=== PATIENT | male | born 1935 | race Caucasian/White ===

== ENCOUNTER 2017-05-01 09:19 | Inpatient (IN) | payer OTHER ==
[2017-05-01] MEDS ORDERED: SODIUM CHLORIDE 1,000 ML IV STA ×3 (09:24→13:53)
[2017-05-01] MEDS ORDERED: PIPERACILLIN/TAZOB 4.5 GM/100 ML PRE-DOCKED IVPB ONE (09:27)
[2017-05-01] MEDS ORDERED: LEVOFLOXACIN 750 MG IVPB 150 ML IVPB ONE ×2 (09:27→09:56)
[2017-05-01] MEDS ORDERED: ACETAMINOPHEN 1000 MG/100 ML VIAL (NON FORMULARY) IVPB ONE (09:54)
--- NOTE | 2017-05-01 09:55 | PDOC ---
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 Resident had temperature 102.1 degrees yesterday on April 30, labs were performed chest x-ray performed. Chest x- ray demonstrated right-sided infiltrate and effusion. BUNs 103 Cr 1.7. Vancomycin and Zosyn were given as well as 500 mL for low blood pressure of 74/ 44 (by EMS) and the patient was sent to the ED here. Pt is a DNR. - Physicial Exam PE: 05/01/17 09:48 GENERAL: Nonverbal, ill-appearing, dry mucous membranes. HEAD: No signs of trauma EYES: PERRLA, EOMI, sclera anicteric, conjunctiva clear ENT: Auricles normal inspection, hearing grossly normal, nares patent, oropharynx clear without exudates. Trach without discharge or erythema. NECK: Normal ROM, supple, no lymphadenopathy, JVD, or masses LUNGS: Rales and diminished R base. HEART: Regular rate and rhythm, normal S1 and S2, no murmurs, rubs or gallops ABDOMEN: Soft, nontender, normoactive bowel sounds. No guarding, no rebound. No masses. PEG in place c/d/i with no drainage or erythema. EXTREMITIES: Normal range of motion, no edema. No clubbing or cyanosis. No cords, erythema, or tenderness NEUROLOGICAL: Cranial nerves II through XII grossly intact. Normal speech, normal gait SKIN: Warm, Dry, normal turgor, no rashes or lesions noted. - Critical Care Time Total Critical Care Time: 45 Critical Care Statement: The care of this patient involved high complexity decision making to prevent further life threatening deterioration of the patient 's condition and/or to evaluate & treat vital organ system(s) failure or risk of failure. - Medical Decision Making 05/01/17 09:49 81 year old male c/ HCAP PNA. Hypotensive and febrile. Concerning for septic shock. Aggressive IVF and antibiotics. I agree with resident workup and plan. Pt is DNR. Will admit patient with low threshold admit to ICU. 05/01/17 12:57 CBC, BMP 05/01/17 09:40 05/01/17 09:40 CMP Sodium 146 mmol/L (136-145) H 05/01/17 09:40 Potassium 4.6 mmol/L (3.5-5.1) D 05/01/17 09:40 Chloride 109 mmol/L (98-107) H 05/01/17 09:40 Carbon Dioxide 28 mmol/L (21-32) 05/01/17 09:40 Anion Gap 9 (8-16) 05/01/17 09:40 BUN 124 mg/dL (7-18) H* D 05/01/17 09:40 Creatinine 2.3 mg/dL (0.7-1.3) H D 05/01/17 09:40 Creat Clearance w eGFR 27.57 (>60) 05/01/17 09:40 Random Glucose 172 mg/dL (74-106) H 05/01/17 09:40 Lactic Acid 1.1 mmol/L (0.4-2.0) 05/01/17 09:40 Calcium 8.0 mg/dL (8.5-10.1) L 05/01/17 09:40 Total Bilirubin 0.3 mg/dL (0.2-1.0) D 05/01/17 09:40 AST 11 U/L (15-37) L D 05/01/17 09:40 ALT 16 U/L (12-78) D 05/01/17 09:40 Alkaline Phosphatase 55 U/L (45-117) D 05/01/17 09:40 Creatine Kinase 29 IU/L (39-308) L 05/01/17 09:40 Troponin I 0.03 ng/ml (0.00-0.05) 05/01/17 09:40 Total Protein 6.3 g/dl (6.4-8.2) L 05/01/17 09:40 Albumin 2.1 g/dl (3.4-5.0) L D 05/01/17 09:40 Labs notable. Acute renal failure with very elevated BUN Pt given 3L of IVF but remains hypotensive to 70s/30s. Dr. Dodd had contacted the patient's son Oswald, who requests central line placement. With the patient's son consent (HCP), an initial attempt was placed in left femoral vein but unable to guide the wire into left femoral vein. After initial attempt, decision was made to go to right femoral vein. Under sterile field and ultrasound guidance, a triple lumen catheter was placed in the right femoral vein on first attempt Levophed was ordered. Chest xray demonstrates R sided PNA. Pt's and son informed of grave condition. Will admit to ICU. Heart Score/ECG Review #1 ECG reviewed & interpreted by me at: 10:00 05/01/17 10:11 NSR 88 incomplete RBBB, TWI III, QTC 462 msec. no std/sunny
[2017-05-01] MEDS ORDERED: PIPERACILLIN/TAZOB 4.5 GM 100 ML IVPB ONE (09:56)
[2017-05-01] MEDS ORDERED: VANCOMYCIN 1 GRAM (PRE-DOCKED) 250 ML IVPB ONE (09:56)
[2017-05-01] MEDS ORDERED: VANCOMYCIN 1,000 MG in DEXTROSE 5%-WATER - 250 ML IVPB SCH (10:00)
[2017-05-01 10:01] LABS: VENOUS BLOOD GAS HCO3 27.5 meq/L (19-25)
[2017-05-01 10:02] LABS: VENOUS PH 7.29 (7.32-7.42)
[2017-05-01] MEDS ORDERED: ALBUTEROL SO4 2.5/IPRATROPIUM 0.5 INH SOL 3 ML VIAL.NEB. NEB ONE ×2 (10:05→10:19)
[2017-05-01] MEDS ORDERED: ACETAMINOPHEN INJECTION 100 ML IVPB ONE (10:05)
[2017-05-01] MEDS ORDERED: methylPREDNISolone NA SUCC 125 MG/2 ML VIAL ONE (10:06)
[2017-05-01 10:07] LABS: BASOPHIL 0.2 % (0-2.0); MCH 30.6 pg (25.7-33.7); MCHC 32.7 g/dl (32.0-35.9); MEAN CELL VOLUME 93.6 fl (80-96); MEAN PLT VOLUME 8.6 fl (7.5-11.1); NEUTROPHILS 80.6 % (42.8-82.8); PLATELET COUNT 134 K/MM3 (134-434); RDW 14.1 % (11.9-15.9); WHITE BLOOD COUNT 10.9 K/mm3 (4.0-10.0)
--- NOTE | 2017-05-01 10:13 | PDOC ---
History of Present Illness - General Stated Complaint: Blood Pressure Problem Time Seen by Provider: 05/01/17 09:23 History Source: Retirement Records Exam Limitations: Clinical Condition - History of Present Illness Initial Comments: 05/01/17 09:55 Patient is a 81M with history of COPD, chronic resp failure s/p trach, g-tube, T2DM and afib here today with sepsis from a fdc. Per records, he spiked a fever to 102. Chest x-ray showed a right sided infiltrate and pleural effusion. Labs showed a BUN of 106 and a Cr of 1.7. Was given 1 dose of vanc at 05/01/17 at 9p. Was given zosyn this morning at 6am. No tylenol was given today. Patient is non-communicative. Past History - Past Medical History Allergies/Adverse Reactions: Allergies Allergy/AdvReac Type Severity Reaction Status Date / Time No Known Allergies Allergy Verified 05/01/17 10:25 Home Medications: Ambulatory Orders 4.5G/100mL Piperac'n/Tazo./D5W [Zosyn 4.5 Gm Pre-Mix Bag] 4.5 gm IV DAILY Acetaminophen W/ Codeine #3 [Tylenol # 3 -] 1 tab GT Q6H PRN 05/01/17 Acetaminophen W/ Codeine #3 [Tylenol # 3 -] 1 tab PO Q4H 05/01/17 Albuterol 0.083% Nebulizer Isis [Ventolin 0.083% Nebulizer Soln -] 1 neb NEB Q6H PRN 05/01/17 Amino Acids/Protein Hydrolys [Pro-Stat Awc Liquid] 30 ml GT DAILY 05/01/17 Carvedilol [Coreg] 6.25 mg GT BID 05/01/17 Diltiazem [Cardizem -] 30 mg GT Q8H 05/01/17 Ferrous Sulfate 7.5 ml GT DAILY 05/01/17 Furosemide 20 mg GT DAILY 05/01/17 Hypromellose 0.5% Opth Soln [Artificial Tears] 1 drop OU TID 05/01/17 Ipratropium 0.02% Nebulizer [Atrovent 0.02% Nebulizer -] 1 amp NEB Q6H PRN 05/01 Lactobacillus Acidophilus [Bacid -] 1 each GT Q12H 05/01/17 Lactulose 10 gm GT HS 05/01/17 Lisinopril [Zestril] 2.5 mg GT DAILY 05/01/17 Potassium Chloride 10 meq GT DAILY 05/01/17 Ranitidine [Zantac -] 150 mg GT DAILY 05/01/17 Sennosides [Senna] 2 tab GT HS 05/01/17 Sertraline HCl [Zoloft -] 50 mg GT DAILY 05/01/17 Ursodiol 250 mg GT Q8H 05/01/17 Anemia: Yes Asthma: No Cancer: No Cardiac Disorders: Yes (atrial fibrillation) CVA: Yes COPD: No (respiratory distress, on vent dependent.) CHF: No Dementia: No Diabetes: Yes GI Disorders: Yes Disorders: No HTN: Yes Hypercholesterolemia: No Liver Disease: Yes Seizures: No Thyroid Disease: No - Surgical History Abdominal Surgery: No Appendectomy: Yes (1963) Cardiac Surgery: No Cholecystectomy: No GI Surgery: Yes (PEG tube) Lung Surgery: No Neurologic Surgery: No Orthopedic Surgery: No - Immunization History Immunization Up to Date: Yes - Psycho/Social/Smoking Cessation Hx Anxiety: No Suicidal Ideation: No Smoking Status: No Smoking History: Unknown if ever smoked Have you smoked in the past 12 months: No Number of Cigarettes Smoked Daily: 0 Hx Alcohol Use: No Drug/Substance Use Hx: No Substance Use Type: None Hx Substance Use Treatment: No Review of Systems - Review of Systems Able to Perform ROS?: No *Physical Exam - Physical Exam Comments: 05/01/17 10:13 GENERAL: Awake, non-communicative, ventilated HEAD: No signs of trauma, normocephalic, atraumatic EYES: PERRLA, EOMI, sclera anicteric, conjunctiva clear ENT: Auricles normal inspection, hearing grossly normal, nares patent, oropharynx clear without exudates. Dry mucosa LUNGS: On ventilator, decreased breath sounds on right side HEART: Regular rate and rhythm, normal S1 and S2, no murmurs, rubs or gallops ABDOMEN: Soft, normoactive bowel sounds. No guarding, no rebound. No masses EXTREMITIES: Normal inspection, Normal range of motion, no edema. Bilateral lower extremity cyanosis SKIN: Warm, Dry, no rashes or lesions noted. Repeat PE for Septic Shock - Vital Signs Vital Signs: Vital Signs Temperature 99.5 F 05/01/17 13:38 Pulse Rate 72 05/01/17 13:49 Respiratory Rate 18 05/01/17 13:49 Blood Pressure 93/51 05/01/17 13:49 O2 Sat by Pulse Oximetry (%) 98 05/01/17 13:49 I have reviewed the most recent vital signs: Yes - PE CV for Spetic Shock: Regular Rhythm, Regular Rate, S1, S2 Lungs: Other (Decreased breath sounds on right side) Vascular: Left Radial: 2+, Right Radial: 2+, Left Doralis Pedis: 1+, Right Dorsalis Pedis: 1+ Capillary Refill: <3 seconds Skin exam: Cyanotic - Impression Impression: Vasopressors not indicated, pt still hypovolemic (Cyanotic lower exremities) ED Treatment Course - LABORATORY CBC & Chemistry Diagram: 05/01/17 09:40 05/01/17 09:40 - RADIOLOGY Radiology Studies Ordered: Category Date Time Status CHEST X-RAY PORTABLE* [RAD] Stat Radiology 05/01/17 09:24 Ordered Medical Decision Making - Medical Decision Making 05/01/17 10:16 81M ventilated patient with history of COPD, DM, and g-tube here today from a fdc with sepsis. Source is suspected to be pneumonia. Will do full septic workup. Will treat with vanc and levofloxacin, last zosyn dose given this morning. Will give 1L fluids. Patient is DNR. EKG shows normal sinus rhythm, normal rate, incomplete RBBB (QRS 116), no st elevations 05/01/17 12:56 Patient has been persistently hypotensive after fluid challenge. R femoral line placed. Will start levophed drip. Laboratory Tests 05/01/17 05/01/17 05/01/17 09:40 09:40 09:40 WBC 10.9 H Hgb 7.9 L D Hct 24.1 L D Plt Count 134 D INR 1.36 H PTT (Actin FS) 36.2 H VBG pH POC VBG pCO2 POC VBG pO2 Mixed VBG HCO3 BUN 124 H* D Creatinine 2.3 H D 05/01/17 09:57 WBC Hgb Hct Plt Count INR PTT (Actin FS) VBG pH 7.29 L POC VBG pCO2 58.7 H POC VBG pO2 48.3 H Mixed VBG HCO3 27.5 H BUN Creatinine CBC shows white count. Coags show elevated PTT and INR. Kidney function is poor with BUN 124 and Cr 2.3. Will admit to ICU. 05/01/17 13:14 ICU accepted admission by Dr Reyes 05/01/17 18:03 Admitted to medicine under Dr Ying *DC/Admit/Observation/Transfer Diagnosis at time of Disposition: Sepsis - Discharge Dispostion Condition at time of disposition: Critical Admit: Yes
[2017-05-01] MEDS ORDERED: methylPREDNISolone NA SUCC 125 MG/2 ML VIAL IVPB ONE (10:19)
[2017-05-01 10:20] LABS: INR 1.36 (0.82-1.09); PROTHROMBIN TIME (PATIENT) 15.1 SEC (9.98-11.88)
[2017-05-01 10:23] LABS: ACTIVATED PTT 36.2 SECONDS (26.9-34.4)
[2017-05-01 10:29] VITALS: BMI 27.9
[2017-05-01 10:37] LABS: ALBUMIN 2.1 g/dl (3.4-5.0); ANION GAP 9 (8-16); BILIRUBIN,TOTAL 0.3 mg/dL (0.2-1.0); CO2 28 mmol/L (21-32); CREATININE 2.3 mg/dL (0.7-1.3); GLUCOSE,RANDOM 172 mg/dL (74-106); SGOT/AST 11 U/L (15-37); SGPT/ALT 16 U/L (12-78); TOT PROT 6.3 g/dl (6.4-8.2)
[2017-05-01 10:40] LABS: ALK PHOS 55 U/L (45-117); CPK 29 IU/L (39-308); TROPONIN I 0.03 ng/ml (0.00-0.05)
--- NOTE | 2017-05-01 11:15 | EKG ---
Test Reason : Blood Pressure : / mmHG Vent. Rate : 088 BPM Atrial Rate : 088 BPM P-R Int : 150 ms QRS Dur : 116 ms QT Int : 382 ms P-R-T Axes : 013 -25 012 degrees QTc Int : 462 ms NORMAL SINUS RHYTHM COMPLETE RBBB AND LEFT ANTERIOR HEMIBLOCK BORDERLINE ECG WHEN COMPARED WITH ECG OF 14-NOV-2014 09:53, NO MAJOR CHANGE SEEN. CLINICAL CORRELATION IS RECOMMENDED Confirmed by NOELLE VALLEJO MD ([id number]) on 05/01/2017 11:15:26 AM Referred By: Confirmed By:NOELLE VALLEJO MD
[2017-05-01] MEDS ORDERED: NOREPINEPHRINE BITARTRATE 4 MG/4 ML ML IV ONE ×2 (12:42→13:28)
[2017-05-01] MEDS: NOREPINEPHRINE BITARTRATE 4,000 MCG in DEXTROSE 5%-WATER - 496 ML IV SCH (13:37)
[2017-05-01] MEDS ORDERED: INSULIN SLIDING SCALE (NOVOLOG) 1 VIAL SQ SCH (13:45)
--- NOTE | 2017-05-01 14:12 | HP ---
CHIEF COMPLAINT: Fever PCP: Dr. Carmona HISTORY OF PRESENT ILLNESS: The patient is a 81 yo m w/ PMH afib, htn, COPD, DM who presents from retirement c/o fever to 102. He received 1 dose of vancomycin yesterday evening and 1 dose of zonsyn this morning. Per retirement records he is nonverbal at baseline. He has had multiple previous admissions in the past for pneumonia, Respiratory failure and sepsis. Patient's pressure low despite 1.5L in ED ER course was notable for: (1) CXR showing right sided infiltrate and pleural effusions (2) vanc, zosyn, levaquin at [facility] (3) s/p femoral central line insertion; now on levophed Recent Travel: none PAST MEDICAL HISTORY: -see above PAST SURGICAL HISTORY: appendectomy Social History: unable to obtain secondary to patient's clinical status Family History: unable to obtain Allergies No Known Allergies Allergy (Verified 05/01/17 10:25) HOME MEDICATIONS: Home Medications Medication Instructions Recorded 4.5G/100mL Piperac'n/Tazo./D5W 4.5 gm IV DAILY 05/01/17 [Zosyn 4.5 Gm Pre-Mix Bag] Acetaminophen W/ Codeine #3 1 tab PO Q4H 05/01/17 [Tylenol # 3 -] Albuterol Sulfate [Ventolin -] 2 mg PO TID 05/01/17 Amino Acids/Protein Hydrolys 887 ml PO DAILY 05/01/17 [Pro-Stat Awc Liquid] Carvedilol [Coreg] 6.25 mg PO BID 05/01/17 Diltiazem [Cardizem -] 30 mg PO TID 05/01/17 Ferrous Sulfate 220 mg PO DAILY 05/01/17 Furosemide 20 mg PO DAILY 05/01/17 Hypromellose 0.5% Opth Soln 1 drop DAILY 05/01/17 [Artificial Tears] Ipratropium Tamms 0.2 mg IH ASDIR 05/01/17 Lactobacillus Acidophilus [Bacid -] 1 each PO DAILY 05/01/17 Lactulose 10 gm PO HS 05/01/17 Lisinopril [Zestril] 2.5 mg PO DAILY 05/01/17 Potassium Chloride 10 meq PO DAILY 05/01/17 Ranitidine [Zantac -] 150 mg PO DAILY 05/01/17 Sennosides [Senna] 8.6 mg PO HS 05/01/17 Sertraline HCl [Zoloft -] 50 mg PO DAILY 05/01/17 Ursodiol 250 mg PO DAILY 05/01/17 Vancomycin [Vancocin] 1,250 mg IV DAILY 05/01/17 REVIEW OF SYSTEMS unable to obtain secondary to patient's clinical status PHYSICAL EXAMINATION Vital Signs - 24 hr 05/01/17 05/01/17 13:38 13:49 Temperature 99.5 F Pulse Rate [ 72 Left] Respiratory 18 Rate Blood Pressure 93/51 [Arm] O2 Sat by Pulse 98 Oximetry (%) Vent settings: 50%FIO2, Rate 16, PEEP 5, TV 500 GENERAL: Patient trached and ventilator dependant. In mild respiratory distress. Able to open eyes and follow simple commands. HEAD: Normal with no signs of trauma. EYES: difficult to assess secondary to clinical status NECK: Normal range of motion, no JVD. LUNGS: Breath sounds equal, Ronchi heard in all lung rachel. No accessory muscle use. HEART: Regular rate and rhythm, normal S1 and S2 without murmur, rub or gallop. ABDOMEN: Soft, not distended, normoactive bowel sounds, no guarding, no rebound. Patient grimaces in response to abdominal palpation MUSCULOSKELETAL: unable to perform due to patient's clinical status UPPER EXTREMITIES: 2+ pulses, warm, well-perfused. No cyanosis. No clubbing. No peripheral edema. LOWER EXTREMITIES: 2+ pulses, warm, well-perfused. No peripheral edema. Patient grimaces on palpation of any area of either leg NEUROLOGICAL: unable to perform due to clinical status SKIN: Warm, dry, decreased skin turgor, chronic changes noted over both lower extremities with flaking of the feet, no open wounds. normal capillary refill. ASSESSMENT/PLAN: 81 yo m w/PMH COPD, DM, Afib presents with retirement due to fever. #Septic shock 2/2 VAP vs other source -Admit to ICU -IVF -patient received a dose of vancomycin, zosyn and levaquin at retirement -CXR shows RUL infiltrate and left sided pleural effusions -ID Consult: Dr. Martinez -Levophed for pressure support -Bcx, ucx, sputum cx sent -KUB shows fecal impaction #CKD -BUN 124, Cr. 2.3 -IVF -repeat Cr. in AM, monitor #Diabetes mellitus -BGMs Q4 -ISS Q4 #s/p PEG tube -Hold feeds -no overt signs of infection #normocytic anemia likely 2/2 CKD -repeat cbc Q8h -transfuse as per protocol #FEN -NS @ 125 -monitor lytes -NPO #Prophylaxsis -SCDs -no indication for GI prophylaxsis #dispo -admit to ICU Problem List - Problem (1) Anemia Code(s): D64.9 - ANEMIA, UNSPECIFIED (2) Acute kidney failure Code(s): N17.9 - ACUTE KIDNEY FAILURE, UNSPECIFIED (3) Diabetes mellitus Code(s): E11.9 - TYPE 2 DIABETES MELLITUS WITHOUT COMPLICATIONS (4) Pneumonia Code(s): J18.9 - PNEUMONIA, UNSPECIFIED ORGANISM (5) Shock Code(s): R57.9 - SHOCK, UNSPECIFIED Visit type - Emergency Visit Emergency Visit: Yes ED Registration Date: 05/01/17 Care time: The patient presented to the Emergency Department on the above date and was hospitalized for further evaluation of their emergent condition. - New Patient This patient is new to me today: Yes Date on this admission: 05/01/17 - Critical Care Critical Care patient: Yes Total Critical Care Time (in minutes): 60 Critical Care Statement: The care of this patient involved high complexity decision making to prevent further life threatening deterioration of the patient 's condition and/or to evaluate & treat vital organ system(s) failure or risk of failure.
--- NOTE | 2017-05-01 14:15 | HP ---
Admitting History and Physical - Primary Care Physician PCP: Jaylin Carmona - Admission Chief Complaint: Fever History of Present Illness: Briefly, 81 yo M h/o HTN, DM, HLD, PAF, CVA, DVT s/p IVC filter 2014, AMIE, PNA, morbid obesity, chronic resp failure s/p trach and ventilator dependent, non- verbal at baseline [facility] for [facility] of 102F. [facility] at prison, patient received vanco, zosyn, levaquin and 500ml bolus of NS. Sepsis workup was done in ED. However, blood pressure remains low in the ED despite 1.5L NS given. As a result, central line was inserted via femoral and levophed was started. 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 No: Aneurysm Pulmonary: Yes: COPD, O2 Dependent, Pneumonia, Previously Intubated, Other ( Obesity hypoventrilation, chronic respiratory failure). No: Pulmonary Embolus, Pulmonary Fibrosis Hepatobiliary: Yes: Cholecystitis Renal/: Yes: Renal Failure Musculoskeletal: Yes: Osteoarthritis, Other (Gout for long time on allopurinol) Rheumatology: Yes: Gout, Lupus, Rheumatoid Arthritis ENT: Yes: Sinusitis. No: Other Endocrine: Yes: Diabetes Mellitus - Past Surgical History Past Surgical History: Yes: Appendectomy - Smoking History Smoking history: Unknown if ever smoked Have you smoked in the past 12 months: No Aproximately how many cigarettes per day: 0 - Alcohol/Substance Use Hx Alcohol Use: No History of Substance Use: reports: None - Social History ADL: Support Services History of Recent Travel: No Home Medications - Allergies Allergies/Adverse Reactions: Allergies Allergy/AdvReac Type Severity Reaction Status Date / Time No Known Allergies Allergy Verified 05/01/17 10:25 - Home Medications Home Medications: Ambulatory Orders 4.5G/100mL Piperac'n/Tazo./D5W [Zosyn 4.5 Gm Pre-Mix Bag] 4.5 gm IV DAILY Acetaminophen W/ Codeine #3 [Tylenol # 3 -] 1 tab GT Q6H PRN 05/01/17 Acetaminophen W/ Codeine #3 [Tylenol # 3 -] 1 tab PO Q4H 05/01/17 Albuterol 0.083% Nebulizer Isis [Ventolin 0.083% Nebulizer Soln -] 1 neb NEB Q6H PRN 05/01/17 Amino Acids/Protein Hydrolys [Pro-Stat Awc Liquid] 30 ml GT DAILY 05/01/17 Carvedilol [Coreg] 6.25 mg GT BID 05/01/17 Diltiazem [Cardizem -] 30 mg GT Q8H 05/01/17 Ferrous Sulfate 7.5 ml GT DAILY 05/01/17 Furosemide 20 mg GT DAILY 05/01/17 Hypromellose 0.5% Opth Soln [Artificial Tears] 1 drop OU TID 05/01/17 Ipratropium 0.02% Nebulizer [Atrovent 0.02% Nebulizer -] 1 amp NEB Q6H PRN 05/01 Lactobacillus Acidophilus [Bacid -] 1 each GT Q12H 05/01/17 Lactulose 10 gm GT HS 05/01/17 Lisinopril [Zestril] 2.5 mg GT DAILY 05/01/17 Potassium Chloride 10 meq GT DAILY 05/01/17 Ranitidine [Zantac -] 150 mg GT DAILY 05/01/17 Sennosides [Senna] 2 tab GT HS 05/01/17 Sertraline HCl [Zoloft -] 50 mg GT DAILY 05/01/17 Ursodiol 250 mg GT Q8H 05/01/17 Review of Systems Unable to obtain ROS, reason: non-verbal at baseline Physical Examination Vital Signs: Vital Signs Temperature 99.5 F 05/01/17 13:38 Pulse Rate 72 05/01/17 13:49 Respiratory Rate 18 05/01/17 13:49 Blood Pressure 93/51 05/01/17 13:49 O2 Sat by Pulse Oximetry (%) 98 05/01/17 13:49 Constitutional: Yes: Diaphoresis, Mild Distress, Obese, Other (Non-verbal, arousable, respond to painful stimuli, follow basic commands, trached and vented ) Eyes: Yes: Other (refuses to open eyes) HENT: Yes: Thrush Cardiovascular: Yes: Bradycardia, S1, S2. No: Murmur Respiratory: Yes: Mechanically Ventilated, Rales Gastrointestinal: Yes: Abdomen, Obese, Hypoactive Bowel Sounds, Tenderness ( diffusely) Renal/: Yes: Other ([place]as catheter with leg bag with bloody dicharger) Extremities: Yes: Deformity, Other (warm) Edema: No Peripheral Pulses WNL: Yes Integumentary: Yes: Venous Stasis Changes (b/l LE) Imaging - Results Chest X-ray: Report Reviewed, Image Reviewed EKG: Report Reviewed, Image Reviewed Assessment/Plan 81 yo M h/o HTN, DM, HLD, PAF, CVA, DVT s/p IVC filter 2013, AMIE, PNA, morbid obesity, chronic resp failure s/p trach and ventilator dependent, non-verbal at baseline admitted to MICU for septic shock. ID: Septic shock - Likely 2/2 ventilator associated pneumonia - Cont. fluid resuscitation - f/u all cultures - Received vanco, zosyn and levaquin in ED * ID consult - Cont. pressor to maintain MAP > 65 * consider hydrocortisone if unresponsive to fluid resuscitation Renal: Elevated BUN in the setting of CKD - Likely 2/2 hypovolemia - Cr at baseline - Cont. hydration and monitor Pulmonary: Chronic respiratory failure; COPD - Trached on mechanical ventilation - Cont. ventolin and atrovent - Maintain O2 sat > 92% GI: s/p G-tube; diffuse abd pain - No sign of infection - KUB shows impaction * fecal disimpaction or enema - Hold off feeding Hemonc: Normocytic anemia - 2/2 Chronic kidney disease - At baseline Cardio: HTN and Paroxysmal AFib - Rate and rhythm controlled - Hypotensive * Hold lasix, lisinopril and cardizem Endo: DM - ISSS - BGM Q4H Psych: Depression - Cont Zoloft F/E/N: - IV bolus + standing IVF 125cc/hr - Mild hypernatremia, cont. to monitor - Hold tube feed, was on Jevity 1.2 PPx - DVT: SCDs - GI: on famotidine Dispo - DNR - Cont. MICU monitoring Kadeem Jose PGY2 Pager: [phone] Visit type - Emergency Visit Emergency Visit: Yes ED Registration Date: 05/01/17 Care time: The patient presented to the Emergency Department on the above date and was hospitalized for further evaluation of their emergent condition. - New Patient This patient is new to me today: Yes Date on this admission: 05/01/17 - Critical Care Critical Care patient: Yes Total Critical Care Time (in minutes): 35 Critical Care Statement: The care of this patient involved high complexity decision making to prevent further life threatening deterioration of the patient 's condition and/or to evaluate & treat vital organ system(s) failure or risk of failure.
--- NOTE | 2017-05-01 14:34 | PN ---
Teaching Attending Note Name of Resident: Faizan Landeros ATTENDING PHYSICIAN STATEMENT I saw and evaluated the patient. I reviewed the resident's note and discussed the case with the resident. I agree with the resident's findings and plan as documented. SUBJECTIVE: This is a 81 year old man with a history of COPD, obesity hypoventilation syndrome, AMIE, ventilator-dependent chronic hypoxic respiratory failure, tracheostomy, PEG, type 2 DM, HTN, hyperlipidemia, PAF, DVT, IVC filter , CVA who was sent to the ER from [facility]. Yesterday, he had temp 102.1. Chest x-ray showed a right infiltrate and effusion. EMS found him to be hypotensive (BP 74/44) and he was given IVF. The patient is non- communicative. OBJECTIVE: Vital Signs Period Temp Pulse Resp BP Sys/Mayorga Pulse Ox Last 24 Hr 99.5 F-100.9 F 72-95 16-27 60-93/38-55 98-100 GENERAL: On vent via trach. Appears comfortable. HEART: S1S2, RRR LUNGS: Rhonchi at right base ABDOMEN: Soft, non-distended, normal BS, PEG site clean EXTREMITIES: Trace edema ASSESSMENT AND PLAN: This is a 81 year old man with a history of COPD, obesity hypoventilation syndrome, AMIE, ventilator-dependent chronic hypoxic respiratory failure, tracheostomy, PEG, type 2 DM, HTN, hyperlipidemia, PAF, DVT, IVC filter, CVA who came to the ER from [facility] for fever, abnormal CXR and hypotension. 1. Severe sepsis secondary to ventilator-associated pneumonia - Zosyn, Levaquin, Vancomycin given in ER - ID consult - IV fluid - Levophed started in ER 2. Acute kidney injury secondary to hypotension, sepsis - IV fluid - Hold Lisinopril, Lasix - Monitor BUN, creatinine 3. Stage 3 CKD - Last available creatinine is 1.6 from 10/2014 4. Hypernatremia secondary to hypovolemia - IV fluid - Hold Lasix - Monitor electrolytes 5. Anemia - Likely secondary to chronic illness - R/O upper GI bleed with high BUN - Monitor hemoglobin - Stool occult blood 6. Chronic hypoxic respiratory failure - Maintain vent support 7. COPD 8. Obstructive sleep apnea 9. Obesity hypoventilation syndrome 10. Hypertension - Hold Lisinopril, Cardizem, Coreg, Lasix secondary to hypotension 11. Type 2 diabetes mellitus - Fingersticks with Novolog sliding scale 12. Paroxysmal atrial fibrillation - Currently in sinus rhythm 13. DVT prophylaxis - SCDs - No anticoagulation secondary to possible bleeding 14. Stress ulcer prophylaxis - Continue Zantac
--- NOTE | 2017-05-01 15:39 | PN ---
Progress Note (short form) - Note Progress Note: ID consult dictated imp/reccd 81 year old man with respiratory failure s/p trach 2013, admitted [place] with fever 102 at [place] 04/30 he had a cxray done showing right sided infiltrate with effusion and he was started on vancomycin and zosyn today he was sent to the ED- hypotension/SUE noted he received fluids with continued low BP and was started on Levophed cxray with RUL infiltrate and possible right effusion now more awake, grimacing sepsis pneumonia ([place])- last at [facility] in 2014! SUE- ?urinary retention- bloody urine in [place] catheter received vancomycin and levaquin in ED anemia chronic respiratory failure suggest blood cultures sputum cultures ua and urine culture bladder scan/renal sonogram urinary antigens for pneumonia check vancomycin level in am continue zosyn add zithromax- can start in am, he got levaquin today adjust antibiotic doses for SUE over 40 minutes spent in the care of this critically ill ICU patient Problem List - Problems (1) Sepsis - Septicemia Code(s): A41.9 - SEPSIS, UNSPECIFIED ORGANISM (2) Pneumonia Code(s): J18.9 - PNEUMONIA, UNSPECIFIED ORGANISM (3) Acute kidney failure Code(s): N17.9 - ACUTE KIDNEY FAILURE, UNSPECIFIED (4) Anemia Code(s): D64.9 - ANEMIA, UNSPECIFIED (5) Chronic respiratory failure Code(s): J96.10 - CHRONIC RESPIRATORY FAILURE, UNSP W HYPOXIA OR HYPERCAPNIA
--- NOTE | 2017-05-01 16:33 | CONS ---
INFECTIOUS DISEASE CONSULTATION DATE OF CONSULTATION: 05/01/2017 REQUESTING PHYSICIAN: The hospitalist service. HISTORY OF PRESENT ILLNESS: This is a 81-year-old man. He resides at the [facility]. He has a history of chronic respiratory failure. He had tracheostomy in 2013. History of prior pneumonia. Last hospitalized at [facility] in 2014, who yesterday developed fever at the [facility] to 102. He had cultures and labs drawn there, as well as a chest x-ray that showed a right-sided infiltrate with effusion. He was started on vancomycin and Zosyn at the [facility]. Labs today were notable at the [facility] for worsening renal function, and he was sent to the emergency room where he was noted to be hypotensive. He received fluid boluses with continued low blood pressure, and he was started on Levophed and transferred to the ICU. He was apparently unresponsive in the ER and is currently waking up. He is grimacing when moved, and he is starting to respond. PAST MEDICAL HISTORY: Notable for a history of prior pneumonia as he has a history of cellulitis, morbid obesity. He has had a CVA in the past, DVT, acute cholecystitis managed by a cholecystostomy tube, history of atrial fibrillation, anemia, and gout. He has a history of appendectomy, tracheostomy in 2013, and he has a PEG tube. He has an IVC filter in place as well. FAMILY HISTORY: Not available. SOCIAL HISTORY: It is unknown if he ever smoked. ALLERGIES: He has no known drug allergies. CURRENT MEDICATIONS: At the [facility] include the vancomycin and Zosyn that were started yesterday, as well as Tylenol with codeine, albuterol nebulizer solution, Pro-Stat, Coreg, Cardizem, ferrous sulfate, furosemide, Atrovent nebulizer, Bacid, lactulose, lisinopril, potassium, Zantac, senna, Zoloft, and Ursodiol. REVIEW OF SYSTEMS: Per the records are notable for the fact that he had fever and was transferred for the fever. PHYSICAL EXAMINATION: Vital Signs: He had temperature of 100.9 in the emergency room. Current temperature 99.5. His blood pressure was as low as 60/38, currently 93/51, with a pulse of 72. He is ventilated via his tracheostomy on a FiO2 of 50%. He is saturating 98%. HEENT: He is normocephalic. The eyes are anicteric. His mouth: He does not want to open his mouth. He appears to have dry oral mucosa. Neck: He has his tracheostomy in place. Lungs: Bilateral crackles, right greater than left. Heart: Regular rate and rhythm. Abdomen: Soft. G-tube site is clean. He has suprapubic fullness and discomfort on exam. He has a [place] catheter with some blood-tinged urine. Extremities: Without edema. He has bilateral foot drop. He currently has a right femoral central line in place. Sacrum: He has no sacral skin breakdown. LABORATORY DATA: Labs are notable for a white count of 10.9, hemoglobin 7.9, platelets are 134. BUN is 124 and creatinine 2.3, with normal LFTs. CK is 29, and albumin is 2.1. Chest x-ray reveals a right upper lobe infiltrate with elevated right hemidiaphragm and questionable right pleural effusion. In summary, this is a 81-year-old man with sepsis secondary most likely to pneumonia, acute kidney injury, possible urinary retention, anemia, and chronic respiratory failure. I would suggest we obtain cultures, blood, sputum, and urine, as well as a UA. Would obtain a bladder scan as I suspect he may be retaining given his suprapubic discomfort. Urinary antigens for pneumoniae. Would check a vancomycin level in the morning as he received vancomycin in the emergency room. Would continue Zosyn, adjust it for his renal insufficiency. Would add Zithromax, would start in the morning as he had Levaquin today in the emergency room. Would adjust all his antibiotic doses for acute kidney injury. Over 40 minutes was spent in the care of this critically ill, ICU patient. ANYA MELENDREZ M.D. [id number]
[2017-05-01] MEDS: PIPERACILLIN/TAZOB 3.375 GM/50 ML PRE-DOCKED IVPB SCH (16:37)
[2017-05-01] MEDS: SODIUM CHLORIDE 1,000 ML IV SCH (16:38)
[2017-05-01] MEDS ORDERED: HEMOQUE TEST 1 EACH EACH ONE (16:55)
[2017-05-01] MEDS: INSULIN SLIDING SCALE (NOVOLOG) 1 VIAL SQ SCH ×3 (17:03→23:06)
[2017-05-01 17:07] LABS: URINE APPEARANCE CLOUDY; URINE BILIRUBIN NEGATIVE (NEGATIVE); URINE BLOOD 2+ (NEGATIVE); URINE COLOR RED; URINE GLUCOSE (UA) NEGATIVE (NEGATIVE); URINE KETONE NEGATIVE (NEGATIVE); URINE NITRITE NEGATIVE (NEGATIVE); URINE UROBILINOGEN NEGATIVE mg/dL (0.2-1.0)
[2017-05-01 17:14] LABS: URINE PROTEIN 2+ (NEGATIVE)
[2017-05-01 17:43] LABS: URINE RBC 5578 /hpf (0-3); URINE WBC 21 /hpf (3-5)
[2017-05-01] MEDS ORDERED: INSULIN (NOVOLOG) ASPART 100 UNITS/ML 10ML VIAL ONE (19:21)
[2017-05-01 21:06] LABS: MCH 31.4 pg (25.7-33.7); MCHC 33.6 g/dl (32.0-35.9); MEAN CELL VOLUME 93.4 fl (80-96); MEAN PLT VOLUME 8.9 fl (7.5-11.1); PLATELET COUNT 129 K/MM3 (134-434); RDW 14.3 % (11.9-15.9); WHITE BLOOD COUNT 7.7 K/mm3 (4.0-10.0)
[2017-05-01] MEDS: MUPIROCIN 2% TOPICAL OINTMENT FOR DECOLONIZATION NS SCH (21:48)
[2017-05-01] MEDS: CHLORHEXIDINE GLUCONATE 4% CLEANSER FOR DECOLONIZATION TP SCH (21:48)
[2017-05-01] MEDS ORDERED: ALBUTEROL SO4 0.083% IH SOL 2.5 MG/3 ML VIAL.NEB. NEB PRN (22:30)
[2017-05-01] MEDS ORDERED: PATIENT'S OWN MEDICATION (NON-FORMULARY) (Ursodiol [Ursodiol] 250 MG) GT SCH (22:30)
[2017-05-01] MEDS ORDERED: IPRATROPIUM BR 0.02% 0.5 MG/2.5 ML VIAL.NEB. NEB PRN (22:30)
[2017-05-01] MEDS: LACTOBACILLUS ACIDOPHILUS 1 EACH TAB (FP) GT SCH (23:06)
[2017-05-02] MEDS ORDERED: PT OWN MED DRAWER 7, Y5N ONE ×2 (00:08→10:37)
[2017-05-02 01:23] LABS: MCHC 33.3 g/dl (32.0-35.9); MEAN CELL VOLUME 92.9 fl (80-96); PLATELET COUNT 125 K/MM3 (134-434); RDW 14.5 % (11.9-15.9); WHITE BLOOD COUNT 6.1 K/mm3 (4.0-10.0)
[2017-05-02] MEDS: PIPERACILLIN/TAZOB 3.375 GM/50 ML PRE-DOCKED IVPB SCH ×3 (01:37→18:21)
[2017-05-02] MEDS: SODIUM CHLORIDE 1,000 ML IV SCH ×3 (01:38→15:10)
[2017-05-02] MEDS: INSULIN SLIDING SCALE (NOVOLOG) 1 VIAL SQ SCH ×4 (03:02→18:32)
[2017-05-02] MEDS: ARTIFICIAL TEARS (POLYVINYL ALCOHOL 1.4%) OPTH DROPS OU SCH ×3 (05:50→22:03)
[2017-05-02 06:10] LABS: MCH 30.7 pg (25.7-33.7); MCHC 33.1 g/dl (32.0-35.9); MEAN CELL VOLUME 92.9 fl (80-96); NEUTROPHILS 86.2 % (42.8-82.8); PLATELET COUNT 137 K/MM3 (134-434); RDW 14.6 % (11.9-15.9)
[2017-05-02 06:25] LABS: INR 1.51 (0.82-1.09); PROTHROMBIN TIME (PATIENT) 16.7 SEC (9.98-11.88)
[2017-05-02 06:41] LABS: ALBUMIN 1.9 g/dl (3.4-5.0); ANION GAP 12 (8-16); CO2 22 mmol/L (21-32); GLUCOSE,RANDOM 156 mg/dL (74-106); MAGNESIUM 2.6 mg/dL (1.8-2.4); SGOT/AST 12 U/L (15-37)
[2017-05-02 06:43] LABS: ALK PHOS 44 U/L (45-117); BILIRUBIN,TOTAL 0.3 mg/dL (0.2-1.0); CREATININE 1.4 mg/dL (0.7-1.3); PHOSPHOROUS 3.5 mg/dL (2.5-4.9); SGPT/ALT 14 U/L (12-78); TOT PROT 5.5 g/dl (6.4-8.2)
--- NOTE | 2017-05-02 08:59 | PN ---
Physical Exam: SUBJECTIVE: Patient seen and examined by me this AM - Denies fever, SOB, cough, N/V, abdominal pain, lightheadness, dysuria, diarrhea, rashes. Complaining of unspecified pain in legs. - BPs improved overnight. Off pressors. - Voiding via [place] cath - WBC normalized. Afebrile, no tachypnea OBJECTIVE: Vital Signs Intake & Output 04/29/17 04/30/17 05/01/17 05/02/17 23:59 23:59 23:59 23:59 Intake Total 618.5 1872.5 Output Total 120 600 Balance 498.5 1272.5 Weight 81.3 kg 78.9 kg Period Temp Pulse Resp BP Sys/Mayorga Pulse Ox Last 24 Hr 97.9 F-99.5 F 72-88 14-21 89-119/51-76 98-100 GENERAL: The patient is awake, alert in no acute distress, laying in bed, vented w/ t-piece HEAD: Normal with no signs of trauma. EYES: PERRL, sclera anicteric, conjunctiva clear. No ptosis. ENT: Ears normal, nares patent, oropharynx clear without exudates, moist mucous membranes. NECK: Trachea midline, trach piece in place LUNGS: Mechanical breath sounds, diffuse rhonchi R>L. No wheezes, no crackles HEART: Regular rate and rhythm, S1, S2 without murmur, rub or gallop. ABDOMEN: Soft, slightly distended, hypoactive bowel sounds, mild pain on palpation in all four quandrant, mostly in LLQ, no guarding, no rebound, no hepatosplenomegaly, no masses. EXTREMITIES: 2+ pulses, warm, well-perfused, BL stasis dermatitis on anterior shins and feet. No edema NEUROLOGICAL: Cranial nerves II through XII grossly intact. Pt can follow simple commands. Difficult to assess MS as likely basline mild dementia and cannot vocalize w/ trach piece. BL sustained plantarflexion of feet/foot drop. 4 /5 strength in LEs. Contracted R hand, but preserved abstract maker strength bilaterally. 5/5 strength in UEs grossly. Laboratory Results - last 24 hr CBCD WBC 6.0 K/mm3 (4.0-10.0) 05/02/17 05:30 RBC 2.31 M/mm3 (4.00-5.60) L 05/02/17 05:30 Hgb 7.1 GM/dL (11.7-16.9) L 05/02/17 05:30 Hct 21.4 % (35.4-49) L 05/02/17 05:30 MCV 92.9 fl (80-96) 05/02/17 05:30 MCHC 33.1 g/dl (32.0-35.9) 05/02/17 05:30 RDW 14.6 % (11.9-15.9) 05/02/17 05:30 Plt Count 137 K/MM3 (134-434) 05/02/17 05:30 MPV 9.0 fl (7.5-11.1) D 05/02/17 05:30 CMP Sodium 152 mmol/L (136-145) H 05/02/17 05:30 Potassium 4.4 mmol/L (3.5-5.1) 05/02/17 05:30 Chloride 118 mmol/L (98-107) H 05/02/17 05:30 Carbon Dioxide 22 mmol/L (21-32) D 05/02/17 05:30 Anion Gap 12 (8-16) 05/02/17 05:30 BUN 88 mg/dL (7-18) H D 05/02/17 05:30 Creatinine 1.4 mg/dL (0.7-1.3) H D 05/02/17 05:30 Creat Clearance w eGFR 48.89 (>60) 05/02/17 05:30 Calcium 8.0 mg/dL (8.5-10.1) L 05/02/17 05:30 Total Bilirubin 0.3 mg/dL (0.2-1.0) 05/02/17 05:30 AST 12 U/L (15-37) L 05/02/17 05:30 ALT 14 U/L (12-78) 05/02/17 05:30 Alkaline Phosphatase 44 U/L (45-117) L 05/02/17 05:30 Total Protein 5.5 g/dl (6.4-8.2) L 05/02/17 05:30 Albumin 1.9 g/dl (3.4-5.0) L 05/02/17 05:30 05/01/17 05/01/17 05/01/17 09:40 09:40 09:40 WBC 10.9 H RBC 2.58 L Hgb 7.9 L D Hct 24.1 L D MCV 93.6 MCHC 32.7 RDW 14.1 Plt Count 134 D Neutrophils % 80.6 Lymphocytes % 12.6 Monocytes % 6.6 Eosinophils % 0.0 D Basophils % 0.2 INR 1.36 H Sodium 146 H Potassium 4.6 D Chloride 109 H Carbon Dioxide 28 Anion Gap 9 BUN 124 H* D Creatinine 2.3 H D Blood Type Antibody Screen 05/01/17 05/01/17 05/02/17 09:40 20:20 00:15 WBC 7.7 6.1 RBC 2.28 L 2.25 L Hgb 7.2 L 7.0 L Hct 21.3 L 20.9 L MCV 93.4 92.9 MCHC 33.6 33.3 RDW 14.3 14.5 Plt Count 129 L 125 L Neutrophils % Lymphocytes % Monocytes % Eosinophils % Basophils % INR Sodium Potassium Chloride Carbon Dioxide Anion Gap BUN Creatinine Blood Type A POSITIVE Antibody Screen Negative 05/02/17 05/02/17 05/02/17 05:30 05:30 05:30 WBC 6.0 RBC 2.31 L Hgb 7.1 L Hct 21.4 L MCV 92.9 MCHC 33.1 RDW 14.6 Plt Count 137 Neutrophils % 86.2 H Lymphocytes % 10.6 Monocytes % 3.2 L Eosinophils % 0.0 Basophils % 0.0 INR 1.51 H Sodium 152 H Potassium 4.4 Chloride 118 H Carbon Dioxide 22 D Anion Gap 12 BUN 88 H D Creatinine 1.4 H D Blood Type Antibody Screen 05/01/17 05/01/17 05/01/17 14:22 16:59 19:00 WBC RBC Hgb Hct MCV MCH MCHC RDW Plt Count MPV Neutrophils % Lymphocytes % Monocytes % Eosinophils % Basophils % INR Sodium Potassium Chloride Carbon Dioxide Anion Gap BUN Creatinine Creat Clearance w eGFR POC Glucometer 201.40614 261.50855 Random Glucose Lactic Acid 1.7 Calcium Phosphorus Magnesium Total Bilirubin AST ALT Alkaline Phosphatase Total Protein Albumin Urine Creatinine Random Vancomycin 05/01/17 05/01/17 05/01/17 19:17 20:08 20:20 WBC 7.7 RBC 2.28 L Hgb 7.2 L Hct 21.3 L MCV 93.4 MCH 31.4 MCHC 33.6 RDW 14.3 Plt Count 129 L MPV 8.9 Neutrophils % Lymphocytes % Monocytes % Eosinophils % Basophils % INR Sodium Potassium Chloride Carbon Dioxide Anion Gap BUN Creatinine Creat Clearance w eGFR POC Glucometer [phone] Random Glucose Lactic Acid Calcium Phosphorus Magnesium Total Bilirubin AST ALT Alkaline Phosphatase Total Protein Albumin Urine Creatinine 31.6 Random Vancomycin 05/02/17 05/02/17 05/02/17 00:15 02:58 05:30 WBC 6.1 RBC 2.25 L Hgb 7.0 L Hct 20.9 L MCV 92.9 MCH 31.0 MCHC 33.3 RDW 14.5 Plt Count 125 L MPV 8.0 D Neutrophils % Lymphocytes % Monocytes % Eosinophils % Basophils % INR Sodium Potassium Chloride Carbon Dioxide Anion Gap BUN Creatinine Creat Clearance w eGFR POC Glucometer [phone] Random Glucose Lactic Acid Calcium Phosphorus Magnesium Total Bilirubin AST ALT Alkaline Phosphatase Total Protein Albumin Urine Creatinine Random Vancomycin 5.476 05/02/17 05/02/17 05/02/17 05:30 05:30 05:30 WBC 6.0 RBC 2.31 L Hgb 7.1 L Hct 21.4 L MCV 92.9 MCH 30.7 MCHC 33.1 RDW 14.6 Plt Count 137 MPV 9.0 D Neutrophils % 86.2 H Lymphocytes % 10.6 Monocytes % 3.2 L Eosinophils % 0.0 Basophils % 0.0 INR 1.51 H Sodium 152 H Potassium 4.4 Chloride 118 H Carbon Dioxide 22 D Anion Gap 12 BUN 88 H D Creatinine 1.4 H D Creat Clearance w eGFR 48.89 POC Glucometer Random Glucose 156 H Lactic Acid Calcium 8.0 L Phosphorus 3.5 Magnesium 2.6 H D Total Bilirubin 0.3 AST 12 L ALT 14 Alkaline Phosphatase 44 L Total Protein 5.5 L Albumin 1.9 L Urine Creatinine Random Vancomycin Active Medications Generic Name Dose Route Start Last Admin Trade Name Freq PRN Reason Stop Dose Admin Albuterol Sulfate 1 amp 05/01/17 22:30 Ventolin 0.083% Nebulizer Soln - NEB Q6H PRN SHORT OF BREATH/WHEEZING Amino Acids 30 ml 05/02/17 10:00 Prosource No Carb Liquid Pkt GT DAILY [facility] Artificial Tears 1 drop 05/02/17 06:00 05/02/17 05:50 Artificial Tears OU 1 drop TID [facility] Administration Chlorhexidine Gluconate 1 applic 05/01/17 22:00 05/01/17 21:48 Hibiclens For Decolonization - TP 1 applic HS [facility] Administration Ferrous Sulfate 450 mg 05/02/17 10:00 Feosol GT DAILY [facility] Norepinephrine Bitartrate 4, 500 mls @ 37.5 mls/hr 05/01/17 13:00 05/02/17 06: 00 000 mcg/ Dextrose IV 0 mcg/min TITR [facility] Titration Protocol 5 MCG/MIN Sodium Chloride 1,000 mls @ 125 mls/hr 05/01/17 14:00 05/02/17 01:38 Normal Saline - IV 125 mls/hr ASDIR [facility] Administration Azithromycin 500 mg/ Dextrose 250 mls @ 250 mls/hr 05/02/17 10:00 IVPB DAILY [facility] Insulin Aspart 1 vial 05/01/17 14:50 05/02/17 06:21 Novolog Vial Sliding Scale - SQ 2 unit Q4H [facility] Administration Protocol Ipratropium [place] 1 amp 05/01/17 22:30 Atrovent 0.02% Nebulizer - NEB Q6H PRN SHORT OF BREATH/WHEEZING Lactobacillus Acidophilus 1 tab 05/01/17 22:45 05/01/17 23:06 Bacid - GT 1 tab BID [facility] Administration Lactulose 10 gm 05/02/17 22:00 Cephulac (Oral Use) GT HS [facility] Mupirocin 1 applic 05/01/17 22:00 05/01/17 21:48 Bactroban Ointment (For Decolonization) - NS 05/06/17 21:59 1 applic BID [facility] Administration Non-Formulary Medication 250 mg 05/01/17 22:30 Ursodiol [Ursodiol] GT Q8H [facility] Piperacillin Sod/Tazobactam Sod 3.375 gm 05/01/17 16:30 05/02/17 01:37 Zosyn 3.375gm Ivpb (Pre-Docked) IVPB 3.375 gm Q8H-IV [facility] Administration Protocol Potassium Chloride 10 meq 05/02/17 10:00 Potassium Chloride Oral Liquid GT DAILY [facility] Ranitidine HCl 150 mg 05/02/17 10:00 Zantac Oral Solution - PO DAILY [facility] Senna 2 tab 05/02/17 22:00 Senna - PO HS [facility] Sertraline HCl 50 mg 05/02/17 10:00 Zoloft - GT DAILY [facility] 05/01/17 05/01/17 05/01/17 09:40 09:40 09:40 WBC 10.9 H RBC 2.58 L Hgb 7.9 L D Hct 24.1 L D MCV 93.6 MCHC 32.7 RDW 14.1 Plt Count 134 D Neutrophils % 80.6 Lymphocytes % 12.6 Monocytes % 6.6 Eosinophils % 0.0 D Basophils % 0.2 INR 1.36 H Sodium 146 H Potassium 4.6 D Chloride 109 H Carbon Dioxide 28 Anion Gap 9 BUN 124 H* D Creatinine 2.3 H D Blood Type Antibody Screen 05/01/17 05/01/17 05/02/17 09:40 20:20 00:15 WBC 7.7 6.1 RBC 2.28 L 2.25 L Hgb 7.2 L 7.0 L Hct 21.3 L 20.9 L MCV 93.4 92.9 MCHC 33.6 33.3 RDW 14.3 14.5 Plt Count 129 L 125 L Neutrophils % Lymphocytes % Monocytes % Eosinophils % Basophils % INR Sodium Potassium Chloride Carbon Dioxide Anion Gap BUN Creatinine Blood Type A POSITIVE Antibody Screen Negative 05/02/17 05/02/17 05/02/17 05:30 05:30 05:30 WBC 6.0 RBC 2.31 L Hgb 7.1 L Hct 21.4 L MCV 92.9 MCHC 33.1 RDW 14.6 Plt Count 137 Neutrophils % 86.2 H Lymphocytes % 10.6 Monocytes % 3.2 L Eosinophils % 0.0 Basophils % 0.0 INR 1.51 H Sodium 152 H Potassium 4.4 Chloride 118 H Carbon Dioxide 22 D Anion Gap 12 BUN 88 H D Creatinine 1.4 H D Blood Type Antibody Screen Micro 05/01/17 10:30 Urine Culture - Pending Urine - Urine - Catheterized 05/01/17 09:40 Blood Culture - Pending Blood - Peripheral Venous 05/01/17 10:30 Blood Culture - Pending Blood - Peripheral Venous 05/01/17 20:08 Gram Stain - Pending Sputum - Endotrachea Suction/Ventilator Sputum Culture - Pending 05/01/17 10:30 Legionella Antigen - Pending Urine - Urine Clean Catch Streptococcus pneumoniae Antigen (M - Pending Imaging: CXR (05/02) - Cardiomegaly. T-Tube in place. RUL consolidation. Increased blunting of L costophrenic angle. ASSESSMENT/PLAN: 81 yo m w/ pmh of COPD, HTN, parox. Afib, CVA, AMIE, multiple prior PNAs, chronic hypoxic respiratory failure requiring T-piece who presented from [place] w/ fever of 102, found to be hypotensive in ED w/ imaging suggestive of RUL infiltrate, admitted for suspected sepsis syndrome secondary to HCAP vs. VAP. Pt fluid-responsive w/ improved BP, now off pressors, doing much better per nursing/prior notes. Labs notable for elevated BUN/Cr (88/1.4), Na 152, Hgb 7.1. Currently afebrile, w/ MAPs in low 70s, no WBC elevation. Will continue abx for suspected HCAP vs. VAP per ID, with IVFs for SUE. Monitor H/H for possible occult bleed. ID and Renal following. #Neuro -Monitor MS #Cardiac - Monitor BP off pressors. IV Bolus/restart pressors if MAP <65 #Pulm -Continue on vent. Titrate to >90% O2 sat. - Duonebs QIDR - Albuterol PRN #ID - f/u all cultures - Day 1 Vanc/zosyn/azithro - ID recs appreciated #Renal - Trend Na. Consider IVF w/ /2 NS - Strict I&Os - daily BMPs - D/c'ed MgSO4 given hyperMg #Heme - Hold AC given anemia/possible occult bleed - Trend H/H. Transfuse at <7 - Monitor thrombocytopenia #Endo - ACHS - ISS - BGMs q6h #GI - Stool guiac - Dc'ed ursodiol - Senna, Colace for constipation. Consider fecal disimpaction - Lactulose #FEN -Fluids: IVF w/ NS 125cc/hr -Electrolytes: Daily BMPs, Trend BUN/Cr -Nutrition: enteral feeds - Jevity 1500cal, flush 25cc/hr #PPX -SubQ Heparin for DVT ppx -PPI for GI ppx #Dispo - Dispo to ICU for further monitoring/management Timothy Velazquez, PGY1 Plan discussed with attending, Visit type - Emergency Visit Emergency Visit: No - New Patient This patient is new to me today: Yes Date on this admission: 05/02/17 - Critical Care Critical Care patient: Yes Total Critical Care Time (in minutes): 35 Critical Care Statement: The care of this patient involved high complexity decision making to prevent further life threatening deterioration of the patient 's condition and/or to evaluate & treat vital organ system(s) failure or risk of failure.
--- NOTE | 2017-05-02 08:59 | PN ---
Progress Note (short form) - Note Progress Note: awake and alert off pressors denies pain looks comfortable Vital Signs Period Temp Pulse Resp BP Sys/Mayorga Pulse Ox Last 24 Hr 97.9 F-100.9 F 72-95 14-27 60-119/38-76 93-100 cor-rrr lungs decreased bs at right base abd soft,n+gt ext bilateral foot drop CBC, BMP 05/02/17 05:30 05/02/17 05:30 cultures pending Laboratory Tests 05/02/17 05:30 Random Vancomycin 5.476 Active Medications Albuterol Sulfate (Ventolin 0.083% Nebulizer Soln -) 1 amp NEB Q6H PRN PRN Reason: SHORT OF BREATH/WHEEZING Amino Acids (Prosource No Carb Liquid Pkt) 30 ml GT DAILY [facility] Artificial Tears (Artificial Tears) 1 drop OU TID [facility] Last Admin: 05/02/17 05:50 Dose: 1 drop Chlorhexidine Gluconate (Hibiclens For Decolonization -) 1 applic TP HS [facility] Last Admin: 05/01/17 21:48 Dose: 1 applic Ferrous Sulfate (Feosol) 450 mg GT DAILY [facility] Norepinephrine Bitartrate 4, (000 mcg/ Dextrose) 500 mls @ 37.5 mls/hr IV TITR [facility]; 5 MCG/MIN PRN Reason: Protocol Last Titration: 05/02/17 06:00 Dose: 0 mcg/min Sodium Chloride (Normal Saline -) 1,000 mls @ 125 mls/hr IV ASDIR [facility] Last Admin: 05/02/17 01:38 Dose: 125 mls/hr Azithromycin 500 mg/ Dextrose 250 mls @ 250 mls/hr IVPB DAILY [facility] Insulin Aspart (Novolog Vial Sliding Scale -) 1 vial SQ Q4H [facility] PRN Reason: Protocol Last Admin: 05/02/17 06:21 Dose: 2 unit Ipratropium [place] (Atrovent 0.02% Nebulizer -) 1 amp NEB Q6H PRN PRN Reason: SHORT OF BREATH/WHEEZING Lactobacillus Acidophilus (Bacid -) 1 tab GT BID [facility] Last Admin: 05/01/17 23:06 Dose: 1 tab Lactulose (Cephulac (Oral Use)) 10 gm GT HS [facility] Mupirocin (Bactroban Ointment (For Decolonization) -) 1 applic NS BID [facility] Stop: 05/06/17 21:59 Last Admin: 05/01/17 21:48 Dose: 1 applic Non-Formulary Medication (Ursodiol [Ursodiol]) 250 mg GT Q8H [facility] Piperacillin Sod/Tazobactam Sod (Zosyn 3.375gm Ivpb (Pre-Docked)) 3.375 gm IVPB Q8H-IV [facility] PRN Reason: Protocol Last Admin: 05/02/17 01:37 Dose: 3.375 gm Potassium Chloride (Potassium Chloride Oral Liquid) 10 meq GT DAILY [facility] Ranitidine HCl (Zantac Oral Solution -) 150 mg PO DAILY [facility] Senna (Senna -) 2 tab PO HS [facility] Sertraline HCl (Zoloft -) 50 mg GT DAILY [facility] imp/reccd sepsis-improved, off pressors pneumonia ([place])- last at [facility] in 2015!- RUL SUE- improved with hydration chronic respiratory failure anemia- receiving transfusion f/u cultures continue vanco/zosyn/zithromax adjust antibiotics based on cultures (pending) Problem List - Problems (1) Sepsis - Septicemia Code(s): A41.9 - SEPSIS, UNSPECIFIED ORGANISM (2) Pneumonia Code(s): J18.9 - PNEUMONIA, UNSPECIFIED ORGANISM (3) Acute kidney failure Code(s): N17.9 - ACUTE KIDNEY FAILURE, UNSPECIFIED (4) Anemia Code(s): D64.9 - ANEMIA, UNSPECIFIED (5) Chronic respiratory failure Code(s): J96.10 - CHRONIC RESPIRATORY FAILURE, UNSP W HYPOXIA OR HYPERCAPNIA
--- NOTE | 2017-05-02 09:06 | PN ---
Physical Exam: SUBJECTIVE: Patient seen and examined at bedside. He is much more awake and alert today, though still nonverbal. Able to communicate by mouthing words and gesturing. He states he feels better, but still has some abdominal pain. No shortness of breath, no chest pain, no pain in the legs. OBJECTIVE: Vital Signs Period Temp Pulse Resp BP Sys/Mayorga Pulse Ox Last 24 Hr 97.9 F-99.5 F 72-88 14-21 89-119/51-76 98-100 GENERAL: The patient is awake, alert, and fully oriented, in no acute distress. HEAD: Normal with no signs of trauma. EYES: extraocular movements intact, sclera anicteric, conjunctiva clear. No ptosis. NECK: Trachea midline, full range of motion, supple. LUNGS: Breath sounds equal, clear to auscultation bilaterally, no wheezes, no crackles, no accessory muscle use. HEART: Regular rate and rhythm, S1, S2 without murmur, rub or gallop. ABDOMEN: Soft, nondistended, normoactive bowel sounds. Tender to palpation in all quadrants; worse in the upper quadrants. no guarding, no rebound. EXTREMITIES: 2+ pulses, warm, well-perfused, no edema. plantar flexed feet bilaterally. no pain in lower extremities. NEUROLOGICAL: Cranial nerves II through X grossly intact. Normal speech, gait not observed. SKIN: Warm, dry, normal turgor, chronic changes noted over both feet. Laboratory Results - last 24 hr 05/01/17 05/01/17 05/01/17 14:22 16:59 19:00 WBC RBC Hgb Hct MCV MCH MCHC RDW Plt Count MPV Neutrophils % Lymphocytes % Monocytes % Eosinophils % Basophils % INR Sodium Potassium Chloride Carbon Dioxide Anion Gap BUN Creatinine Creat Clearance w eGFR POC Glucometer [phone] Random Glucose Lactic Acid 1.7 Calcium Phosphorus Magnesium Total Bilirubin AST ALT Alkaline Phosphatase Total Protein Albumin Urine Creatinine Random Vancomycin 05/01/17 05/01/17 05/01/17 19:17 20:08 20:20 WBC 7.7 RBC 2.28 L Hgb 7.2 L Hct 21.3 L MCV 93.4 MCH 31.4 MCHC 33.6 RDW 14.3 Plt Count 129 L MPV 8.9 Neutrophils % Lymphocytes % Monocytes % Eosinophils % Basophils % INR Sodium Potassium Chloride Carbon Dioxide Anion Gap BUN Creatinine Creat Clearance w eGFR POC Glucometer [phone] Random Glucose Lactic Acid Calcium Phosphorus Magnesium Total Bilirubin AST ALT Alkaline Phosphatase Total Protein Albumin Urine Creatinine 31.6 Random Vancomycin 05/02/17 05/02/17 05/02/17 00:15 02:58 05:30 WBC 6.1 RBC 2.25 L Hgb 7.0 L Hct 20.9 L MCV 92.9 MCH 31.0 MCHC 33.3 RDW 14.5 Plt Count 125 L MPV 8.0 D Neutrophils % Lymphocytes % Monocytes % Eosinophils % Basophils % INR Sodium Potassium Chloride Carbon Dioxide Anion Gap BUN Creatinine Creat Clearance w eGFR POC Glucometer [phone] Random Glucose Lactic Acid Calcium Phosphorus Magnesium Total Bilirubin AST ALT Alkaline Phosphatase Total Protein Albumin Urine Creatinine Random Vancomycin 5.476 05/02/17 05/02/17 05/02/17 05:30 05:30 05:30 WBC 6.0 RBC 2.31 L Hgb 7.1 L Hct 21.4 L MCV 92.9 MCH 30.7 MCHC 33.1 RDW 14.6 Plt Count 137 MPV 9.0 D Neutrophils % 86.2 H Lymphocytes % 10.6 Monocytes % 3.2 L Eosinophils % 0.0 Basophils % 0.0 INR 1.51 H Sodium 152 H Potassium 4.4 Chloride 118 H Carbon Dioxide 22 D Anion Gap 12 BUN 88 H D Creatinine 1.4 H D Creat Clearance w eGFR 48.89 POC Glucometer Random Glucose 156 H Lactic Acid Calcium 8.0 L Phosphorus 3.5 Magnesium 2.6 H D Total Bilirubin 0.3 AST 12 L ALT 14 Alkaline Phosphatase 44 L Total Protein 5.5 L Albumin 1.9 L Urine Creatinine Random Vancomycin Active Medications Generic Name Dose Route Start Last Admin Trade Name Freq PRN Reason Stop Dose Admin Albuterol Sulfate 1 amp 05/01/17 22:30 Ventolin 0.083% Nebulizer Soln - NEB Q6H PRN SHORT OF BREATH/WHEEZING Amino Acids 30 ml 05/02/17 10:00 Prosource No Carb Liquid Pkt GT DAILY [facility] Artificial Tears 1 drop 05/02/17 06:00 05/02/17 05:50 Artificial Tears OU 1 drop TID [facility] Administration Chlorhexidine Gluconate 1 applic 05/01/17 22:00 05/01/17 21:48 Hibiclens For Decolonization - TP 1 applic HS [facility] Administration Ferrous Sulfate 450 mg 05/02/17 10:00 Feosol GT DAILY [facility] Norepinephrine Bitartrate 4, 500 mls @ 37.5 mls/hr 05/01/17 13:00 05/02/17 06: 00 000 mcg/ Dextrose IV 0 mcg/min TITR [facility] Titration Protocol 5 MCG/MIN Sodium Chloride 1,000 mls @ 125 mls/hr 05/01/17 14:00 05/02/17 01:38 Normal Saline - IV 125 mls/hr ASDIR [facility] Administration Azithromycin 500 mg/ Dextrose 250 mls @ 250 mls/hr 05/02/17 10:00 IVPB DAILY [facility] Vancomycin HCl 1,000 mg/ 250 mls @ 166.667 mls/hr 05/02/17 09:15 Dextrose IVPB 05/02/17 10:44 ONCE ONE Protocol Insulin Aspart 1 vial 05/01/17 14:50 05/02/17 06:21 Novolog Vial Sliding Scale - SQ 2 unit Q4H [facility] Administration Protocol Ipratropium [place] 1 amp 05/01/17 22:30 Atrovent 0.02% Nebulizer - NEB Q6H PRN SHORT OF BREATH/WHEEZING Lactobacillus Acidophilus 1 tab 05/01/17 22:45 05/01/17 23:06 Bacid - GT 1 tab BID [facility] Administration Lactulose 10 gm 05/02/17 22:00 Cephulac (Oral Use) GT HS [facility] Mupirocin 1 applic 05/01/17 22:00 05/01/17 21:48 Bactroban Ointment (For Decolonization) - NS 05/06/17 21:59 1 applic BID [facility] Administration Non-Formulary Medication 250 mg 05/01/17 22:30 Ursodiol [Ursodiol] GT Q8H [facility] Piperacillin Sod/Tazobactam Sod 3.375 gm 05/01/17 16:30 05/02/17 01:37 Zosyn 3.375gm Ivpb (Pre-Docked) IVPB 3.375 gm Q8H-IV [facility] Administration Protocol Potassium Chloride 10 meq 05/02/17 10:00 Potassium Chloride Oral Liquid GT DAILY [facility] Ranitidine HCl 150 mg 05/02/17 10:00 Zantac Oral Solution - PO DAILY [facility] Senna 2 tab 05/02/17 22:00 Senna - PO HS [facility] Sertraline HCl 50 mg 05/02/17 10:00 Zoloft - GT DAILY [facility] ASSESSMENT/PLAN: 81 yo m w/ PMH COPD, HTN, DM, HLD, Paroxysmal A-fib, CVA, 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 #Septic shock 2/2 VAP vs other source -s/p dose of vancomycin, zosyn and levaquin -CXR today shows worsening infiltrate -ID Consult: Dr. Martinez -off pressors today -Bcx not growth to date -ucx pending -urine antigens negative -sputum cx shows many gram positive bacilli -management as per ICU team #normocytic anemia likely 2/2 CKD -Hb dropped overnight; low of 7.0. s/p 1u PRBC -rpt Hb 7.4 -transfuse as per protocol #CKD -BUN 124, Cr. 2.3 on admission -improved today; BUN 88 and Cr. 1.4 -c/w IVF -monitor #Diabetes mellitus -BGMs Q4 -ISS Q4 -required 18u since yesterday #s/p PEG tube -Hold feeds -no overt signs of infection #FEN -NS @ 125 -repleted mag -NPO #Prophylaxsis -SCDs -no indication for GI prophylaxsis #dispo -monitor in ICU Problem List - Problems (1) Anemia Code(s): D64.9 - ANEMIA, UNSPECIFIED (2) Acute kidney failure Code(s): N17.9 - ACUTE KIDNEY FAILURE, UNSPECIFIED (3) Diabetes mellitus Code(s): E11.9 - TYPE 2 DIABETES MELLITUS WITHOUT COMPLICATIONS (4) Pneumonia Code(s): J18.9 - PNEUMONIA, UNSPECIFIED ORGANISM (5) Shock Code(s): R57.9 - SHOCK, UNSPECIFIED Visit type - Emergency Visit Emergency Visit: Yes ED Registration Date: 05/01/17 Care time: The patient presented to the Emergency Department on the above date and was hospitalized for further evaluation of their emergent condition. - New Patient This patient is new to me today: No - Critical Care Critical Care patient: Yes Total Critical Care Time (in minutes): 35 Critical Care Statement: The care of this patient involved high complexity decision making to prevent further life threatening deterioration of the patient 's condition and/or to evaluate & treat vital organ system(s) failure or risk of failure.
[2017-05-02] MEDS ORDERED: VANCOMYCIN 1,000 MG in DEXTROSE 5%-WATER - 250 ML IVPB ONE (09:15)
[2017-05-02] MEDS ORDERED: MAGNESIUM SULF 50% (8.12 MEQ/2 ML-1 GM VIAL) IVPB ONE ×2 (09:56)
[2017-05-02] MEDS ORDERED: RANITIDINE HCL 150 MG/10 ML UNIT-DOSE PO SCH (10:00)
[2017-05-02] MEDS: POTASSIUM CHLORIDE ORAL LIQUID 20 MEQ/15 ML GT SCH (10:14)
[2017-05-02] MEDS: FERROUS SO4 300 MG/5 ML ORAL SOLN UNIT DOSE CUPS GT SCH (10:14)
[2017-05-02] MEDS: LACTOBACILLUS ACIDOPHILUS 1 EACH TAB (FP) GT SCH ×2 (10:14→22:02)
[2017-05-02] MEDS: MUPIROCIN 2% TOPICAL OINTMENT FOR DECOLONIZATION NS SCH ×2 (10:15→22:03)
[2017-05-02] MEDS: AMINO ACIDS/PROTEIN HYDROLYS 30 ML LIQUID.PKT GT SCH (10:15)
[2017-05-02] MEDS: SERTRALINE HCL 50 MG TABLET (FP) GT SCH (10:15)
[2017-05-02] MEDS: AZITHROMYCIN IVPB 500 MG in DEXTROSE 5%-WATER - 250 ML IVPB SCH (10:57)
--- NOTE | 2017-05-02 11:25 | CONSULT ---
Consult Consult Specialty:: Nephrology Reason for Consultation:: SUE - History of Present Illness Chief Complaint: sent in for fever History of Present Illness: Pt is a 81 year old male with pmhx of CKD, COPD, chronic respiratory failure, PEG tube, HTN, a-fib, and obesity [place] He is vent dependent and has a trache. I was called to evaluate him as he was found to be in acute renal failure. He is more awake and alert than he was yesterday( based on review of yesterday's notes). He is admitted to the ICU for hypotension and sepsis. 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 Cardio/Vascular: Yes: AFIB, HTN Pulmonary: Yes: COPD, O2 Dependent, Pneumonia, Previously Intubated, Other ( Obesity hypoventrilation, chronic respiratory failure) Hepatobiliary: Yes: Cholecystitis Renal/: Yes: Renal Failure Musculoskeletal: Yes: Osteoarthritis, Other (Gout for long time on allopurinol) Rheumatology: Yes: Gout, Lupus, Rheumatoid Arthritis ENT: Yes: Sinusitis Endocrine: Yes: Diabetes Mellitus - Past Surgical History Past Surgical History: Yes: Appendectomy - Alcohol/Substance Use Hx Alcohol Use: No History of Substance Use: reports: None - Smoking History Smoking history: Unknown if ever smoked Have you smoked in the past 12 months: No Aproximately how many cigarettes per day: 0 - Social History Usual Living Arrangement: Halfway ADL: Support Services History of Recent Travel: No Home Medications - Allergies Allergies/Adverse Reactions: Allergies Allergy/AdvReac Type Severity Reaction Status Date / Time No Known Allergies Allergy Verified 05/01/17 10:25 - Home Medications Home Medications: Ambulatory Orders 4.5G/100mL Piperac'n/Tazo./D5W [Zosyn 4.5 Gm Pre-Mix Bag] 4.5 gm IV DAILY Acetaminophen W/ Codeine #3 [Tylenol # 3 -] 1 tab GT Q6H PRN 05/01/17 Acetaminophen W/ Codeine #3 [Tylenol # 3 -] 1 tab PO Q4H 05/01/17 Albuterol 0.083% Nebulizer Isis [Ventolin 0.083% Nebulizer Soln -] 1 neb NEB Q6H PRN 05/01/17 Amino Acids/Protein Hydrolys [Pro-Stat Awc Liquid] 30 ml GT DAILY 05/01/17 Carvedilol [Coreg] 6.25 mg GT BID 05/01/17 Diltiazem [Cardizem -] 30 mg GT Q8H 05/01/17 Ferrous Sulfate 7.5 ml GT DAILY 05/01/17 Furosemide 20 mg GT DAILY 05/01/17 Hypromellose 0.5% Opth Soln [Artificial Tears] 1 drop OU TID 05/01/17 Ipratropium 0.02% Nebulizer [Atrovent 0.02% Nebulizer -] 1 amp NEB Q6H PRN 05/01 Lactobacillus Acidophilus [Bacid -] 1 each GT Q12H 05/01/17 Lactulose 10 gm GT HS 05/01/17 Lisinopril [Zestril] 2.5 mg GT DAILY 05/01/17 Potassium Chloride 10 meq GT DAILY 05/01/17 Ranitidine [Zantac -] 150 mg GT DAILY 05/01/17 Sennosides [Senna] 2 tab GT HS 05/01/17 Sertraline HCl [Zoloft -] 50 mg GT DAILY 05/01/17 Ursodiol 250 mg GT Q8H 05/01/17 Family Disease History - Family Disease History Family History: Unable to Obtain Review of Systems Unable to obtain ROS, reason: pt has trache - Review of Systems Respiratory: reports: Other (trache) Gastrointestinal: reports: Other (peg) Musculoskeletal: reports: Muscle Weakness Physical Exam Vital Signs: Vital Signs Temperature 98.1 F 05/02/17 10:00 Pulse Rate 72 05/02/17 10:14 Respiratory Rate 18 05/02/17 10:13 Blood Pressure 99/63 05/02/17 10:00 O2 Sat by Pulse Oximetry (%) 100 05/02/17 10:14 Constitutional: Yes: Calm Eyes: Yes: Conjunctiva Clear HENT: Yes: Other (trache) Cardiovascular: Yes: S1, S2 Respiratory: Yes: Mechanically Ventilated Gastrointestinal: Yes: Soft, Other (peg) Renal/: Yes: Other ([place] cath) Musculoskeletal: Yes: Muscle Weakness Edema: No Neurological: Yes: Other (awake) Labs: CBC, BMP 05/02/17 05:30 05/02/17 05:30 Laboratory Tests 05/01/17 05/01/17 05/02/17 09:40 10:30 00:15 Hgb 7.0 L Sodium 146 H Potassium Chloride Carbon Dioxide Anion Gap BUN 124 H* D Creatinine 2.3 H D Urine Protein 2+ H Urine Blood 2+ H 05/02/17 05/02/17 05/02/17 05:30 05:30 13:50 Hgb 7.1 L 7.4 L Sodium 152 H Potassium 4.4 Chloride 118 H Carbon Dioxide 22 D Anion Gap 12 BUN 88 H D Creatinine 1.4 H D Urine Protein Urine Blood Imaging - Results Chest X-ray: Report Reviewed Ultrasound: Report Reviewed Problem List - Problems (1) Anemia Code(s): D64.9 - ANEMIA, UNSPECIFIED (2) Atrial fibrillation Code(s): I48.91 - UNSPECIFIED ATRIAL FIBRILLATION (3) Chronic kidney disease (CKD) Code(s): N18.9 - CHRONIC KIDNEY DISEASE, UNSPECIFIED (4) Chronic respiratory failure Code(s): J96.10 - CHRONIC RESPIRATORY FAILURE, UNSP W HYPOXIA OR HYPERCAPNIA Assessment/Plan Current Medications Generic Name Dose Route Start Last Admin Trade Name Freq PRN Reason Stop Dose Admin Albuterol Sulfate 1 amp 05/01/17 22:30 Ventolin 0.083% Nebulizer Soln - NEB Q6H PRN SHORT OF BREATH/WHEEZING Albuterol/Ipratropium 1 amp 05/02/17 18:00 Duoneb - NEB QIDR [facility] Amino Acids 30 ml 05/02/17 10:00 05/02/17 10:15 Prosource No Carb Liquid Pkt GT 30 ml DAILY [facility] Administration Artificial Tears 1 drop 05/02/17 06:00 05/02/17 13:46 Artificial Tears OU 1 drop TID [facility] Administration Chlorhexidine Gluconate 1 applic 05/01/17 22:00 05/01/17 21:48 Hibiclens For Decolonization - TP 1 applic HS [facility] Administration Ferrous Sulfate 450 mg 05/02/17 10:00 05/02/17 10:14 Feosol GT 450 mg DAILY [facility] Administration Sodium Chloride 1,000 mls @ 125 mls/hr 05/01/17 14:00 05/02/17 15:10 Normal Saline - IV 125 mls/hr ASDIR [facility] Administration Azithromycin 500 mg/ Dextrose 250 mls @ 250 mls/hr 05/02/17 10:00 05/02/17 10: 57 IVPB 250 mls/hr DAILY [facility] Administration Pantoprazole Sodium 100 mls @ 200 mls/hr 05/03/17 10:00 Protonix 40mg Ivpb (Pre-Docked) IVPB DAILY [facility] Insulin Aspart 1 vial 05/02/17 18:00 Novolog Vial Sliding Scale - SQ Q6H [facility] Protocol Lactobacillus Acidophilus 1 tab 05/01/17 22:45 05/02/17 10:14 Bacid - GT 1 tab BID [facility] Administration Lactulose 10 gm 05/02/17 22:00 Cephulac (Oral Use) GT HS [facility] Mupirocin 1 applic 05/01/17 22:00 05/02/17 10:15 Bactroban Ointment (For Decolonization) - NS 05/06/17 21:59 1 applic BID [facility] Administration Piperacillin Sod/Tazobactam Sod 3.375 gm 05/01/17 16:30 05/02/17 10:13 Zosyn 3.375gm Ivpb (Pre-Docked) IVPB 3.375 gm Q8H-IV [facility] Administration Protocol Potassium Chloride 10 meq 05/02/17 10:00 05/02/17 10:14 Potassium Chloride Oral Liquid GT 10 meq DAILY [facility] Administration Senna 2 tab 05/02/17 22:00 Senna - PO HS [facility] Sertraline HCl 50 mg 05/02/17 10:00 05/02/17 10:15 Zoloft - GT 50 mg DAILY [facility] Administration Impression 1. CKD with acute component 2. resp failure chronic 3. hypotension 4. dvt s/p ivc filter 5. hyponatremia 6. DM 7. A.fib/flutter 8. renal cyst 9. SUE 10. sepsis 11. PNA Plan - consider changing NS to 1/2 ns - repeat labs in am - renal function is improving - SUE likely from sepsis and pre-renal disease - cont abx - vent support - avoid nephrotoxins
--- NOTE | 2017-05-02 12:39 | PN ---
Teaching Attending Note Name of Resident: Timothy Velazquez ATTENDING PHYSICIAN STATEMENT I saw and evaluated the patient. I reviewed the resident's note and discussed the case with the resident. I agree with the resident's findings and plan as documented. SUBJECTIVE: Pt seen and examined in the ICU. Pressors off this AM. No further fevers. Vented on volume assist control with 50% FiO2. OBJECTIVE: Last Vital Signs Temp Pulse Resp BP Pulse Ox 98.1 F 78 31 H 92/61 100 05/02/17 10:00 05/02/17 12:00 05/02/17 12:14 05/02/17 12:00 05/02/17 10:14 Intake & Output 04/29/17 04/30/17 05/01/17 05/02/17 23:59 23:59 23:59 23:59 Intake Total 618.5 1872.5 Output Total 120 600 Balance 498.5 1272.5 Weight 179 lb 3.773 oz 173 lb 15.115 oz Gen: vented, awake Heart: RRR Lung: scattered rhonchi Abd: soft, nontender Ext: no edema CBC, BMP 05/02/17 05:30 05/02/17 05:30 Active Medications Albuterol Sulfate (Ventolin 0.083% Nebulizer Soln -) 1 amp NEB Q6H PRN PRN Reason: SHORT OF BREATH/WHEEZING Amino Acids (Prosource No Carb Liquid Pkt) 30 ml GT DAILY [facility] Last Admin: 05/02/17 10:15 Dose: 30 ml Artificial Tears (Artificial Tears) 1 drop OU TID [facility] Last Admin: 05/02/17 05:50 Dose: 1 drop Chlorhexidine Gluconate (Hibiclens For Decolonization -) 1 applic TP HS [facility] Last Admin: 05/01/17 21:48 Dose: 1 applic Ferrous Sulfate (Feosol) 450 mg GT DAILY [facility] Last Admin: 05/02/17 10:14 Dose: 450 mg Norepinephrine Bitartrate 4, (000 mcg/ Dextrose) 500 mls @ 37.5 mls/hr IV TITR [facility]TIS; 5 MCG/MIN PRN Reason: Protocol Last Titration: 05/02/17 06:00 Dose: 0 mcg/min Sodium Chloride (Normal Saline -) 1,000 mls @ 125 mls/hr IV ASDIR [facility] Last Admin: 05/02/17 01:38 Dose: 125 mls/hr Azithromycin 500 mg/ Dextrose 250 mls @ 250 mls/hr IVPB DAILY [facility] Last Admin: 05/02/17 10:57 Dose: 250 mls/hr Insulin Aspart (Novolog Vial Sliding Scale -) 1 vial SQ Q4H [facility] PRN Reason: Protocol Last Admin: 05/02/17 11:52 Dose: 2 unit Ipratropium [place] (Atrovent 0.02% Nebulizer -) 1 amp NEB Q6H PRN PRN Reason: SHORT OF BREATH/WHEEZING Lactobacillus Acidophilus (Bacid -) 1 tab GT BID [facility] Last Admin: 05/02/17 10:14 Dose: 1 tab Lactulose (Cephulac (Oral Use)) 10 gm GT HS [facility] Mupirocin (Bactroban Ointment (For Decolonization) -) 1 applic NS BID [facility] Stop: 05/06/17 21:59 Last Admin: 05/02/17 10:15 Dose: 1 applic Non-Formulary Medication (Ursodiol [Ursodiol]) 250 mg GT Q8H [facility] Piperacillin Sod/Tazobactam Sod (Zosyn 3.375gm Ivpb (Pre-Docked)) 3.375 gm IVPB Q8H-IV [facility] PRN Reason: Protocol Last Admin: 05/02/17 10:13 Dose: 3.375 gm Potassium Chloride (Potassium Chloride Oral Liquid) 10 meq GT DAILY [facility] Last Admin: 05/02/17 10:14 Dose: 10 meq Ranitidine HCl (Zantac Oral Solution -) 150 mg PO DAILY [facility] Last Admin: 05/02/17 10:14 Dose: 150 mg Senna (Senna -) 2 tab PO HS [facility] Sertraline HCl (Zoloft -) 50 mg GT DAILY [facility] Last Admin: 05/02/17 10:15 Dose: 50 mg ASSESSMENT AND PLAN: Pneumonia Septic Shock Chronic Vent Dependent Respiratory Failure Acute Kidney Injury COPD AMIE/OHS Paroxysmal Atrial Fibrillation h/o CVA Anemia r/o GI bleed Hypernatremia HTN DM - continue antibiotics - f/u cultures - IVF - monitor urine output, creatinine - monitoring off pressors, maintain MAP >65 - inhaled bronchodilators standing and PRN - taper Fio2 to keep SpO2 >90% - stool guaiac - monitor H/H - protonix - free water - enteral feeds - DVT/GI prophylaxis - continue ICU monitoring critical care time spent in reviewing chart, evaluating patient and formulating plan 35 min
[2017-05-02] MEDS ORDERED: SODIUM CHLORIDE 500 ML IV STA (13:29)
[2017-05-02] MEDS: NOREPINEPHRINE BITARTRATE 4,000 MCG in DEXTROSE 5%-WATER - 496 ML IV SCH (13:46)
[2017-05-02 15:24] LABS: MCH 30.6 pg (25.7-33.7); MCHC 33.8 g/dl (32.0-35.9); MEAN CELL VOLUME 90.7 fl (80-96); MEAN PLT VOLUME 8.8 fl (7.5-11.1); PLATELET COUNT 139 K/MM3 (134-434); RDW 16.5 % (11.9-15.9)
--- NOTE | 2017-05-02 17:00 | PN ---
Teaching Attending Note Name of Resident: Faizan Landeros ATTENDING PHYSICIAN STATEMENT I saw and evaluated the patient. I reviewed the resident's note and discussed the case with the resident. I agree with the resident's findings and plan as documented. SUBJECTIVE: Patient awake. OBJECTIVE: Vital Signs Period Temp Pulse Resp BP Sys/Mayorga Pulse Ox Last 24 Hr 97.6 F-98.5 F 68-88 11-31 83-119/56-75 100-100 HEART: S1S2, RRR LUNGS: Bilateral rhonchi ABDOMEN: Soft, non-distended, non-tender, normal BS EXTREMITIES: No edema Current Medications Generic Name Dose Route Start Last Admin Trade Name Freq PRN Reason Stop Dose Admin Albuterol Sulfate 1 amp 05/01/17 22:30 Ventolin 0.083% Nebulizer Soln - NEB Q6H PRN SHORT OF BREATH/WHEEZING Albuterol/Ipratropium 1 amp 05/02/17 18:00 Duoneb - NEB QIDR [facility] Amino Acids 30 ml 05/02/17 10:00 05/02/17 10:15 Prosource No Carb Liquid Pkt GT 30 ml DAILY [facility] Administration Artificial Tears 1 drop 05/02/17 06:00 05/02/17 13:46 Artificial Tears OU 1 drop TID [facility] Administration Chlorhexidine Gluconate 1 applic 05/01/17 22:00 05/01/17 21:48 Hibiclens For Decolonization - TP 1 applic HS [facility] Administration Ferrous Sulfate 450 mg 05/02/17 10:00 05/02/17 10:14 Feosol GT 450 mg DAILY [facility] Administration Sodium Chloride 1,000 mls @ 125 mls/hr 05/01/17 14:00 05/02/17 15:10 Normal Saline - IV 125 mls/hr ASDIR [facility] Administration Azithromycin 500 mg/ Dextrose 250 mls @ 250 mls/hr 05/02/17 10:00 05/02/17 10: 57 IVPB 250 mls/hr DAILY [facility] Administration Pantoprazole Sodium 100 mls @ 200 mls/hr 05/03/17 10:00 Protonix 40mg Ivpb (Pre-Docked) IVPB DAILY [facility] Insulin Aspart 1 vial 05/02/17 18:00 Novolog Vial Sliding Scale - SQ Q6H [facility] Protocol Lactobacillus Acidophilus 1 tab 05/01/17 22:45 05/02/17 10:14 Bacid - GT 1 tab BID [facility] Administration Lactulose 10 gm 05/02/17 22:00 Cephulac (Oral Use) GT HS [facility] Mupirocin 1 applic 05/01/17 22:00 05/02/17 10:15 Bactroban Ointment (For Decolonization) - NS 05/06/17 21:59 1 applic BID [facility] Administration Piperacillin Sod/Tazobactam Sod 3.375 gm 05/01/17 16:30 05/02/17 10:13 Zosyn 3.375gm Ivpb (Pre-Docked) IVPB 3.375 gm Q8H-IV [facility] Administration Protocol Potassium Chloride 10 meq 05/02/17 10:00 05/02/17 10:14 Potassium Chloride Oral Liquid GT 10 meq DAILY [facility] Administration Senna 2 tab 05/02/17 22:00 Senna - PO HS [facility] Sertraline HCl 50 mg 05/02/17 10:00 05/02/17 10:15 Zoloft - GT 50 mg DAILY [facility] Administration ASSESSMENT AND PLAN: This is a 81 year old man with a history of COPD, obesity hypoventilation syndrome, AMIE, ventilator-dependent chronic hypoxic respiratory failure, tracheostomy, PEG, type 2 DM, HTN, hyperlipidemia, PAF, DVT, IVC filter, CVA who came to the ER from [facility] for fever, abnormal CXR and hypotension. 1. Severe sepsis secondary to ventilator-associated pneumonia - On Zosyn, Zithromax - ID consult appreciated - Continue IV fluid - Levophed discontinued 2. Acute kidney injury secondary to hypotension, sepsis - Improving - Continue IV fluid - Continue to hold Lisinopril, Lasix 3. Stage 3 CKD - Last available creatinine is 1.6 from 10/2014 4. Hypernatremia secondary to hypovolemia - Sodium increasing - Change IV fluid to 1/2 NS - Continue to hold Lasix 5. Anemia - Likely secondary to chronic illness - Doubt upper GI bleed - Hemoglobin decreased but stable - Stool occult blood pending 6. Chronic hypoxic respiratory failure - Maintain vent support 7. COPD 8. Obstructive sleep apnea 9. Obesity hypoventilation syndrome 10. Hypertension - Lisinopril, Cardizem, Coreg, Lasix held secondary to hypotension 11. Type 2 diabetes mellitus - Continue Novolog sliding scale 12. Paroxysmal atrial fibrillation - Remains in sinus rhythm 13. DVT prophylaxis - SCDs - No anticoagulation secondary to possible bleeding 14. Stress ulcer prophylaxis - Continue Protonix
[2017-05-02] MEDS: ALBUTEROL SO4 2.5/IPRATROPIUM 0.5 INH SOL 3 ML VIAL.NEB. NEB SCH (19:56)
[2017-05-02] MEDS ORDERED: LACTULOSE 20 GM/30 ML UDC (FOR ORAL USE ONLY) GT SCH (22:00)
[2017-05-02] MEDS ORDERED: SENNOSIDES 8.6MG TABLET (FP) PO SCH (22:00)
[2017-05-02] MEDS: CHLORHEXIDINE GLUCONATE 4% CLEANSER FOR DECOLONIZATION TP SCH (22:04)
[2017-05-03] MEDS: ALBUTEROL SO4 2.5/IPRATROPIUM 0.5 INH SOL 3 ML VIAL.NEB. NEB SCH ×5 (00:05→23:18)
[2017-05-03] MEDS: PIPERACILLIN/TAZOB 3.375 GM/50 ML PRE-DOCKED IVPB SCH ×2 (02:31→09:03)
[2017-05-03] MEDS: INSULIN SLIDING SCALE (NOVOLOG) 1 VIAL SQ SCH ×4 (02:31→22:54)
[2017-05-03 06:11] LABS: MCH 30.2 pg (25.7-33.7); MCHC 33.2 g/dl (32.0-35.9); MEAN PLT VOLUME 8.5 fl (7.5-11.1); PLATELET COUNT 163 K/MM3 (134-434); RDW 16.7 % (11.9-15.9)
[2017-05-03] MEDS: ARTIFICIAL TEARS (POLYVINYL ALCOHOL 1.4%) OPTH DROPS OU SCH ×3 (06:19→22:48)
[2017-05-03 06:36] LABS: ALBUMIN 1.9 g/dl (3.4-5.0); ALK PHOS 43 U/L (45-117); ANION GAP 6 (8-16); BILIRUBIN,TOTAL 0.3 mg/dL (0.2-1.0); CO2 24 mmol/L (21-32); CREATININE 1.1 mg/dL (0.7-1.3); GLUCOSE,RANDOM 104 mg/dL (74-106); MAGNESIUM 2.4 mg/dL (1.8-2.4); PHOSPHOROUS 2.7 mg/dL (2.5-4.9); SGOT/AST 15 U/L (15-37); SGPT/ALT 16 U/L (12-78); TOT PROT 5.6 g/dl (6.4-8.2)
--- NOTE | 2017-05-03 07:28 | PN ---
Progress Note, Physician Chief Complaint: ID Vancomycin Azithromycin and Zosyn Afebrile Stable vent dependent - Current Medication List Current Medications: Active Medications Albuterol Sulfate (Ventolin 0.083% Nebulizer Soln -) 1 amp NEB Q6H PRN PRN Reason: SHORT OF BREATH/WHEEZING Albuterol/Ipratropium (Duoneb -) 1 amp NEB QIDR [facility] Last Admin: 05/03/17 06:21 Dose: 1 amp Amino Acids (Prosource No Carb Liquid Pkt) 30 ml GT DAILY [facility] Last Admin: 05/02/17 10:15 Dose: 30 ml Artificial Tears (Artificial Tears) 1 drop OU TID [facility] Last Admin: 05/03/17 06:19 Dose: Not Given Chlorhexidine Gluconate (Hibiclens For Decolonization -) 1 applic TP HS [facility] Last Admin: 05/02/17 22:04 Dose: 1 applic Ferrous Sulfate (Feosol) 450 mg GT DAILY [facility] Last Admin: 05/02/17 10:14 Dose: 450 mg Sodium Chloride (Normal Saline -) 1,000 mls @ 125 mls/hr IV ASDIR [facility] Last Admin: 05/02/17 15:10 Dose: 125 mls/hr Azithromycin 500 mg/ Dextrose 250 mls @ 250 mls/hr IVPB DAILY [facility] Last Admin: 05/02/17 10:57 Dose: 250 mls/hr Pantoprazole Sodium (Protonix 40mg Ivpb (Pre-Docked)) 100 mls @ 200 mls/hr IVPB DAILY [facility] Insulin Aspart (Novolog Vial Sliding Scale -) 1 vial SQ Q6H [facility] PRN Reason: Protocol Last Admin: 05/03/17 06:19 Dose: Not Given Lactobacillus Acidophilus (Bacid -) 1 tab GT BID [facility] Last Admin: 05/02/17 22:02 Dose: 1 tab Lactulose (Cephulac (Oral Use)) 10 gm GT HS [facility] Last Admin: 05/02/17 22:02 Dose: 10 gm Mupirocin (Bactroban Ointment (For Decolonization) -) 1 applic NS BID [facility] Stop: 05/06/17 21:59 Last Admin: 05/02/17 22:03 Dose: 1 applic Piperacillin Sod/Tazobactam Sod (Zosyn 3.375gm Ivpb (Pre-Docked)) 3.375 gm IVPB Q8H-IV [facility] PRN Reason: Protocol Last Admin: 05/03/17 02:31 Dose: 3.375 gm Potassium Chloride (Potassium Chloride Oral Liquid) 10 meq GT DAILY [facility] Last Admin: 05/02/17 10:14 Dose: 10 meq Senna (Senna -) 2 tab PO HS [facility] Last Admin: 05/02/17 22:02 Dose: 2 tab Sertraline HCl (Zoloft -) 50 mg GT DAILY [facility] Last Admin: 05/02/17 10:15 Dose: 50 mg - Objective Vital Signs: Vital Signs Temperature 98.6 F 05/03/17 02:00 Pulse Rate 61 05/03/17 05:00 Respiratory Rate 21 05/03/17 07:16 Blood Pressure 93/62 05/03/17 05:00 O2 Sat by Pulse Oximetry (%) 100 05/02/17 12:00 Constitutional: Yes: No Distress HENT: Yes: Other (Trach) Cardiovascular: Yes: Regular Rate and Rhythm, S1, S2 Respiratory: Yes: WNL, Regular, CTA Bilaterally, Rhonchi Gastrointestinal: Yes: WNL, Normal Bowel Sounds, Soft. No: Tenderness Edema: No Labs: CBC, BMP 05/03/17 05:20 05/03/17 05:20 INR, PTT INR 1.51 (0.82-1.09) H 05/02/17 05:30 Assessment/Plan Microbiology 05/01/17 20:08 Sputum - Endotrachea Suction/Ventilator Gram Stain - Final 05/01/17 10:30 Urine - Urine Clean Catch Legionella Antigen - Final 05/01/17 10:30 Urine - Urine Clean Catch Streptococcus pneumoniae Antigen ( M - Final 05/01/17 10:30 Blood - Peripheral Venous Blood Culture - Preliminary NO GROWTH OBTAINED AFTER 24 HOURS, INCUBATION TO CONTINUE FOR 4 DAYS. 05/01/17 09:40 Blood - Peripheral Venous Blood Culture - Preliminary NO GROWTH OBTAINED AFTER 24 HOURS, INCUBATION TO CONTINUE FOR 4 DAYS. Laboratory Tests 05/02/17 05/02/17 05/03/17 05:30 05:30 05:20 WBC 7.0 Hgb 8.0 L Hct 24.1 L Plt Count 163 INR 1.51 H BUN Creatinine Random Vancomycin 5.476 05/03/17 05:20 WBC Hgb Hct Plt Count INR BUN 66 H D Creatinine 1.1 D Random Vancomycin Assessment Chronic ventilatory failure HAP Anemia SUE Atrial fibrillation DM Plan Continue current antibiotics pending c/s Kristian PERDOMO
--- NOTE | 2017-05-03 07:45 | PN ---
Physical Exam: SUBJECTIVE: Patient seen and examined by me this AM - No major overnight events. Wants juice PO. Will require S+S eval given aspiration risk. - Hypotensive to 80s systolic overnight. MAPs consistently >65. Off all pressor support - Continue abx until cultures result per ID recs. Currently afebrile, no WBC elevation PM: - No PO feeds until MBS per S+S. Eval for passy-maxine valve. - Sputum culture + for polymicrobial GN organisms. All other cultures neg. - Plan to switch to 1/2 NS fo hyperNa per renal. - Transfer to 5th floor med-surg OBJECTIVE: Vital Signs Intake & Output 04/30/17 05/01/17 05/02/17 05/03/17 23:59 23:59 23:59 23:59 Intake Total 618.5 4762.5 540 Output Total 120 2250 500 Balance 498.5 2512.5 40 Weight 81.3 kg 78.9 kg 81.3 kg Period Temp Pulse Resp BP Sys/Mayorga Pulse Ox Last 24 Hr 97.6 F-98.6 F 61-93 11-31 80-120/49-73 100-100 GENERAL: The patient is awake, alert in no acute distress, laying in bed, vented w/ t-piece HEAD: Normal with no signs of trauma. EYES: PERRL, sclera anicteric, conjunctiva clear. No ptosis. ENT: Ears normal, nares patent, oropharynx clear without exudates, moist mucous membranes. NECK: Trachea midline, trach piece in place LUNGS: Mechanical breath sounds, diffuse rhonchi R>L. No wheezes, no crackles HEART: Regular rate and rhythm, S1, S2 without murmur, rub or gallop. ABDOMEN: Soft, slightly distended, hypoactive bowel sounds, nontender, no guarding, no rebound, no hepatosplenomegaly, no masses. EXTREMITIES: 2+ pulses, warm, well-perfused, BL stasis dermatitis on anterior shins and feet. No edema NEUROLOGICAL: Cranial nerves II through XII grossly intact. Pt can follow simple /complex commands, mouth responses. BL sustained plantarflexion of feet/foot drop. 4/5 strength in LEs. Contracted R hand, but preserved blood bank custodian strength bilaterally. 5/5 strength in UEs grossly. Laboratory Results - last 24 hr CBC, BMP 05/03/17 05:20 05/03/17 05:20 CBCD WBC 7.0 K/mm3 (4.0-10.0) 05/03/17 05:20 RBC 2.65 M/mm3 (4.00-5.60) L 05/03/17 05:20 Hgb 8.0 GM/dL (11.7-16.9) L 05/03/17 05:20 Hct 24.1 % (35.4-49) L 05/03/17 05:20 MCV 91.0 fl (80-96) 05/03/17 05:20 MCHC 33.2 g/dl (32.0-35.9) 05/03/17 05:20 RDW 16.7 % (11.9-15.9) H 05/03/17 05:20 Plt Count 163 K/MM3 (134-434) 05/03/17 05:20 MPV 8.5 fl (7.5-11.1) 05/03/17 05:20 CMP Sodium 152 mmol/L (136-145) H 05/03/17 05:20 Potassium 4.2 mmol/L (3.5-5.1) 05/03/17 05:20 Chloride 122 mmol/L (98-107) H 05/03/17 05:20 Carbon Dioxide 24 mmol/L (21-32) 05/03/17 05:20 Anion Gap 6 (8-16) L 05/03/17 05:20 BUN 66 mg/dL (7-18) H D 05/03/17 05:20 Creatinine 1.1 mg/dL (0.7-1.3) D 05/03/17 05:20 Creat Clearance w eGFR > 60 (>60) 05/03/17 05:20 Calcium 8.0 mg/dL (8.5-10.1) L 05/03/17 05:20 Total Bilirubin 0.3 mg/dL (0.2-1.0) 05/03/17 05:20 AST 15 U/L (15-37) D 05/03/17 05:20 ALT 16 U/L (12-78) 05/03/17 05:20 Alkaline Phosphatase 43 U/L (45-117) L 05/03/17 05:20 Total Protein 5.6 g/dl (6.4-8.2) L 05/03/17 05:20 Albumin 1.9 g/dl (3.4-5.0) L 05/03/17 05:20 05/01/17 05/02/17 05/02/17 22:45 05:44 11:40 WBC RBC Hgb Hct MCV MCH MCHC RDW Plt Count MPV Sodium Potassium Chloride Carbon Dioxide Anion Gap BUN Creatinine Creat Clearance w eGFR POC Glucometer 165.12762 196.21301 [phone] Random Glucose Calcium Phosphorus Magnesium Total Bilirubin AST ALT Alkaline Phosphatase Total Protein Albumin 05/02/17 05/02/17 05/03/17 13:50 18:26 02:24 WBC 6.0 RBC 2.40 L Hgb 7.4 L Hct 21.8 L MCV 90.7 MCH 30.6 MCHC 33.8 RDW 16.5 H D Plt Count 139 MPV 8.8 Sodium Potassium Chloride Carbon Dioxide Anion Gap BUN Creatinine Creat Clearance w eGFR POC Glucometer 134.66121 169.73054 Random Glucose Calcium Phosphorus Magnesium Total Bilirubin AST ALT Alkaline Phosphatase Total Protein Albumin 05/03/17 05/03/17 05/03/17 05:20 05:20 05:35 WBC 7.0 RBC 2.65 L Hgb 8.0 L Hct 24.1 L MCV 91.0 MCH 30.2 MCHC 33.2 RDW 16.7 H Plt Count 163 MPV 8.5 Sodium 152 H Potassium 4.2 Chloride 122 H Carbon Dioxide 24 Anion Gap 6 L BUN 66 H D Creatinine 1.1 D Creat Clearance w eGFR > 60 POC Glucometer 125.66500 Random Glucose 104 D Calcium 8.0 L Phosphorus 2.7 D Magnesium 2.4 Total Bilirubin 0.3 AST 15 D ALT 16 Alkaline Phosphatase 43 L Total Protein 5.6 L Albumin 1.9 L Active Medications Generic Name Dose Route Start Last Admin Trade Name Freq PRN Reason Stop Dose Admin Albuterol Sulfate 1 amp 05/01/17 22:30 Ventolin 0.083% Nebulizer Soln - NEB Q6H PRN SHORT OF BREATH/WHEEZING Albuterol/Ipratropium 1 amp 05/02/17 18:00 05/03/17 06:21 Duoneb - NEB 1 amp QIDR [facility] Administration Amino Acids 30 ml 05/02/17 10:00 05/02/17 10:15 Prosource No Carb Liquid Pkt GT 30 ml DAILY [facility] Administration Artificial Tears 1 drop 05/02/17 06:00 05/03/17 06:19 Artificial Tears OU Not Given TID [facility] Chlorhexidine Gluconate 1 applic 05/01/17 22:00 05/02/17 22:04 Hibiclens For Decolonization - TP 1 applic HS [facility] Administration Ferrous Sulfate 450 mg 05/02/17 10:00 05/02/17 10:14 Feosol GT 450 mg DAILY [facility] Administration Sodium Chloride 1,000 mls @ 125 mls/hr 05/01/17 14:00 05/02/17 15:10 Normal Saline - IV 125 mls/hr ASDIR [facility] Administration Azithromycin 500 mg/ Dextrose 250 mls @ 250 mls/hr 05/02/17 10:00 05/02/17 10: 57 IVPB 250 mls/hr DAILY [facility] Administration Pantoprazole Sodium 100 mls @ 200 mls/hr 05/03/17 10:00 Protonix 40mg Ivpb (Pre-Docked) IVPB DAILY [facility] Insulin Aspart 1 vial 05/02/17 18:00 05/03/17 06:19 Novolog Vial Sliding Scale - SQ Not Given Q6H [facility] Protocol Lactobacillus Acidophilus 1 tab 05/01/17 22:45 05/02/17 22:02 Bacid - GT 1 tab BID [facility] Administration Lactulose 10 gm 05/02/17 22:00 05/02/17 22:02 Cephulac (Oral Use) GT 10 gm HS [facility] Administration Mupirocin 1 applic 05/01/17 22:00 05/02/17 22:03 Bactroban Ointment (For Decolonization) - NS 05/06/17 21:59 1 applic BID [facility] Administration Piperacillin Sod/Tazobactam Sod 3.375 gm 05/01/17 16:30 05/03/17 02:31 Zosyn 3.375gm Ivpb (Pre-Docked) IVPB 3.375 gm Q8H-IV [facility] Administration Protocol Potassium Chloride 10 meq 05/02/17 10:00 05/02/17 10:14 Potassium Chloride Oral Liquid GT 10 meq DAILY [facility] Administration Senna 2 tab 05/02/17 22:00 05/02/17 22:02 Senna - PO 2 tab HS [facility] Administration Sertraline HCl 50 mg 05/02/17 10:00 05/02/17 10:15 Zoloft - GT 50 mg DAILY [facility] Administration 05/01/17 05/02/17 05/03/17 09:40 13:50 05:20 WBC 6.0 7.0 RBC 2.40 L 2.65 L Hgb 7.4 L 8.0 L Hct 21.8 L 24.1 L MCV 90.7 91.0 MCHC 33.8 33.2 RDW 16.5 H D 16.7 H Plt Count 139 163 Sodium Potassium Chloride Carbon Dioxide Anion Gap BUN Creatinine Blood Type A POSITIVE Antibody Screen Negative 05/03/17 05:20 WBC RBC Hgb Hct MCV MCHC RDW Plt Count Sodium 152 H Potassium 4.2 Chloride 122 H Carbon Dioxide 24 Anion Gap 6 L BUN 66 H D Creatinine 1.1 D Blood Type Antibody Screen 05/01/17 20:08 Gram Stain - Final Sputum - Endotrachea Suction/Ventilator Sputum Culture - Pending 05/01/17 10:30 Blood Culture - Preliminary Blood - Peripheral Venous NO GROWTH OBTAINED AFTER 24 HOURS, INCUBATION TO CONTINUE FOR 4 DAYS. 05/01/17 09:40 Blood Culture - Preliminary Blood - Peripheral Venous NO GROWTH OBTAINED AFTER 24 HOURS, INCUBATION TO CONTINUE FOR 4 DAYS. 05/01/17 10:30 Legionella Antigen - Final Urine - Urine Clean Catch Streptococcus pneumoniae Antigen (M - Final 05/01/17 10:30 Urine Culture - Pending Urine - Urine - Catheterized Imaging: CXR (05/02) - Cardiomegaly. T-Tube in place. RUL consolidation. Increased blunting of L costophrenic angle. Renal U/S (05/02) - Normal renal parenchyma. No evidence of hydronephrosis. ASSESSMENT/PLAN: 81 yo m w/ pmh of COPD, HTN, parox. Afib, CVA, AMIE, multiple prior PNAs, chronic hypoxic respiratory failure requiring Trach collar who [place] from [place] w/ fever of 102, found to be hypotensive in ED w/ imaging suggestive of RUL infiltrate, admitted for suspected sepsis syndrome secondary to HCAP vs. VAP. Pt with stable MAPs (mild hypotension overnight), off pressors, doing better clinically w/ improving MS and no WBC elevation or fever. BUN/Cr downtrending ( 66/1.1) with stable Hgb (8.0), but with continued hyperNa of 152. Will continue abx for suspected HCAP vs. VAP per ID and start 1/2 NS for hyperNa per renal team. ID and Renal following. Transfer to med-surg for further management given clinical improvement. #Neuro -Monitor MS #Cardiac - Monitor BP off pressors. IV Bolus/restart pressors if MAP <65 #Pulm -Continue on vent. Titrate to >90% O2 sat. Mode changed from AC to CPAP (07/24) - Duonebs QIDR - Albuterol PRN - S+S consulted for PMV - SBTs as tolerated #ID - Sputum culture + for multiiple GN organisms. - Day 2 abx. D/c vanc, continue zosyn/zithromax - ID recs appreciated #Renal - Trend Na. Started on 1/2 NS at 75cc/hr. - Strict I&Os - daily BMPs. Trend BUN/Cr #Heme - F/u stool guiac. Restart home AC if guiac negative - Trend H/H. Transfuse at <7 - Trend thrombocytopenia - Pull femoral line (day 6) #Endo - ACHS - ISS - BGMs q6h #GI - f/u Stool guiac - MBS w/ S+S for tomorrow - Dc'ed ursodiol - Senna, Colace for constipation. One BM overnight per patient. Consider fecal disimpaction if continue diarrhea. - PO Lactulose #FEN -Fluids: IVF w/ 1/2 NS 75cc/hr -Electrolytes: Daily BMPs, Trend BUN/Cr -Nutrition: enteral feeds - Jevity 1500cal, flush 25cc/hr. NPO until MBS #PPX -SCDs for DVT ppx -PPI for GI ppx #Dispo - Dispo to med-surg for further management given clinical improvement. Timothy Velazquez, PGY1 Plan discussed with attending, Dr. Reyes Visit type - Emergency Visit Emergency Visit: No - New Patient This patient is new to me today: No - Critical Care Critical Care patient: Yes Total Critical Care Time (in minutes): 35 Critical Care Statement: The care of this patient involved high complexity decision making to prevent further life threatening deterioration of the patient 's condition and/or to evaluate & treat vital organ system(s) failure or risk of failure.
--- NOTE | 2017-05-03 08:16 | PN ---
Physical Exam: SUBJECTIVE: Patient seen and examined OBJECTIVE: Vital Signs Period Temp Pulse Resp BP Sys/Mayorga Pulse Ox Last 24 Hr 97.6 F-98.6 F 61-93 11-31 80-120/49-74 100-100 GENERAL: The patient is awake, alert, and fully oriented, in no acute distress. HEAD: Normal with no signs of trauma. EYES: PERRL, extraocular movements intact, sclera anicteric, conjunctiva clear. No ptosis. ENT: Ears normal, nares patent, oropharynx clear without exudates, moist mucous membranes. NECK: Trachea midline, full range of motion, supple. LUNGS: Breath sounds equal, clear to auscultation bilaterally, no wheezes, no crackles, no accessory muscle use. HEART: Regular rate and rhythm, S1, S2 without murmur, rub or gallop. ABDOMEN: Soft, nontender, nondistended, normoactive bowel sounds, no guarding, no rebound, no hepatosplenomegaly, no masses. EXTREMITIES: 2+ pulses, warm, well-perfused, no edema. NEUROLOGICAL: Cranial nerves II through XII grossly intact. Normal speech, gait not observed. PSYCH: Normal mood, normal affect. SKIN: Warm, dry, normal turgor, no rashes or lesions noted Laboratory Results - last 24 hr 05/01/17 05/02/17 05/02/17 22:45 05:44 11:40 WBC RBC Hgb Hct MCV MCH MCHC RDW Plt Count MPV Sodium Potassium Chloride Carbon Dioxide Anion Gap BUN Creatinine Creat Clearance w eGFR POC Glucometer 165.55367 196.72799 190.21067 Random Glucose Calcium Phosphorus Magnesium Total Bilirubin AST ALT Alkaline Phosphatase Total Protein Albumin 05/02/17 05/02/17 05/03/17 13:50 18:26 02:24 WBC 6.0 RBC 2.40 L Hgb 7.4 L Hct 21.8 L MCV 90.7 MCH 30.6 MCHC 33.8 RDW 16.5 H D Plt Count 139 MPV 8.8 Sodium Potassium Chloride Carbon Dioxide Anion Gap BUN Creatinine Creat Clearance w eGFR POC Glucometer 134.91860 169.33034 Random Glucose Calcium Phosphorus Magnesium Total Bilirubin AST ALT Alkaline Phosphatase Total Protein Albumin 05/03/17 05/03/17 05/03/17 05:20 05:20 05:35 WBC 7.0 RBC 2.65 L Hgb 8.0 L Hct 24.1 L MCV 91.0 MCH 30.2 MCHC 33.2 RDW 16.7 H Plt Count 163 MPV 8.5 Sodium 152 H Potassium 4.2 Chloride 122 H Carbon Dioxide 24 Anion Gap 6 L BUN 66 H D Creatinine 1.1 D Creat Clearance w eGFR > 60 POC Glucometer 125.04332 Random Glucose 104 D Calcium 8.0 L Phosphorus 2.7 D Magnesium 2.4 Total Bilirubin 0.3 AST 15 D ALT 16 Alkaline Phosphatase 43 L Total Protein 5.6 L Albumin 1.9 L Active Medications Generic Name Dose Route Start Last Admin Trade Name Freq PRN Reason Stop Dose Admin Albuterol Sulfate 1 amp 05/01/17 22:30 Ventolin 0.083% Nebulizer Soln - NEB Q6H PRN SHORT OF BREATH/WHEEZING Albuterol/Ipratropium 1 amp 05/02/17 18:00 05/03/17 06:21 Duoneb - NEB 1 amp QIDR [facility] Administration Amino Acids 30 ml 05/02/17 10:00 05/02/17 10:15 Prosource No Carb Liquid Pkt GT 30 ml DAILY [facility] Administration Artificial Tears 1 drop 05/02/17 06:00 05/03/17 06:19 Artificial Tears OU Not Given TID [facility] Chlorhexidine Gluconate 1 applic 05/01/17 22:00 05/02/17 22:04 Hibiclens For Decolonization - TP 1 applic HS [facility] Administration Ferrous Sulfate 450 mg 05/02/17 10:00 05/02/17 10:14 Feosol GT 450 mg DAILY [facility] Administration Sodium Chloride 1,000 mls @ 125 mls/hr 05/01/17 14:00 05/02/17 15:10 Normal Saline - IV 125 mls/hr ASDIR [facility] Administration Azithromycin 500 mg/ Dextrose 250 mls @ 250 mls/hr 05/02/17 10:00 05/02/17 10: 57 IVPB 250 mls/hr DAILY [facility] Administration Pantoprazole Sodium 100 mls @ 200 mls/hr 05/03/17 10:00 Protonix 40mg Ivpb (Pre-Docked) IVPB DAILY [facility] Insulin Aspart 1 vial 05/02/17 18:00 05/03/17 06:19 Novolog Vial Sliding Scale - SQ Not Given Q6H [facility] Protocol Lactobacillus Acidophilus 1 tab 05/01/17 22:45 05/02/17 22:02 Bacid - GT 1 tab BID [facility] Administration Lactulose 10 gm 05/02/17 22:00 05/02/17 22:02 Cephulac (Oral Use) GT 10 gm HS [facility] Administration Mupirocin 1 applic 05/01/17 22:00 05/02/17 22:03 Bactroban Ointment (For Decolonization) - NS 05/06/17 21:59 1 applic BID [facility] Administration Piperacillin Sod/Tazobactam Sod 3.375 gm 05/01/17 16:30 05/03/17 02:31 Zosyn 3.375gm Ivpb (Pre-Docked) IVPB 3.375 gm Q8H-IV [facility] Administration Protocol Potassium Chloride 10 meq 05/02/17 10:00 05/02/17 10:14 Potassium Chloride Oral Liquid GT 10 meq DAILY [facility] Administration Senna 2 tab 05/02/17 22:00 05/02/17 22:02 Senna - PO 2 tab HS [facility] Administration Sertraline HCl 50 mg 05/02/17 10:00 05/02/17 10:15 Zoloft - GT 50 mg DAILY [facility] Administration ASSESSMENT/PLAN: 81 yo m w/ PMH COPD, HTN, DM, HLD, Paroxysmal A-fib, CVA, 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 #Septic shock 2/2 VAP vs other source -s/p dose of vancomycin, zosyn and levaquin -Azithromycin 500mg daily -zosyn 3.375 daily -Bcx not growth to date -ucx pending -urine antigens negative -sputum cx shows many gram positive bacilli -management as per ICU team #CKD -BUN 124, Cr. 2.3 on admission -improved today; BUN 66 and Cr. 1.1 -renal u/s : no abnormalities; limited study -c/w IVF -monitor #normocytic anemia likely 2/2 CKD- resolved -s/p 1u PRBC -rpt Hb 8 -transfuse as per protocol #Diabetes mellitus -BGMs Q4 -ISS Q4 -required 18u since yesterday #s/p PEG tube -no overt signs of infection #FEN -1/2 NS @ 75 -monitor lytes -tube feeds #Prophylaxsis -SCDs -no indication for GI prophylaxsis #dispo -stable for transfer out of ICU Problem List - Problems (1) Anemia Code(s): D64.9 - ANEMIA, UNSPECIFIED (2) Acute kidney failure Code(s): N17.9 - ACUTE KIDNEY FAILURE, UNSPECIFIED (3) Diabetes mellitus Code(s): E11.9 - TYPE 2 DIABETES MELLITUS WITHOUT COMPLICATIONS (4) Pneumonia Code(s): J18.9 - PNEUMONIA, UNSPECIFIED ORGANISM (5) Shock Code(s): R57.9 - SHOCK, UNSPECIFIED Visit type - Emergency Visit Emergency Visit: Yes ED Registration Date: 05/01/17 Care time: The patient presented to the Emergency Department on the above date and was hospitalized for further evaluation of their emergent condition. - New Patient This patient is new to me today: No - Critical Care Critical Care patient: Yes Total Critical Care Time (in minutes): 35 Critical Care Statement: The care of this patient involved high complexity decision making to prevent further life threatening deterioration of the patient 's condition and/or to evaluate & treat vital organ system(s) failure or risk of failure.
[2017-05-03] MEDS: FERROUS SO4 300 MG/5 ML ORAL SOLN UNIT DOSE CUPS GT SCH (09:04)
[2017-05-03] MEDS: AMINO ACIDS/PROTEIN HYDROLYS 30 ML LIQUID.PKT GT SCH (09:04)
[2017-05-03] MEDS: MUPIROCIN 2% TOPICAL OINTMENT FOR DECOLONIZATION NS SCH (09:06)
[2017-05-03] MEDS: LACTOBACILLUS ACIDOPHILUS 1 EACH TAB (FP) GT SCH ×2 (09:06→22:48)
[2017-05-03] MEDS: POTASSIUM CHLORIDE ORAL LIQUID 20 MEQ/15 ML GT SCH (09:06)
[2017-05-03] MEDS: SERTRALINE HCL 50 MG TABLET (FP) GT SCH (09:07)
[2017-05-03] MEDS ORDERED: PT OWN MED DRAWER 7, Y5N ONE (09:47)
[2017-05-03] MEDS ORDERED: PANTOPRAZOLE SODIUM 100 ML IVPB SCH (10:00)
[2017-05-03] MEDS: AZITHROMYCIN IVPB 500 MG in DEXTROSE 5%-WATER - 250 ML IVPB SCH (10:13)
[2017-05-03] MEDS: SODIUM CHLORIDE 1,000 ML IV SCH (10:14)
[2017-05-03] MEDS ORDERED: SODIUM CHLORIDE 0.45% 1,000 ML IV SCH (11:45)
--- NOTE | 2017-05-03 11:51 | PN ---
Teaching Attending Note Name of Resident: Faizan Landeros ATTENDING PHYSICIAN STATEMENT I saw and evaluated the patient. I reviewed the resident's note and discussed the case with the resident. I agree with the resident's findings and plan as documented. SUBJECTIVE: Patient awake and alert. He appears comfortable. He denies pain, SOB. OBJECTIVE: Vital Signs Period Temp Pulse Resp BP Sys/Mayorga Pulse Ox Last 24 Hr 97.6 F-98.6 F 60-93 13-32 80-120/49-74 100-100 HEART: S1S2, RRR LUNGS: Scattered crackles ABDOMEN: Soft, non-tender, non-distended, normal BS EXTREMITIES: Trace edema Current Medications Generic Name Dose Route Start Last Admin Trade Name Freq PRN Reason Stop Dose Admin Albuterol Sulfate 1 amp 05/01/17 22:30 Ventolin 0.083% Nebulizer Soln - NEB Q6H PRN SHORT OF BREATH/WHEEZING Albuterol/Ipratropium 1 amp 05/02/17 18:00 05/03/17 11:29 Duoneb - NEB 1 amp QIDR [facility] Administration Amino Acids 30 ml 05/02/17 10:00 05/03/17 09:04 Prosource No Carb Liquid Pkt GT 30 ml DAILY [facility] Administration Artificial Tears 1 drop 05/02/17 06:00 05/03/17 06:19 Artificial Tears OU Not Given TID [facility] Chlorhexidine Gluconate 1 applic 05/01/17 22:00 05/02/17 22:04 Hibiclens For Decolonization - TP 1 applic HS [facility] Administration Ferrous Sulfate 450 mg 05/02/17 10:00 05/03/17 09:04 Feosol GT 450 mg DAILY [facility] Administration Sodium Chloride 1,000 mls @ 125 mls/hr 05/01/17 14:00 05/03/17 10:14 Normal Saline - IV 125 mls/hr ASDIR [facility] Administration Azithromycin 500 mg/ Dextrose 250 mls @ 250 mls/hr 05/02/17 10:00 05/03/17 10: 13 IVPB 250 mls/hr DAILY [facility] Administration Pantoprazole Sodium 100 mls @ 200 mls/hr 05/03/17 10:00 05/03/17 10:13 Protonix 40mg Ivpb (Pre-Docked) IVPB 200 mls/hr DAILY [facility] Administration Insulin Aspart 1 vial 05/02/17 18:00 05/03/17 06:19 Novolog Vial Sliding Scale - SQ Not Given Q6H [facility] Protocol Lactobacillus Acidophilus 1 tab 05/01/17 22:45 05/03/17 09:06 Bacid - GT 1 tab BID [facility] Administration Lactulose 10 gm 05/02/17 22:00 05/02/17 22:02 Cephulac (Oral Use) GT 10 gm HS [facility] Administration Mupirocin 1 applic 05/01/17 22:00 05/03/17 09:06 Bactroban Ointment (For Decolonization) - NS 05/06/17 21:59 1 applic BID [facility] Administration Piperacillin Sod/Tazobactam Sod 3.375 gm 05/01/17 16:30 05/03/17 09:03 Zosyn 3.375gm Ivpb (Pre-Docked) IVPB 3.375 gm Q8H-IV [facility] Administration Protocol Potassium Chloride 10 meq 05/02/17 10:00 05/03/17 09:06 Potassium Chloride Oral Liquid GT 10 meq DAILY [facility] Administration Senna 2 tab 05/02/17 22:00 05/02/17 22:02 Senna - PO 2 tab HS [facility] Administration Sertraline HCl 50 mg 05/02/17 10:00 05/03/17 09:07 Zoloft - GT 50 mg DAILY [facility] Administration ASSESSMENT AND PLAN: This is a 81 year old man with a history of COPD, obesity hypoventilation syndrome, AMIE, ventilator-dependent chronic hypoxic respiratory failure, tracheostomy, PEG, type 2 DM, HTN, hyperlipidemia, PAF, DVT, IVC filter, CVA who came to the ER from [facility] for fever, abnormal CXR and hypotension. 1. Severe sepsis secondary to ventilator-associated pneumonia - Afebrile - Hypotension improved - Continue IV fluid - Blood cultures negative after 48 hrs - Urine culture negative - Urine Legionella, Pneumococcus Ag negative - Sputum culture growing gram negative rods - Continue Zosyn, Zithromax 2. Acute kidney injury secondary to hypotension, sepsis - Improving - Continue IV fluid - Continue to hold Lisinopril, Lasix 3. Stage 3 CKD - Last available creatinine is 1.6 from 10/2014 4. Hypernatremia - Change IV fluid to 1/2 NS 5. Anemia - Likely secondary to chronic illness - Continue ferrous sulfate - Transfused 1 unit PRBCs - Stool occult blood ordered 6. Chronic hypoxic respiratory failure - Maintain vent support 7. COPD 8. Obstructive sleep apnea 9. Obesity hypoventilation syndrome 10. Hypertension - Lisinopril, Cardizem, Coreg, Lasix held secondary to hypotension 11. Type 2 diabetes mellitus - Continue Novolog sliding scale 12. Paroxysmal atrial fibrillation - Remains in sinus rhythm - Cardizem held secondary to hypotension 13. DVT prophylaxis - SCDs - Not on anticoagulation secondary to possible bleeding 14. Stress ulcer prophylaxis - Continue Protonix
--- NOTE | 2017-05-03 12:40 | PN ---
Teaching Attending Note Name of Resident: iTmothy Velazquez ATTENDING PHYSICIAN STATEMENT I saw and evaluated the patient. I reviewed the resident's note and discussed the case with the resident. I agree with the resident's findings and plan as documented. SUBJECTIVE: Pt seen and examined in the ICU. Remains off pressors. More awake, alert. Vented on volume assist control, placed on CPAP/PS 07/24. OBJECTIVE: Last Vital Signs Temp Pulse Resp BP Pulse Ox 98.6 F 62 19 91/63 100 05/03/17 12:00 05/03/17 12:00 05/03/17 12:00 05/03/17 12:00 05/03/17 12:30 Intake & Output 04/30/17 05/01/17 05/02/17 05/03/17 23:59 23:59 23:59 23:59 Intake Total 618.5 4762.5 35774 Output Total 120 2250 1050 Balance 498.5 2512.5 16329 Weight 179 lb 3.773 oz 173 lb 15.115 oz 179 lb 3.773 oz Gen: vented, awake Heart: RRR Lung: scattered rhonchi Abd: soft, nontender Ext: no edema CBC, BMP 05/03/17 05:20 05/03/17 05:20 Active Medications Albuterol Sulfate (Ventolin 0.083% Nebulizer Soln -) 1 amp NEB Q6H PRN PRN Reason: SHORT OF BREATH/WHEEZING Albuterol/Ipratropium (Duoneb -) 1 amp NEB QIDR [facility] Last Admin: 05/03/17 11:29 Dose: 1 amp Amino Acids (Prosource No Carb Liquid Pkt) 30 ml GT DAILY [facility] Last Admin: 05/03/17 09:04 Dose: 30 ml Artificial Tears (Artificial Tears) 1 drop OU TID [facility] Last Admin: 05/03/17 06:19 Dose: Not Given Chlorhexidine Gluconate (Hibiclens For Decolonization -) 1 applic TP HS [facility] Last Admin: 05/02/17 22:04 Dose: 1 applic Ferrous Sulfate (Feosol) 450 mg GT DAILY [facility] Last Admin: 05/03/17 09:04 Dose: 450 mg Azithromycin 500 mg/ Dextrose 250 mls @ 250 mls/hr IVPB DAILY [facility] Last Admin: 05/03/17 10:13 Dose: 250 mls/hr Pantoprazole Sodium (Protonix 40mg Ivpb (Pre-Docked)) 100 mls @ 200 mls/hr IVPB DAILY [facility] Last Admin: 05/03/17 10:13 Dose: 200 mls/hr Sodium Chloride (1/2 Normal Saline) 1,000 mls @ 125 mls/hr IV ASDIR [facility] Last Admin: 05/03/17 12:34 Dose: 125 mls/hr Insulin Aspart (Novolog Vial Sliding Scale -) 1 vial SQ Q6H [facility] PRN Reason: Protocol Last Admin: 05/03/17 12:35 Dose: 2 units Lactobacillus Acidophilus (Bacid -) 1 tab GT BID [facility] Last Admin: 05/03/17 09:06 Dose: 1 tab Lactulose (Cephulac (Oral Use)) 10 gm GT HS [facility] Last Admin: 05/02/17 22:02 Dose: 10 gm Mupirocin (Bactroban Ointment (For Decolonization) -) 1 applic NS BID [facility] Stop: 05/06/17 21:59 Last Admin: 05/03/17 09:06 Dose: 1 applic Piperacillin Sod/Tazobactam Sod (Zosyn 3.375gm Ivpb (Pre-Docked)) 3.375 gm IVPB Q8H-IV [facility] PRN Reason: Protocol Last Admin: 05/03/17 09:03 Dose: 3.375 gm Potassium Chloride (Potassium Chloride Oral Liquid) 10 meq GT DAILY [facility] Last Admin: 05/03/17 09:06 Dose: 10 meq Senna (Senna -) 2 tab PO HS [facility] Last Admin: 05/02/17 22:02 Dose: 2 tab Sertraline HCl (Zoloft -) 50 mg GT DAILY [facility] Last Admin: 05/03/17 09:07 Dose: 50 mg ASSESSMENT AND PLAN: Pneumonia Septic Shock Chronic Vent Dependent Respiratory Failure Acute Kidney Injury COPD AMIE/OHS Paroxysmal Atrial Fibrillation h/o CVA Anemia r/o GI bleed Hypernatremia HTN DM - continue antibiotics - f/u cultures - change IVF to 1/2NS - monitor urine output, creatinine - monitoring off pressors, maintain MAP >65 - d/c femoral line - inhaled bronchodilators standing and PRN - taper Fio2 to keep SpO2 >90% - spontaneous breathing trials as tolerated - monitor H/H - protonix - enteral feeds, PO as tolerated - DVT/GI prophylaxis - can monitor on vent floor critical care time spent in reviewing chart, evaluating patient and formulating plan 35 min
--- NOTE | 2017-05-03 13:00 | CONSULT ---
Admitting History and Physical - Primary Care Physician PCP: Rl Pulliam - Admission History of Present Illness: Chart reviewed. Per EMR: The patient is a 81 yo m w/ PMH afib, htn, COPD, DM who presents from retirement c/o fever to 102. Pneumonia Septic Shock Chronic Vent Dependent Respiratory Failure Acute Kidney Injury COPD AMIE/OHS Paroxysmal Atrial Fibrillation h/o CVA Anemia r/o GI bleed Hypernatremia HTN DM Ventilated by trach with 40% O2, SPO2-100% Known to me from 2014 - rec: [facility]ec[facility] pablo. PMV contraindicated at that time due to suspected obstruction (anatomy/trach size?) Not known if w/u done, or if he eventually used a PMV. At [facility], was on GT feedings and snacks of yogurt/applesauce TID. Wireless Sales Consultant order for PMV in transfer summary. Admitted with RLL infiltrate. Suggest d/c po order until mbs done pt placed on simv with ps for weaning this a.m,cammie well for 2 hrs,placed back on a/c c/o pt rr >than 45,r.n aware. Selected Entries 05/03/17 05/03/17 05/03/17 02:00 07:00 08:00 Temperature 98.6 F 98.2 F 98.1 F 05/03/17 05/03/17 05/03/17 10:00 12:00 13:13 Temperature 98.5 F 98.6 F 98.6 F 05/03/17 05/03/17 05/03/17 14:00 18:00 23:06 Temperature 98.1 F 98.6 F 99.0 F 05/04/17 05:57 Temperature 98.6 F Laboratory Tests 05/03/17 05/04/17 05:20 07:35 WBC 7.0 6.9 History Source: Medical Record Limitations to Obtaining History: No Limitations (on ventilator. 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: CVA, Other Cardiovascular: Yes: AFIB, HTN Pulmonary: Yes: COPD, O2 Dependent, Pneumonia, Previously Intubated, Other ( Obesity hypoventrilation, chronic respiratory failure) Hepatobiliary: Yes: Cholecystitis Renal/: Yes: Renal Failure Musculoskeletal: Yes: Osteoarthritis, Other (Gout for long time on allopurinol) Rheumatology: Yes: Gout, Lupus, Rheumatoid Arthritis ENT: Yes: Sinusitis Endocrine: Yes: Diabetes Mellitus - Past Surgical History Past Surgical History: Yes: Appendectomy - Advance Directives Advance Directives: Yes: DNR - Smoking History Smoking history: Unknown if ever smoked Have you smoked in the past 12 months: No Aproximately how many cigarettes per day: 0 - Alcohol/Substance Use Hx Alcohol Use: No History of Substance Use: reports: None - Social History ADL: Support Services History of Recent Travel: No History - Admission Reason For Visit: SEPSIS - Diagnostics X-ray: Report Reviewed - General Mental Status: Alert and Oriented (to hospital), Awake and Alert, Able to Follow Commands Attention: Intact Ability to Follow Directions: Fair Head/Neck Control: Fair - Hearing Hearing: Functional Speech Evaluation - Communication Primary Language: SERBIAN Oral Expression Ability: Yes: Non-Verbal (needs reminders to mouth words.), Non- Vocal (on ventilator) - Speech Production Apraxia: No - Speech Characteristics Articulation: Yes: Precise - Language/Auditory Comprehension Follows: Yes: 1 Stage Simple Commands Observation: Comprehends Conversational Speech: Yes - Swallow Evaluation/Bedside Assessment Current Nutritional Intake: NPO, G Tube Oral Secretions: Yes: WFL Tracheostomy Present: Yes Patient on Ventilator: Yes Dentition: Yes: Edentulous Facial Symmetry at Rest: Symmetrical Facial Symmetry on Retraction: Symmetrical Facial Movement: Controlled Pucker Lips: Normal Smile: Normal Lingual Movement: Symmetric (some coating still after mouth care. Pt is resistant to mouth care.) Lingual Speed of Movement: Normal Lingual Movement Strgth Against Opposition: Normal Lingual Movement Characteristics: Normal Laryngeal Movement: Able to Palpate A-P Transit: WFL Recommendations - Speech Evaluation, Impression/Plan Impression: Known to me from 2014, with functional swallow on mbs, PMV contraindicated at that time (possibly sec to large trach?). Has been at [facility]. GT and pureed snacks tid, no PMV use. Admitted with SOB/RLL infiltrate. - Disposition Discharge to: Jail Facility - Dysphagia Impressions/Plan Dysphagia Impressions: Ongoing Evaluation *Silent aspiration: cannot be R/O at bedside Recommendations: Modified Barium Swallow (Sunday, if stable and pulm status improves), Passy Margie Valve
[2017-05-03] MEDS ORDERED: ALBUTEROL SO4 0.083% IH SOL 2.5 MG/3 ML VIAL.NEB. NEB PRN (13:24)
--- NOTE | 2017-05-03 13:33 | PN ---
Progress Note, Physician History of Present Illness: Pt seen and examined at bedside. He is awake and alert. He remains in the ICU. - Current Medication List Current Medications: Active Medications Albuterol Sulfate (Ventolin 0.083% Nebulizer Soln -) 1 amp NEB Q6H PRN PRN Reason: SHORT OF BREATH/WHEEZING Albuterol/Ipratropium (Duoneb -) 1 amp NEB QIDR [facility] Amino Acids (Prosource No Carb Liquid Pkt) 30 ml GT DAILY [facility] Artificial Tears (Artificial Tears) 1 drop OU TID [facility] Chlorhexidine Gluconate (Hibiclens For Decolonization -) 1 applic TP HS [facility] Ferrous Sulfate (Feosol) 450 mg GT DAILY [facility] Sodium Chloride (1/2 Normal Saline) 1,000 mls @ 125 mls/hr IV ASDIR [facility] Last Admin: 05/03/17 12:34 Dose: 125 mls/hr Azithromycin 500 mg/ Dextrose 250 mls @ 250 mls/hr IVPB DAILY [facility] Pantoprazole Sodium (Protonix 40mg Ivpb (Pre-Docked)) 100 mls @ 200 mls/hr IVPB DAILY [facility] Insulin Aspart (Novolog Vial Sliding Scale -) 1 vial SQ Q6H [facility] PRN Reason: Protocol Lactobacillus Acidophilus (Bacid -) 1 tab GT BID [facility] Lactulose (Cephulac (Oral Use)) 10 gm GT HS [facility] Mupirocin (Bactroban Ointment (For Decolonization) -) 1 applic NS BID [facility] Stop: 05/06/17 21:59 Piperacillin Sod/Tazobactam Sod (Zosyn 3.375gm Ivpb (Pre-Docked)) 3.375 gm IVPB Q8H-IV [facility] PRN Reason: Protocol Potassium Chloride (Potassium Chloride Oral Liquid) 10 meq GT DAILY [facility] Senna (Senna -) 2 tab PO HS [facility] Sertraline HCl (Zoloft -) 50 mg GT DAILY [facility] - Objective Vital Signs: Vital Signs Temperature 98.6 F 05/03/17 12:00 Pulse Rate 62 05/03/17 12:00 Respiratory Rate 19 05/03/17 12:00 Blood Pressure 91/63 05/03/17 12:00 O2 Sat by Pulse Oximetry (%) 100 05/03/17 12:30 Constitutional: Yes: Calm Eyes: Yes: Conjunctiva Clear HENT: Yes: Other (trache) Cardiovascular: Yes: S1, S2 Respiratory: Yes: Mechanically Ventilated Gastrointestinal: Yes: Soft Genitourinary: Yes: Other ([place] cath) Musculoskeletal: Yes: Muscle Weakness Edema: Yes Edema: LLE: Trace, RLE: Trace Neurological: Yes: Oriented Psychiatric: Yes: Oriented Labs: CBC, BMP 05/03/17 05:20 05/03/17 05:20 INR, PTT INR 1.51 (0.82-1.09) H 05/02/17 05:30 Problem List - Problems (1) Anemia Code(s): D64.9 - ANEMIA, UNSPECIFIED (2) Atrial fibrillation Code(s): I48.91 - UNSPECIFIED ATRIAL FIBRILLATION (3) Chronic kidney disease (CKD) Code(s): N18.9 - CHRONIC KIDNEY DISEASE, UNSPECIFIED (4) Chronic respiratory failure Code(s): J96.10 - CHRONIC RESPIRATORY FAILURE, UNSP W HYPOXIA OR HYPERCAPNIA Assessment/Plan Current Medications Generic Name Dose Route Start Last Admin Trade Name Freq PRN Reason Stop Dose Admin Albuterol Sulfate 1 amp 05/03/17 13:24 Ventolin 0.083% Nebulizer Soln - NEB Q6H PRN SHORT OF BREATH/WHEEZING Albuterol/Ipratropium 1 amp 05/03/17 18:00 Duoneb - NEB QIDR [facility] Amino Acids 30 ml 05/04/17 10:00 Prosource No Carb Liquid Pkt GT DAILY [facility] Artificial Tears 1 drop 05/03/17 14:00 Artificial Tears OU TID [facility] Chlorhexidine Gluconate 1 applic 05/03/17 22:00 Hibiclens For Decolonization - TP HS [facility] Ferrous Sulfate 450 mg 05/04/17 10:00 Feosol GT DAILY [facility] Sodium Chloride 1,000 mls @ 125 mls/hr 05/03/17 11:45 05/03/17 12:34 1/2 Normal Saline IV 125 mls/hr ASDIR [facility] Administration Azithromycin 500 mg/ Dextrose 250 mls @ 250 mls/hr 05/04/17 10:00 IVPB DAILY [facility] Pantoprazole Sodium 100 mls @ 200 mls/hr 05/04/17 10:00 Protonix 40mg Ivpb (Pre-Docked) IVPB DAILY [facility] Insulin Aspart 1 vial 05/03/17 18:00 Novolog Vial Sliding Scale - SQ Q6H [facility] Protocol Lactobacillus Acidophilus 1 tab 05/03/17 22:00 Bacid - GT BID [facility] Lactulose 10 gm 05/03/17 22:00 Cephulac (Oral Use) GT HS [facility] Mupirocin 1 applic 05/03/17 22:00 Bactroban Ointment (For Decolonization) - NS 05/06/17 21:59 BID [facility] Piperacillin Sod/Tazobactam Sod 3.375 gm 05/03/17 18:00 Zosyn 3.375gm Ivpb (Pre-Docked) IVPB Q8H-IV [facility] Protocol Potassium Chloride 10 meq 05/04/17 10:00 Potassium Chloride Oral Liquid GT DAILY [facility] Senna 2 tab 05/03/17 22:00 Senna - PO HS [facility] Sertraline HCl 50 mg 05/04/17 10:00 Zoloft - GT DAILY [facility] Impression 1. CKD with acute component 2. resp failure chronic 3. hypotension 4. dvt s/p ivc filter 5. hyponatremia 6. DM 7. A.fib/flutter 8. renal cyst 9. SUE 10. sepsis 11. PNA Plan - fluids changed to 1/2ns today, will decrease rate - increase free water with feeds - repeat labs in am - renal function is improving - SUE likely from sepsis and pre-renal disease - cont abx - vent support - avoid nephrotoxins
[2017-05-03] MEDS ORDERED: PIPERACILLIN/TAZOBACTAM 3.375 GM VIAL IVPB ONE (17:42)
[2017-05-03] MEDS ORDERED: DEXTROSE 5%-WATER - 50 ML IVPB ONE (17:42)
[2017-05-03] MEDS: PIPERACILLIN/TAZOB 3.375 GM 3.375 GM in DEXTROSE 5%-WATER - 50 ML IVPB SCH (17:46)
[2017-05-03] MEDS ORDERED: PIPERACILLIN/TAZOB 3.375 GM 3.375 GM in DEXTROSE 5%-WATER - 50 ML IVPB SCH (18:00)
[2017-05-03] MEDS ORDERED: INSULIN SLIDING SCALE (NOVOLOG) 1 VIAL SQ SCH (18:00)
[2017-05-03] MEDS ORDERED: PIPERACILLIN/TAZOB 3.375 GM/50 ML PRE-DOCKED IVPB SCH (18:00)
[2017-05-03] MEDS ORDERED: MUPIROCIN 2% TOPICAL OINTMENT FOR DECOLONIZATION NS SCH (22:00)
[2017-05-03] MEDS ORDERED: CHLORHEXIDINE GLUCONATE 4% CLEANSER FOR DECOLONIZATION TP SCH (22:00)
[2017-05-03] MEDS: SENNOSIDES 8.6MG TABLET (FP) PO SCH (22:48)
[2017-05-03] MEDS: LACTULOSE 20 GM/30 ML UDC (FOR ORAL USE ONLY) GT SCH (22:48)
[2017-05-04] MEDS ORDERED: PIPERACILLIN/TAZOBACTAM 3.375 GM VIAL IVPB ONE ×3 (01:10→18:01)
[2017-05-04] MEDS ORDERED: DEXTROSE 5%-WATER - 50 ML IVPB ONE ×3 (01:10→18:02)
[2017-05-04] MEDS: PIPERACILLIN/TAZOB 3.375 GM 3.375 GM in DEXTROSE 5%-WATER - 50 ML IVPB SCH ×3 (02:57→18:03)
[2017-05-04] MEDS: SODIUM CHLORIDE 0.45% 1,000 ML IV SCH ×4 (03:05→23:26)
[2017-05-04] MEDS: ALBUTEROL SO4 2.5/IPRATROPIUM 0.5 INH SOL 3 ML VIAL.NEB. NEB SCH ×3 (06:23→17:10)
[2017-05-04] MEDS: ARTIFICIAL TEARS (POLYVINYL ALCOHOL 1.4%) OPTH DROPS OU SCH ×3 (06:36→23:27)
[2017-05-04] MEDS: INSULIN SLIDING SCALE (NOVOLOG) 1 VIAL SQ SCH ×4 (06:39→23:33)
[2017-05-04] MEDS ORDERED: INSULIN DETEMIR 100 UNITS/ML MDV SQ ONE (06:56)
[2017-05-04] MEDS ORDERED: PT OWN MED DRAWER 7, Y5N ONE ×2 (06:56→11:04)
[2017-05-04] MEDS ORDERED: INSULIN (NOVOLOG) ASPART 100 UNITS/ML 10ML VIAL ONE (06:56)
[2017-05-04 08:05] LABS: MCH 29.9 pg (25.7-33.7); MCHC 32.8 g/dl (32.0-35.9); MEAN CELL VOLUME 91.2 fl (80-96); MEAN PLT VOLUME 7.8 fl (7.5-11.1); PLATELET COUNT 157 K/MM3 (134-434); RDW 16.9 % (11.9-15.9); WHITE BLOOD COUNT 6.9 K/mm3 (4.0-10.0)
[2017-05-04] MEDS: AMINO ACIDS/PROTEIN HYDROLYS 30 ML LIQUID.PKT GT SCH ×2 (08:35→17:59)
[2017-05-04 08:40] LABS: ANION GAP 5 (8-16); CALCIUM 7.9 mg/dL (8.5-10.1); CO2 25 mmol/L (21-32); GLUCOSE,RANDOM 152 mg/dL (74-106); MAGNESIUM 2.2 mg/dL (1.8-2.4); PHOSPHOROUS 2.9 mg/dL (2.5-4.9); SGOT/AST 13 U/L (15-37); SGPT/ALT 16 U/L (12-78)
[2017-05-04 08:42] LABS: ALK PHOS 46 U/L (45-117); BILIRUBIN,TOTAL 0.3 mg/dL (0.2-1.0); TOT PROT 5.6 g/dl (6.4-8.2)
[2017-05-04] MEDS ORDERED: PANTOPRAZOLE SODIUM 40 MG in SODIUM CHLORIDE 100 ML IVPB SCH (10:00)
[2017-05-04] MEDS ORDERED: AMINO ACIDS/PROTEIN HYDROLYS 30 ML LIQUID.PKT GT SCH (10:00)
[2017-05-04] MEDS: POTASSIUM CHLORIDE ORAL LIQUID 20 MEQ/15 ML GT SCH (11:09)
[2017-05-04] MEDS: SERTRALINE HCL 50 MG TABLET (FP) GT SCH (11:10)
[2017-05-04] MEDS: LACTOBACILLUS ACIDOPHILUS 1 EACH TAB (FP) GT SCH ×2 (11:10→23:27)
[2017-05-04] MEDS: FERROUS SO4 300 MG/5 ML ORAL SOLN UNIT DOSE CUPS GT SCH (11:12)
--- NOTE | 2017-05-04 11:36 | CONSULT ---
Passy-Margie Valve Eval - Assessment Prior to PMV Placement Patient and/or family educated re PMV: Yes Mental Status: Awake, Alert, Attempting to Communicate O2 Sat by Pulse Oximetry (%): 97 Secretions: Moderate Amount Patient on Ventilator: Yes Patient on Trach Collar: Yes Suctioned: Yes Trach Type: Portex Trach Size: 8.0 Inner Cannula Removed: No Cuff Status: Inflated Passy-Margie Valve in Place - Speech Characteristics Able to Phonate with PMV in place: No Voice Loudness: Hypophonia Speech Pattern: Impaired Articulation: Precise - Assessment with PMV in Place Respiratory Rate: 40 (with peep off) O2 Sat by Pulse Oximetry (%): 97 Change in Mental Status with PMV in Place: No Able to Manage Secretions: No Pt's subjective response to PMV: Yes: Restlessness, Other (cough) Length of time with PMV in place: 1-2 min, 3 trials Additional comments: Cuff deflated with tidal volume dropping from 400 to zero, indicating good passage of air past deflated cuff. Copious clear secretions around trach and small amount suctioned through stoma/trach. Clear liquid retracted from airline transport pilot when deflated? reason unclear. Discussed with Pulmonary. Cuff seems to be working and maintaining air so far. Pt resistant to oral suctioning, unable to expectorate secretions, NO AUDIBLE COUGH. Vocal cord dysfunction suspected. o2 sat was stable at 97 when on vent with pmv. - Recommendations Recommendations: Other (PMV contraindicated. Cuff deflation contraindicated. Monitor patency of cuff.)
--- NOTE | 2017-05-04 12:26 | PN ---
Teaching Attending Note Name of Resident: Faizan Landeros ATTENDING PHYSICIAN STATEMENT I saw and evaluated the patient. I reviewed the resident's note and discussed the case with the resident. I agree with the resident's findings and plan as documented. SUBJECTIVE:resting comfortable. states hes thirsty. denies CP, SOB, fver, chills , cough OBJECTIVE: Last Vital Signs Temp Pulse Resp BP Pulse Ox 98.6 F 75 40 H 115/62 97 05/04/17 05:57 05/04/17 10:12 05/04/17 11:47 05/04/17 05:57 05/04/17 11:47 General NAD CV S1 S2 RRR Lungs poor inspiratory effort +trach ABdomen soft NT/ND +PEG ASSESSMENT AND PLAN: 81 yo M with PMH COPD, obesity hypoventilation syndrome, AMIE, ventilator- dependent chronic hypoxic respiratory failure s/p tracheostomy, s/p PEG, type 2 DM, HTN, hyperlipidemia, PAF, DVT s/p IVC filter, CVA who came to the ER from [facility] for fever, abnormal CXR and hypotension. 1. Severe sepsis secondary to ventilator-associated pneumonia- afebrile. hemodynamically stable. on azithromycin/Zosyn. concern for possible aspiration as infiltrate in RLL. on feeds at home (?recreational feeds). plan for MBS on Sunday. F/u SCx as pending organism. abx per ID. 2. Acute on CKD- secondary to hypotension, sepsis- resolved. cont to hold nephrotoxic medications. will re-start acei and lasix as needed. 3. Hypernatremia- improved. on S. cont to trend 4. Normocytic Anemia- Likely secondary to chronic illness. transfused 1 unit PRBC this admission. no signs of bleeding. FOBT ordered but never done. Hgb stable. monitor for now. 5. Chronic hypoxic respiratory failure- Fio2 decreased to 40%. cont full vent support 6. Hypertension-stable. re-start cardizem. slowly re-start medications as needed. Coreg, Lasix and lisinopril held secondary to hypotension 7. Type 2 diabetes mellitus- Continue Novolog sliding scale 8. Paroxysmal atrial fibrillation- Remains in sinus rhythm. re-start cardizem. monitor. not on anticoagulation. 9. DVT prophylaxis- SCDs- Not on anticoagulation secondary to possible bleeding 10. Stress ulcer prophylaxis- will switch to H2 ave, no need for IV at this time.
--- NOTE | 2017-05-04 14:03 | PN ---
Progress Note (short form) - Note Progress Note: awake and alert quite comfortable Vital Signs Period Temp Pulse Resp BP Sys/Mayorga Pulse Ox Last 24 Hr 98.1 F-99.0 F 65-82 16-40 101-132/51-69 97-100 cor-rrr llungs decreased bs at bases abd soft,nt ext no edema bilateral foot drop CBC, BMP 05/04/17 07:35 05/04/17 07:35 Microbiology 05/01/17 20:08 Sputum - Endotrachea Suction/Ventilator Gram Stain - Final 05/01/17 20:08 Sputum - Endotrachea Suction/Ventilator Sputum Culture - Final Providencia Stuartii Pseudo Fluorescens/[place] 05/01/17 10:30 Blood - Peripheral Venous Blood Culture - Preliminary NO GROWTH OBTAINED AFTER 72 HOURS, INCUBATION TO CONTINUE FOR 2 DAYS. 05/01/17 09:40 Blood - Peripheral Venous Blood Culture - Preliminary NO GROWTH OBTAINED AFTER 72 HOURS, INCUBATION TO CONTINUE FOR 2 DAYS. 05/01/17 10:30 Urine - Urine - Catheterized Urine Culture - Final NO GROWTH OBTAINED 05/01/17 10:30 Urine - Urine Clean Catch Legionella Antigen - Final 05/01/17 10:30 Urine - Urine Clean Catch Streptococcus pneumoniae Antigen ( M - Final imp/reccd sepsis-resolved pneumonia (NH)-rul- clinically much improved'suspect isolated from sputum are tracheal colonizers- sample with few PMNS- SUE- improved with hydration chronic respiratory failure anemia- receiving transfusion f/u cultures continue zosyn/zithromax day #3 f/u cxray for swallowing evaluation Problem List - Problems (1) Sepsis - Septicemia Code(s): A41.9 - SEPSIS, UNSPECIFIED ORGANISM (2) Pneumonia Code(s): J18.9 - PNEUMONIA, UNSPECIFIED ORGANISM (3) Acute kidney failure Code(s): N17.9 - ACUTE KIDNEY FAILURE, UNSPECIFIED (4) Anemia Code(s): D64.9 - ANEMIA, UNSPECIFIED (5) Chronic respiratory failure Code(s): J96.10 - CHRONIC RESPIRATORY FAILURE, UNSP W HYPOXIA OR HYPERCAPNIA
--- NOTE | 2017-05-04 14:04 | PN ---
Progress Note (short form) - Note Progress Note: PULMONARY SLEEPING ON VENT VSS/AFEBRILE TRACH ANICTERIC SCATTERED RHONCHI S1S2 RSR BS+ PEG NO EDEMA LABS/MEDS/NOTES/IMAGING/MICRO Pneumonia Septic Shock Chronic Vent Dependent Respiratory Failure Acute Kidney Injury COPD AMIE/OHS Paroxysmal Atrial Fibrillation h/o CVA Anemia r/o GI bleed Hypernatremia HTN DM - continue antibiotics - f/u cultures - monitor urine output, creatinine - monitoring off pressors, maintain MAP >65 - inhaled bronchodilators standing and PRN - taper Fio2 to keep SpO2 >90% - spontaneous breathing trials as tolerated - monitor H/H - protonix - enteral feeds, PO as tolerated - DVT/GI prophylaxis Elizabeth LAU MD
--- NOTE | 2017-05-04 14:34 | PN ---
Physical Exam: SUBJECTIVE: Patient seen and examined at bedside. Abdominal pain today is improved as per patient. no other new complaints, no events overnight, afebrile. OBJECTIVE: Vital Signs Period Temp Pulse Resp BP Sys/Mayorga Pulse Ox Last 24 Hr 98.4 F-99.0 F 72-82 15-40 101-117/51-69 97-100 GENERAL: The patient is awake, alert, in no acute distress. HEAD: Normal with no signs of trauma. EYES: extraocular movements intact, sclera anicteric, conjunctiva clear. No ptosis. NECK: Trachea midline, full range of motion, supple. LUNGS: Breath sounds equal, clear to auscultation bilaterally, no wheezes, no crackles, no accessory muscle use. HEART: Regular rate and rhythm, S1, S2 without murmur, rub or gallop. ABDOMEN: Soft, nontender, nondistended, normoactive bowel sounds, no guarding, no rebound. EXTREMITIES: 2+ pulses, warm, well-perfused, no edema. bilateral foot drop present on admission NEUROLOGICAL: Cranial nerves II through X grossly intact. Normal speech, gait not observed. PSYCH: Normal mood, normal affect. SKIN: Warm, dry, normal turgor. chronic skin changes noted on lower extremities b/l Laboratory Results - last 24 hr 05/03/17 05/03/17 05/04/17 17:45 22:51 06:38 WBC RBC Hgb Hct MCV MCH MCHC RDW Plt Count MPV Sodium Potassium Chloride Carbon Dioxide Anion Gap BUN Creatinine Creat Clearance w eGFR POC Glucometer 132 164 193 Random Glucose Calcium Phosphorus Magnesium Total Bilirubin AST ALT Alkaline Phosphatase Total Protein Albumin 05/04/17 05/04/17 05/04/17 07:35 07:35 12:27 WBC 6.9 RBC 2.83 L Hgb 8.5 L Hct 25.8 L MCV 91.2 MCH 29.9 MCHC 32.8 RDW 16.9 H Plt Count 157 MPV 7.8 Sodium 149 H Potassium 4.1 Chloride 119 H Carbon Dioxide 25 Anion Gap 5 L BUN 46 H D Creatinine 1.0 Creat Clearance w eGFR > 60 POC Glucometer 152 Random Glucose 152 H D Calcium 7.9 L Phosphorus 2.9 Magnesium 2.2 Total Bilirubin 0.3 AST 13 L ALT 16 Alkaline Phosphatase 46 Total Protein 5.6 L Albumin 2.0 L Active Medications Generic Name Dose Route Start Last Admin Trade Name Freq PRN Reason Stop Dose Admin Albuterol Sulfate 1 amp 05/03/17 13:24 Ventolin 0.083% Nebulizer Soln - NEB Q6H PRN SHORT OF BREATH/WHEEZING Albuterol/Ipratropium 1 amp 05/03/17 18:00 05/04/17 11:57 Duoneb - NEB 1 amp QIDR [facility] Administration Amino Acids 30 ml 05/04/17 08:00 05/04/17 08:35 Prosource No Carb Liquid Pkt GT 30 ml BID@0800,1730 [facility] Administration Artificial Tears 1 drop 05/03/17 14:00 05/04/17 06:36 Artificial Tears OU 1 drop TID [facility] Administration Diltiazem HCl 30 mg 05/04/17 14:00 Cardizem - PEG TID [facility] Ferrous Sulfate 450 mg 05/04/17 10:00 05/04/17 11:12 Feosol GT 450 mg DAILY [facility] Administration Azithromycin 500 mg/ Dextrose 250 mls @ 250 mls/hr 05/04/17 10:00 IVPB DAILY [facility] Sodium Chloride 1,000 mls @ 75 mls/hr 05/03/17 13:33 05/04/17 03:05 1/2 Normal Saline IV 75 mls/hr ASDIR [facility] Administration Piperacillin Sod/Tazobactam 50 mls @ 100 mls/hr 05/03/17 18:00 05/04/17 11:13 Sod 3.375 gm/ Dextrose IVPB 100 mls/hr Q8H-IV [facility] Administration Insulin Aspart 1 vial 05/03/17 22:00 05/04/17 12:50 Novolog Vial Sliding Scale - SQ 2 units ACHS [facility] Administration Protocol Lactobacillus Acidophilus 1 tab 05/03/17 22:00 05/04/17 11:10 Bacid - GT 1 tab BID [facility] Administration Lactulose 10 gm 05/03/17 22:00 05/03/17 22:48 Cephulac (Oral Use) GT 10 gm HS [facility] Administration Potassium Chloride 10 meq 05/04/17 10:00 05/04/17 11:09 Potassium Chloride Oral Liquid GT 10 meq DAILY [facility] Administration Ranitidine HCl 150 mg 05/04/17 12:30 Zantac Oral Solution - PEG DAILY [facility] Senna 2 tab 05/03/17 22:00 05/03/17 22:48 Senna - PO 2 tab HS [facility] Administration Sertraline HCl 50 mg 05/04/17 10:00 Zoloft - GT DAILY [facility] ASSESSMENT/PLAN: 81 yo m w/ PMH COPD, HTN, DM, HLD, Paroxysmal A-fib, CVA, 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 #Septic shock 2/2 VAP vs other source -s/p dose of vancomycin, zosyn and levaquin -Azithromycin 500mg daily (day 1) -zosyn 3.375 daily (day4) -Bcx, ucx, urine antigens negative -sputum cx growing several species -f/u ID reccs #CKD -BUN 124, Cr. 2.3 on admission -improved today; BUN 46 and Cr. 1 -renal u/s : no abnormalities; limited study -c/w IVF -monitor #hypernatremia -sodium trending down, 149 today -c/w 1/2 NS until sodium WNL #normocytic anemia likely 2/2 CKD- resolved -s/p 1u PRBC -Hb 8.5 -transfuse as per protocol #Diabetes mellitus -BGMs Q6 -ISS Q6 #s/p PEG tube -no overt signs of infection #FEN -1/2 NS @ 75 -monitor lytes -tube feeds #Prophylaxsis -hep SQ 5kU TID -no indication for GI prophylaxsis #dispo -admitted to med surg Problem List - Problems (1) Anemia Code(s): D64.9 - ANEMIA, UNSPECIFIED (2) Acute kidney failure Code(s): N17.9 - ACUTE KIDNEY FAILURE, UNSPECIFIED (3) Diabetes mellitus Code(s): E11.9 - TYPE 2 DIABETES MELLITUS WITHOUT COMPLICATIONS (4) Pneumonia Code(s): J18.9 - PNEUMONIA, UNSPECIFIED ORGANISM (5) Shock Code(s): R57.9 - SHOCK, UNSPECIFIED Visit type - Emergency Visit Emergency Visit: Yes ED Registration Date: 05/01/17 Care time: The patient presented to the Emergency Department on the above date and was hospitalized for further evaluation of their emergent condition. - New Patient This patient is new to me today: No - Critical Care Critical Care patient: No
--- NOTE | 2017-05-04 15:02 | PN ---
Progress Note, Physician History of Present Illness: Pt seen and examined at bedside. He is awake and appears comfortable. - Current Medication List Current Medications: Active Medications Albuterol Sulfate (Ventolin 0.083% Nebulizer Soln -) 1 amp NEB Q6H PRN PRN Reason: SHORT OF BREATH/WHEEZING Albuterol/Ipratropium (Duoneb -) 1 amp NEB QIDR [facility] Last Admin: 05/04/17 11:57 Dose: 1 amp Amino Acids (Prosource No Carb Liquid Pkt) 30 ml GT BID@0800,1730 [facility] Last Admin: 05/04/17 08:35 Dose: 30 ml Artificial Tears (Artificial Tears) 1 drop OU TID [facility] Last Admin: 05/04/17 06:36 Dose: 1 drop Diltiazem HCl (Cardizem -) 30 mg PEG TID [facility] Ferrous Sulfate (Feosol) 450 mg GT DAILY [facility] Last Admin: 05/04/17 11:12 Dose: 450 mg Heparin Sodium (Porcine) (Heparin -) 5,000 unit SQ TID [facility] Azithromycin 500 mg/ Dextrose 250 mls @ 250 mls/hr IVPB DAILY [facility] Sodium Chloride (1/2 Normal Saline) 1,000 mls @ 75 mls/hr IV ASDIR [facility] Last Admin: 05/04/17 03:05 Dose: 75 mls/hr Piperacillin Sod/Tazobactam (Sod 3.375 gm/ Dextrose) 50 mls @ 100 mls/hr IVPB Q8H-IV [facility] Last Admin: 05/04/17 11:13 Dose: 100 mls/hr Insulin Aspart (Novolog Vial Sliding Scale -) 1 vial SQ ACHS [facility] PRN Reason: Protocol Last Admin: 05/04/17 12:50 Dose: 2 units Lactobacillus Acidophilus (Bacid -) 1 tab GT BID [facility] Last Admin: 05/04/17 11:10 Dose: 1 tab Lactulose (Cephulac (Oral Use)) 10 gm GT HS [facility] Last Admin: 05/03/17 22:48 Dose: 10 gm Potassium Chloride (Potassium Chloride Oral Liquid) 10 meq GT DAILY [facility] Last Admin: 05/04/17 11:09 Dose: 10 meq Ranitidine HCl (Zantac Oral Solution -) 150 mg PEG DAILY [facility] Senna (Senna -) 2 tab PO HS [facility] Last Admin: 09/14/17 22:48 Dose: 2 tab Sertraline HCl (Zoloft -) 50 mg GT DAILY [facility] - Objective Vital Signs: Vital Signs Temperature 98.4 F 05/04/17 13:41 Pulse Rate 72 05/04/17 13:41 Respiratory Rate 15 05/04/17 13:56 Blood Pressure 117/69 05/04/17 13:41 O2 Sat by Pulse Oximetry (%) 97 05/04/17 11:47 Constitutional: Yes: Calm HENT: Yes: Other (trache) Cardiovascular: Yes: S1, S2 Respiratory: Yes: Mechanically Ventilated Gastrointestinal: Yes: Soft Genitourinary: Yes: Other ([place] cath) Musculoskeletal: Yes: Muscle Weakness Edema: No Neurological: Yes: Oriented Psychiatric: Yes: Oriented Labs: CBC, BMP 05/04/17 07:35 05/04/17 07:35 INR, PTT INR 1.51 (0.82-1.09) H 05/02/17 05:30 Problem List - Problems (1) Anemia Code(s): D64.9 - ANEMIA, UNSPECIFIED (2) Atrial fibrillation Code(s): I48.91 - UNSPECIFIED ATRIAL FIBRILLATION (3) Chronic kidney disease (CKD) Code(s): N18.9 - CHRONIC KIDNEY DISEASE, UNSPECIFIED (4) Chronic respiratory failure Code(s): J96.10 - CHRONIC RESPIRATORY FAILURE, UNSP W HYPOXIA OR HYPERCAPNIA Assessment/Plan Current Medications Generic Name Dose Route Start Last Admin Trade Name Freq PRN Reason Stop Dose Admin Albuterol Sulfate 1 amp 05/03/17 13:24 Ventolin 0.083% Nebulizer Soln - NEB Q6H PRN SHORT OF BREATH/WHEEZING Albuterol/Ipratropium 1 amp 05/03/17 18:00 05/04/17 11:57 Duoneb - NEB 1 amp QIDR [facility] Administration Amino Acids 30 ml 05/04/17 08:00 05/04/17 08:35 Prosource No Carb Liquid Pkt GT 30 ml BID@0800,1730 [facility] Administration Artificial Tears 1 drop 05/03/17 14:00 05/04/17 06:36 Artificial Tears OU 1 drop TID [facility] Administration Diltiazem HCl 30 mg 05/04/17 14:00 Cardizem - PEG TID [facility] Ferrous Sulfate 450 mg 05/04/17 10:00 05/04/17 11:12 Feosol GT 450 mg DAILY [facility] Administration Heparin Sodium (Porcine) 5,000 unit 05/04/17 22:00 Heparin - SQ TID [facility] Azithromycin 500 mg/ Dextrose 250 mls @ 250 mls/hr 05/04/17 10:00 IVPB DAILY [facility] Sodium Chloride 1,000 mls @ 75 mls/hr 05/03/17 13:33 05/04/17 03:05 1/2 Normal Saline IV 75 mls/hr ASDIR [facility] Administration Piperacillin Sod/Tazobactam 50 mls @ 100 mls/hr 05/03/17 18:00 05/04/17 11:13 Sod 3.375 gm/ Dextrose IVPB 100 mls/hr Q8H-IV [facility] Administration Insulin Aspart 1 vial 05/03/17 22:00 05/04/17 12:50 Novolog Vial Sliding Scale - SQ 2 units ACHS [facility] Administration Protocol Lactobacillus Acidophilus 1 tab 05/03/17 22:00 05/04/17 11:10 Bacid - GT 1 tab BID [facility] Administration Lactulose 10 gm 05/03/17 22:00 05/03/17 22:48 Cephulac (Oral Use) GT 10 gm HS [facility] Administration Potassium Chloride 10 meq 05/04/17 10:00 05/04/17 11:09 Potassium Chloride Oral Liquid GT 10 meq DAILY [facility] Administration Ranitidine HCl 150 mg 05/04/17 12:30 Zantac Oral Solution - PEG DAILY [facility] Senna 2 tab 05/03/17 22:00 05/03/17 22:48 Senna - PO 2 tab HS [facility] Administration Sertraline HCl 50 mg 05/04/17 10:00 Zoloft - GT DAILY [facility] Impression 1. CKD with acute component 2. resp failure chronic 3. hypotension 4. dvt s/p ivc filter 5. hyponatremia with now hypernatremia 6. DM 7. A.fib/flutter 8. renal cyst 9. SUE 10. sepsis 11. PNA Plan - decrease rate of 1/2 ns further and will likely stop tomorrow - increase free water with feeds - renal function stabilizing - sodium improving - SUE likely from sepsis and pre-renal disease - cont abx - vent support - avoid nephrotoxins
[2017-05-04] MEDS: RANITIDINE HCL 150 MG/10 ML UNIT-DOSE PEG SCH (15:10)
[2017-05-04] MEDS: dilTIAZem HCL 30 MG TABLET (FP) PEG SCH ×2 (15:10→23:27)
[2017-05-04] MEDS: AZITHROMYCIN IVPB 500 MG in DEXTROSE 5%-WATER - 250 ML IVPB SCH (15:15)
[2017-05-04 22:35] LABS: ANION GAP 7 (8-16); CALCIUM 7.8 mg/dL (8.5-10.1); CO2 23 mmol/L (21-32); CREATININE 0.9 mg/dL (0.7-1.3); GLUCOSE,RANDOM 132 mg/dL (74-106)
[2017-05-04] MEDS: HEPARIN NA (PORCINE) 5,000 UNITS/ML 1ML VIAL SQ SCH (23:27)
[2017-05-04] MEDS: SENNOSIDES 8.6MG TABLET (FP) PO SCH (23:27)
[2017-05-04] MEDS: LACTULOSE 20 GM/30 ML UDC (FOR ORAL USE ONLY) GT SCH (23:27)
[2017-05-05] MEDS ORDERED: PIPERACILLIN/TAZOBACTAM 3.375 GM VIAL IVPB ONE ×3 (01:48→14:53)
[2017-05-05] MEDS ORDERED: DEXTROSE 5%-WATER - 50 ML IVPB ONE ×3 (01:48→14:54)
[2017-05-05] MEDS: PIPERACILLIN/TAZOB 3.375 GM 3.375 GM in DEXTROSE 5%-WATER - 50 ML IVPB SCH ×3 (02:50→17:17)
[2017-05-05] MEDS: ALBUTEROL SO4 2.5/IPRATROPIUM 0.5 INH SOL 3 ML VIAL.NEB. NEB SCH ×4 (05:45→17:30)
[2017-05-05] MEDS: ARTIFICIAL TEARS (POLYVINYL ALCOHOL 1.4%) OPTH DROPS OU SCH ×3 (05:46→22:07)
[2017-05-05] MEDS: dilTIAZem HCL 30 MG TABLET (FP) PEG SCH ×3 (05:46→22:08)
[2017-05-05] MEDS: HEPARIN NA (PORCINE) 5,000 UNITS/ML 1ML VIAL SQ SCH ×3 (05:46→22:14)
[2017-05-05] MEDS: INSULIN SLIDING SCALE (NOVOLOG) 1 VIAL SQ SCH ×4 (06:10→22:14)
--- NOTE | 2017-05-05 08:03 | PN ---
Teaching Attending Note Name of Resident: Faizan Landeros ATTENDING PHYSICIAN STATEMENT I saw and evaluated the patient. I reviewed the resident's note and discussed the case with the resident. I agree with the resident's findings and plan as documented. SUBJECTIVE: He states that he is at baseline and wants to go home. OBJECTIVE: Last Vital Signs Temp Pulse Resp BP Pulse Ox 99.1 F 73 27 H 121/77 96 05/05/17 06:00 05/05/17 06:00 05/05/17 06:22 05/05/17 06:00 05/04/17 18:11 Looks improved per resident team Lungs with scattered rhonchi ASSESSMENT AND PLAN: The patient is a 81 year old male with a significant past medical history of COPD, obesity hypoventilation syndrome, AMIE, ventilator-dependent chronic hypoxic respiratory failure s/p tracheostomy, s/p PEG, type 2 DM, HTN, hyperlipidemia, PAF, DVT s/p IVC filter, CVA who is HD#5 secondary to VAP with sepsis. # Severe sepsis secondary to ventilator associated pneumonia Clinically improving, afebrile and hemodynamically stable Culture results noted Appreciate ID input Continue Azithromycin/Zosyn MBS on Sunday given aspiration possibility # Chronic hypoxic respiratory failure Appreciate pulmonary input Continue nebs Continue vent support See resident note for full details
[2017-05-05 08:41] LABS: MCH 30.1 pg (25.7-33.7); MCHC 32.9 g/dl (32.0-35.9); MEAN CELL VOLUME 91.5 fl (80-96); MEAN PLT VOLUME 7.9 fl (7.5-11.1); PLATELET COUNT 149 K/MM3 (134-434)
[2017-05-05 09:26] LABS: ANION GAP 6 (8-16); CALCIUM 7.7 mg/dL (8.5-10.1); CO2 24 mmol/L (21-32); CREATININE 0.9 mg/dL (0.7-1.3); GLUCOSE,RANDOM 168 mg/dL (74-106)
[2017-05-05] MEDS: AMINO ACIDS/PROTEIN HYDROLYS 30 ML LIQUID.PKT GT SCH ×2 (09:26→17:17)
--- NOTE | 2017-05-05 10:08 | PN ---
Physical Exam: SUBJECTIVE: Patient seen and examined. no new complaints. afebrile overnight. OBJECTIVE: Vital Signs Period Temp Pulse Resp BP Sys/Mayorga Pulse Ox Last 24 Hr 98.4 F-99.2 F 67-85 15-40 109-121/65-77 96-100 GENERAL: The patient is awake, alert, and fully oriented, in no acute distress. HEAD: Normal with no signs of trauma. EYES: extraocular movements intact, sclera anicteric, conjunctiva clear. No ptosis. NECK: Trachea midline, full range of motion, supple. LUNGS: Breath sounds equal, coarse, ronchorous breath sounds bilaterally, no wheezes, no crackles, no accessory muscle use. HEART: Regular rate and rhythm, S1, S2 without murmur, rub or gallop. ABDOMEN: Soft, nontender, nondistended, normoactive bowel sounds, no guarding, no rebound. EXTREMITIES: 2+ pulses, warm, well-perfused, no edema. NEUROLOGICAL: Cranial nerves II through X grossly intact. Normal speech, gait not observed. PSYCH: Normal mood, normal affect. SKIN: Warm, dry, normal turgor, no rashes or lesions noted Laboratory Results - last 24 hr 05/04/17 05/04/17 05/04/17 12:27 17:54 21:59 WBC RBC Hgb Hct MCV MCH MCHC RDW Plt Count MPV Sodium 146 H Potassium 4.3 Chloride 116 H Carbon Dioxide 23 Anion Gap 7 L BUN 40 H Creatinine 0.9 POC Glucometer 152 182 Random Glucose 132 H Calcium 7.8 L 05/04/17 05/05/17 05/05/17 23:31 05:49 08:00 WBC 6.0 RBC 2.66 L Hgb 8.0 L Hct 24.3 L MCV 91.5 MCH 30.1 MCHC 32.9 RDW 16.0 H Plt Count 149 MPV 7.9 Sodium Potassium Chloride Carbon Dioxide Anion Gap BUN Creatinine POC Glucometer 127 180 Random Glucose Calcium Active Medications Generic Name Dose Route Start Last Admin Trade Name Freq PRN Reason Stop Dose Admin Albuterol Sulfate 1 amp 05/03/17 13:24 Ventolin 0.083% Nebulizer Soln - NEB Q6H PRN SHORT OF BREATH/WHEEZING Albuterol/Ipratropium 1 amp 05/03/17 18:00 05/05/17 05:45 Duoneb - NEB 1 amp QIDR [facility] Administration Amino Acids 30 ml 05/04/17 08:00 05/04/17 17:59 Prosource No Carb Liquid Pkt GT 30 ml BID@0800,1730 [facility] Administration Artificial Tears 1 drop 05/03/17 14:00 05/05/17 05:46 Artificial Tears OU 1 drop TID [facility] Administration Diltiazem HCl 30 mg 05/04/17 14:00 05/05/17 05:46 Cardizem - PEG 30 mg TID [facility] Administration Ferrous Sulfate 450 mg 05/04/17 10:00 05/04/17 11:12 Feosol GT 450 mg DAILY [facility] Administration Heparin Sodium (Porcine) 5,000 unit 05/04/17 22:00 05/05/17 05:46 Heparin - SQ 5,000 unit TID [facility] Administration Azithromycin 500 mg/ Dextrose 250 mls @ 250 mls/hr 05/04/17 10:00 05/04/17 15: 15 IVPB 250 mls/hr DAILY [facility] Administration Piperacillin Sod/Tazobactam 50 mls @ 100 mls/hr 05/03/17 18:00 05/05/17 02:50 Sod 3.375 gm/ Dextrose IVPB 100 mls/hr Q8H-IV [facility] Administration Insulin Aspart 1 vial 05/03/17 22:00 05/05/17 06:10 Novolog Vial Sliding Scale - SQ 2 units ACHS [facility] Administration Protocol Lactobacillus Acidophilus 1 tab 05/03/17 22:00 05/04/17 23:27 Bacid - GT 1 tab BID [facility] Administration Lactulose 10 gm 05/03/17 22:00 05/04/17 23:27 Cephulac (Oral Use) GT 10 gm HS [facility] Administration Potassium Chloride 10 meq 05/04/17 10:00 05/04/17 11:09 Potassium Chloride Oral Liquid GT 10 meq DAILY [facility] Administration Ranitidine HCl 150 mg 05/04/17 12:30 05/04/17 15:10 Zantac Oral Solution - PEG 150 mg DAILY [facility] Administration Senna 2 tab 05/03/17 22:00 05/04/17 23:27 Senna - PO 2 tab HS [facility] Administration Sertraline HCl 50 mg 05/04/17 10:00 05/04/17 11:10 Zoloft - GT 50 mg DAILY [facility] Administration ASSESSMENT/PLAN: 81 yo m w/ PMH COPD, HTN, DM, HLD, Paroxysmal A-fib, CVA, 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 #Severe sepsis likely 2/2 VAP vs aspiration PNA -s/p dose of vancomycin, zosyn and levaquin -Azithromycin 500mg daily (day 2) -zosyn 3.375 daily (day5) -Bcx, ucx, urine antigens negative -sputum cx growing several species -f/u ID reccs -f/u CXR today -patient for modified barium swallow sunday #CKD -BUN 124, Cr. 2.3 on admission -improved today; BUN 36 and Cr .9 -renal u/s : no abnormalities; limited study -monitor #hypernatremia -sodium trending down, 143 today -d/c 1/2 NS #normocytic anemia likely 2/2 CKD- resolved -s/p 1u PRBC -Hb 8.0 today -will monitor -transfuse as per protocol #Diabetes mellitus -BGMs Q6 -ISS Q6 #s/p PEG tube -no overt signs of infection #FEN -no indication for fluids at this time -monitor lytes -tube feeds #Prophylaxsis -hep SQ 5kU TID -no indication for GI prophylaxsis #dispo -admitted to med surg Problem List - Problems (1) Anemia Code(s): D64.9 - ANEMIA, UNSPECIFIED (2) Acute kidney failure Code(s): N17.9 - ACUTE KIDNEY FAILURE, UNSPECIFIED (3) Diabetes mellitus Code(s): E11.9 - TYPE 2 DIABETES MELLITUS WITHOUT COMPLICATIONS (4) Pneumonia Code(s): J18.9 - PNEUMONIA, UNSPECIFIED ORGANISM (5) Shock Code(s): R57.9 - SHOCK, UNSPECIFIED Visit type - Emergency Visit Emergency Visit: Yes ED Registration Date: 05/01/17 Care time: The patient presented to the Emergency Department on the above date and was hospitalized for further evaluation of their emergent condition. - New Patient This patient is new to me today: No - Critical Care Critical Care patient: No
[2017-05-05] MEDS ORDERED: PT OWN MED DRAWER 7, Y5N ONE (11:04)
[2017-05-05] MEDS: AZITHROMYCIN IVPB 500 MG in DEXTROSE 5%-WATER - 250 ML IVPB SCH (11:10)
[2017-05-05] MEDS: POTASSIUM CHLORIDE ORAL LIQUID 20 MEQ/15 ML GT SCH (11:25)
[2017-05-05] MEDS: FERROUS SO4 300 MG/5 ML ORAL SOLN UNIT DOSE CUPS GT SCH (11:26)
[2017-05-05] MEDS: LACTOBACILLUS ACIDOPHILUS 1 EACH TAB (FP) GT SCH ×2 (11:26→22:07)
[2017-05-05] MEDS: SERTRALINE HCL 50 MG TABLET (FP) GT SCH (11:27)
[2017-05-05] MEDS: RANITIDINE HCL 150 MG/10 ML UNIT-DOSE PEG SCH (11:27)
--- NOTE | 2017-05-05 11:37 | PN ---
Progress Note (short form) - Note Progress Note: Awake and alert on AC mode of vent, 40% FiO2. No acute distress. No acute events overnight. OBJECTIVE: Intake & Output 05/02/17 05/03/17 05/04/17 05/05/17 23:59 23:59 23:59 23:59 Intake Total 4762.5 2890 2820 Output Total 2250 1769 227 9269 Balance 2512.5 1240 2020 -1100 Weight 173 lb 15.115 oz 179 lb 3.773 oz Last Vital Signs Temp Pulse Resp BP Pulse Ox 99.1 F 73 31 H 121/77 96 05/05/17 06:00 05/05/17 06:00 05/05/17 10:20 05/05/17 06:00 05/04/17 18:11 Active Medications Albuterol Sulfate (Ventolin 0.083% Nebulizer Soln -) 1 amp NEB Q6H PRN PRN Reason: SHORT OF BREATH/WHEEZING Albuterol/Ipratropium (Duoneb -) 1 amp NEB QIDR [facility] Last Admin: 05/05/17 05:45 Dose: 1 amp Amino Acids (Prosource No Carb Liquid Pkt) 30 ml GT BID@0800,1730 [facility] Last Admin: 05/05/17 09:26 Dose: 30 ml Artificial Tears (Artificial Tears) 1 drop OU TID [facility] Last Admin: 05/05/17 05:46 Dose: 1 drop Diltiazem HCl (Cardizem -) 30 mg PEG TID [facility] Last Admin: 05/05/17 05:46 Dose: 30 mg Ferrous Sulfate (Feosol) 450 mg GT DAILY [facility] Last Admin: 05/05/17 11:26 Dose: 450 mg Heparin Sodium (Porcine) (Heparin -) 5,000 unit SQ TID [facility] Last Admin: 05/05/17 05:46 Dose: 5,000 unit Azithromycin 500 mg/ Dextrose 250 mls @ 250 mls/hr IVPB DAILY [facility] Last Admin: 05/05/17 11:10 Dose: 250 mls/hr Piperacillin Sod/Tazobactam (Sod 3.375 gm/ Dextrose) 50 mls @ 100 mls/hr IVPB Q8H-IV [facility] Last Admin: 05/05/17 11:11 Dose: 100 mls/hr Insulin Aspart (Novolog Vial Sliding Scale -) 1 vial SQ ACHS [facility] PRN Reason: Protocol Last Admin: 05/05/17 06:10 Dose: 2 units Lactobacillus Acidophilus (Bacid -) 1 tab GT BID [facility] Last Admin: 05/05/17 11:26 Dose: 1 tab Lactulose (Cephulac (Oral Use)) 10 gm GT HS [facility] Last Admin: 05/04/17 23:27 Dose: 10 gm Potassium Chloride (Potassium Chloride Oral Liquid) 10 meq GT DAILY [facility] Last Admin: 05/05/17 11:25 Dose: 10 meq Ranitidine HCl (Zantac Oral Solution -) 150 mg PEG DAILY [facility] Last Admin: 05/05/17 11:27 Dose: 150 mg Senna (Senna -) 2 tab PO HS [facility] Last Admin: 05/04/17 23:27 Dose: 2 tab Sertraline HCl (Zoloft -) 50 mg GT DAILY [facility] Last Admin: 05/05/17 11:27 Dose: 50 mg Gen: vented, awake Heart: RRR Lung: scattered rhonchi Abd: soft, nontender Ext: no edema Laboratory Results - last 24 hr 05/01/17 05/04/17 05/04/17 09:40 12:27 17:54 WBC RBC Hgb Hct MCV MCH MCHC RDW Plt Count MPV Sodium Potassium Chloride Carbon Dioxide Anion Gap BUN Creatinine POC Glucometer 152 182 Random Glucose Calcium Blood Type A POSITIVE Antibody Screen Negative Crossmatch See Detail 05/04/17 05/04/17 05/05/17 21:59 23:31 05:49 WBC RBC Hgb Hct MCV MCH MCHC RDW Plt Count MPV Sodium 146 H Potassium 4.3 Chloride 116 H Carbon Dioxide 23 Anion Gap 7 L BUN 40 H Creatinine 0.9 POC Glucometer 127 180 Random Glucose 132 H Calcium 7.8 L Blood Type Antibody Screen Crossmatch 05/05/17 05/05/17 08:00 08:00 WBC 6.0 RBC 2.66 L Hgb 8.0 L Hct 24.3 L MCV 91.5 MCH 30.1 MCHC 32.9 RDW 16.0 H Plt Count 149 MPV 7.9 Sodium 143 Potassium 4.3 Chloride 113 H Carbon Dioxide 24 Anion Gap 6 L BUN 36 H Creatinine 0.9 POC Glucometer Random Glucose 168 H D Calcium 7.7 L Blood Type Antibody Screen Crossmatch ASSESSMENT AND PLAN: Pneumonia Septic Shock Chronic Vent Dependent Respiratory Failure Acute Kidney Injury COPD AMIE/OHS Paroxysmal Atrial Fibrillation h/o CVA Anemia r/o GI bleed Hypernatremia HTN DM - ABX - IVF - monitor urine output, creatinine - inhaled bronchodilators standing and PRN - taper Fio2 to keep SpO2 >90% - spontaneous breathing trials as tolerated - monitor H/H - protonix - enteral feeds, PO as tolerated - DVT/GI prophylaxis Dr Biggs
[2017-05-05] MEDS: LACTULOSE 20 GM/30 ML UDC (FOR ORAL USE ONLY) GT SCH (22:08)
[2017-05-05] MEDS: SENNOSIDES 8.6MG TABLET (FP) PO SCH (22:14)
--- NOTE | 2017-05-05 22:49 | PN ---
Progress Note (short form) - Note Progress Note: CKD with acute component resp failure chronic- trache and vent s/p hypotension s/p dvt s/p ivc filter s/p hyponatremia followed by hypernatremia DM A.fib/flutter renal cyst s/p SUE s/p sepsis s/p PNA Active Medications Albuterol Sulfate (Ventolin 0.083% Nebulizer Soln -) 1 amp NEB Q6H PRN PRN Reason: SHORT OF BREATH/WHEEZING Albuterol/Ipratropium (Duoneb -) 1 amp NEB QIDR [facility] Last Admin: 05/05/17 11:45 Dose: 1 amp Amino Acids (Prosource No Carb Liquid Pkt) 30 ml GT BID@0800,1730 [facility] Last Admin: 05/05/17 17:17 Dose: 30 ml Artificial Tears (Artificial Tears) 1 drop OU TID [facility] Last Admin: 05/05/17 22:07 Dose: 1 drop Diltiazem HCl (Cardizem -) 30 mg PEG TID [facility] Last Admin: 05/05/17 22:08 Dose: 30 mg Ferrous Sulfate (Feosol) 450 mg GT DAILY [facility] Last Admin: 05/05/17 11:26 Dose: 450 mg Heparin Sodium (Porcine) (Heparin -) 5,000 unit SQ TID [facility] Last Admin: 05/05/17 22:14 Dose: 5,000 unit Azithromycin 500 mg/ Dextrose 250 mls @ 250 mls/hr IVPB DAILY [facility] Last Admin: 05/05/17 11:10 Dose: 250 mls/hr Piperacillin Sod/Tazobactam (Sod 3.375 gm/ Dextrose) 50 mls @ 100 mls/hr IVPB Q8H-IV [facility] Last Admin: 05/05/17 17:17 Dose: 100 mls/hr Insulin Aspart (Novolog Vial Sliding Scale -) 1 vial SQ ACHS [facility] PRN Reason: Protocol Last Admin: 05/05/17 22:14 Dose: Not Given Lactobacillus Acidophilus (Bacid -) 1 tab GT BID [facility] Last Admin: 05/05/17 22:07 Dose: 1 tab Lactulose (Cephulac (Oral Use)) 10 gm GT HS [facility] Last Admin: 05/05/17 22:08 Dose: 10 gm Potassium Chloride (Potassium Chloride Oral Liquid) 10 meq GT DAILY [facility] Last Admin: 05/05/17 11:25 Dose: 10 meq Ranitidine HCl (Zantac Oral Solution -) 150 mg PEG DAILY [facility] Last Admin: 05/05/17 11:27 Dose: 150 mg Senna (Senna -) 2 tab PO HS [facility] Last Admin: 05/05/17 22:14 Dose: 2 tab Sertraline HCl (Zoloft -) 50 mg GT DAILY [facility] Last Admin: 05/05/17 11:27 Dose: 50 mg Last Vital Signs Temp Pulse Resp BP Pulse Ox 98.8 F 18 L 18 104/63 96 05/05/17 18:05 05/05/17 18:05 05/05/17 18:05 05/05/17 18:05 05/04/17 18:11 alert in nad no complaints purulent secretions at the trache Lungs rhonchi Heart RRR Abd soft no guarding Ext no edema CBC, BMP 05/05/17 08:00 05/05/17 08:00 s/p SUE- resolving s/p hypernatremia chronic resp failure/trache/vent Plan same rx
[2017-05-06] MEDS ORDERED: PIPERACILLIN/TAZOBACTAM 3.375 GM VIAL IVPB ONE ×3 (00:13→17:23)
[2017-05-06] MEDS ORDERED: DEXTROSE 5%-WATER - 50 ML IVPB ONE ×3 (00:13→17:23)
[2017-05-06] MEDS: PIPERACILLIN/TAZOB 3.375 GM 3.375 GM in DEXTROSE 5%-WATER - 50 ML IVPB SCH ×3 (03:08→17:27)
[2017-05-06] MEDS: ALBUTEROL SO4 2.5/IPRATROPIUM 0.5 INH SOL 3 ML VIAL.NEB. NEB SCH ×5 (06:00→23:10)
[2017-05-06] MEDS: dilTIAZem HCL 30 MG TABLET (FP) PEG SCH ×4 (06:44→23:40)
[2017-05-06] MEDS: HEPARIN NA (PORCINE) 5,000 UNITS/ML 1ML VIAL SQ SCH ×3 (06:44→23:31)
[2017-05-06] MEDS: ARTIFICIAL TEARS (POLYVINYL ALCOHOL 1.4%) OPTH DROPS OU SCH ×3 (06:44→23:32)
--- NOTE | 2017-05-06 07:16 | PN ---
Physical Exam: SUBJECTIVE: Patient seen and examined Nods yes when I ask him if he feels better OBJECTIVE: Vital Signs Period Temp Pulse Resp BP Sys/Mayorga Pulse Ox Last 24 Hr 98.4 F-99.1 F 18-74 18-31 98-114/59-63 He looks improved Gen: vented, awake Heart: RRR Lung: scattered rhonchi Abd: soft, nontender Ext: no edema Laboratory Results - last 24 hr 05/05/17 05/05/17 05/05/17 08:00 08:00 11:54 WBC 6.0 RBC 2.66 L Hgb 8.0 L Hct 24.3 L MCV 91.5 MCH 30.1 MCHC 32.9 RDW 16.0 H Plt Count 149 MPV 7.9 Sodium 143 Potassium 4.3 Chloride 113 H Carbon Dioxide 24 Anion Gap 6 L BUN 36 H Creatinine 0.9 POC Glucometer 191 Random Glucose 168 H D Calcium 7.7 L Stool Occult Blood 05/05/17 05/05/17 05/05/17 17:12 21:53 23:10 WBC RBC Hgb Hct MCV MCH MCHC RDW Plt Count MPV Sodium Potassium Chloride Carbon Dioxide Anion Gap BUN Creatinine POC Glucometer 136 144 Random Glucose Calcium Stool Occult Blood Negative 05/06/17 05:59 WBC RBC Hgb Hct MCV MCH MCHC RDW Plt Count MPV Sodium Potassium Chloride Carbon Dioxide Anion Gap BUN Creatinine POC Glucometer 156 Random Glucose Calcium Stool Occult Blood Active Medications Generic Name Dose Route Start Last Admin Trade Name Freq PRN Reason Stop Dose Admin Albuterol Sulfate 1 amp 05/03/17 13:24 Ventolin 0.083% Nebulizer Soln - NEB Q6H PRN SHORT OF BREATH/WHEEZING Albuterol/Ipratropium 1 amp 05/03/17 18:00 05/06/17 06:00 Duoneb - NEB 1 amp QIDR [facility] Administration Amino Acids 30 ml 05/04/17 08:00 05/05/17 17:17 Prosource No Carb Liquid Pkt GT 30 ml BID@0800,1730 [facility] Administration Artificial Tears 1 drop 05/03/17 14:00 05/06/17 06:44 Artificial Tears OU Not Given TID [facility] Diltiazem HCl 30 mg 05/04/17 14:00 05/06/17 06:44 Cardizem - PEG 30 mg TID [facility] Administration Ferrous Sulfate 450 mg 05/04/17 10:00 05/05/17 11:26 Feosol GT 450 mg DAILY [facility] Administration Heparin Sodium (Porcine) 5,000 unit 05/04/17 22:00 05/06/17 06:44 Heparin - SQ 5,000 unit TID [facility] Administration Azithromycin 500 mg/ Dextrose 250 mls @ 250 mls/hr 05/04/17 10:00 05/05/17 11: 10 IVPB 250 mls/hr DAILY [facility] Administration Piperacillin Sod/Tazobactam 50 mls @ 100 mls/hr 05/03/17 18:00 05/06/17 03:08 Sod 3.375 gm/ Dextrose IVPB 100 mls/hr Q8H-IV [facility] Administration Insulin Aspart 1 vial 05/03/17 22:00 05/05/17 22:14 Novolog Vial Sliding Scale - SQ Not Given ACHS [facility] Protocol Lactobacillus Acidophilus 1 tab 05/03/17 22:00 05/05/17 22:07 Bacid - GT 1 tab BID [facility] Administration Lactulose 10 gm 05/03/17 22:00 05/05/17 22:08 Cephulac (Oral Use) GT 10 gm HS [facility] Administration Potassium Chloride 10 meq 05/04/17 10:00 05/05/17 11:25 Potassium Chloride Oral Liquid GT 10 meq DAILY [facility] Administration Ranitidine HCl 150 mg 05/04/17 12:30 05/05/17 11:27 Zantac Oral Solution - PEG 150 mg DAILY [facility] Administration Senna 2 tab 05/03/17 22:00 05/05/17 22:14 Senna - PO 2 tab HS [facility] Administration Sertraline HCl 50 mg 05/04/17 10:00 05/05/17 11:27 Zoloft - GT 50 mg DAILY [facility] Administration ASSESSMENT/PLAN: The patient is a 81 year old male with a significant past medical history of COPD, obesity hypoventilation syndrome, AMIE, ventilator-dependent chronic hypoxic respiratory failure s/p tracheostomy, s/p PEG, type 2 DM, HTN, hyperlipidemia, PAF, DVT s/p IVC filter, CVA who is HD#6 secondary to VAP with sepsis. # Severe sepsis secondary to ventilator associated pneumonia Clinically improving, afebrile and hemodynamically stable Culture results noted Appreciate ID input Will continue Azithromycin/Zosyn MBS tomorrow given aspiration possibility # Chronic hypoxic respiratory failure Appreciate pulmonary input Continue nebs Continue vent support, weaning Fi02 as per pulmonary #Diabetes Continue Novolog sliding scale #Prophylaxis Ranitidine Hep SQ Visit type - Emergency Visit Emergency Visit: Yes ED Registration Date: 05/01/17 Care time: The patient presented to the Emergency Department on the above date and was hospitalized for further evaluation of their emergent condition. - New Patient This patient is new to me today: No - Critical Care Critical Care patient: No
[2017-05-06 07:39] LABS: MCH 30.4 pg (25.7-33.7); MCHC 33.5 g/dl (32.0-35.9); MEAN CELL VOLUME 90.7 fl (80-96); MEAN PLT VOLUME 7.8 fl (7.5-11.1); PLATELET COUNT 147 K/MM3 (134-434); RDW 15.5 % (11.9-15.9); WHITE BLOOD COUNT 6.1 K/mm3 (4.0-10.0)
[2017-05-06 08:29] LABS: ANION GAP 3 (8-16); CALCIUM 7.8 mg/dL (8.5-10.1); CO2 28 mmol/L (21-32); CREATININE 0.8 mg/dL (0.7-1.3); GLUCOSE,RANDOM 140 mg/dL (74-106)
[2017-05-06] MEDS: AMINO ACIDS/PROTEIN HYDROLYS 30 ML LIQUID.PKT GT SCH ×2 (09:40→17:27)
[2017-05-06] MEDS: SERTRALINE HCL 50 MG TABLET (FP) GT SCH (09:40)
[2017-05-06] MEDS: LACTOBACILLUS ACIDOPHILUS 1 EACH TAB (FP) GT SCH ×2 (09:40→23:31)
[2017-05-06] MEDS: FERROUS SO4 300 MG/5 ML ORAL SOLN UNIT DOSE CUPS GT SCH (09:40)
[2017-05-06] MEDS: RANITIDINE HCL 150 MG/10 ML UNIT-DOSE PEG SCH (09:42)
[2017-05-06] MEDS: POTASSIUM CHLORIDE ORAL LIQUID 20 MEQ/15 ML GT SCH (09:42)
[2017-05-06] MEDS: AZITHROMYCIN IVPB 500 MG in DEXTROSE 5%-WATER - 250 ML IVPB SCH (10:42)
--- NOTE | 2017-05-06 11:45 | PN ---
Progress Note (short form) - Note Progress Note: Awake and alert on AC mode of vent, 40% FiO2. No acute distress. No acute events overnight. CXR : some mild improvement is noted OBJECTIVE: Intake & Output 05/03/17 05/04/17 05/05/17 05/06/17 23:59 23:59 23:59 23:59 Intake Total 2890 2820 1350 Output Total 0705 636 0486 Balance 1240 2019 -2099 1350 Weight 179 lb 3.773 oz Last Vital Signs Temp Pulse Resp BP Pulse Ox 98.9 F 70 27 H 118/76 96 05/06/17 10:00 05/06/17 10:00 05/06/17 10:20 05/06/17 10:00 05/04/17 18:11 Active Medications Albuterol Sulfate (Ventolin 0.083% Nebulizer Soln -) 1 amp NEB Q6H PRN PRN Reason: SHORT OF BREATH/WHEEZING Albuterol/Ipratropium (Duoneb -) 1 amp NEB QIDR [facility] Last Admin: 05/06/17 06:00 Dose: 1 amp Amino Acids (Prosource No Carb Liquid Pkt) 30 ml GT BID@0800,1730 [facility] Last Admin: 05/06/17 09:40 Dose: 30 ml Artificial Tears (Artificial Tears) 1 drop OU TID [facility] Last Admin: 05/06/17 06:44 Dose: Not Given Diltiazem HCl (Cardizem -) 30 mg PEG TID [facility] Last Admin: 05/06/17 06:44 Dose: 30 mg Ferrous Sulfate (Feosol) 450 mg GT DAILY [facility] Last Admin: 05/06/17 09:40 Dose: 450 mg Heparin Sodium (Porcine) (Heparin -) 5,000 unit SQ TID [facility] Last Admin: 05/06/17 06:44 Dose: 5,000 unit Azithromycin 500 mg/ Dextrose 250 mls @ 250 mls/hr IVPB DAILY [facility] Last Admin: 05/06/17 10:42 Dose: 250 mls/hr Piperacillin Sod/Tazobactam (Sod 3.375 gm/ Dextrose) 50 mls @ 100 mls/hr IVPB Q8H-IV [facility] Last Admin: 05/06/17 09:43 Dose: 100 mls/hr Insulin Aspart (Novolog Vial Sliding Scale -) 1 vial SQ ACHS [facility] PRN Reason: Protocol Last Admin: 05/05/17 22:14 Dose: Not Given Lactobacillus Acidophilus (Bacid -) 1 tab GT BID [facility] Last Admin: 05/06/17 09:40 Dose: 1 tab Lactulose (Cephulac (Oral Use)) 10 gm GT HS [facility] Last Admin: 05/05/17 22:08 Dose: 10 gm Potassium Chloride (Potassium Chloride Oral Liquid) 10 meq GT DAILY [facility] Last Admin: 05/06/17 09:42 Dose: 10 meq Ranitidine HCl (Zantac Oral Solution -) 150 mg PEG DAILY [facility] Last Admin: 05/06/17 09:42 Dose: 150 mg Senna (Senna -) 2 tab PO HS [facility] Last Admin: 05/05/17 22:14 Dose: 2 tab Sertraline HCl (Zoloft -) 50 mg GT DAILY [facility] Last Admin: 05/06/17 09:40 Dose: 50 mg Gen: vented, awake Heart: RRR Lung: scattered rhonchi Abd: soft, nontender Ext: no edema Laboratory Results - last 24 hr 05/05/17 05/05/17 05/05/17 11:54 17:12 21:53 WBC RBC Hgb Hct MCV MCH MCHC RDW Plt Count MPV Sodium Potassium Chloride Carbon Dioxide Anion Gap BUN Creatinine POC Glucometer 191 136 144 Random Glucose Calcium Stool Occult Blood 05/05/17 05/06/17 05/06/17 23:10 05:59 06:00 WBC 6.1 RBC 2.44 L Hgb 7.4 L Hct 22.1 L MCV 90.7 MCH 30.4 MCHC 33.5 RDW 15.5 Plt Count 147 MPV 7.8 Sodium Potassium Chloride Carbon Dioxide Anion Gap BUN Creatinine POC Glucometer 156 Random Glucose Calcium Stool Occult Blood Negative 05/06/17 05/06/17 06:00 11:08 WBC RBC Hgb Hct MCV MCH MCHC RDW Plt Count MPV Sodium 142 Potassium 4.0 Chloride 111 H Carbon Dioxide 28 Anion Gap 3 L BUN 29 H Creatinine 0.8 POC Glucometer 191 Random Glucose 140 H Calcium 7.8 L Stool Occult Blood ASSESSMENT AND PLAN: Pneumonia Septic Shock Chronic Vent Dependent Respiratory Failure Acute Kidney Injury COPD AMIE/OHS Paroxysmal Atrial Fibrillation h/o CVA Anemia r/o GI bleed Hypernatremia HTN DM - ABX - inhaled bronchodilators standing and PRN - taper Fio2 to keep SpO2 >90% - spontaneous breathing trials as tolerated - monitor H/H - protonix - enteral feeds, PO as tolerated - DVT/GI prophylaxis Dr Biggs
[2017-05-06] MEDS: INSULIN SLIDING SCALE (NOVOLOG) 1 VIAL SQ SCH ×3 (12:11→23:36)
--- NOTE | 2017-05-06 17:11 | PN ---
Progress Note (short form) - Note Progress Note: CKD with acute component resp failure chronic- trache and vent s/p hypotension s/p dvt s/p ivc filter s/p hyponatremia followed by hypernatremia DM A.fib/flutter renal cyst s/p SUE s/p sepsis s/p PNA Active Medications Albuterol Sulfate (Ventolin 0.083% Nebulizer Soln -) 1 amp NEB Q6H PRN PRN Reason: SHORT OF BREATH/WHEEZING Albuterol/Ipratropium (Duoneb -) 1 amp NEB QIDR [facility] Last Admin: 05/06/17 11:50 Dose: 1 amp Amino Acids (Prosource No Carb Liquid Pkt) 30 ml GT BID@0800,1730 [facility] Last Admin: 05/06/17 09:40 Dose: 30 ml Artificial Tears (Artificial Tears) 1 drop OU TID [facility] Last Admin: 05/06/17 15:03 Dose: Not Given Diltiazem HCl (Cardizem -) 30 mg PEG TID [facility] Last Admin: 05/06/17 15:03 Dose: 30 mg Ferrous Sulfate (Feosol) 450 mg GT DAILY [facility] Last Admin: 05/06/17 09:40 Dose: 450 mg Heparin Sodium (Porcine) (Heparin -) 5,000 unit SQ TID [facility] Last Admin: 05/06/17 15:03 Dose: 5,000 unit Azithromycin 500 mg/ Dextrose 250 mls @ 250 mls/hr IVPB DAILY [facility] Last Admin: 05/06/17 10:42 Dose: 250 mls/hr Piperacillin Sod/Tazobactam (Sod 3.375 gm/ Dextrose) 50 mls @ 100 mls/hr IVPB Q8H-IV [facility] Last Admin: 05/06/17 09:43 Dose: 100 mls/hr Insulin Aspart (Novolog Vial Sliding Scale -) 1 vial SQ ACHS [facility] PRN Reason: Protocol Last Admin: 05/06/17 16:11 Dose: Not Given Lactobacillus Acidophilus (Bacid -) 1 tab GT BID [facility] Last Admin: 05/06/17 09:40 Dose: 1 tab Lactulose (Cephulac (Oral Use)) 10 gm GT HS [facility] Last Admin: 05/05/17 22:08 Dose: 10 gm Potassium Chloride (Potassium Chloride Oral Liquid) 10 meq GT DAILY [facility] Last Admin: 05/06/17 09:42 Dose: 10 meq Ranitidine HCl (Zantac Oral Solution -) 150 mg PEG DAILY [facility] Last Admin: 05/06/17 09:42 Dose: 150 mg Senna (Senna -) 2 tab PO HS [facility] Last Admin: 05/05/17 22:14 Dose: 2 tab Sertraline HCl (Zoloft -) 50 mg GT DAILY [facility] Last Admin: 05/06/17 09:40 Dose: 50 mg Last Vital Signs Temp Pulse Resp BP Pulse Ox 98.7 F 76 32 H 107/57 96 05/06/17 15:35 05/06/17 15:35 05/06/17 15:35 05/06/17 15:35 05/04/17 18:11 alert in nad no complaints purulent secretions at the trache Lungs rhonchi Heart RRR Abd soft no guarding Ext no edema CBC, BMP 05/06/17 06:00 05/06/17 06:00 s/p SUE- resolving s/p hypernatremia chronic resp failure/trache/vent anemia- worse today Plan consider prbc
[2017-05-06] MEDS: SENNOSIDES 8.6MG TABLET (FP) PO SCH (23:30)
[2017-05-06] MEDS: LACTULOSE 20 GM/30 ML UDC (FOR ORAL USE ONLY) GT SCH (23:31)
[2017-05-07] MEDS ORDERED: PIPERACILLIN/TAZOBACTAM 3.375 GM VIAL IVPB ONE ×3 (01:29→17:48)
[2017-05-07] MEDS ORDERED: DEXTROSE 5%-WATER - 50 ML IVPB ONE ×2 (01:29→10:10)
[2017-05-07] MEDS: PIPERACILLIN/TAZOB 3.375 GM 3.375 GM in DEXTROSE 5%-WATER - 50 ML IVPB SCH ×3 (02:10→17:51)
[2017-05-07] MEDS: ARTIFICIAL TEARS (POLYVINYL ALCOHOL 1.4%) OPTH DROPS OU SCH ×3 (06:12→22:43)
[2017-05-07] MEDS: dilTIAZem HCL 30 MG TABLET (FP) PEG SCH ×3 (06:13→21:39)
[2017-05-07] MEDS: INSULIN SLIDING SCALE (NOVOLOG) 1 VIAL SQ SCH ×5 (06:13→21:39)
[2017-05-07] MEDS: HEPARIN NA (PORCINE) 5,000 UNITS/ML 1ML VIAL SQ SCH ×3 (06:13→21:43)
[2017-05-07] MEDS: ALBUTEROL SO4 2.5/IPRATROPIUM 0.5 INH SOL 3 ML VIAL.NEB. NEB SCH ×3 (06:49→18:00)
[2017-05-07 07:05] LABS: MCH 30.5 pg (25.7-33.7); MCHC 33.5 g/dl (32.0-35.9); MEAN CELL VOLUME 91.1 fl (80-96); MEAN PLT VOLUME 8.1 fl (7.5-11.1); PLATELET COUNT 153 K/MM3 (134-434); RDW 15.9 % (11.9-15.9); WHITE BLOOD COUNT 6.9 K/mm3 (4.0-10.0)
[2017-05-07 07:38] LABS: ANION GAP 8 (8-16); CALCIUM 7.7 mg/dL (8.5-10.1); CO2 26 mmol/L (21-32); CREATININE 0.7 mg/dL (0.7-1.3); GLUCOSE,RANDOM 143 mg/dL (74-106); PHOSPHOROUS 2.9 mg/dL (2.5-4.9)
[2017-05-07] MEDS: AMINO ACIDS/PROTEIN HYDROLYS 30 ML LIQUID.PKT GT SCH ×2 (09:19→17:51)
[2017-05-07] MEDS ORDERED: PT OWN MED DRAWER 7, Y5N ONE ×4 (09:42→22:42)
--- NOTE | 2017-05-07 10:11 | PN ---
Physical Exam: SUBJECTIVE: Patient seen and examined. Patient continues to improve daily. Patient for modified barium swallow today. Patient complaining of leg pain today. OBJECTIVE: Vital Signs Period Temp Pulse Resp BP Sys/Mayorga Pulse Ox Last 24 Hr 97.6 F-98.7 F 74-78 18-32 98-122/54-72 GENERAL: The patient is awake, alert, and fully oriented, in no acute distress. HEAD: Normal with no signs of trauma. EYES: extraocular movements intact, sclera anicteric, conjunctiva clear. No ptosis. NECK: Trachea midline, full range of motion, supple. LUNGS: Breath sounds equal, clear to auscultation bilaterally, no wheezes, no crackles, no accessory muscle use. HEART: Regular rate and rhythm, S1, S2 without murmur, rub or gallop. ABDOMEN: Soft, nontender, nondistended, normoactive bowel sounds, no guarding, no rebound. EXTREMITIES: 2+ pulses, warm, well-perfused, edema in both feet. NEUROLOGICAL: Cranial nerves II through X grossly intact. Normal speech, gait not observed. PSYCH: Normal mood, normal affect. SKIN: Warm, dry, normal turgor, no rashes or lesions noted Laboratory Results - last 24 hr 05/06/17 05/06/17 05/06/17 11:08 15:59 23:35 WBC RBC Hgb Hct MCV MCH MCHC RDW Plt Count MPV Sodium Potassium Chloride Carbon Dioxide Anion Gap BUN Creatinine POC Glucometer 191 119 150 Random Glucose Calcium Phosphorus Magnesium 05/07/17 05/07/17 05/07/17 06:07 06:15 06:15 WBC 6.9 RBC 2.48 L Hgb 7.6 L Hct 22.6 L MCV 91.1 MCH 30.5 MCHC 33.5 RDW 15.9 Plt Count 153 MPV 8.1 Sodium 140 Potassium 4.4 Chloride 106 Carbon Dioxide 26 Anion Gap 8 BUN 28 H Creatinine 0.7 POC Glucometer 155 Random Glucose 143 H Calcium 7.7 L Phosphorus 2.9 Magnesium 2.0 Active Medications Generic Name Dose Route Start Last Admin Trade Name Freq PRN Reason Stop Dose Admin Albuterol Sulfate 1 amp 05/03/17 13:24 Ventolin 0.083% Nebulizer Soln - NEB Q6H PRN SHORT OF BREATH/WHEEZING Albuterol/Ipratropium 1 amp 05/03/17 18:00 05/07/17 06:49 Duoneb - NEB 1 amp QIDR [facility] Administration Amino Acids 30 ml 05/04/17 08:00 05/07/17 09:19 Prosource No Carb Liquid Pkt [facility] 30 ml BID@0800,1730 [facility] Administration Artificial Tears 1 drop 05/03/17 14:00 05/07/17 06:12 Artificial Tears OU 1 drop TID [facility] Administration Diltiazem HCl 30 mg 05/04/17 14:00 05/07/17 06:13 Cardizem - PEG 30 mg TID [facility] Administration Ferrous Sulfate 450 mg 05/04/17 10:00 05/06/17 09:40 Feosol GT 450 mg DAILY [facility] Administration Heparin Sodium (Porcine) 5,000 unit 05/04/17 22:00 05/07/17 06:13 Heparin - SQ 5,000 unit TID [facility] Administration Azithromycin 500 mg/ Dextrose 250 mls @ 250 mls/hr 05/04/17 10:00 05/06/17 10: 42 IVPB 250 mls/hr DAILY [facility] Administration Piperacillin Sod/Tazobactam 50 mls @ 100 mls/hr 05/03/17 18:00 05/07/17 02:10 Sod 3.375 gm/ Dextrose IVPB 100 mls/hr Q8H-IV [facility] Administration Insulin Aspart 1 vial 05/03/17 22:00 05/07/17 06:13 Novolog Vial Sliding Scale - SQ 2 units ACHS [facility] Administration Protocol Lactobacillus Acidophilus 1 tab 05/03/17 22:00 05/06/17 23:31 Bacid - GT 1 tab BID [facility] Administration Lactulose 10 gm 05/03/17 22:00 05/06/17 23:31 Cephulac (Oral Use) GT 10 gm HS [facility] Administration Potassium Chloride 10 meq 05/04/17 10:00 05/06/17 09:42 Potassium Chloride Oral Liquid GT 10 meq DAILY [facility] Administration Ranitidine HCl 150 mg 05/04/17 12:30 05/06/17 09:42 Zantac Oral Solution - PEG 150 mg DAILY [facility] Administration Senna 2 tab 05/03/17 22:00 05/06/17 23:30 Senna - PO 2 tab HS [facility] Administration Sertraline HCl 50 mg 05/04/17 10:00 05/06/17 09:40 Zoloft - GT 50 mg DAILY [facility] Administration ASSESSMENT/PLAN: 81 yo m w/ PMH COPD, HTN, DM, HLD, Paroxysmal A-fib, CVA, extensive DVT s/p IVC filter 05/2014, AMIE, PNA, morbid obesity, chronic resp failure s/p trach, obesity hypoventilation syndrome presents to the ED from alf because he spiked a fever. #Severe sepsis likely 2/2 VAP vs aspiration PNA -Azithromycin 500mg daily (day 4) -zosyn 3.375 daily (day 6) -Bcx, ucx, urine antigens negative -sputum cx growing several species -f/u ID reccs -f/u modified barium swallow #new onset leg pain -patient on SCDs and HSQ since admission -Doppler u/s of both limbs r/o DVT #CKD -BUN 124, Cr. 2.3 on admission -improved today; BUN 28 and Cr .7 -renal u/s : no abnormalities; limited study -monitor #hypernatremia - resolved -sodium 140 today -d/c 1/2 NS #normocytic anemia likely 2/2 CKD- resolved -s/p 1u PRBC -Hb 8.0 today -will monitor -transfuse as per protocol #Diabetes mellitus -controlled -BGMs Q6 -ISS Q6 #s/p PEG tube -no overt signs of infection #FEN -no indication for fluids at this time -monitor lytes -tube feeds #Prophylaxsis -SCDs -hep SQ 5kU TID -no indication for GI prophylaxsis #dispo -admitted to med surg; anticipate discharge in the next few days Problem List - Problems (1) Anemia Code(s): D64.9 - ANEMIA, UNSPECIFIED (2) Acute kidney failure Code(s): N17.9 - ACUTE KIDNEY FAILURE, UNSPECIFIED (3) Diabetes mellitus Code(s): E11.9 - TYPE 2 DIABETES MELLITUS WITHOUT COMPLICATIONS (4) Pneumonia Code(s): J18.9 - PNEUMONIA, UNSPECIFIED ORGANISM (5) Shock Code(s): R57.9 - SHOCK, UNSPECIFIED Visit type - Emergency Visit Emergency Visit: Yes ED Registration Date: 05/01/17 Care time: The patient presented to the Emergency Department on the above date and was hospitalized for further evaluation of their emergent condition. - New Patient This patient is new to me today: No - Critical Care Critical Care patient: No
[2017-05-07] MEDS: FERROUS SO4 300 MG/5 ML ORAL SOLN UNIT DOSE CUPS GT SCH (10:12)
[2017-05-07] MEDS: LACTOBACILLUS ACIDOPHILUS 1 EACH TAB (FP) GT SCH ×2 (10:13→21:44)
[2017-05-07] MEDS: POTASSIUM CHLORIDE ORAL LIQUID 20 MEQ/15 ML GT SCH (10:13)
[2017-05-07] MEDS: SERTRALINE HCL 50 MG TABLET (FP) GT SCH (10:13)
[2017-05-07] MEDS: RANITIDINE HCL 150 MG/10 ML UNIT-DOSE PEG SCH (10:15)
[2017-05-07] MEDS: AZITHROMYCIN IVPB 500 MG in DEXTROSE 5%-WATER - 250 ML IVPB SCH (11:04)
--- NOTE | 2017-05-07 11:23 | PN ---
Teaching Attending Note Name of Resident: Faizan Landeros ATTENDING PHYSICIAN STATEMENT I saw and evaluated the patient. I reviewed the resident's note and discussed the case with the resident. I agree with the resident's findings and plan as documented. SUBJECTIVE: Patient is awake and alert on vent. He appears comfortable. He denies pain, SOB. OBJECTIVE: Vital Signs Period Temp Pulse Resp BP Sys/Mayorga Pulse Ox Last 24 Hr 97.6 F-98.7 F 74-78 18-32 98-122/54-72 HEART: S1S2, RRR LUNGS: Bilateral coarse breath sounds with rhonchi left mid lung ABDOMEN: Soft, non-tender, non-distended, normal BS EXTREMITIES: 1+ edema Current Medications Generic Name Dose Route Start Last Admin Trade Name Freq PRN Reason Stop Dose Admin Albuterol Sulfate 1 amp 05/03/17 13:24 Ventolin 0.083% Nebulizer Soln - NEB Q6H PRN SHORT OF BREATH/WHEEZING Albuterol/Ipratropium 1 amp 05/03/17 18:00 05/07/17 06:49 Duoneb - NEB 1 amp QIDR [facility] Administration Amino Acids 30 ml 05/04/17 08:00 05/07/17 09:19 Prosource No Carb Liquid Pkt [facility] 30 ml BID@0800,1730 [facility] Administration Artificial Tears 1 drop 05/03/17 14:00 05/07/17 06:12 Artificial Tears OU 1 drop TID [facility] Administration Diltiazem HCl 30 mg 05/04/17 14:00 05/07/17 06:13 Cardizem - PEG 30 mg TID [facility] Administration Ferrous Sulfate 450 mg 05/04/17 10:00 05/07/17 10:12 Feosol GT 450 mg DAILY [facility] Administration Heparin Sodium (Porcine) 5,000 unit 05/04/17 22:00 05/07/17 06:13 Heparin - SQ 5,000 unit TID [facility] Administration Azithromycin 500 mg/ Dextrose 250 mls @ 250 mls/hr 05/04/17 10:00 05/07/17 11: 04 IVPB 250 mls/hr DAILY [facility] Administration Piperacillin Sod/Tazobactam 50 mls @ 100 mls/hr 05/03/17 18:00 05/07/17 10:15 Sod 3.375 gm/ Dextrose IVPB 100 mls/hr Q8H-IV [facility] Administration Insulin Aspart 1 vial 05/03/17 22:00 05/07/17 06:13 Novolog Vial Sliding Scale - SQ 2 units ACHS [facility] Administration Protocol Lactobacillus Acidophilus 1 tab 05/03/17 22:00 05/07/17 10:13 Bacid - GT 1 tab BID [facility] Administration Lactulose 10 gm 05/03/17 22:00 05/06/17 23:31 Cephulac (Oral Use) GT 10 gm HS [facility] Administration Potassium Chloride 10 meq 05/04/17 10:00 05/07/17 10:13 Potassium Chloride Oral Liquid GT 10 meq DAILY [facility] Administration Ranitidine HCl 150 mg 05/04/17 12:30 05/07/17 10:15 Zantac Oral Solution - PEG 150 mg DAILY [facility] Administration Senna 2 tab 05/03/17 22:00 05/06/17 23:30 Senna - PO 2 tab HS [facility] Administration Sertraline HCl 50 mg 05/04/17 10:00 05/07/17 10:13 Zoloft - GT 50 mg DAILY [facility] Administration ASSESSMENT AND PLAN: This is a 81 year old man with a history of COPD, obesity hypoventilation syndrome, AMIE, ventilator-dependent chronic hypoxic respiratory failure, tracheostomy, PEG, type 2 DM, HTN, hyperlipidemia, PAF, DVT, IVC filter, CVA who came to the ER from [facility] for fever, abnormal CXR and hypotension. 1. Severe sepsis secondary to ventilator-associated pneumonia - Continue Zosyn, Zithromax - Modified barium swallow to r/o aspiration today 2. Acute kidney injury secondary to hypotension, sepsis - Improved 3. Possible stage 3 CKD - Last available creatinine is 1.6 from 10/2014 4. Hypernatremia - Improved 5. Anemia - Likely secondary to chronic illness - Continue ferrous sulfate - Transfused 1 unit PRBCs - Stool occult blood negative - Continue to monitor hemoglobin - transfuse if < 7.0 6. Chronic hypoxic respiratory failure - Maintain vent support - Continue DuoNeb 7. COPD 8. Obstructive sleep apnea 9. Obesity hypoventilation syndrome 10. Hypertension - Continue Cardizem - Lisinopril, Coreg, Lasix held 11. Type 2 diabetes mellitus - Continue Novolog sliding scale 12. Paroxysmal atrial fibrillation - Remains in sinus rhythm - Continue Cardizem 13. DVT prophylaxis - Continue heparin subq, SCDs 14. Stress ulcer prophylaxis - Continue Protonix
--- NOTE | 2017-05-07 12:49 | PN ---
Progress Note (short form) - Note Progress Note: PULMONARY Vented on volume assist control. Denies shortness of breath, cough. No fevers recorded. Last Vital Signs Temp Pulse Resp BP Pulse Ox 97.7 F 70 39 H 106/74 100 05/07/17 10:00 05/07/17 10:00 05/07/17 11:15 05/07/17 10:00 05/07/17 11:15 Gen: vented, awake Heart: RRR Lung: scattered rhonchi Abd: soft, nontender Ext: distal edema CBC, BMP 05/07/17 06:15 05/07/17 06:15 Active Medications Albuterol Sulfate (Ventolin 0.083% Nebulizer Soln -) 1 amp NEB Q6H PRN PRN Reason: SHORT OF BREATH/WHEEZING Albuterol/Ipratropium (Duoneb -) 1 amp NEB QIDR [facility] Last Admin: 05/07/17 11:16 Dose: 1 amp Amino Acids (Prosource No Carb Liquid Pkt) 30 ml GT BID@0800,1730 [facility] Last Admin: 05/07/17 09:19 Dose: 30 ml Artificial Tears (Artificial Tears) 1 drop OU TID [facility] Last Admin: 05/07/17 06:12 Dose: 1 drop Diltiazem HCl (Cardizem -) 30 mg PEG TID [facility] Last Admin: 05/07/17 06:13 Dose: 30 mg Ferrous Sulfate (Feosol) 450 mg GT DAILY [facility] Last Admin: 05/07/17 10:12 Dose: 450 mg Heparin Sodium (Porcine) (Heparin -) 5,000 unit SQ TID [facility] Last Admin: 05/07/17 06:13 Dose: 5,000 unit Azithromycin 500 mg/ Dextrose 250 mls @ 250 mls/hr IVPB DAILY [facility] Last Admin: 05/07/17 11:04 Dose: 250 mls/hr Piperacillin Sod/Tazobactam (Sod 3.375 gm/ Dextrose) 50 mls @ 100 mls/hr IVPB Q8H-IV [facility] Last Admin: 05/07/17 10:15 Dose: 100 mls/hr Insulin Aspart (Novolog Vial Sliding Scale -) 1 vial SQ ACHS [facility] PRN Reason: Protocol Last Admin: 05/07/17 11:57 Dose: Not Given Lactobacillus Acidophilus (Bacid -) 1 tab GT BID [facility] Last Admin: 05/07/17 10:13 Dose: 1 tab Lactulose (Cephulac (Oral Use)) 10 gm GT HS [facility] Last Admin: 05/06/17 23:31 Dose: 10 gm Potassium Chloride (Potassium Chloride Oral Liquid) 10 meq GT DAILY [facility] Last Admin: 05/07/17 10:13 Dose: 10 meq Ranitidine HCl (Zantac Oral Solution -) 150 mg PEG DAILY [facility] Last Admin: 05/07/17 10:15 Dose: 150 mg Senna (Senna -) 2 tab PO HS [facility] Last Admin: 05/06/17 23:30 Dose: 2 tab Sertraline HCl (Zoloft -) 50 mg GT DAILY [facility] Last Admin: 05/07/17 10:13 Dose: 50 mg A/P Pneumonia Septic Shock resolved Chronic Vent Dependent Respiratory Failure Acute Kidney Injury COPD AMIE/OHS Paroxysmal Atrial Fibrillation h/o CVA Anemia r/o GI bleed Hypernatremia improved HTN DM - continue antibiotics - monitor urine output, creatinine - inhaled bronchodilators standing and PRN - taper Fio2 to keep SpO2 >90% - spontaneous breathing trials as tolerated - monitor H/H - protonix - enteral feeds, PO as tolerated - DVT/GI prophylaxis
--- NOTE | 2017-05-07 13:41 | PN ---
Progress Note, Physician History of Present Illness: Pt seen and examined at bedside. He remains on the vent floor. He is going for a swallow eval today. He has been tolerating feeds. - Current Medication List Current Medications: Active Medications Albuterol Sulfate (Ventolin 0.083% Nebulizer Soln -) 1 amp NEB Q6H PRN PRN Reason: SHORT OF BREATH/WHEEZING Albuterol/Ipratropium (Duoneb -) 1 amp NEB QIDR [facility] Last Admin: 05/07/17 11:16 Dose: 1 amp Amino Acids (Prosource No Carb Liquid Pkt) 30 ml GT BID@0800,1730 [facility] Last Admin: 05/07/17 09:19 Dose: 30 ml Artificial Tears (Artificial Tears) 1 drop OU TID [facility] Last Admin: 05/07/17 06:12 Dose: 1 drop Diltiazem HCl (Cardizem -) 30 mg PEG TID [facility] Last Admin: 05/07/17 06:13 Dose: 30 mg Ferrous Sulfate (Feosol) 450 mg GT DAILY [facility] Last Admin: 05/07/17 10:12 Dose: 450 mg Heparin Sodium (Porcine) (Heparin -) 5,000 unit SQ TID [facility] Last Admin: 05/07/17 06:13 Dose: 5,000 unit Azithromycin 500 mg/ Dextrose 250 mls @ 250 mls/hr IVPB DAILY [facility] Last Admin: 05/07/17 11:04 Dose: 250 mls/hr Piperacillin Sod/Tazobactam (Sod 3.375 gm/ Dextrose) 50 mls @ 100 mls/hr IVPB Q8H-IV [facility] Last Admin: 05/07/17 10:15 Dose: 100 mls/hr Insulin Aspart (Novolog Vial Sliding Scale -) 1 vial SQ ACHS [facility] PRN Reason: Protocol Last Admin: 05/07/17 11:57 Dose: Not Given Lactobacillus Acidophilus (Bacid -) 1 tab GT BID [facility] Last Admin: 05/07/17 10:13 Dose: 1 tab Lactulose (Cephulac (Oral Use)) 10 gm GT HS [facility] Last Admin: 05/06/17 23:31 Dose: 10 gm Potassium Chloride (Potassium Chloride Oral Liquid) 10 meq GT DAILY [facility] Last Admin: 05/07/17 10:13 Dose: 10 meq Ranitidine HCl (Zantac Oral Solution -) 150 mg PEG DAILY [facility] Last Admin: 05/07/17 10:15 Dose: 150 mg Senna (Senna -) 2 tab PO HS [facility] Last Admin: 05/06/17 23:30 Dose: 2 tab Sertraline HCl (Zoloft -) 50 mg GT DAILY [facility] Last Admin: 05/07/17 10:13 Dose: 50 mg - Objective Vital Signs: Vital Signs Temperature 97.7 F 05/07/17 10:00 Pulse Rate 70 05/07/17 10:00 Respiratory Rate 39 H 05/07/17 11:15 Blood Pressure 106/74 05/07/17 10:00 O2 Sat by Pulse Oximetry (%) 100 05/07/17 11:15 Constitutional: Yes: Calm HENT: Yes: Other (trache) Cardiovascular: Yes: S1, S2 Respiratory: Yes: Mechanically Ventilated Gastrointestinal: Yes: Soft, Other (peg) Musculoskeletal: Yes: Muscle Weakness Edema: Yes Neurological: Yes: Pre-Existing Deficit Labs: CBC, BMP 05/07/17 06:15 05/07/17 06:15 INR, PTT INR 1.51 (0.82-1.09) H 05/02/17 05:30 Problem List - Problems (1) Anemia Code(s): D64.9 - ANEMIA, UNSPECIFIED (2) Atrial fibrillation Code(s): I48.91 - UNSPECIFIED ATRIAL FIBRILLATION (3) Chronic kidney disease (CKD) Code(s): N18.9 - CHRONIC KIDNEY DISEASE, UNSPECIFIED (4) Chronic respiratory failure Code(s): J96.10 - CHRONIC RESPIRATORY FAILURE, UNSP W HYPOXIA OR HYPERCAPNIA Assessment/Plan Current Medications Generic Name Dose Route Start Last Admin Trade Name Freq PRN Reason Stop Dose Admin Albuterol Sulfate 1 amp 05/03/17 13:24 Ventolin 0.083% Nebulizer Soln - NEB Q6H PRN SHORT OF BREATH/WHEEZING Albuterol/Ipratropium 1 amp 05/03/17 18:00 05/07/17 11:16 Duoneb - NEB 1 amp QIDR [facility] Administration Amino Acids 30 ml 05/04/17 08:00 05/07/17 09:19 Prosource No Carb Liquid Pkt [facility] 30 ml BID@0800,1730 [facility] Administration Artificial Tears 1 drop 05/03/17 14:00 05/07/17 06:12 Artificial Tears OU 1 drop TID [facility] Administration Diltiazem HCl 30 mg 05/04/17 14:00 05/07/17 06:13 Cardizem - PEG 30 mg TID [facility] Administration Ferrous Sulfate 450 mg 05/04/17 10:00 05/07/17 10:12 Feosol GT 450 mg DAILY [facility] Administration Heparin Sodium (Porcine) 5,000 unit 05/04/17 22:00 05/07/17 06:13 Heparin - SQ 5,000 unit TID [facility] Administration Azithromycin 500 mg/ Dextrose 250 mls @ 250 mls/hr 05/04/17 10:00 05/07/17 11: 04 IVPB 250 mls/hr DAILY [facility] Administration Piperacillin Sod/Tazobactam 50 mls @ 100 mls/hr 05/03/17 18:00 05/07/17 10:15 Sod 3.375 gm/ Dextrose IVPB 100 mls/hr Q8H-IV [facility] Administration Insulin Aspart 1 vial 05/03/17 22:00 05/07/17 11:57 Novolog Vial Sliding Scale - SQ Not Given ACHS [facility] Protocol Lactobacillus Acidophilus 1 tab 05/03/17 22:00 05/07/17 10:13 Bacid - GT 1 tab BID [facility] Administration Lactulose 10 gm 05/03/17 22:00 05/06/17 23:31 Cephulac (Oral Use) GT 10 gm HS [facility] Administration Potassium Chloride 10 meq 05/04/17 10:00 05/07/17 10:13 Potassium Chloride Oral Liquid GT 10 meq DAILY [facility] Administration Ranitidine HCl 150 mg 05/04/17 12:30 05/07/17 10:15 Zantac Oral Solution - PEG 150 mg DAILY CURTIS Administration Senna 2 tab 05/03/17 22:00 05/06/17 23:30 Senna - PO 2 tab HS CURTIS Administration Sertraline HCl 50 mg 05/04/17 10:00 05/07/17 10:13 Zoloft - GT 50 mg DAILY CURTIS Administration Impression 1. CKD with acute component 2. resp failure chronic 3. hypotension 4. dvt s/p ivc filter 5. hyponatremia with now hypernatremia 6. DM 7. A.fib/flutter 8. renal cyst 9. SUE 10. sepsis 11. PNA Plan - pt tolerating feeds - sodium is stable - pt off of fluids - renal function is stable - SUE likely from sepsis and pre-renal disease - vent support - avoid nephrotoxins
--- NOTE | 2017-05-07 14:24 | PN ---
Progress Note (short form) - Note Progress Note: awake and alert quite comfortable Vital Signs Period Temp Pulse Resp BP Sys/Mayorga Pulse Ox Last 24 Hr 97.6 F-98.7 F 67-78 18-39 98-122/54-74 100-100 cor-rrr lungs clear abd soft,nt ext no edema bilateral foot drop Microbiology 05/01/17 10:30 Blood - Peripheral Venous Blood Culture - Final NO GROWTH AFTER 5 DAYS INCUBATION 05/01/17 09:40 Blood - Peripheral Venous Blood Culture - Final NO GROWTH AFTER 5 DAYS INCUBATION 05/01/17 20:08 Sputum - Endotrachea Suction/Ventilator Gram Stain - Final 05/01/17 20:08 Sputum - Endotrachea Suction/Ventilator Sputum Culture - Final Providencia Stuartii Pseudo Fluorescens/Putida 05/01/17 10:30 Urine - Urine - Catheterized Urine Culture - Final NO GROWTH OBTAINED 05/01/17 10:30 Urine - Urine Clean Catch Legionella Antigen - Final 05/01/17 10:30 Urine - Urine Clean Catch Streptococcus pneumoniae Antigen ( M - Final imp/reccd sepsis-resolved pneumonia (NH)-rul- clinically much improved'suspect isolated from 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
[2017-05-07] MEDS: LACTULOSE 20 GM/30 ML UDC (FOR ORAL USE ONLY) GT SCH (21:43)
[2017-05-07] MEDS: SENNOSIDES 8.6MG TABLET (FP) PO SCH (21:44)
[2017-05-08] MEDS ORDERED: DEXTROSE 5%-WATER - 50 ML IVPB ONE ×3 (01:08→17:53)
[2017-05-08] MEDS ORDERED: PIPERACILLIN/TAZOBACTAM 3.375 GM VIAL IVPB ONE ×3 (01:08→17:53)
[2017-05-08] MEDS: PIPERACILLIN/TAZOB 3.375 GM 3.375 GM in DEXTROSE 5%-WATER - 50 ML IVPB SCH ×3 (01:50→17:54)
[2017-05-08] MEDS: HEPARIN NA (PORCINE) 5,000 UNITS/ML 1ML VIAL SQ SCH ×3 (05:57→22:53)
[2017-05-08] MEDS: ARTIFICIAL TEARS (POLYVINYL ALCOHOL 1.4%) OPTH DROPS OU SCH ×3 (05:57→22:50)
[2017-05-08] MEDS: dilTIAZem HCL 30 MG TABLET (FP) PEG SCH (05:58)
[2017-05-08] MEDS: INSULIN SLIDING SCALE (NOVOLOG) 1 VIAL SQ SCH ×4 (06:10→22:53)
[2017-05-08] MEDS: ALBUTEROL SO4 2.5/IPRATROPIUM 0.5 INH SOL 3 ML VIAL.NEB. NEB SCH ×4 (06:30→17:49)
[2017-05-08 07:52] LABS: MCH 29.9 pg (25.7-33.7); MCHC 32.9 g/dl (32.0-35.9); MEAN CELL VOLUME 90.9 fl (80-96); PLATELET COUNT 171 K/MM3 (134-434); RDW 15.2 % (11.9-15.9)
[2017-05-08 08:10] LABS: ALBUMIN 2.1 g/dl (3.4-5.0); ANION GAP 8 (8-16); CALCIUM 7.9 mg/dL (8.5-10.1); CO2 28 mmol/L (21-32); CREATININE 0.8 mg/dL (0.7-1.3); GLUCOSE,RANDOM 108 mg/dL (74-106); MAGNESIUM 2.1 mg/dL (1.8-2.4)
[2017-05-08] MEDS: RANITIDINE HCL 150 MG/10 ML UNIT-DOSE PEG SCH (09:55)
[2017-05-08] MEDS: FERROUS SO4 300 MG/5 ML ORAL SOLN UNIT DOSE CUPS GT SCH (09:55)
[2017-05-08] MEDS: LACTOBACILLUS ACIDOPHILUS 1 EACH TAB (FP) GT SCH ×2 (09:56→22:53)
[2017-05-08] MEDS: POTASSIUM CHLORIDE ORAL LIQUID 20 MEQ/15 ML GT SCH (09:56)
[2017-05-08] MEDS: AMINO ACIDS/PROTEIN HYDROLYS 30 ML LIQUID.PKT GT SCH ×3 (09:56→17:48)
[2017-05-08] MEDS: SERTRALINE HCL 50 MG TABLET (FP) GT SCH (09:57)
--- NOTE | 2017-05-08 11:44 | PN ---
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 Selected Entries 05/07/17 05/07/17 05/07/17 02:00 06:00 06:12 Breakfast Temperature 98.5 F 97.6 F 98.4 F Pulse Rate 05/07/17 05/07/17 05/07/17 10:00 14:40 18:27 Breakfast Temperature 97.7 F 97.3 F L 99.5 F Pulse Rate 05/07/17 05/08/17 05/08/17 22:00 06:00 08:56 Breakfast Temperature 98.5 F Pulse Rate 73 79 05/08/17 09:30 Breakfast NPO Temperature Pulse Rate Laboratory Tests 05/08/17 06:00 WBC 6.0 Maintain NPO, mouth care, GT feedings for now. Possibly repeat MBS in future, to initiate pleasure feedings if condition improves.
--- NOTE | 2017-05-08 12:50 | PN ---
Progress Note (short form) - Note Progress Note: PULMONARY Denies shortness of breath or chest pain. Vented on volume assist control. No fevers recorded. Last Vital Signs Temp Pulse Resp BP Pulse Ox 98.6 F 73 12 102/61 99 05/08/17 12:45 05/08/17 12:45 05/08/17 12:45 05/08/17 12:45 05/08/17 08:56 Gen: vented, awake Heart: RRR Lung: scattered rhonchi Abd: soft, nontender Ext: distal edema CBC, BMP 05/08/17 06:00 05/08/17 06:00 Active Medications Albuterol Sulfate (Ventolin 0.083% Nebulizer Soln -) 1 amp NEB Q6H PRN PRN Reason: SHORT OF BREATH/WHEEZING Albuterol/Ipratropium (Duoneb -) 1 amp NEB QIDR [facility] Last Admin: 05/08/17 11:40 Dose: 1 amp Amino Acids (Prosource No Carb Liquid Pkt) 30 ml GT BID@0800,1730 [facility] Last Admin: 05/08/17 12:14 Dose: Not Given Artificial Tears (Artificial Tears) 1 drop OU TID [facility] Last Admin: 05/08/17 05:57 Dose: 1 drop Ferrous Sulfate (Feosol) 450 mg GT DAILY [facility] Last Admin: 05/08/17 09:55 Dose: 450 mg Heparin Sodium (Porcine) (Heparin -) 5,000 unit SQ TID [facility] Last Admin: 05/08/17 05:57 Dose: 5,000 unit Piperacillin Sod/Tazobactam (Sod 3.375 gm/ Dextrose) 50 mls @ 100 mls/hr IVPB Q8H-IV [facility] Last Admin: 05/08/17 09:30 Dose: 100 mls/hr Insulin Aspart (Novolog Vial Sliding Scale -) 1 vial SQ ACHS [facility] PRN Reason: Protocol Last Admin: 05/08/17 12:14 Dose: Not Given Lactobacillus Acidophilus (Bacid -) 1 tab GT BID [facility] Last Admin: 05/08/17 09:56 Dose: 1 tab Lactulose (Cephulac (Oral Use)) 10 gm GT HS [facility] Last Admin: 05/07/17 21:43 Dose: 10 gm Potassium Chloride (Potassium Chloride Oral Liquid) 10 meq GT DAILY [facility] Last Admin: 05/08/17 09:56 Dose: 10 meq Ranitidine HCl (Zantac Oral Solution -) 150 mg PEG DAILY [facility] Last Admin: 05/08/17 09:55 Dose: 150 mg Senna (Senna -) 2 tab PO HS [facility] Last Admin: 05/07/17 21:44 Dose: 2 tab Sertraline HCl (Zoloft -) 50 mg GT DAILY [facility] Last Admin: 05/08/17 09:57 Dose: 50 mg A/P Pneumonia Septic Shock resolved Chronic Vent Dependent Respiratory Failure Acute Kidney Injury COPD AMIE/OHS Paroxysmal Atrial Fibrillation h/o CVA Anemia r/o GI bleed Hypernatremia improved HTN DM - continue antibiotics - monitor urine output, creatinine - inhaled bronchodilators standing and PRN - taper Fio2 to keep SpO2 >90% - spontaneous breathing trials as tolerated - monitor H/H - protonix - enteral feeds, PO as tolerated - DVT/GI prophylaxis
--- NOTE | 2017-05-08 13:25 | PN ---
Teaching Attending Note Name of Resident: Faizan Landeros ATTENDING PHYSICIAN STATEMENT I saw and evaluated the patient. I reviewed the resident's note and discussed the case with the resident. I agree with the resident's findings and plan as documented. SUBJECTIVE:asymptomatic. denies CP, SOB, fever, chills, N/V/C/D OBJECTIVE: Last Vital Signs Temp Pulse Resp BP Pulse Ox 98.6 F 73 12 102/61 99 05/08/17 12:45 05/08/17 12:45 05/08/17 12:45 05/08/17 12:45 05/08/17 08:56 General NAD ASSESSMENT AND PLAN: 81 yo M with PMH COPD, obesity hypoventilation syndrome, AMIE, ventilator- dependent chronic hypoxic respiratory failure, tracheostomy, PEG, type 2 DM, HTN , hyperlipidemia, PAF, DVT, IVC filter, CVA who came to the ER from [facility] for fever, abnormal CXR and hypotension. 1. Severe sepsis secondary to ventilator-associated pneumonia- saturating well on vent. completed 6 days of azithromycin yesterday. On Zosyn day 7 of 7 today and will complete abx course. will need repeat CXR in 4-6 weeks. cont vent support. titrate down at SNF. failed modified barium swallow. remain NPO for now. can have MBS repeated in future to re-assess. aspiration precautions 2. Acute on chronic kidney injury- secondary to hypotension and sepsis, resolved 3. HTN- now hypotensive. hold cardizem and lasix. cont to monitor. 4. Hypernatremia- resolved 5. Anemia- Likely secondary to chronic illness. transfused 1 unit PRBC this admission. cont iron supplementation. 6. Chronic hypoxic respiratory failure- cont vent support 7. COPD 8. Obstructive sleep apnea 9. Obesity hypoventilation syndrome 10. Type 2 diabetes mellitus- Continue Novolog sliding scale 11. Paroxysmal atrial fibrillation- Remains in sinus rhythm. rate controlled on coreg. 12. DVT prophylaxis- Continue heparin subq, SCDs 13. stable for discharge to SNF after completion of abx today. will need femoral TLC removed prior to discharge
[2017-05-08] MEDS ORDERED: PT OWN MED DRAWER 7, Y5N ONE (17:23)
--- NOTE | 2017-05-08 17:58 | PN ---
Physical Exam: SUBJECTIVE: Patient seen and examined at bedside. Patient with no new complaints today. Patient states that he does not like his current custodial and wishes to go to another one. Case management onboard to coordinate. Patient has no more pain in the legs. OBJECTIVE: Vital Signs Period Temp Pulse Resp BP Sys/Mayorga Pulse Ox Last 24 Hr 98.5 F-99.5 F 65-79 12-29 98-141/54-61 99-100 GENERAL: The patient is awake, alert, and fully oriented, in no acute distress. HEAD: Normal with no signs of trauma. EYES: extraocular movements intact, sclera anicteric, conjunctiva clear. No ptosis. NECK: Trachea midline, full range of motion, supple. LUNGS: Breath sounds equal, clear to auscultation bilaterally, no wheezes, no crackles, no accessory muscle use. HEART: Regular rate and rhythm, S1, S2 without murmur, rub or gallop. ABDOMEN: Soft, nontender, nondistended, normoactive bowel sounds, no guarding, no rebound. EXTREMITIES: 2+ pulses, warm, well-perfused, 2+ pitting edema over both feet. NEUROLOGICAL: Cranial nerves II through X grossly intact. Normal speech, gait not observed. SKIN: Warm, dry, normal turgor, no rashes or lesions noted Laboratory Results - last 24 hr 05/07/17 05/08/17 05/08/17 20:47 06:00 06:00 WBC 6.0 RBC 2.46 L Hgb 7.4 L Hct 22.4 L MCV 90.9 MCH 29.9 MCHC 32.9 RDW 15.2 Plt Count 171 MPV 8.0 Sodium 140 Potassium 4.5 Chloride 104 Carbon Dioxide 28 Anion Gap 8 BUN 25 H Creatinine 0.8 POC Glucometer 139 Random Glucose 108 H D Calcium 7.9 L Phosphorus 3.0 Magnesium 2.1 Albumin 2.1 L 05/08/17 05/08/17 06:01 11:21 WBC RBC Hgb Hct MCV MCH MCHC RDW Plt Count MPV Sodium Potassium Chloride Carbon Dioxide Anion Gap BUN Creatinine POC Glucometer 115 114 Random Glucose Calcium Phosphorus Magnesium Albumin Active Medications Generic Name Dose Route Start Last Admin Trade Name Freq PRN Reason Stop Dose Admin Albuterol/Ipratropium 1 amp 05/03/17 18:00 05/08/17 11:40 Duoneb - NEB 1 amp QIDR [facility] Administration Amino Acids 30 ml 05/04/17 08:00 05/08/17 12:14 Prosource No Carb Liquid Pkt GT Not Given BID@0800,1730 [facility] Artificial Tears 1 drop 05/03/17 14:00 05/08/17 05:57 Artificial Tears OU 1 drop TID [facility] Administration Ferrous Sulfate 450 mg 05/04/17 10:00 05/08/17 09:55 Feosol GT 450 mg DAILY [facility] Administration Heparin Sodium (Porcine) 5,000 unit 05/04/17 22:00 05/08/17 05:57 Heparin - SQ 5,000 unit TID [facility] Administration Piperacillin Sod/Tazobactam 50 mls @ 100 mls/hr 05/03/17 18:00 05/08/17 09:30 Sod 3.375 gm/ Dextrose IVPB 100 mls/hr Q8H-IV [facility] Administration Insulin Aspart 1 vial 05/03/17 22:00 05/08/17 12:14 Novolog Vial Sliding Scale - SQ Not Given ACHS [facility] Protocol Lactobacillus Acidophilus 1 tab 05/03/17 22:00 05/08/17 09:56 Bacid - GT 1 tab BID [facility] Administration Lactulose 10 gm 05/03/17 22:00 05/07/17 21:43 Cephulac (Oral Use) GT 10 gm HS [facility] Administration Potassium Chloride 10 meq 05/04/17 10:00 05/08/17 09:56 Potassium Chloride Oral Liquid GT 10 meq DAILY [facility] Administration Ranitidine HCl 150 mg 05/04/17 12:30 05/08/17 09:55 Zantac Oral Solution - PEG 150 mg DAILY [facility] Administration Senna 2 tab 05/03/17 22:00 05/07/17 21:44 Senna - PO 2 tab HS [facility] Administration Sertraline HCl 50 mg 05/04/17 10:00 05/08/17 09:57 Zoloft - GT 50 mg DAILY [facility] Administration ASSESSMENT/PLAN: 81 yo m w/ PMH COPD, HTN, DM, HLD, Paroxysmal A-fib, CVA, 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 #Severe sepsis likely 2/2 VAP vs aspiration PNA- resolved -last day of zosyn 3.375 daily (day 7) -Bcx, ucx, urine antigens negative -sputum cx growing several species -Modified barium swallow inconclusive -patient afebrile for several days and clinically stable #CKD -BUN 124, Cr. 2.3 on admission -improved today; BUN 25 and Cr .8 -renal u/s : no abnormalities; limited study -monitor #new onset leg pain- resolved -patient on SCDs and HSQ since admission -Doppler u/s of both limbs r/o DVT #hypernatremia - resolved -sodium 140 today -d/c 1/2 NS #normocytic anemia likely 2/2 CKD- resolved -s/p 1u PRBC -Hb 8.0 today -will monitor -transfuse as per protocol #Diabetes mellitus -controlled -BGMs Q6 -ISS Q6 #s/p PEG tube -no overt signs of infection #FEN -no indication for fluids at this time -monitor lytes -tube feeds #Prophylaxsis -SCDs -hep SQ 5kU TID -no indication for GI prophylaxsis #dispo -patient is stable for discharge. Patient pending SNF placement. Problem List - Problems (1) Anemia Code(s): D64.9 - ANEMIA, UNSPECIFIED (2) Acute kidney failure Code(s): N17.9 - ACUTE KIDNEY FAILURE, UNSPECIFIED (3) Diabetes mellitus Code(s): E11.9 - TYPE 2 DIABETES MELLITUS WITHOUT COMPLICATIONS (4) Pneumonia Code(s): J18.9 - PNEUMONIA, UNSPECIFIED ORGANISM (5) Shock Code(s): R57.9 - SHOCK, UNSPECIFIED Visit type - Emergency Visit Emergency Visit: Yes ED Registration Date: 05/01/17 Care time: The patient presented to the Emergency Department on the above date and was hospitalized for further evaluation of their emergent condition. - New Patient This patient is new to me today: No - Critical Care Critical Care patient: No
[2017-05-08] MEDS: LACTULOSE 20 GM/30 ML UDC (FOR ORAL USE ONLY) GT SCH (22:52)
[2017-05-08] MEDS: SENNOSIDES 8.6MG TABLET (FP) PO SCH (22:53)
[2017-05-09] MEDS ORDERED: DEXTROSE 5%-WATER - 50 ML IVPB ONE (02:03)
[2017-05-09] MEDS ORDERED: PIPERACILLIN/TAZOBACTAM 3.375 GM VIAL IVPB ONE (02:03)
[2017-05-09] MEDS: PIPERACILLIN/TAZOB 3.375 GM 3.375 GM in DEXTROSE 5%-WATER - 50 ML IVPB SCH (02:28)
[2017-05-09] MEDS: HEPARIN NA (PORCINE) 5,000 UNITS/ML 1ML VIAL SQ SCH ×2 (06:27→14:20)
[2017-05-09] MEDS: ARTIFICIAL TEARS (POLYVINYL ALCOHOL 1.4%) OPTH DROPS OU SCH ×3 (06:28→14:23)
[2017-05-09] MEDS: INSULIN SLIDING SCALE (NOVOLOG) 1 VIAL SQ SCH ×2 (06:30→11:30)
[2017-05-09] MEDS ORDERED: PT OWN MED DRAWER 7, Y5N ONE (10:01)
[2017-05-09] MEDS: AMINO ACIDS/PROTEIN HYDROLYS 30 ML LIQUID.PKT GT SCH (10:41)
[2017-05-09] MEDS: LACTOBACILLUS ACIDOPHILUS 1 EACH TAB (FP) GT SCH (10:41)
[2017-05-09] MEDS: FERROUS SO4 300 MG/5 ML ORAL SOLN UNIT DOSE CUPS GT SCH (10:42)
[2017-05-09] MEDS: RANITIDINE HCL 150 MG/10 ML UNIT-DOSE PEG SCH (10:43)
[2017-05-09] MEDS: POTASSIUM CHLORIDE ORAL LIQUID 20 MEQ/15 ML GT SCH (10:44)
[2017-05-09] MEDS: SERTRALINE HCL 50 MG TABLET (FP) GT SCH (10:47)
--- NOTE | 2017-05-09 10:55 | PN ---
Progress Note, EDUCATION RN - Note Progress Note: MBS results reviewed with staff. Selected Entries 05/07/17 05/07/17 05/07/17 02:00 06:00 06:12 Breakfast Temperature 98.5 F 97.6 F 98.4 F Pulse Rate 05/07/17 05/07/17 05/07/17 10:00 14:40 18:27 Breakfast Temperature 97.7 F 97.3 F L 99.5 F Pulse Rate 05/07/17 05/08/17 05/08/17 22:00 06:00 08:56 Breakfast Temperature 98.5 F Pulse Rate 73 79 05/08/17 09:30 Breakfast NPO Temperature Pulse Rate Laboratory Tests 05/08/17 06:00 WBC 6.0 Selected Entries 05/09/17 05/09/17 05/09/17 06:00 08:43 09:42 Breakfast NPO Temperature 98.3 F 98.7 F Maintain NPO, mouth care, GT feedings for now. Plan is for transfer to [facility]. Consider sw tx and repeat MBS, in future, to initiate pleasure feedings if condition improves.
--- NOTE | 2017-05-09 11:52 | PN ---
Teaching Attending Note Name of Resident: Faizan Landeros ATTENDING PHYSICIAN STATEMENT I saw and evaluated the patient. I reviewed the resident's note and discussed the case with the resident. I agree with the resident's findings and plan as documented. SUBJECTIVE:asymptomatic. stephen does not want to go to [facility] as he does not want to be in [place]. denies CP, Palpitations, N/V/C/D OBJECTIVE: Last Vital Signs Temp Pulse Resp BP Pulse Ox 98.7 F 73 26 H 100/55 100 05/09/17 08:43 05/09/17 10:51 05/09/17 10:51 05/09/17 08:43 05/09/17 10:51 General NAD ASSESSMENT AND PLAN: 81 yo M with PMH COPD, obesity hypoventilation syndrome, AMIE, ventilator- dependent chronic hypoxic respiratory failure, tracheostomy, PEG, type 2 DM, HTN , hyperlipidemia, PAF, DVT, IVC filter, CVA who came to the ER from [facility] for fever, abnormal CXR and hypotension. 1. Severe sepsis secondary to ventilator-associated pneumonia- saturating well on vent. completed 6 days of azithromycin yesterday and Zosyn for 7 days. no further indication for abx. will need repeat CXR in 4-6 weeks. cont vent support. titrate down at SNF. failed modified barium swallow. remain NPO for now. can have MBS repeated in future to re-assess. aspiration precautions 2. Acute on chronic kidney injury- secondary to hypotension and sepsis, resolved 3. HTN-improved. Cont to hold cardizem and lasix. 4. Hypernatremia- resolved 5. Anemia- Likely secondary to chronic illness. transfused 1 unit PRBC this admission. cont iron supplementation. will need close monitoring of Hgb 6. Chronic hypoxic respiratory failure- cont vent support 7. COPD 8. Obstructive sleep apnea 9. Obesity hypoventilation syndrome 10. Type 2 diabetes mellitus- Continue Novolog sliding scale 11. Paroxysmal atrial fibrillation- Remains in sinus rhythm. rate controlled on coreg. 12. DVT prophylaxis- Continue heparin subq, SCDs 13. accepted to [facility] however pt does not want to go. explained will be short term to attempt aggressive weaning trials. verbalized understanding and does not want to leave [place]. will be sent to same SNF he came from. explained if he opts to go to [place] in the future or alternative facility he can make the choice and have arrangements made at that time. asked if pt wants me to call his son to discuss discharge planning which he said no.
--- NOTE | 2017-05-09 15:06 | DS ---
Physical Exam: SUBJECTIVE: Patient seen and examined at bedside. He has no new complaints. He expressed that he did not wish to go to a facility in [place] as was planned. His options were discussed and he elected to return to his original facility. OBJECTIVE: Vital Signs Period Temp Pulse Resp BP Sys/Mayorga Pulse Ox Last 24 Hr 98.3 F-99.2 F 73-78 14-26 100-107/52-62 98-100 PHYSICAL EXAM GENERAL: The patient is awake, alert, and fully oriented, in no acute distress. HEAD: Normal with no signs of trauma. EYES: extraocular movements intact, sclera anicteric, conjunctiva clear. NECK: Trachea midline, full range of motion, supple. LUNGS: Breath sounds equal, coarse breath sounds bilaterally, no wheezes, no crackles, no accessory muscle use. HEART: Regular rate and rhythm, S1, S2 without murmur, rub or gallop. ABDOMEN: Soft, nontender, nondistended, normoactive bowel sounds, no guarding, no rebound. EXTREMITIES: 2+ pulses, warm, well-perfused, no edema. NEUROLOGICAL: Cranial nerves II through X grossly intact. Normal speech, gait not observed. PSYCH: Normal mood, normal affect. SKIN: Warm, dry, normal turgor, no rashes or lesions noted. 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 to 102. In the ED, he had a fever to 100.9 and a pulse rate of 95. His other vitals were WNL. His BUN was 124 and his creatinine was 2.3. A CXR showed right sided infiltrate and pleural effusions. The patient was admitted for severe sepsis secondary to ventilator associated pneumonia. The patient was hypotensive in the ER requiring femoral line CVC placement and initiation of pressors. Dr. Littlejohn with nephrology was consulted. Dr. Martinez with infectious disease was consulted. Dr. Reyes from pulmonary/ Critical care was consulted. Bianka Blount, speech pathologist, was consulted. The patient was transferred to the ICU where he was volume resuscitated and quickly weaned off of the pressors. He was treated with fluids, Zosyn, Levaquin, Azithromycin, lasix and nebulizers. Sputum cultures grew atypical bacteria thought to be tracheal colonization. A renal and bladder ultrasound was performed which was WNL. A modified barium swallow was performed, which revealed that the patient was at high risk of aspiration and should not be fed orally. The patient clinically improved with treatment. He remained afebrile throughout his admission. His BUN and creatinine returned to his baseline. Interval chest x-rays showed improvement in the consolidations. He was sent home with instructions to continue his home medications except for his lasix, his cardizem and his lisinopril. He was told to follow up with his PCP in order to decide if he needs to begin these medications again in the future. He was also advised to get a CBC to check his blood counts once discharged and to get a chest xray in 4-6 weeks to document pneumonia resolution. He was informed that his modified barium swallow showed that he could aspirate his food, so he should not eat until it is repeated. He was told to call his doctor or return to the ER if he experienced fevers, chills or if any of his symptoms became worse. Date of Discharge: 05/09/17 Minutes to complete discharge: 20 Discharge Summary Reason For Visit: SEPSIS Current Active Problems Anemia (Acute) Condition: Improved - Instructions Diet, Activity, Other Instructions: You were admitted for pneumonia. Your home medications have been adjusted. continue to hold lasix and cardizem, speak with your doctor about re-starting your blood pressure medications if your blood pressure goes higher. You should follow up with your primary care doctor within one week of discharge. You should have your blood counts checked to ensure your levels are not too low. You will need to get another chest x-ray in 4-6 weeks in order to make sure that your lung infection is getting better. Your primary doctor can give you a prescription for this test. Consider having your swallow evaluation test ( modified barium swallow) repeated in the future to evaluate if your able to tolerate eating by mouth. Until that time do not eat anything. If you experience fever, chills or if any of your symptoms become worse, please call your doctor or return to the Emergency Department. Disposition: [facility] - Home Medications Comprehensive Discharge Medication List: Ambulatory Orders Albuterol 0.083% Nebulizer Isis [Ventolin 0.083% Nebulizer Soln -] 1 neb NEB Q6H PRN 05/01/17 Amino Acids/Protein Hydrolys [Pro-Stat Awc Liquid] 30 ml GT DAILY 05/01/17 Ferrous Sulfate 7.5 ml GT DAILY 05/01/17 Hypromellose 0.5% Opth Soln [Artificial Tears] 1 drop OU TID 05/01/17 Ipratropium 0.02% Nebulizer [Atrovent 0.02% Nebulizer -] 1 amp NEB Q6H PRN 05/01 Lactobacillus Acidophilus [Bacid -] 1 each GT Q12H 05/01/17 Lactulose 10 gm GT HS 05/01/17 Lisinopril [Zestril] 2.5 mg GT DAILY 05/01/17 Potassium Chloride 10 meq GT DAILY 05/01/17 Ranitidine [Zantac -] 150 mg GT DAILY 05/01/17 Sennosides [Senna] 2 tab GT HS 05/01/17 Sertraline HCl [Zoloft -] 50 mg GT DAILY 05/01/17 Ursodiol 250 mg GT Q8H 05/01/17 Problem List - Problems (1) Anemia Code(s): D64.9 - ANEMIA, UNSPECIFIED (2) Acute kidney failure Code(s): N17.9 - ACUTE KIDNEY FAILURE, UNSPECIFIED (3) Diabetes mellitus Code(s): E11.9 - TYPE 2 DIABETES MELLITUS WITHOUT COMPLICATIONS (4) Pneumonia Code(s): J18.9 - PNEUMONIA, UNSPECIFIED ORGANISM (5) Shock Code(s): R57.9 - SHOCK, UNSPECIFIED This patient is new to me today: No Emergency Visit: Yes ED Registration Date: 05/01/17 Care time: The patient presented to the Emergency Department on the above date and was hospitalized for further evaluation of their emergent condition. Critical Care patient: No - Discharge Referral Referred to [facility] Med P.C.: No
[2017-05-09 15:10] VITALS: BP 105/55; PULSE 74; TEMP 99.2
== END 2017-05-09 15:04 | DRG 870 ==
LOC: JER 09:19 → JERBED 13:35 → JICU 15:05 → J5S 05-03 13:01
PROVIDERS: ADMIT Internal Medicine; ATTEND Internal Medicine
PROC: 5A1955Z Respiratory Ventilation, Greater than 96 Consecutive Hours (ICD-10-PCS; principal; 2017-05-01)
PROC: 30233N1 Transfusion of Nonautologous Red Blood Cells into Peripheral Vein, Percutaneous Approach (ICD-10-PCS; 2017-05-01)
PROC: 3E0G76Z Introduction of Nutritional Substance into Upper GI, Via Natural or Artificial Opening (ICD-10-PCS; 2017-05-03)
DX: A41.89 Other specified sepsis (principal); R65.21 Severe sepsis with septic shock; J18.9 Pneumonia, unspecified organism; J96.10 Chronic respiratory failure, unspecified whether with hypoxia or hypercapnia; N17.9 Acute kidney failure, unspecified; E87.0 Hyperosmolality and hypernatremia; J90 Pleural effusion, not elsewhere classified; I48.92 Unspecified atrial flutter; J44.9 Chronic obstructive pulmonary disease, unspecified; I45.19 Other right bundle-branch block; E78.5 Hyperlipidemia, unspecified; G47.33 Obstructive sleep apnea (adult) (pediatric); M10.9 Gout, unspecified; M32.8 Other forms of systemic lupus erythematosus; M06.80 Other specified rheumatoid arthritis, unspecified site; E86.1 Hypovolemia; N28.1 Cyst of kidney, acquired; Z68.25 Body mass index [BMI] 25.0-25.9, adult; E66.8 Other obesity; I48.0 Paroxysmal atrial fibrillation; J32.8 Other chronic sinusitis; I12.9 Hypertensive chronic kidney disease with stage 1 through stage 4 chronic kidney disease, or unspecified chronic kidney disease; N18.3 Chronic kidney disease, stage 3 (moderate); E11.22 Type 2 diabetes mellitus with diabetic chronic kidney disease; D63.1 Anemia in chronic kidney disease; L89.151 Pressure ulcer of sacral region, stage 1; Z86.73 Personal history of transient ischemic attack (TIA), and cerebral infarction without residual deficits; Z86.718 Personal history of other venous thrombosis and embolism; Z93.1 Gastrostomy status; Z93.0 Tracheostomy status; Z99.81 Dependence on supplemental oxygen
CPT/HCPCS: 36415; 36430; 71010-TC; 74020-TC; 74230-TC; 76775-TC; 76856-TC; 80048; 80053; 81003; 81015; 82040; 82272; 82570; 82803; 83605; 83735; 84100; 84484; 85025; 85027; 85610; 85730; 86850; 86900; 86901; 86922; 87040; 87070; 87086; 87186; 87205; 87899; 92611-GN; 93005; 93010; 93306-TC; 93970-TC; 94002; 94640; 99285-25; G0480; J1644; P9038; P9058

== ENCOUNTER 2017-05-21 14:31 | Inpatient (IN) | payer OTHER ==
--- NOTE | 2017-05-21 14:59 | PDOC ---
Attending Attestation - HPI HPI: 05/21/17 15:11 The patient is a 81 year old male, with significant past medical history of chronic respiratory failure s/p trach(vent dependent), s/p peg tube placement, COPD, Paroxysmal Afib, extensive DVT s/p IVC filter (05/2014), diabetes, HTN, HLD, CVA, obesity hypoventilation syndrome, and obstructive sleep apnea. The patient was recently admitted on 05/01/17 and discharged on 05/09/17 for sepsis secondary to ventilator associated pneumonia. He presents today BIBA from [facility] home with fever, and hypoxia. As per EMS, his O2 Sat at the long-term was 82. The patient is nonresponsive at this time. He is DNR. - Medical Decision Making 05/21/17 15:14 Documentation prepared by DARYL Banda, acting as medical practice assistant for Lena Sandoval MD. 05/21/17 16:[address] Ortega @[phone] and [phone] at 3:55pm and 4:30pm. Mailbox is full. Will call back. 05/21/17 16:42 Third call placed to Dr. Ortega @[phone] and [phone] 05/21/17 16:54 Fourth call placed to Dr. Ortega @[phone] 05/21/17 16:[address] Ortega overhead 05/21/17 17:07 Microblogged hospitalist. <Mary Valiente - Last Filed: 05/21/17 17:09> - Resident Resident Name: Sebas Fairbanks - HPI HPI: 05/25/17 01:02 Pt presents to the ED after found hypoxic and hypotensive in his long-term. PAtient is chronically vent dependent with multiple episodes of ventilator asociated PNA. - Physicial Exam PE: 05/25/17 01:08 Agree with resident's exam. PAtient found to be febrile and hypoxic, with copious thick yellow secretions. Initially hypertensive, became hypotensive but then responded to fluid bolus. - Medical Decision Making 05/25/17 01:09 Pt presents to the ED from [place] with apparent ventilator associated PNA and sepsis. Broad spectrum antibiotics started, given IV hydration, extensive suctioning given. Will admit to ICU. <Lena Sandoval - Last Filed: 05/25/17 01:10>
[2017-05-21 15:06] LABS: VENOUS PH 7.29 (7.32-7.42)
--- NOTE | 2017-05-21 15:06 | PDOC ---
History of Present Illness - General Stated Complaint: SEPSIS Time Seen by Provider: 05/21/17 14:59 - History of Present Illness Initial Comments: 81 year old patient with PMH of COPD, HTN, DM, and HLD paroxysmal a-fib, cva, extensive DVT history (s/p IVC filter 06/02), AMIE, PNA, morbid obesity, chronic resp failure (s/p trach, vent dependent), and obesity hypoventilaton syndrome (s /p peg) presenting febrile, tachycardia, and hypotensive from [facility]. He had thick secretions in his trach as well. He was hypotensive to 80s systolic and febrile to 101.2 on arrival. 05/21/17 16:07 Past History - Past Medical History Allergies/Adverse Reactions: Allergies Allergy/AdvReac Type Severity Reaction Status Date / Time No Known Allergies Allergy Verified 05/01/17 10:25 Home Medications: Ambulatory Orders Albuterol 0.083% Nebulizer Isis [Ventolin 0.083% Nebulizer Soln -] 1 neb NEB Q6H PRN 05/01/17 Amino Acids/Protein Hydrolys [Pro-Stat Awc Liquid] 30 ml GT DAILY 05/01/17 Ferrous Sulfate 7.5 ml GT DAILY 05/01/17 Hypromellose 0.5% Opth Soln [Artificial Tears] 1 drop OU TID 05/01/17 Ipratropium 0.02% Nebulizer [Atrovent 0.02% Nebulizer -] 1 amp NEB Q6H PRN 05/01 Lactobacillus Acidophilus [Bacid -] 1 each GT Q12H 05/01/17 Lactulose 10 gm GT HS 05/01/17 Potassium Chloride 10 meq GT DAILY 05/01/17 Ranitidine [Zantac -] 150 mg GT DAILY 05/01/17 Sennosides [Senna] 2 tab GT HS 05/01/17 Ursodiol 250 mg GT Q8H 05/01/17 Carvedilol [Coreg] 6.25 mg PO BID #60 tablet 05/09/17 Lisinopril [Zestril] 2.5 mg GT DAILY 05/21/17 Ranitidine HCl [Zantac] 150 mg GT DAILY 05/21/17 Sertraline HCl [Zoloft -] 50 mg GT DAILY 05/21/17 Anemia: Yes Asthma: No Cancer: No Cardiac Disorders: Yes (atrial fibrillation) CVA: Yes COPD: No (respiratory distress, on vent dependent.) CHF: No Dementia: No Diabetes: Yes GI Disorders: Yes Disorders: No HTN: Yes Hypercholesterolemia: No Liver Disease: Yes Seizures: No Thyroid Disease: No - Surgical History Abdominal Surgery: No Appendectomy: Yes (1963) Cardiac Surgery: No Cholecystectomy: No GI Surgery: Yes (PEG tube) Lung Surgery: No Neurologic Surgery: No Orthopedic Surgery: No - Immunization History Immunization Up to Date: Yes - Suicide/Smoking/Psychosocial Hx Smoking Status: No Smoking History: Unknown if ever smoked Have you smoked in the past 12 months: No Number of Cigarettes Smoked Daily: 0 Hx Alcohol Use: No Drug/Substance Use Hx: No Substance Use Type: None Hx Substance Use Treatment: No Review of Systems - Review of Systems Able to Perform ROS?: No *Physical Exam - Physical Exam HEENT: positive: EOMI, VENKAT, Other (Patient trached and generlaly weak so only can open his eyes fully on occasion.) Neck: positive: Other (Trach in place with thick secretions.) Respiratory/Chest: positive: Rales, Rhonchi. negative: Lungs Clear, Normal Breath Sounds Cardiovascular: positive: Regular Rhythm, S1, S2, Tachycardia. negative: Regular Rate, Edema, JVD, Murmur Gastrointestinal/Abdominal: positive: Normal Bowel Sounds. negative: Tender, Flat, Soft Integumentary: positive: Pale, Cold, Diaphoresis Neurologic: negative: Fully Oriented (Arrousable to touch and voice, following commands and withdrawing to pain.) ED Treatment Course - LABORATORY CBC & Chemistry Diagram: 05/21/17 15:05 05/21/17 15:05 Medical Decision Making - Medical Decision Making 81 year old male vented and trached presenting with fever, hypotension, and diaphoresis. Source of septic shock is not clear. Patient given 2 L with transient response of BPs from 80s to 90s but occasionally dropping to 60s again. ICU was called and will admit the patient under Dr. Boles with Jordan as the primary medical doctor. Patietn was given tylenol 1 , Vanc, and Zosyn. 3L was hung at 18:00, pressures were still soft to 70s but came up to 90s after waking the patient. A central line was deferred and patient was stable pending transfer to ICU after sign out to Dr. Alston at 18:52. 05/21/17 18:48 *DC/Admit/Observation/Transfer Diagnosis at time of Disposition: VAP (ventilator-associated pneumonia), Sepsis, Septic shock - Discharge Dispostion Condition at time of disposition: Critical - Referrals Referrals: STAFF,NOT ON [Primary Care Provider] -
[2017-05-21 15:07] LABS: VENOUS BLOOD GAS HCO3 34.3 meq/L (19-25)
[2017-05-21 15:22] LABS: BASOPHIL 0.1 % (0-2.0); MCH 30.4 pg (25.7-33.7); MCHC 32.5 g/dl (32.0-35.9); MEAN CELL VOLUME 93.8 fl (80-96); MEAN PLT VOLUME 7.7 fl (7.5-11.1); NEUTROPHILS 88.2 % (42.8-82.8); PLATELET COUNT 189 K/MM3 (134-434); RDW 15.5 % (11.9-15.9); WHITE BLOOD COUNT 13.6 K/mm3 (4.0-10.0)
[2017-05-21] MEDS ORDERED: ACETAMINOPHEN 1000 MG/100 ML VIAL (NON FORMULARY) IVPB ONE (15:25)
[2017-05-21 15:38] LABS: ALBUMIN 2.8 g/dl (3.4-5.0); ANION GAP 9 (8-16); BILIRUBIN,TOTAL 0.4 mg/dL (0.2-1.0); CALCIUM 8.9 mg/dL (8.5-10.1); CO2 34 mmol/L (21-32); CREATININE 1.1 mg/dL (0.7-1.3); GLUCOSE,RANDOM 259 mg/dL (74-106); SGOT/AST 11 U/L (15-37); SGPT/ALT 17 U/L (12-78); TOT PROT 7.9 g/dl (6.4-8.2)
[2017-05-21 15:39] LABS: ALK PHOS 71 U/L (45-117)
[2017-05-21] MEDS ORDERED: ACETAMINOPHEN INJECTION 100 ML IVPB ONE (15:51)
[2017-05-21] MEDS ORDERED: ACETAMINOPHEN 650 MG SUPP.RECT PR ONE (15:53)
[2017-05-21] MEDS ORDERED: VANCOMYCIN 1,250 MG in DEXTROSE 5%-WATER - 250 ML IVPB ONE (15:55)
[2017-05-21] MEDS ORDERED: BENZOIN/ALOE VERA/STORAX/TOLU 58 ML BOTTLE ONE (15:58)
[2017-05-21] MEDS ORDERED: PIPERACILLIN/TAZOB 4.5 GM/100 ML PRE-DOCKED IVPB ONE (16:44)
[2017-05-21 17:05] LABS: URINE APPEARANCE CLOUDY; URINE BILIRUBIN NEGATIVE (NEGATIVE); URINE BLOOD 3+ (NEGATIVE); URINE COLOR DKYELLOW; URINE GLUCOSE (UA) 1+ (NEGATIVE); URINE KETONE NEGATIVE (NEGATIVE); URINE LEUK ESTERASE NEGATIVE (NEGATIVE); URINE NITRITE NEGATIVE (NEGATIVE); URINE UROBILINOGEN NEGATIVE mg/dL (0.2-1.0)
[2017-05-21] MEDS ORDERED: PIPERACILLIN/TAZOB 4.5 GM 100 ML IVPB ONE (17:06)
[2017-05-21 17:13] LABS: TROPONIN I 0.04 ng/ml (0.00-0.05)
[2017-05-21] MEDS ORDERED: NOREPINEPHRINE BITARTRATE 4 MG/4 ML ML IV ONE (17:24)
[2017-05-21 17:29] LABS: URINE PROTEIN 2+ (NEGATIVE)
[2017-05-21 17:30] LABS: URINE BACTERIA RARE /hpf (NONE SEEN); URINE HYALINE CAST 6 /lpf; URINE MUCUS RARE; URINE RBC 68 /hpf (0-3); URINE WBC 6 /hpf (3-5)
--- NOTE | 2017-05-21 19:55 | HP ---
Admitting History and Physical - Primary Care Physician PCP: Matti Ortega - Admission History of Present Illness: The patient is a 81 year old male, with significant past medical history of chronic respiratory failure s/p trach(vent dependent), s/p peg tube placement, COPD, Paroxysmal Afib, extensive DVT s/p IVC filter (05/2014), diabetes, HTN, HLD, CVA, obesity hypoventilation syndrome, and obstructive sleep apnea. The patient was recently admitted on 05/01/17 and discharged on 05/09/17 for sepsis secondary to ventilator associated pneumonia. He presents today BIBA from [facility] with fever, and hypoxia. As per EMS, his O2 Sat at the [facility] was 82. The patient is nonresponsive at this time. He is DNR. 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: CVA, Other Cardiovascular: Yes: AFIB, HTN Pulmonary: Yes: COPD, O2 Dependent, Pneumonia, Previously Intubated, Other ( Obesity hypoventrilation, chronic respiratory failure) Hepatobiliary: Yes: Cholecystitis Renal/: Yes: Renal Failure Musculoskeletal: Yes: Osteoarthritis, Other (Gout for long time on allopurinol) Rheumatology: Yes: Gout, Lupus, Rheumatoid Arthritis ENT: Yes: Sinusitis Endocrine: Yes: Diabetes Mellitus - Past Surgical History Past Surgical History: Yes: Appendectomy - Smoking History Smoking history: Unknown if ever smoked Have you smoked in the past 12 months: No Aproximately how many cigarettes per day: 0 - Alcohol/Substance Use Hx Alcohol Use: No History of Substance Use: reports: None - Social History ADL: Support Services History of Recent Travel: No Home Medications - Allergies Allergies/Adverse Reactions: Allergies Allergy/AdvReac Type Severity Reaction Status Date / Time No Known Allergies Allergy Verified 05/01/17 10:25 - Home Medications Home Medications: Ambulatory Orders Albuterol 0.083% Nebulizer Isis [Ventolin 0.083% Nebulizer Soln -] 1 neb NEB Q6H PRN 05/01/17 Amino Acids/Protein Hydrolys [Pro-Stat Awc Liquid] 30 ml GT DAILY 05/01/17 Ferrous Sulfate 7.5 ml GT DAILY 05/01/17 Hypromellose 0.5% Opth Soln [Artificial Tears] 1 drop OU TID 05/01/17 Ipratropium 0.02% Nebulizer [Atrovent 0.02% Nebulizer -] 1 amp NEB Q6H PRN 05/01 Lactobacillus Acidophilus [Bacid -] 1 each GT Q12H 05/01/17 Lactulose 10 gm GT HS 05/01/17 Potassium Chloride 10 meq GT DAILY 05/01/17 Ranitidine [Zantac -] 150 mg GT DAILY 05/01/17 Sennosides [Senna] 2 tab GT HS 05/01/17 Lisinopril [Zestril] 2.5 mg GT DAILY 05/21/17 Ranitidine HCl [Zantac] 150 mg GT DAILY 05/21/17 Sertraline HCl [Zoloft -] 50 mg GT DAILY 05/21/17 Albuterol 2.5/Ipratropium 0.5 [Duoneb -] 1 amp NEB Q4H PRN #0 amp 05/31/17 Mupirocin Ointment [Bactroban Ointment (For Decolonization) -] 1 applic NS BID applic 05/31/17 Salmeterol/Fluticasone [Advair 100Mcg/50Mcg -] 1 puff IH BID inhaler 05/31/17 Ursodiol [Actigal -] 300 mg NR BID tab 05/31/17 Physical Examination Vital Signs: Vital Signs Temperature 101.8 F H 05/21/17 15:11 Pulse Rate 97 H 05/21/17 18:44 Respiratory Rate 26 H 05/21/17 19:08 Blood Pressure 89/56 05/21/17 18:44 O2 Sat by Pulse Oximetry (%) 100 05/21/17 18:36 Constitutional: Yes: Calm HENT: Yes: Other (trach) Cardiovascular: Yes: Regular Rate and Rhythm Respiratory: Yes: Rhonchi Gastrointestinal: Yes: Normal Bowel Sounds, Other (G tube) Extremities: Yes: Other (has contractures, old cva) Edema: LLE: Trace, RLE: Trace Neurological: Yes: Alert ...Motor Strength: LLE (cant move much old cva), RLE Problem List - Problems (1) Sepsis Code(s): A41.9 - SEPSIS, UNSPECIFIED ORGANISM Qualifiers: Sepsis type: sepsis due to unspecified organism Qualified Code(s): A41.9 - Sepsis, unspecified organism; A41.9 - Sepsis, unspecified organism; A41.9 - Sepsis, unspecified organism (2) Septic shock Code(s): A41.9 - SEPSIS, UNSPECIFIED ORGANISM R65.21 - SEVERE SEPSIS WITH SEPTIC SHOCK (3) VAP (ventilator-associated pneumonia) Code(s): J95.851 - VENTILATOR ASSOCIATED PNEUMONIA (4) Acute on chronic respiratory failure with hypoxia and hypercapnia Assessment/Plan: trach /vent Code(s): J96.21 - ACUTE AND CHRONIC RESPIRATORY FAILURE WITH HYPOXIA J96.22 - ACUTE AND CHRONIC RESPIRATORY FAILURE WITH HYPERCAPNIA (5) COPD (chronic obstructive pulmonary disease) Assessment/Plan: duo nebs trach/vent Code(s): J44.9 - CHRONIC OBSTRUCTIVE PULMONARY DISEASE, UNSPECIFIED (6) PEG (percutaneous endoscopic gastrostomy) status Assessment/Plan: peg in place on TF Code(s): Z93.1 - GASTROSTOMY STATUS (7) Anemia Assessment/Plan: monitor Code(s): D64.9 - ANEMIA, UNSPECIFIED (8) Atrial fibrillation Assessment/Plan: on meds stabel Code(s): I48.91 - UNSPECIFIED ATRIAL FIBRILLATION Qualifiers: Atrial fibrillation type: paroxysmal Qualified Code(s): I48.0 - Paroxysmal atrial fibrillation; I48.0 - Paroxysmal atrial fibrillation; I48.0 - Paroxysmal atrial fibrillation; I48.0 - Paroxysmal atrial fibrillation (9) CVA (cerebral infarction) Assessment/Plan: stable cant walk bedridden Code(s): I63.9 - CEREBRAL INFARCTION, UNSPECIFIED (10) Diabetes mellitus Assessment/Plan: monitor Code(s): E11.9 - TYPE 2 DIABETES MELLITUS WITHOUT COMPLICATIONS Qualifiers: Diabetes mellitus type: type 2 Diabetes mellitus complication status: with unspecified complications Diabetes mellitus rat exterminator insulin use: without rat exterminator use Qualified Code(s): E11.8 - Type 2 diabetes mellitus with unspecified complications; E11.8 - Type 2 diabetes mellitus with unspecified complications; E11.8 - Type 2 diabetes mellitus with unspecified complications; E11.8 - Type 2 diabetes mellitus with unspecified complications; Z79.4 - USP (current) use of insulin; Z79.4 - rat exterminator (current) use of insulin; Z79.4 - USP (current) use of insulin; Z79.4 - USP (current ) use of insulin (11) Pneumonia Assessment/Plan: on iv abx id on board Code(s): J18.9 - PNEUMONIA, UNSPECIFIED ORGANISM Assessment/Plan Laboratory Tests 05/21/17 05/21/17 05/21/17 15:00 15:05 15:05 WBC 13.6 H D RBC 3.39 L D Hgb 10.3 L D Hct 31.8 L D MCV 93.8 MCH 30.4 MCHC 32.5 RDW 15.5 Plt Count 189 MPV 7.7 Neutrophils % 88.2 H Lymphocytes % 3.4 L D Monocytes % 8.3 D Eosinophils % 0.0 Basophils % 0.1 D VBG pH 7.29 L POC VBG pCO2 74.3 H* D POC VBG pO2 54.5 H Mixed VBG HCO3 34.3 H Sodium 143 Potassium 4.8 Chloride 100 Carbon Dioxide 34 H D Anion Gap 9 BUN 38 H D Creatinine 1.1 D Creat Clearance w eGFR > 60 Random Glucose 259 H D Lactic Acid Calcium 8.9 Total Bilirubin 0.4 D AST 11 L ALT 17 Alkaline Phosphatase 71 D Creatine Kinase Troponin I Total Protein 7.9 D Albumin 2.8 L D Urine Color Urine Appearance Urine pH Urine Protein Urine Glucose (UA) Urine Ketones Urine Blood Urine Nitrite Urine Bilirubin Urine Urobilinogen Urine RBC Urine WBC Ur Epithelial Cells Urine Bacteria Hyaline Casts Urine Mucus 05/21/17 05/21/17 05/21/17 15:05 15:50 16:50 WBC RBC Hgb Hct MCV MCH MCHC RDW Plt Count MPV Neutrophils % Lymphocytes % Monocytes % Eosinophils % Basophils % VBG pH POC VBG pCO2 POC VBG pO2 Mixed VBG HCO3 Sodium Potassium Chloride Carbon Dioxide Anion Gap BUN Creatinine Creat Clearance w eGFR Random Glucose Lactic Acid 1.9 Calcium Total Bilirubin AST ALT Alkaline Phosphatase Creatine Kinase 29 L Troponin I 0.04 D Total Protein Albumin Urine Color Dkyellow Urine Appearance Cloudy Urine pH 5.0 Urine Protein 2+ H Urine Glucose (UA) 1+ H Urine Ketones Negative Urine Blood 3+ H Urine Nitrite Negative Urine Bilirubin Negative Urine Urobilinogen Negative Urine RBC 68 Urine WBC 6 Ur Epithelial Cells Rare Urine Bacteria Rare Hyaline Casts 6 Urine Mucus Rare Active Medications Generic Name Dose Route Start Last Admin Trade Name Freq PRN Reason Stop Dose Admin Sodium Chloride 1,000 mls @ 1,000 mls/hr 05/21/17 20:42 Normal Saline - IV 10/02/17 21:41 ASDIR STA Active Medications Generic Name Dose Route Start Last Admin Trade Name Freq PRN Reason Stop Dose Admin Albuterol/Ipratropium 1 amp 05/21/17 21:10 Duoneb - NEB Q4H PRN SHORTNESS OF BREATH Carvedilol 6.25 mg 05/21/17 22:00 Coreg - PO BID CURTIS Sodium Chloride 1,000 mls @ 1,000 mls/hr 05/21/17 20:42 Normal Saline - IV 05/21/17 21:41 ASDIR STA Lactobacillus Acidophilus 1 tab 05/21/17 21:15 Bacid - GT Q12H CURTIS Non-Formulary Medication 2.5 mg 05/22/17 10:00 Lisinopril [Zestril] GT DAILY CURTIS Non-Formulary Medication 250 mg 05/21/17 21:15 Ursodiol [Ursodiol] GT Q8H CURTIS Ranitidine HCl 150 mg 05/22/17 10:00 Zantac - PO DAILY CURTIS Senna 2 tab 05/21/17 22:00 Senna - PO HS CURTIS Sertraline HCl 50 mg 05/22/17 10:00 Zoloft - GT DAILY CURTIS cctime 60 min
[2017-05-21 20:22] VITALS: BMI 24.3
[2017-05-21] MEDS ORDERED: SODIUM CHLORIDE 1,000 ML IV STA ×2 (20:42→21:42)
--- NOTE | 2017-05-21 20:46 | CONSULT ---
Consult Consult Specialty:: Pulmonary critical care Reason for Consultation:: Shock - History of Present Illness Chief Complaint: Fever History of Present Illness: Patient is a 81 yo male with h/o COPD, chronic respiratory failure s/p trach ( vent dependent), PEG, paroxysmal afib, DVT s/p IVC filter, DM, HTN, HLD, CVA who was brought in from [facility] with fever and hypoxia. On arrival pt ED pt with following vitals: Temp 101.8, HR 132, BP 130/ 74, 95% (unclear how much FiO2). Subsequently patient dropped his BP to 67/40s. He was given 3L of NS and was started on zosyn/vanco. Of note, pt was recently hospitalized from 05/01-05/09 when he was admitted with sepsis 2/2 VAP. At the time he grew Providencia Stuarti and Pseudo Fluorescensl [place] in his sputum, pt also has a history of Serratia and PSA back in 2014. CXR with infiltrates on the R, though not significantly different from prior in Sept (RUL appears more dense on this admission). He was treated with Azithro/Levaquin/Zosyn, P. Stuarti though possible tracheal colonizer had intermediate sensitivity to Zosyn. TTE on that admission was largely normal Current Medications Albuterol/Ipratropium (Duoneb -) 1 amp NEB Q4H PRN PRN Reason: SHORTNESS OF BREATH Carvedilol (Coreg -) 6.25 mg PO BID CURTIS Sodium Chloride (Normal Saline -) 1,000 mls @ 1,000 mls/hr IV ASDIR STA Stop: 05/21/17 21:41 Piperacillin Sod/Tazobactam (Sod 3.375 gm/ Dextrose) 50 mls @ 100 mls/hr IVPB Q8H-IV CURTIS PRN Reason: Protocol Lactobacillus Acidophilus (Bacid -) 1 tab GT Q12H CURTIS Lisinopril (Prinivil) 2.5 mg GT DAILY CURTIS Non-Formulary Medication (Ursodiol [Ursodiol]) 250 mg GT Q8H CURTIS Ranitidine HCl (Zantac -) 150 mg PO DAILY CURTIS Senna (Senna -) 2 tab PO HS CURTIS Sertraline HCl (Zoloft -) 50 mg GT DAILY CURTIS - 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: CVA, Other Cardio/Vascular: Yes: AFIB, HTN Pulmonary: Yes: COPD, O2 Dependent, Pneumonia, Previously Intubated, Other ( Obesity hypoventrilation, chronic respiratory failure) Hepatobiliary: Yes: Cholecystitis Renal/: Yes: Renal Failure Musculoskeletal: Yes: Osteoarthritis, Other (Gout for long time on allopurinol) Rheumatology: Yes: Gout, Lupus, Rheumatoid Arthritis ENT: Yes: Sinusitis Endocrine: Yes: Diabetes Mellitus - Past Surgical History Past Surgical History: Yes: Appendectomy - Alcohol/Substance Use Hx Alcohol Use: No History of Substance Use: reports: None - Smoking History Smoking history: Unknown if ever smoked Have you smoked in the past 12 months: No Aproximately how many cigarettes per day: 0 - Social History Usual Living Arrangement: Halfway ADL: Support Services History of Recent Travel: No Home Medications - Allergies Allergies/Adverse Reactions: Allergies Allergy/AdvReac Type Severity Reaction Status Date / Time No Known Allergies Allergy Verified 05/01/17 10:25 - Home Medications Home Medications: Ambulatory Orders Albuterol 0.083% Nebulizer Isis [Ventolin 0.083% Nebulizer Soln -] 1 neb NEB Q6H PRN 05/01/17 Amino Acids/Protein Hydrolys [Pro-Stat Awc Liquid] 30 ml GT DAILY 05/01/17 Ferrous Sulfate 7.5 ml GT DAILY 05/01/17 Hypromellose 0.5% Opth Soln [Artificial Tears] 1 drop OU TID 05/01/17 Ipratropium 0.02% Nebulizer [Atrovent 0.02% Nebulizer -] 1 amp NEB Q6H PRN 05/01 Lactobacillus Acidophilus [Bacid -] 1 each GT Q12H 05/01/17 Lactulose 10 gm GT HS 05/01/17 Potassium Chloride 10 meq GT DAILY 05/01/17 Ranitidine [Zantac -] 150 mg GT DAILY 05/01/17 Sennosides [Senna] 2 tab GT HS 05/01/17 Ursodiol 250 mg GT Q8H 05/01/17 Carvedilol [Coreg] 6.25 mg PO BID #60 tablet 05/09/17 Lisinopril [Zestril] 2.5 mg GT DAILY 05/21/17 Ranitidine HCl [Zantac] 150 mg GT DAILY 05/21/17 Sertraline HCl [Zoloft -] 50 mg GT DAILY 05/21/17 Review of Systems Unable to obtain ROS, reason: trached Physical Exam Vital Signs: Vital Signs Temperature 99.3 F 05/21/17 19:30 Pulse Rate 102 H 05/21/17 19:30 Respiratory Rate 25 H 05/21/17 19:30 Blood Pressure 104/68 05/21/17 19:30 O2 Sat by Pulse Oximetry (%) 100 05/21/17 19:30 Constitutional: Yes: No Distress Neck: Yes: Other (trach intact with no air leak) Cardiovascular: Yes: WNL Respiratory: Yes: Mechanically Ventilated, Other (coarse BS bilaterally, thich secretions) Gastrointestinal: Yes: Normal Bowel Sounds, Soft, Other (PEG with no redness/ swelling/discharge at the site). No: Tenderness Extremities: Yes: Other (bilateral foot drop) Edema: No Peripheral Pulses WNL: Yes Neurological: Yes: Alert (awake to voice, tracking.) Labs: CBCD WBC 13.6 K/mm3 (4.0-10.0) H D 05/21/17 15:05 RBC 3.39 M/mm3 (4.00-5.60) L D 05/21/17 15:05 Hgb 10.3 GM/dL (11.7-16.9) L D 05/21/17 15:05 Hct 31.8 % (35.4-49) L D 05/21/17 15:05 MCV 93.8 fl (80-96) 05/21/17 15:05 MCHC 32.5 g/dl (32.0-35.9) 05/21/17 15:05 RDW 15.5 % (11.9-15.9) 05/21/17 15:05 Plt Count 189 K/MM3 (134-434) 05/21/17 15:05 MPV 7.7 fl (7.5-11.1) 05/21/17 15:05 CMP Sodium 143 mmol/L (136-145) 05/21/17 15:05 Potassium 4.8 mmol/L (3.5-5.1) 05/21/17 15:05 Chloride 100 mmol/L (98-107) 05/21/17 15:05 Carbon Dioxide 34 mmol/L (21-32) H D 05/21/17 15:05 Anion Gap 9 (8-16) 05/21/17 15:05 BUN 38 mg/dL (7-18) H D 05/21/17 15:05 Creatinine 1.1 mg/dL (0.7-1.3) D 05/21/17 15:05 Creat Clearance w eGFR > 60 (>60) 05/21/17 15:05 Calcium 8.9 mg/dL (8.5-10.1) 05/21/17 15:05 Total Bilirubin 0.4 mg/dL (0.2-1.0) D 05/21/17 15:05 AST 11 U/L (15-37) L 05/21/17 15:05 ALT 17 U/L (12-78) 05/21/17 15:05 Alkaline Phosphatase 71 U/L (45-117) D 05/21/17 15:05 Total Protein 7.9 g/dl (6.4-8.2) D 05/21/17 15:05 Albumin 2.8 g/dl (3.4-5.0) L D 05/21/17 15:05 ABG Results ABG pH 7.27 (7.35-7.45) L 05/21/17 21:00 ABG pCO2 at Pt Temp 63.4 mmHg (35-45) H* D 05/21/17 21:00 ABG pO2 at Pt Temp 163.0 mmHg (70-100) H* D 05/21/17 21:00 ABG HCO3 27.9 meq/L (22-26) H 05/21/17 21:00 ABG O2 Sat (Measured) 99.7 % (90-98.9) H* 05/21/17 21:00 ABG O2 Content 13.7 % vol (15-22) L 05/21/17 21:00 ABG Base Excess 0.7 meq/l (-2-2) 05/21/17 21:00 Imaging - Results Chest X-ray: Image Reviewed Problem List - Problems (1) Sepsis Code(s): A41.9 - SEPSIS, UNSPECIFIED ORGANISM (2) Septic shock Code(s): A41.9 - SEPSIS, UNSPECIFIED ORGANISM R65.21 - SEVERE SEPSIS WITH SEPTIC SHOCK (3) VAP (ventilator-associated pneumonia) Code(s): J95.851 - VENTILATOR ASSOCIATED PNEUMONIA (4) Chronic respiratory failure Code(s): J96.10 - CHRONIC RESPIRATORY FAILURE, UNSP W HYPOXIA OR HYPERCAPNIA (5) Diabetes mellitus Code(s): E11.9 - TYPE 2 DIABETES MELLITUS WITHOUT COMPLICATIONS Assessment/Plan ASSESSMENT: Patient is a 81 yo male with h/o COPD, chronic respiratory failure s /p trach (vent dependent), PEG, paroxysmal afib, DVT s/p IVC filter, DM, HTN, HLD, CVA, recent admission for VAP who was brought in from [facility] with fever and hypoxia. Now admitted to ICU with septic shock likely in the setting of persistent/recurrent VAP. PLAN: -add Cefepime to abx regimen (P. Stuarti intermediate to Zosyn) -might need double coverage for h/o PSA if no clinical improvement -cont Vanco for gram positive coverage -send cultures (sputum, blood, urine, stool) -ID consult in AM -fluid resuscitation (has rec'd 3L of NS) -check lactate -trend troponin -TTE largely normal early Apr -vent support -ABG--> 7.27/63/163; RR increased to and FiO2 decreased to 50% -hold antihypertensives -check FS -insulin as needed -venodynes -pepcid for GI ppx -pt DNR LISA Padron Critical Care time: 35 min
[2017-05-21 21:05] LABS: ARTERIAL BLD GAS O2 SATURATION 99.7 % (90-98.9); ARTERIAL BLOOD GAS BASE EXCESS 0.7 meq/l (-2-2); ARTERIAL BLOOD GAS HCO3 27.9 meq/L (22-26)
[2017-05-21 21:06] LABS: ALLENS TEST POSITIVE; ART PUNCT SITE RIGHT RADIAL; LPM/O2% 75%; MECH. VENT. YES; PT'S TEMP 99.1; PT. ON O2? YES; TYPE OF O2 MECH VENT; VENT RATE 12; VT/PRESS 450
[2017-05-21 21:07] LABS: ARTERIAL BLOOD GAS pH 7.27 (7.35-7.45)
--- NOTE | 2017-05-21 21:14 | CON.ID ---
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 Cardio/Vascular: Yes: AFIB, HTN Pulmonary: Yes: COPD, O2 Dependent, Pneumonia, Previously Intubated, Other ( Obesity hypoventrilation, chronic respiratory failure) Hepatobiliary: Yes: Cholecystitis Renal/: Yes: Renal Failure Musculoskeletal: Yes: Osteoarthritis, Other (Gout for long time on allopurinol) Rheumatology: Yes: Gout, Lupus, Rheumatoid Arthritis ENT: Yes: Sinusitis Endocrine: Yes: Diabetes Mellitus - Past Surgical History Past Surgical History: Yes: Appendectomy - Alcohol/Substance Use Hx Alcohol Use: No History of Substance Use: reports: None - Smoking History Smoking history: Unknown if ever smoked Have you smoked in the past 12 months: No Aproximately how many cigarettes per day: 0 - Social History Usual Living Arrangement: Prison ADL: Support Services History of Recent Travel: No Home Medications - Allergies Allergies/Adverse Reactions: Allergies Allergy/AdvReac Type Severity Reaction Status Date / Time No Known Allergies Allergy Verified 05/01/17 10:25 - Home Medications Home Medications: Ambulatory Orders Albuterol 0.083% Nebulizer Isis [Ventolin 0.083% Nebulizer Soln -] 1 neb NEB Q6H PRN 05/01/17 Amino Acids/Protein Hydrolys [Pro-Stat Awc Liquid] 30 ml GT DAILY 05/01/17 Ferrous Sulfate 7.5 ml GT DAILY 05/01/17 Hypromellose 0.5% Opth Soln [Artificial Tears] 1 drop OU TID 05/01/17 Ipratropium 0.02% Nebulizer [Atrovent 0.02% Nebulizer -] 1 amp NEB Q6H PRN 05/01 Lactobacillus Acidophilus [Bacid -] 1 each GT Q12H 05/01/17 Lactulose 10 gm GT HS 05/01/17 Potassium Chloride 10 meq GT DAILY 05/01/17 Ranitidine [Zantac -] 150 mg GT DAILY 05/01/17 Sennosides [Senna] 2 tab GT HS 05/01/17 Ursodiol 250 mg GT Q8H 05/01/17 Carvedilol [Coreg] 6.25 mg PO BID #60 tablet 05/09/17 Lisinopril [Zestril] 2.5 mg GT DAILY 05/21/17 Ranitidine HCl [Zantac] 150 mg GT DAILY 05/21/17 Sertraline HCl [Zoloft -] 50 mg GT DAILY 05/21/17 Physical Exam Vital Signs: Vital Signs Temperature 98.9 F 05/21/17 20:30 Pulse Rate 97 H 05/21/17 20:30 Respiratory Rate 17 05/21/17 20:55 Blood Pressure 82/53 05/21/17 20:30 O2 Sat by Pulse Oximetry (%) 100 05/21/17 20:55
[2017-05-21] MEDS: CARVEDILOL 6.25 MG TABLET (FP) PO SCH (21:34)
[2017-05-21] MEDS: SENNOSIDES 8.6MG TABLET (FP) PO SCH (21:34)
[2017-05-21] MEDS: LACTOBACILLUS ACIDOPHILUS 1 EACH TAB (FP) GT SCH (21:35)
[2017-05-21] MEDS: PATIENT'S OWN MEDICATION (NON-FORMULARY) (Ursodiol [Ursodiol] 250 MG) GT SCH (21:35)
[2017-05-21] MEDS ORDERED: PHENYLEPHRINE HCL 10,000 MCG in DEXTROSE 5%-WATER - 499 ML IV SCH (21:45)
[2017-05-21] MEDS ORDERED: CEFEPIME 1 GM in DEXTROSE 5%-WATER - 100 ML IVPB ONE (22:00)
[2017-05-21] MEDS ORDERED: PHENYLEPHRINE HCL 10 MG/1 ML SINGLE DOSE VIAL ONE (22:00)
[2017-05-21] MEDS ORDERED: CEFEPIME HCL 1 GM VIAL (RESTRICTED TO ID) IVPB SCH (22:00)
[2017-05-22] MEDS ORDERED: PIPERACILLIN/TAZOB 3.375 GM 3.375 GM in DEXTROSE 5%-WATER - 50 ML IVPB SCH (02:00)
[2017-05-22] MEDS ORDERED: WATER IVPB SCH (02:00)
[2017-05-22] MEDS ORDERED: DEXTROSE 5% IVPB SCH (02:00)
[2017-05-22] MEDS ORDERED: PHENYLEPHRINE HCL IVPB SCH (02:00)
[2017-05-22] MEDS: PIPERACILLIN/TAZOB 3.375 GM/50 ML PRE-DOCKED IVPB SCH ×3 (02:04→17:00)
[2017-05-22] MEDS ORDERED: PHENYLEPHRINE HCL 10 MG/1 ML SINGLE DOSE VIAL ONE ×5 (02:06→21:27)
[2017-05-22] MEDS: ALBUTEROL SO4 2.5/IPRATROPIUM 0.5 INH SOL 3 ML VIAL.NEB. NEB PRN (04:33)
[2017-05-22] MEDS: PATIENT'S OWN MEDICATION (NON-FORMULARY) (Ursodiol [Ursodiol] 250 MG) GT SCH ×2 (05:33→12:29)
[2017-05-22 05:47] LABS: MCH 31.4 pg (25.7-33.7); MCHC 33.2 g/dl (32.0-35.9); MEAN CELL VOLUME 94.6 fl (80-96); PLATELET COUNT 153 K/MM3 (134-434); RDW 15.5 % (11.9-15.9); WHITE BLOOD COUNT 10.6 K/mm3 (4.0-10.0)
[2017-05-22 06:09] LABS: ALK PHOS 54 U/L (45-117); ANION GAP 7 (8-16); BILIRUBIN,TOTAL 0.4 mg/dL (0.2-1.0); CALCIUM 7.5 mg/dL (8.5-10.1); CO2 29 mmol/L (21-32); GLUCOSE,RANDOM 146 mg/dL (74-106); PHOSPHOROUS 1.9 mg/dL (2.5-4.9); SGOT/AST 13 U/L (15-37); SGPT/ALT 13 U/L (12-78); TOT PROT 5.8 g/dl (6.4-8.2)
[2017-05-22] MEDS: DEXTROSE 5% IVPB SCH ×2 (07:30→12:30)
[2017-05-22] MEDS: PHENYLEPHRINE HCL IVPB SCH ×2 (07:30→12:30)
[2017-05-22] MEDS: WATER IVPB SCH ×2 (07:30→12:30)
--- NOTE | 2017-05-22 07:54 | PN ---
Physical Exam: SUBJECTIVE: Patient seen and examined by me this AM - Pt seems improved since prior stated condition in record on admission, with no major complaints and in no acute distress. - Pt denies fever/chills, CP, palpitations, N/V, dysuria, diarrhea, cough, congestion, throat/sinus pain. Endorses BL venous stasis rashes in LEs. - Received 3L NS since admission for volume resuscitation and started on Neosyn gtt on ICU admission. Pressures improved to 120s systolic in AM. Bolused 1L in AM. - Possible central line placement in PM. - Mildly hypercarbic, hypoxic on PM ABG 7.27/63.4/163/28. Increased tidal volume from 450 to 550 and increased FiO2 to 50% - WBC elevated from 11.8 -> 14.0 - Currently receiving cefepime, zosyn for suspected VAP coverage. Given prior antibiogram and possible ESBLs, consider changing coverage to Vanc/meropenem, pending ID approval. - HgB drop from 10.3 -> 7.9. Repeat CBC in PM. OBJECTIVE: Vital Signs Period Temp Pulse Resp BP Sys/Mayorga Pulse Ox Last 24 Hr 98.9 F-99.3 F 77-102 10-26 68-122/43-83 99-100 GENERAL: The patient is nonverbal HEAD: Normal with no signs of trauma. Alopecia. EYES: PERRL, extraocular movements intact, sclera anicteric, conjunctiva clear. No ptosis. ENT: Ears normal, nares patent, oropharynx clear without exudates, moist mucous membranes. NECK: Trachea midline, supple. Trach collar in place LUNGS: Vented, mechanical breath sounds. Decreased bibasilar lung sounds. No wheezes, crackles. HEART: Regular rate and rhythm, S1, S2 without murmur, rub or gallop. ABDOMEN: Tenderness to palpation in LLQ. PEG noted, no inflammation, drainage or edema. Soft, hypoactive bowel sounds, no guarding, no rebound, no hepatosplenomegaly, no masses. EXTREMITIES: 2+ pulses, warm, well-perfused, no edema in UE. 1+ pulse, cool in LE. Bilateral severe stasis dermatitis on anterior shins and dorsum of feet BL. Chronic contracted plantarflexion BL of feet. NEUROLOGICAL: Cranial nerves II through XII grossly intact. Nonverbal, gait not observed. Laboratory Results - last 24 hr CBC, BMP 05/22/17 05:00 05/22/17 05:00 05/21/17 05/21/17 05/22/17 21:00 21:25 05:00 WBC 10.6 H RBC 2.52 L D Hgb 7.9 L D Hct 23.9 L D MCV 94.6 MCH 31.4 MCHC 33.2 RDW 15.5 Plt Count 153 MPV 8.0 Puncture Site Right radial Patient Temperature 99.1 ABG pH 7.27 L ABG pCO2 at Pt Temp 63.4 H* D ABG pO2 at Pt Temp 163.0 H* D ABG HCO3 27.9 H ABG O2 Sat (Measured) 99.7 H* ABG O2 Content 13.7 L ABG Base Excess 0.7 Demetris Test Positive O2 Delivery Device Mech vent Oxygen Flow Rate 75% Vent Mode A/c Vent Rate 12 Mechanical Rate Yes PEEP 5.0 Pressure Support Vent 450 Sodium Potassium Chloride Carbon Dioxide Anion Gap BUN Creatinine Creat Clearance w eGFR Random Glucose Lactic Acid 0.9 Calcium Phosphorus Magnesium Total Bilirubin AST ALT Alkaline Phosphatase Total Protein Albumin 05/22/17 05:00 WBC RBC Hgb Hct MCV MCH MCHC RDW Plt Count MPV Puncture Site Patient Temperature ABG pH ABG pCO2 at Pt Temp ABG pO2 at Pt Temp ABG HCO3 ABG O2 Sat (Measured) ABG O2 Content ABG Base Excess Demetris Test O2 Delivery Device Oxygen Flow Rate Vent Mode Vent Rate Mechanical Rate PEEP Pressure Support Vent Sodium 143 Potassium 3.7 D Chloride 107 Carbon Dioxide 29 Anion Gap 7 L BUN 36 H Creatinine 1.0 Creat Clearance w eGFR > 60 Random Glucose 146 H D Lactic Acid Calcium 7.5 L Phosphorus 1.9 L D Magnesium 2.0 Total Bilirubin 0.4 AST 13 L ALT 13 D Alkaline Phosphatase 54 D Total Protein 5.8 L D Albumin 2.0 L D Active Medications Generic Name Dose Route Start Last Admin Trade Name Freq PRN Reason Stop Dose Admin Albuterol/Ipratropium 1 amp 05/21/17 21:10 05/22/17 04:33 Duoneb - NEB 1 amp Q4H PRN Administration SHORTNESS OF BREATH Carvedilol 6.25 mg 05/21/17 22:00 05/21/17 21:34 Coreg - PO Not Given BID CURTIS Cefepime HCl 1 gm 05/21/17 22:00 Maxipime (Restricted To Id) - IVPB 05/22/17 21:59 BID CURTIS Protocol Phenylephrine HCl 20,000 mcg/ 250 mls @ 75 mls/hr 05/22/17 02:00 05/22/17 02:00 Dextrose IVPB 75 mls/hr TITR CURTIS Administration Protocol 100 MCG/MIN Lactobacillus Acidophilus 1 tab 05/21/17 21:15 05/21/17 21:35 Bacid - GT 1 tab Q12H CURTIS Administration Lisinopril 2.5 mg 05/22/17 10:00 Prinivil GT DAILY CURTIS Non-Formulary Medication 250 mg 05/21/17 21:15 05/22/17 05:33 Ursodiol [Ursodiol] GT Not Given Q8H CURTIS Piperacillin Sod/Tazobactam Sod 3.375 gm 05/22/17 02:00 05/22/17 02:04 Zosyn 3.375gm Ivpb (Pre-Docked) IVPB 3.375 gm Q8H-IV CURTIS Administration Ranitidine HCl 150 mg 05/22/17 10:00 Zantac - PO DAILY CURTIS Senna 2 tab 05/21/17 22:00 05/21/17 21:34 Senna - PO 2 tab HS CURTIS Administration Sertraline HCl 50 mg 05/22/17 10:00 Zoloft - GT DAILY CURTIS EKG: LAD. RBBB. Sinus tach. Micro: Blood, urine, sputum cultures pending CXR: Small left pleural effusion. Possible R lung infiltrates. Elevated R hemidiaphragm. ASSESSMENT/PLAN: Pt is a 81 yo man w/ pmh of COPD, chronic respiratory failure s/p trach, PEG, paroxysmal afib, HTN, DM, CVA, who presented from [place] w/ acute hypoxic respiratory failure and fever, found to be hypotensive and tachycardic in ED likely 2/2 to sepsis from possible VAP requiring multiple fluid boluses and pressor support. Pt stable w/ improvement in BP to 110s systolic after volume resuscitation and Neosynephrine gtt, currently only complaining of mild stomach pain. Receiving Vanc/zosyn for empiric coverage w/ hobbs cultures pending per ID. Remains vented w/ Neosyn gtt. ID following #Neuro - Monitor MS - Home sertraline for depression #Cardiac - Hold all HTN meds - Wean phenylephrine gtt. If unsuccessful, will need central access. Patient currently refusing central line however. - Monitor CVP. Leg-raise test to assess volume status. #Pulm Acute on chronic hypoxic respiratory failure - 05/21 ABG 7.27/63/163/28 - AC vent mode. Increased TV from 450 to 550, FiO2 - AM ABG - Monitor sputum/secretions. Must consider possibility of mucus plug/increased secretions precipitating obstruction - ICS - Duonebs #ID Septic shock secondary to possible VAP. MAPs stable in low 80s this PM - f/u all cultures - Continue Vanc/zosyn for VAP coverage per ID recs - Trend lactate. PM lactate ordered. - ID recs appreciated #Renal - Strict Is&Os - Daily BMPs, monitor lytes - IVFs. - Hypo phos, low K. Will require repletion in PM. #Heme - Hgb drop from from 10.3 -> 7.9. Possibly dilutional given aggressive volume resuscitation - AM type and screen w/ AM labs - Trend H/H. Transfuse at <7 - Continue home AC #Endo -ACHS -ISS #GI - FOBT - Senna, Colace for constipation - f/u CT abdomen/pelvis per ID - If diarrhea, send for C diff antigen #FEN -Fluids: IVFs, D51/2NS 100cc/hr -Electrolytes: Daily BMPs, Trend BUN/Cr -Nutrition: 24hr tube feeds w/ volume goal of 1500 at 60cc/hr #PPX -SubQ Heparin for DVT ppx -Famotidine for GI ppx #Dispo - Dispo to ICU for further monitoring/management Timothy Velazquez, PGY1 Plan discussed with attending, Dr. Biggs Visit type - Emergency Visit Emergency Visit: No - New Patient This patient is new to me today: Yes Date on this admission: 05/22/17 - Critical Care Critical Care patient: Yes Total Critical Care Time (in minutes): 35 Critical Care Statement: The care of this patient involved high complexity decision making to prevent further life threatening deterioration of the patient 's condition and/or to evaluate & treat vital organ system(s) failure or risk of failure.
[2017-05-22] MEDS ORDERED: PT OWN MED DRAWER 7, Y5N ONE ×2 (08:12→12:12)
[2017-05-22] MEDS: CARVEDILOL 6.25 MG TABLET (FP) PO SCH ×2 (09:17→21:53)
[2017-05-22] MEDS: LISINOPRIL 5 MG TABLET (FP) GT SCH (09:17)
[2017-05-22] MEDS: RANITIDINE HCL 150 MG TABLET (FP) PO SCH (09:22)
[2017-05-22] MEDS: LACTOBACILLUS ACIDOPHILUS 1 EACH TAB (FP) GT SCH ×2 (09:22→21:53)
[2017-05-22] MEDS: SERTRALINE HCL 50 MG TABLET (FP) GT SCH (09:23)
--- NOTE | 2017-05-22 09:37 | EKG ---
Test Reason : Blood Pressure : / mmHG Vent. Rate : 107 BPM Atrial Rate : 107 BPM P-R Int : 156 ms QRS Dur : 120 ms QT Int : 354 ms P-R-T Axes : 026 -35 020 degrees QTc Int : 472 ms SINUS TACHYCARDIA LEFT AXIS DEVIATION RIGHT BUNDLE BRANCH BLOCK ABNORMAL ECG WHEN COMPARED WITH ECG OF 01-MAY-2017 10:03, NO SIGNIFICANT CHANGE WAS FOUND Confirmed by MINERVA MEEHAN MD ([id number]) on 05/22/2017 9:36:58 AM Referred By: Confirmed By:MINERVA MEEHAN MD
[2017-05-22] MEDS ORDERED: SODIUM CHLORIDE 1,000 ML IV STA (11:53)
[2017-05-22] MEDS ORDERED: VANCOMYCIN 1,000 MG in DEXTROSE 5%-WATER - 250 ML IVPB ONE (12:30)
[2017-05-22] MEDS ORDERED: MEROPENEM 1 GM in DEXTROSE 5%-WATER - 100 ML IVPB ONE (12:30)
[2017-05-22] MEDS ORDERED: HEMOQUE TEST 1 EACH EACH ONE (12:36)
--- NOTE | 2017-05-22 12:42 | PN ---
Teaching Attending Note Name of Resident: Timothy Velazquez ATTENDING PHYSICIAN STATEMENT I saw and evaluated the patient. I reviewed the resident's note and discussed the case with the resident. I agree with the resident's findings and plan as documented. SUBJECTIVE: Patient seen and examined in the ICU. Awake and alert and interactive. Denies CP or SOB. Remains on AC mode of vent and Phenylephrone for hemodynamic support. CXR: low lung volumes / suspected pneumonic infiltrates on the right. Intake & Output 05/19/17 05/20/17 05/21/17 05/22/17 23:59 23:59 23:59 23:59 Intake Total 4325 Output Total 20 600 Balance -20 3725 Weight 169 lb 3.2 oz 177 lb Last Vital Signs Temp Pulse Resp BP Pulse Ox 99.6 F 84 28 H 102/54 99 05/22/17 11:57 05/22/17 11:57 05/22/17 12:06 05/22/17 12:00 05/22/17 10:50 Active Medications Albuterol/Ipratropium (Duoneb -) 1 amp NEB Q4H PRN PRN Reason: SHORTNESS OF BREATH Last Admin: 05/22/17 04:33 Dose: 1 amp Carvedilol (Coreg -) 6.25 mg PO BID CURTIS Last Admin: 05/22/17 09:17 Dose: Not Given Cefepime HCl (Maxipime (Restricted To Id) -) 1 gm IVPB BID CURTIS PRN Reason: Protocol Stop: 05/22/17 21:59 Phenylephrine HCl 20,000 mcg/ (Dextrose) 250 mls @ 75 mls/hr IVPB TITR CURTIS; 100 MCG/MIN PRN Reason: Protocol Last Admin: 05/22/17 07:30 Dose: 50 mls/hr Sodium Chloride (Normal Saline -) 1,000 mls @ 1,000 mls/hr IV ASDIR STA Stop: 05/22/17 12:52 Last Admin: 05/22/17 12:09 Dose: 1,000 mls/hr Vancomycin HCl 1,000 mg/ (Dextrose) 250 mls @ 166.667 mls/hr IVPB ONCE ONE PRN Reason: Protocol Stop: 05/22/17 13:59 Meropenem 1 gm/ Dextrose 100 mls @ 200 mls/hr IVPB ONCE ONE PRN Reason: Protocol Stop: 05/22/17 12:59 Lactobacillus Acidophilus (Bacid -) 1 tab GT Q12H CURTIS Last Admin: 05/22/17 09:22 Dose: 1 tab Lisinopril (Prinivil) 2.5 mg GT DAILY [facility] Last Admin: 05/22/17 09:17 Dose: Not Given Non-Formulary Medication (Ursodiol [Ursodiol]) 250 mg GT Q8H CURTIS Last Admin: 05/22/17 05:33 Dose: Not Given Piperacillin Sod/Tazobactam Sod (Zosyn 3.375gm Ivpb (Pre-Docked)) 3.375 gm IVPB Q8H-IV CURTIS Last Admin: 05/22/17 09:16 Dose: 3.375 gm Ranitidine HCl (Zantac -) 150 mg PO DAILY [facility] Last Admin: 05/22/17 09:22 Dose: 150 mg Fluticasone/Salmeterol (Advair 100mcg/50mcg -) 1 puff IH BID CURTIS Senna (Senna -) 2 tab PO HS CURTIS Last Admin: 05/21/17 21:34 Dose: 2 tab Sertraline HCl (Zoloft -) 50 mg GT DAILY [facility] Last Admin: 05/22/17 09:23 Dose: 50 mg Constitutional: Yes: Awake on AC mode of vent via Trach Neck: Yes: Other (trach intact with no air leak) Cardiovascular: Yes: WNL Respiratory: Yes: Mechanically Ventilated, Bilateral coarse BS, no wheezing Gastrointestinal: Yes: Normal Bowel Sounds, Soft, intact PEG, cite appears clean Extremities: Yes: Other (bilateral foot drop) Edema: No Peripheral Pulses WNL: Yes Neurological: Yes: Awake and alert, non-focal Labs: Laboratory Results - last 24 hr 05/21/17 05/21/17 05/21/17 15:00 15:05 15:05 WBC 13.6 H D RBC 3.39 L D Hgb 10.3 L D Hct 31.8 L D MCV 93.8 MCH 30.4 MCHC 32.5 RDW 15.5 Plt Count 189 MPV 7.7 Neutrophils % 88.2 H Lymphocytes % 3.4 L D Monocytes % 8.3 D Eosinophils % 0.0 Basophils % 0.1 D Puncture Site Patient Temperature ABG pH ABG pCO2 at Pt Temp ABG pO2 at Pt Temp ABG HCO3 ABG O2 Sat (Measured) ABG O2 Content ABG Base Excess Demetris Test VBG pH 7.29 L POC VBG pCO2 74.3 H* D POC VBG pO2 54.5 H Mixed VBG HCO3 34.3 H O2 Delivery Device Oxygen Flow Rate Vent Mode Vent Rate Mechanical Rate PEEP Pressure Support Vent Sodium 143 Potassium 4.8 Chloride 100 Carbon Dioxide 34 H D Anion Gap 9 BUN 38 H D Creatinine 1.1 D Creat Clearance w eGFR > 60 Random Glucose 259 H D Lactic Acid Calcium 8.9 Phosphorus Magnesium Total Bilirubin 0.4 D AST 11 L ALT 17 Alkaline Phosphatase 71 D Creatine Kinase Troponin I Total Protein 7.9 D Albumin 2.8 L D Urine Color Urine Appearance Urine pH Ur Specific Armstrong Urine Protein Urine Glucose (UA) Urine Ketones Urine Blood Urine Nitrite Urine Bilirubin Urine Urobilinogen Urine RBC Urine WBC Ur Epithelial Cells Urine Bacteria Hyaline Casts Urine Mucus Blood Type Antibody Screen 05/21/17 05/21/17 05/21/17 15:05 15:50 16:50 WBC RBC Hgb Hct MCV MCH MCHC RDW Plt Count MPV Neutrophils % Lymphocytes % Monocytes % Eosinophils % Basophils % Puncture Site Patient Temperature ABG pH ABG pCO2 at Pt Temp ABG pO2 at Pt Temp ABG HCO3 ABG O2 Sat (Measured) ABG O2 Content ABG Base Excess Demetris Test VBG pH POC VBG pCO2 POC VBG pO2 Mixed VBG HCO3 O2 Delivery Device Oxygen Flow Rate Vent Mode Vent Rate Mechanical Rate PEEP Pressure Support Vent Sodium Potassium Chloride Carbon Dioxide Anion Gap BUN Creatinine Creat Clearance w eGFR Random Glucose Lactic Acid 1.9 Calcium Phosphorus Magnesium Total Bilirubin AST ALT Alkaline Phosphatase Creatine Kinase 29 L Troponin I 0.04 D Total Protein Albumin Urine Color Dkyellow Urine Appearance Cloudy Urine pH 5.0 Ur Specific Armstrong 1.020 Urine Protein 2+ H Urine Glucose (UA) 1+ H Urine Ketones Negative Urine Blood 3+ H Urine Nitrite Negative Urine Bilirubin Negative Urine Urobilinogen Negative Urine RBC 68 Urine WBC 6 Ur Epithelial Cells Rare Urine Bacteria Rare Hyaline Casts 6 Urine Mucus Rare Blood Type Antibody Screen 05/21/17 05/21/17 05/22/17 21:00 21:25 05:00 WBC 10.6 H RBC 2.52 L D Hgb 7.9 L D Hct 23.9 L D MCV 94.6 MCH 31.4 MCHC 33.2 RDW 15.5 Plt Count 153 MPV 8.0 Neutrophils % Lymphocytes % Monocytes % Eosinophils % Basophils % Puncture Site Right radial Patient Temperature 99.1 ABG pH 7.27 L ABG pCO2 at Pt Temp 63.4 H* D ABG pO2 at Pt Temp 163.0 H* D ABG HCO3 27.9 H ABG O2 Sat (Measured) 99.7 H* ABG O2 Content 13.7 L ABG Base Excess 0.7 Demetris Test Positive VBG pH POC VBG pCO2 POC VBG pO2 Mixed VBG HCO3 O2 Delivery Device Mech vent Oxygen Flow Rate 75% Vent Mode A/c Vent Rate 12 Mechanical Rate Yes PEEP 5.0 Pressure Support Vent 450 Sodium Potassium Chloride Carbon Dioxide Anion Gap BUN Creatinine Creat Clearance w eGFR Random Glucose Lactic Acid 0.9 Calcium Phosphorus Magnesium Total Bilirubin AST ALT Alkaline Phosphatase Creatine Kinase Troponin I Total Protein Albumin Urine Color Urine Appearance Urine pH Ur Specific Armstrong Urine Protein Urine Glucose (UA) Urine Ketones Urine Blood Urine Nitrite Urine Bilirubin Urine Urobilinogen Urine RBC Urine WBC Ur Epithelial Cells Urine Bacteria Hyaline Casts Urine Mucus Blood Type Antibody Screen 05/22/17 05/22/17 05:00 08:21 WBC RBC Hgb Hct MCV MCH MCHC RDW Plt Count MPV Neutrophils % Lymphocytes % Monocytes % Eosinophils % Basophils % Puncture Site Patient Temperature ABG pH ABG pCO2 at Pt Temp ABG pO2 at Pt Temp ABG HCO3 ABG O2 Sat (Measured) ABG O2 Content ABG Base Excess Demetris Test VBG pH POC VBG pCO2 POC VBG pO2 Mixed VBG HCO3 O2 Delivery Device Oxygen Flow Rate Vent Mode Vent Rate Mechanical Rate PEEP Pressure Support Vent Sodium 143 Potassium 3.7 D Chloride 107 Carbon Dioxide 29 Anion Gap 7 L BUN 36 H Creatinine 1.0 Creat Clearance w eGFR > 60 Random Glucose 146 H D Lactic Acid Calcium 7.5 L Phosphorus 1.9 L D Magnesium 2.0 Total Bilirubin 0.4 AST 13 L ALT 13 D Alkaline Phosphatase 54 D Creatine Kinase Troponin I Total Protein 5.8 L D Albumin 2.0 L D Urine Color Urine Appearance Urine pH Ur Specific Armstrong Urine Protein Urine Glucose (UA) Urine Ketones Urine Blood Urine Nitrite Urine Bilirubin Urine Urobilinogen Urine RBC Urine WBC Ur Epithelial Cells Urine Bacteria Hyaline Casts Urine Mucus Blood Type A POSITIVE Antibody Screen Negative Problem List - Problems (1) Sepsis Code(s): A41.9 - SEPSIS, UNSPECIFIED ORGANISM (2) Septic shock Code(s): A41.9 - SEPSIS, UNSPECIFIED ORGANISM R65.21 - SEVERE SEPSIS WITH SEPTIC SHOCK (3) VAP (ventilator-associated pneumonia) Code(s): J95.851 - VENTILATOR ASSOCIATED PNEUMONIA (4) Chronic respiratory failure Code(s): J96.10 - CHRONIC RESPIRATORY FAILURE, UNSP W HYPOXIA OR HYPERCAPNIA (5) Diabetes mellitus Code(s): E11.9 - TYPE 2 DIABETES MELLITUS WITHOUT COMPLICATIONS Assessment/Plan IVF challenge Wean pressors : If pressors cannot be discontinued -> will need access ABX per ID : Will start on Meropenem/Vanco and D/W ID Strict I&O Maintain on AC mode for now as he is in shock Check sputum Nutritional support Vent settings adjusted -> Check ABG Hold all antihypertensives Glycemic control VTE prophylaxis Dr Biggs CCTime 35"
--- NOTE | 2017-05-22 13:28 | PN ---
Progress Note, Physician History of Present Illness: comfortable - Current Medication List Current Medications: Active Medications Albuterol/Ipratropium (Duoneb -) 1 amp NEB Q4H PRN PRN Reason: SHORTNESS OF BREATH Last Admin: 05/22/17 04:33 Dose: 1 amp Carvedilol (Coreg -) 6.25 mg PO BID CURTIS Last Admin: 05/22/17 09:17 Dose: Not Given Cefepime HCl (Maxipime (Restricted To Id) -) 1 gm IVPB BID CURTIS PRN Reason: Protocol Stop: 05/22/17 21:59 Phenylephrine HCl 20,000 mcg/ (Dextrose) 250 mls @ 75 mls/hr IVPB TITR CURTIS; 100 MCG/MIN PRN Reason: Protocol Last Admin: 05/22/17 12:30 Dose: 50 mls/hr Vancomycin HCl 1,000 mg/ (Dextrose) 250 mls @ 166.667 mls/hr IVPB ONCE ONE PRN Reason: Protocol Stop: 05/22/17 13:59 Lactobacillus Acidophilus (Bacid -) 1 tab GT Q12H CURTIS Last Admin: 05/22/17 09:22 Dose: 1 tab Lisinopril (Prinivil) 2.5 mg GT DAILY [facility] Last Admin: 05/22/17 09:17 Dose: Not Given Non-Formulary Medication (Ursodiol [Ursodiol]) 250 mg GT Q8H CURTIS Last Admin: 05/22/17 12:29 Dose: Not Given Piperacillin Sod/Tazobactam Sod (Zosyn 3.375gm Ivpb (Pre-Docked)) 3.375 gm IVPB Q8H-IV [facility]TIS Last Admin: 05/22/17 09:16 Dose: 3.375 gm Ranitidine HCl (Zantac -) 150 mg PO DAILY [facility] Last Admin: 05/22/17 09:22 Dose: 150 mg Fluticasone/Salmeterol (Advair 100mcg/50mcg -) 1 puff IH BID CURTIS Senna (Senna -) 2 tab PO HS CURTIS Last Admin: 05/21/17 21:34 Dose: 2 tab Sertraline HCl (Zoloft -) 50 mg GT DAILY [facility] Last Admin: 05/22/17 09:23 Dose: 50 mg - Objective Vital Signs: Vital Signs Temperature 99.6 F 05/22/17 11:57 Pulse Rate 76 05/22/17 12:30 Respiratory Rate 28 H 05/22/17 12:06 Blood Pressure 99/51 05/22/17 12:30 O2 Sat by Pulse Oximetry (%) 99 05/22/17 10:50 Constitutional: Yes: No Distress HENT: Yes: Atraumatic Neck: Yes: Other (trach collar/vent) Cardiovascular: Yes: Regular Rate and Rhythm Respiratory: Yes: Rhonchi Gastrointestinal: Yes: Normal Bowel Sounds, Other (peg in place) Edema: LLE: Trace, RLE: Trace Neurological: Yes: Alert Labs: CBC, BMP 05/22/17 05:00 05/22/17 05:00 Problem List - Problems (1) Sepsis Assessment/Plan: iv abx cxs sent id consult Code(s): A41.9 - SEPSIS, UNSPECIFIED ORGANISM (2) Septic shock Assessment/Plan: ivf iv abx clinically better need central line Code(s): A41.9 - SEPSIS, UNSPECIFIED ORGANISM R65.21 - SEVERE SEPSIS WITH SEPTIC SHOCK (3) VAP (ventilator-associated pneumonia) Code(s): J95.851 - VENTILATOR ASSOCIATED PNEUMONIA
--- NOTE | 2017-05-22 15:57 | CON.ID ---
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 The patient was recently admitted on 05/01/17 and discharged on 05/09/17 for sepsis secondary to ventilator associated pneumonia. He presents today BIBA from [facility] with fever, and hypoxia. patients main complaint at this time is abd pain.he is c/o of abd pain in ruq and left lower quadrant patient is on pressors secretions are yellow currently patient is on ac mode patient is awake and alert - History Source History Provided By: Patient, Medical Record Limitations to Obtaining History: Clinical Condition - Past Medical History [employer]: Yes: CVA, Other Cardio/Vascular: Yes: AFIB, HTN Pulmonary: Yes: COPD, O2 Dependent, Pneumonia, Previously Intubated, Other ( Obesity hypoventrilation, chronic respiratory failure) Hepatobiliary: Yes: Cholecystitis Renal/: Yes: Renal Failure Musculoskeletal: Yes: Osteoarthritis, Other (Gout for long time on allopurinol) Rheumatology: Yes: Gout, Lupus, Rheumatoid Arthritis ENT: Yes: Sinusitis Endocrine: Yes: Diabetes Mellitus - Past Surgical History Past Surgical History: Yes: Appendectomy - Alcohol/Substance Use Hx Alcohol Use: No History of Substance Use: reports: None - Smoking History Smoking history: Unknown if ever smoked Have you smoked in the past 12 months: No Aproximately how many cigarettes per day: 0 - Social History Usual Living Arrangement: Custodial ADL: Support Services History of Recent Travel: No Home Medications - Allergies Allergies/Adverse Reactions: Allergies Allergy/AdvReac Type Severity Reaction Status Date / Time No Known Allergies Allergy Verified 05/01/17 10:25 - Home Medications Home Medications: Ambulatory Orders Albuterol 0.083% Nebulizer Siis [Ventolin 0.083% Nebulizer Soln -] 1 neb NEB Q6H PRN 05/01/17 Amino Acids/Protein Hydrolys [Pro-Stat Awc Liquid] 30 ml GT DAILY 05/01/17 Ferrous Sulfate 7.5 ml GT DAILY 05/01/17 Hypromellose 0.5% Opth Soln [Artificial Tears] 1 drop OU TID 05/01/17 Ipratropium 0.02% Nebulizer [Atrovent 0.02% Nebulizer -] 1 amp NEB Q6H PRN 05/01 Lactobacillus Acidophilus [Bacid -] 1 each GT Q12H 05/01/17 Lactulose 10 gm GT HS 05/01/17 Potassium Chloride 10 meq GT DAILY 05/01/17 Ranitidine [Zantac -] 150 mg GT DAILY 05/01/17 Sennosides [Senna] 2 tab GT HS 05/01/17 Ursodiol 250 mg GT Q8H 05/01/17 Carvedilol [Coreg] 6.25 mg PO BID #60 tablet 05/09/17 Lisinopril [Zestril] 2.5 mg GT DAILY 05/21/17 Ranitidine HCl [Zantac] 150 mg GT DAILY 05/21/17 Sertraline HCl [Zoloft -] 50 mg GT DAILY 05/21/17 Review of Systems - Review of Systems Constitutional: reports: No Symptoms Eyes: reports: No Symptoms HENT: reports: No Symptoms Neck: reports: No Symptoms Cardiovascular: reports: No Symptoms Respiratory: reports: SOB Gastrointestinal: reports: Abdominal Pain Genitourinary: reports: No Symptoms Musculoskeletal: reports: No Symptoms Integumentary: reports: No Symptoms Neurological: reports: No Symptoms Endocrine: reports: No Symptoms Hematology/Lymphatic: reports: No Symptoms Psychiatric: reports: No Symptoms Physical Exam Vital Signs: Vital Signs Temperature 99.6 F 05/22/17 14:00 Pulse Rate 78 05/22/17 14:00 Respiratory Rate 28 H 05/22/17 14:00 Blood Pressure 90/50 05/22/17 14:00 O2 Sat by Pulse Oximetry (%) 99 05/22/17 10:50 Constitutional: Yes: Well Nourished, Calm, Mild Distress Eyes: Yes: Conjunctiva Clear Neck: Yes: Supple, Other (trach in place) Cardiovascular: Yes: Regular Rate and Rhythm Respiratory: Yes: Mechanically Ventilated, Rhonchi, Other Gastrointestinal: Yes: Hypoactive Bowel Sounds, Tenderness (ruq left lower quadrant) Renal/: Yes: Castaneda Present Breast(s): Yes: WNL Musculoskeletal: Yes: WNL Neurological: Yes: Alert, Oriented Psychiatric: Yes: Alert, Oriented Labs: CBC, BMP 05/22/17 05:00 05/22/17 05:00 Imaging - Results Chest X-ray: Report Reviewed, Image Reviewed Assessment/Plan Problem List - Problems (1) Sepsis Code(s): A41.9 - SEPSIS, UNSPECIFIED ORGANISM (2) Septic shock Code(s): A41.9 - SEPSIS, UNSPECIFIED ORGANISM R65.21 - SEVERE SEPSIS WITH SEPTIC SHOCK (3) VAP (ventilator-associated pneumonia) Code(s): J95.851 - VENTILATOR ASSOCIATED PNEUMONIA (4) Chronic respiratory failure Code(s): J96.10 - CHRONIC RESPIRATORY FAILURE, UNSP W HYPOXIA OR HYPERCAPNIA (5) Diabetes mellitus Code(s): E11.9 - TYPE 2 DIABETES MELLITUS WITHOUT COMPLICATIONS looking at the patient and his examination patient has rigidity in the ruq and also xray shows elevation of the rt diaphragm patient also has tenderness in the llq plan continue vanco and zosyn hydration pressors as needed lactic acid ct scan of abdomen rest as per icu and primary cc time 50 min
[2017-05-22] MEDS: VANCOMYCIN 1,250 MG in DEXTROSE 5%-WATER - 250 ML IVPB SCH (15:58)
[2017-05-22] MEDS: FLUTICASONE/SALMETEROL 100 MCG/50 MCG DISKUS IH SCH ×2 (15:58→21:53)
[2017-05-22 19:23] LABS: MCH 30.9 pg (25.7-33.7); MCHC 32.6 g/dl (32.0-35.9); MEAN CELL VOLUME 94.8 fl (80-96); MEAN PLT VOLUME 8.5 fl (7.5-11.1); PLATELET COUNT 142 K/MM3 (134-434); WHITE BLOOD COUNT 8.5 K/mm3 (4.0-10.0)
[2017-05-22] MEDS ORDERED: POTASSIUM PHOSPHATE 30 MM in SODIUM CHLORIDE 250 ML IVPB ONE (21:29)
[2017-05-22] MEDS: SENNOSIDES 8.6MG TABLET (FP) PO SCH (21:53)
[2017-05-23] MEDS: PIPERACILLIN/TAZOB 3.375 GM/50 ML PRE-DOCKED IVPB SCH ×3 (03:12→17:06)
[2017-05-23] MEDS: ALBUTEROL SO4 2.5/IPRATROPIUM 0.5 INH SOL 3 ML VIAL.NEB. NEB PRN (05:49)
[2017-05-23 06:18] LABS: MCH 30.9 pg (25.7-33.7); MCHC 33.5 g/dl (32.0-35.9); MEAN CELL VOLUME 92.4 fl (80-96); MEAN PLT VOLUME 8.4 fl (7.5-11.1); PLATELET COUNT 162 K/MM3 (134-434); RDW 15.7 % (11.9-15.9); WHITE BLOOD COUNT 7.7 K/mm3 (4.0-10.0)
[2017-05-23 06:54] LABS: ALBUMIN 1.8 g/dl (3.4-5.0); ANION GAP 5 (8-16); BILIRUBIN,TOTAL 0.6 mg/dL (0.2-1.0); CALCIUM 7.8 mg/dL (8.5-10.1); CO2 29 mmol/L (21-32); CREATININE 0.9 mg/dL (0.7-1.3); GLUCOSE,RANDOM 136 mg/dL (74-106); MAGNESIUM 2.1 mg/dL (1.8-2.4); PHOSPHOROUS 3.5 mg/dL (2.5-4.9); SGOT/AST 15 U/L (15-37); SGPT/ALT 16 U/L (12-78); TOT PROT 5.9 g/dl (6.4-8.2)
[2017-05-23 06:55] LABS: ALK PHOS 53 U/L (45-117)
--- NOTE | 2017-05-23 07:24 | PN ---
Physical Exam: SUBJECTIVE: Patient seen and examined by me this AM - Pt doing well, only complaining of mild stomach pain, possibly due to constipation. CT Ab/pelvis yesterday w/ no identified acute infectious process in abdomen/pelvis. Denies any fevers/chills, CP, palpitations, N/V, dysuria, const - BP stable overnight. Still on phenylephrine gtt through PIV. Will attempt to wean today. - Afebrile, no WBC elevation. Continued on Vanc/zosyn per ID recs. Blood cultures + for Gram + cocci in clusters. Sputum cultures + for GNR - Hgb stable 7.3 -> 7.5 OBJECTIVE: Vital Signs Period Temp Pulse Resp BP Sys/Mayorga Pulse Ox Last 24 Hr 98.7 F-99.6 F 70-88 20-28 88-122/49-72 95-99 ENERAL: The patient is nonverbal. Able to mouth responses. HEAD: Normal with no signs of trauma. Alopecia. EYES: PERRL, sclera anicteric, conjunctiva clear. No ptosis. ENT: Ears normal, nares patent, oropharynx clear without exudates, moist mucous membranes. NECK: Trachea midline, supple. Trach collar in place LUNGS: Vented, mechanical breath sounds. Decreased bibasilar lung sounds. No wheezes, crackles. HEART: Regular rate and rhythm, S1, S2 without murmur, rub or gallop. ABDOMEN: Tenderness to palpation in LLQ. PEG noted, no inflammation, drainage or edema. Soft, hypoactive bowel sounds, no guarding, no rebound, no hepatosplenomegaly, no masses. EXTREMITIES: 2+ pulses, warm, well-perfused, no edema in UE. 1+ pulse, cool in LE. Bilateral severe stasis dermatitis on anterior shins and dorsum of feet BL. Chronic contracted plantarflexion BL of feet. Laboratory Results - last 24 hr CBC, BMP 05/23/17 06:00 05/23/17 06:00 05/22/17 05/22/17 05/22/17 08:21 16:40 17:00 WBC 8.5 RBC 2.38 L Hgb 7.3 L Hct 22.5 L MCV 94.8 MCH 30.9 MCHC 32.6 RDW 16.0 H Plt Count 142 MPV 8.5 Sodium Potassium Chloride Carbon Dioxide Anion Gap BUN Creatinine Creat Clearance w eGFR Random Glucose Lactic Acid 1.0 Calcium Phosphorus Magnesium Total Bilirubin AST ALT Alkaline Phosphatase Total Protein Albumin Stool Occult Blood Blood Type A POSITIVE Antibody Screen Negative 05/22/17 05/23/17 05/23/17 22:20 06:00 06:00 WBC 7.7 RBC 2.42 L Hgb 7.5 L Hct 22.3 L MCV 92.4 MCH 30.9 MCHC 33.5 RDW 15.7 Plt Count 162 MPV 8.4 Sodium 138 Potassium 4.7 D Chloride 104 Carbon Dioxide 29 Anion Gap 5 L BUN 28 H D Creatinine 0.9 Creat Clearance w eGFR > 60 Random Glucose 136 H Lactic Acid Calcium 7.8 L Phosphorus 3.5 D Magnesium 2.1 Total Bilirubin 0.6 D AST 15 ALT 16 D Alkaline Phosphatase 53 Total Protein 5.9 L Albumin 1.8 L Stool Occult Blood Negative Blood Type Antibody Screen Active Medications Generic Name Dose Route Start Last Admin Trade Name Freq PRN Reason Stop Dose Admin Albuterol/Ipratropium 1 amp 05/21/17 21:10 05/23/17 05:49 Duoneb - NEB 1 amp Q4H PRN Administration SHORTNESS OF BREATH Carvedilol 6.25 mg 05/21/17 22:00 05/22/17 21:53 Coreg - PO Not Given BID [facility] Cefepime HCl 1 gm 05/21/17 22:00 Maxipime (Restricted To Id) - IVPB 05/22/17 21:59 BID [facility] Protocol Phenylephrine HCl 20,000 mcg/ 250 mls @ 75 mls/hr 05/22/17 08:03 05/23/17 06:11 Dextrose IVPB 40 mcg/min TITR [facility] Titration Protocol 100 MCG/MIN Vancomycin HCl 1,250 mg/ 250 mls @ 166.667 mls/hr 05/22/17 16:00 05/22/17 15:58 Dextrose IVPB Not Given DAILY [facility] Protocol Lactobacillus Acidophilus 1 tab 05/21/17 21:15 05/22/17 21:53 Bacid - GT 1 tab Q12H [facility] Administration Lisinopril 2.5 mg 05/22/17 10:00 05/22/17 09:17 Prinivil GT Not Given DAILY [facility] Non-Formulary Medication 250 mg 05/21/17 21:15 05/22/17 12:29 Ursodiol [Ursodiol] GT Not Given Q8H [facility] Piperacillin Sod/Tazobactam Sod 3.375 gm 05/22/17 02:00 05/23/17 03:12 Zosyn 3.375gm Ivpb (Pre-Docked) IVPB 3.375 gm Q8H-IV [facility] Administration Ranitidine HCl 150 mg 05/22/17 10:00 05/22/17 09:22 Zantac - PO 150 mg DAILY [facility] Administration Fluticasone/Salmeterol 1 puff 05/22/17 12:00 05/22/17 21:53 Advair 100mcg/50mcg - IH Not Given BID [facility] Senna 2 tab 05/21/17 22:00 05/22/17 21:53 Senna - PO 2 tab HS [facility] Administration Sertraline HCl 50 mg 05/22/17 10:00 05/22/17 09:23 Zoloft - GT 50 mg DAILY [facility] Administration Microbiology 05/21/17 15:05 Blood - Peripheral Venous Blood Culture - Final Pending Organism 05/21/17 20:30 Sputum - Endotrachea Suction/Ventilator Gram Stain - Final 05/21/17 15:05 Blood - Peripheral Venous Blood Culture - Preliminary NO GROWTH OBTAINED AFTER 24 HOURS, INCUBATION TO CONTINUE FOR 4 DAYS. EKG 05/21: LAD. RBBB. Sinus tach. Micro 05/21: Blood, urine, sputum cultures pending CXR 05/22: Small left pleural effusion. Possible R lung infiltrates. Elevated R hemidiaphragm. CT Abdomen/pelvis (05/22) - Posterior bibasilar infiltrates, with air bronchograms. Diffuse diverticulosis, no evidence of acute inflammation. Thickened GB wall, w/ no evidence of mohit-dil or gallstones. No intra-abdominal abscess or fluid collection. L3 compression fracture noted. ASSESSMENT/PLAN: Pt is a 81 yo man w/ pmh of COPD, chronic respiratory failure s/p trach, PEG, paroxysmal afib, HTN, DM, CVA, who presented from [place] w/ acute hypoxic respiratory failure and fever, found to be hypotensive and tachycardic in ED likely 2/2 to sepsis from possible VAP requiring multiple fluid boluses and pressor support. Pt hemodynamically stable, complaining only of mild stomach pain, w/ CT ab/pelvis yesterday notable for diverticulosis, GB thickening, and bibasilar infiltrates. Pt afebrile w/ no WBC count, currently on Neosyn gtt for pressure support. Blood cultures + for GP cocci and sputum cultures + for GNR. Will continue on vanc/zosyn for coverage and defer to ID for further adjustment. Plan to taper Neosyn gtt and if hypotensive, place central line. ID following #Neuro - Monitor MS - Home sertraline for depression #Cardiac - Hold all HTN meds - Wean phenylephrine gtt. If unsuccessful, will need central access. Patient currently refusing central line however. - Monitor CVP. Leg-raise test to assess volume status. #Pulm Acute on chronic hypoxic respiratory failure - 05/21 ABG 7.27/63/163/28 - AC vent mode. Increased TV from 450 to 550, FiO2 - Monitor sputum/secretions. Must consider possibility of mucus plug/increased secretions precipitating obstruction - ICS - Duonebs #ID Septic shock secondary to possible VAP. MAPs stable in low 80s this PM - Blood culture + for GP cocci in clusters. Sputum + for GNR - Continue Vanc/zosyn for VAP coverage. Adjust per ID recs - 05/22 PM lactate 1.0 - ID recs appreciated #Renal - Strict Is&Os - Daily BMPs, monitor lytes - IVFs. - Hypo phos, K resolved. #Heme - Hgb stable at 7.5. Possibly dilutional given aggressive volume resuscitation - Trend H/H. Transfuse at <7 - Continue home AC #Endo -ACHS -ISS #GI - Senna, Colace for constipation - CT abdomen/pelvis with diverticulosis and GB thickening, but not acute infectious/inflammatory process. - If diarrhea, send for C diff antigen #FEN -Fluids: IVFs, NS 75cc/hr -Electrolytes: Daily BMPs, Trend BUN/Cr -Nutrition: 24hr tube feeds w/ volume goal of 1500 at 60cc/hr #PPX -SubQ Heparin for DVT ppx -Famotidine for GI ppx #Dispo - Dispo to ICU for further monitoring/management Timothy eVlazquez, PGY1 Plan discussed with attending, Dr. Biggs Visit type - Emergency Visit Emergency Visit: No - New Patient This patient is new to me today: No - Critical Care Critical Care patient: Yes Total Critical Care Time (in minutes): 35 Critical Care Statement: The care of this patient involved high complexity decision making to prevent further life threatening deterioration of the patient 's condition and/or to evaluate & treat vital organ system(s) failure or risk of failure.
[2017-05-23] MEDS: PHENYLEPHRINE HCL IVPB SCH ×2 (08:03→09:54)
[2017-05-23] MEDS: DEXTROSE 5% IVPB SCH ×2 (08:03→09:54)
[2017-05-23] MEDS: WATER IVPB SCH ×2 (08:03→09:54)
[2017-05-23] MEDS: CARVEDILOL 6.25 MG TABLET (FP) PO SCH ×2 (09:21→21:33)
[2017-05-23] MEDS: VANCOMYCIN 1,250 MG in DEXTROSE 5%-WATER - 250 ML IVPB SCH (09:21)
[2017-05-23] MEDS: FLUTICASONE/SALMETEROL 100 MCG/50 MCG DISKUS IH SCH ×2 (09:21→21:31)
[2017-05-23] MEDS: LISINOPRIL 5 MG TABLET (FP) GT SCH (09:22)
[2017-05-23] MEDS ORDERED: PT OWN MED DRAWER 7, Y5N ONE (09:26)
[2017-05-23] MEDS: LACTOBACILLUS ACIDOPHILUS 1 EACH TAB (FP) GT SCH ×2 (09:27→21:37)
[2017-05-23] MEDS: SERTRALINE HCL 50 MG TABLET (FP) GT SCH (09:27)
[2017-05-23] MEDS: RANITIDINE HCL 150 MG TABLET (FP) PO SCH (09:27)
[2017-05-23] MEDS ORDERED: PHENYLEPHRINE HCL 10 MG/1 ML SINGLE DOSE VIAL ONE (09:53)
--- NOTE | 2017-05-23 12:47 | PN ---
Teaching Attending Note Name of Resident: Timothy Velazquez ATTENDING PHYSICIAN STATEMENT I saw and evaluated the patient. I reviewed the resident's note and discussed the case with the resident. I agree with the resident's findings and plan as documented. SUBJECTIVE: Pt seen and examined in the ICU. Awake, vented on volume assist control. Remains on phenylephrine gtt. No further fevers recorded. OBJECTIVE: Last Vital Signs Temp Pulse Resp BP Pulse Ox 99.6 F 75 20 98/59 100 05/23/17 12:11 05/23/17 12:11 05/23/17 12:11 05/23/17 12:11 05/23/17 10:15 Intake & Output 05/20/17 05/21/17 05/22/17 05/23/17 23:59 23:59 23:59 23:59 Intake Total 7775 1886 Output Total 20 1400 350 Balance -20 6375 1536 Weight 169 lb 3.2 oz 177 lb 183 lb 14.4 oz Gen: vented, awake Heart: RRR Lung: scattered rhonchi Abd: soft, nontender Ext: trace edema CBC, BMP 05/23/17 06:00 05/23/17 06:00 Active Medications Albuterol/Ipratropium (Duoneb -) 1 amp NEB Q4H PRN PRN Reason: SHORTNESS OF BREATH Last Admin: 05/23/17 05:49 Dose: 1 amp Carvedilol (Coreg -) 6.25 mg PO BID [facility] Last Admin: 05/23/17 09:21 Dose: Not Given Cefepime HCl (Maxipime (Restricted To Id) -) 1 gm IVPB BID [facility] PRN Reason: Protocol Stop: 05/22/17 21:59 Heparin Sodium (Porcine) (Heparin -) 5,000 unit SQ BID [facility] Phenylephrine HCl 20,000 mcg/ (Dextrose) 250 mls @ 75 mls/hr IVPB TITR [facility]; 100 MCG/MIN PRN Reason: Protocol Last Titration: 05/23/17 10:54 Dose: 30 mcg/min Vancomycin HCl 1,250 mg/ (Dextrose) 250 mls @ 166.667 mls/hr IVPB DAILY [facility] PRN Reason: Protocol Last Admin: 05/23/17 09:21 Dose: 166.667 mls/hr Lactobacillus Acidophilus (Bacid -) 1 tab GT Q12H [facility] Last Admin: 05/23/17 09:27 Dose: 1 tab Lisinopril (Prinivil) 2.5 mg GT DAILY [facility] Last Admin: 05/23/17 09:22 Dose: Not Given Non-Formulary Medication (Ursodiol [Ursodiol]) 250 mg GT Q8H [facility] Last Admin: 05/22/17 12:29 Dose: Not Given Piperacillin Sod/Tazobactam Sod (Zosyn 3.375gm Ivpb (Pre-Docked)) 3.375 gm IVPB Q8H-IV [facility] Last Admin: 05/23/17 09:19 Dose: 3.375 gm Ranitidine HCl (Zantac -) 150 mg PO DAILY [facility] Last Admin: 05/23/17 09:27 Dose: 150 mg Fluticasone/Salmeterol (Advair 100mcg/50mcg -) 1 puff IH BID [facility] Last Admin: 05/23/17 09:21 Dose: Not Given Senna (Senna -) 2 tab PO HS [facility] Last Admin: 05/22/17 21:53 Dose: 2 tab Sertraline HCl (Zoloft -) 50 mg GT DAILY [facility] Last Admin: 05/23/17 09:27 Dose: 50 mg ASSESSMENT AND PLAN: Acute on Chronic Hypoxic and Hypercapneic Respiratory Failure Pneumonia Septic Shock COPD Paroxysmal Atrial Fibrillation h/o CVA HTN DM - continue antibiotics per ID - f/u cultures - taper off phenylephrine gtt - if increasing pressor requirements, will place central line and start levophed gtt - holding BP meds - inhaled bronchodilators - O2 to keep SpO2 >90% - continue volume assist control - enteral feeds - DVT prophylaxis - continue ICU monitoring for septic shock requiring pressors critical care time spent in reviewing chart, evaluating patient and formulating plan 35 min
[2017-05-23] MEDS: PATIENT'S OWN MEDICATION (NON-FORMULARY) (Ursodiol [Ursodiol] 250 MG) GT SCH (13:15)
[2017-05-23 14:13] LABS: MCH 30.3 pg (25.7-33.7); MCHC 32.5 g/dl (32.0-35.9); MEAN CELL VOLUME 93.2 fl (80-96); MEAN PLT VOLUME 8.3 fl (7.5-11.1); PLATELET COUNT 161 K/MM3 (134-434); RDW 15.8 % (11.9-15.9); WHITE BLOOD COUNT 7.1 K/mm3 (4.0-10.0)
--- NOTE | 2017-05-23 17:47 | PN ---
Progress Note, Physician History of Present Illness: patient continues to be awake and alert no other issues - Current Medication List Current Medications: Active Medications Albuterol/Ipratropium (Duoneb -) 1 amp NEB Q4H PRN PRN Reason: SHORTNESS OF BREATH Last Admin: 05/23/17 05:49 Dose: 1 amp Carvedilol (Coreg -) 6.25 mg PO BID [facility] Last Admin: 05/23/17 09:21 Dose: Not Given Heparin Sodium (Porcine) (Heparin -) 5,000 unit SQ BID [facility] Phenylephrine HCl 20,000 mcg/ (Dextrose) 250 mls @ 75 mls/hr IVPB TITR [facility]; 100 MCG/MIN PRN Reason: Protocol Last Titration: 05/23/17 12:00 Dose: 0 mcg/min Vancomycin HCl 1,250 mg/ (Dextrose) 250 mls @ 166.667 mls/hr IVPB DAILY [facility] PRN Reason: Protocol Last Admin: 05/23/17 09:21 Dose: 166.667 mls/hr Lactobacillus Acidophilus (Bacid -) 1 tab GT Q12H [facility] Last Admin: 05/23/17 09:27 Dose: 1 tab Lisinopril (Prinivil) 2.5 mg GT DAILY [facility] Last Admin: 05/23/17 09:22 Dose: Not Given Non-Formulary Medication (Ursodiol [Ursodiol]) 250 mg GT Q8H [facility] Last Admin: 05/22/17 12:29 Dose: Not Given Piperacillin Sod/Tazobactam Sod (Zosyn 3.375gm Ivpb (Pre-Docked)) 3.375 gm IVPB Q8H-IV [facility] Last Admin: 05/23/17 17:06 Dose: 3.375 gm Ranitidine HCl (Zantac -) 150 mg PO DAILY [facility] Last Admin: 05/23/17 09:27 Dose: 150 mg Fluticasone/Salmeterol (Advair 100mcg/50mcg -) 1 puff IH BID [facility] Last Admin: 05/23/17 09:21 Dose: Not Given Senna (Senna -) 2 tab PO HS [facility] Last Admin: 05/22/17 21:53 Dose: 2 tab Sertraline HCl (Zoloft -) 50 mg GT DAILY [facility] Last Admin: 05/23/17 09:27 Dose: 50 mg - Objective Vital Signs: Vital Signs Temperature 99.4 F 05/23/17 14:00 Pulse Rate 72 05/23/17 16:31 Respiratory Rate 20 05/23/17 16:31 Blood Pressure 98/53 05/23/17 16:31 O2 Sat by Pulse Oximetry (%) 100 05/23/17 10:15 Constitutional: Yes: No Distress, Calm Cardiovascular: Yes: Regular Rate and Rhythm Respiratory: Yes: Regular, CTA Bilaterally Gastrointestinal: Yes: Soft, Tenderness (ruq and rigidity) Musculoskeletal: Yes: WNL Extremities: Yes: Other Neurological: Yes: Alert, Oriented Labs: CBC, BMP 05/23/17 14:00 05/23/17 06:00 - ....Imaging Cat Scan: Report Reviewed, Image Reviewed Assessment/Plan Problem List - Problems (1) Sepsis Code(s): A41.9 - SEPSIS, UNSPECIFIED ORGANISM (2) Septic shock Code(s): A41.9 - SEPSIS, UNSPECIFIED ORGANISM R65.21 - SEVERE SEPSIS WITH SEPTIC SHOCK (3) VAP (ventilator-associated pneumonia) Code(s): J95.851 - VENTILATOR ASSOCIATED PNEUMONIA (4) Chronic respiratory failure Code(s): J96.10 - CHRONIC RESPIRATORY FAILURE, UNSP W HYPOXIA OR HYPERCAPNIA (5) Diabetes mellitus Code(s): E11.9 - TYPE 2 DIABETES MELLITUS WITHOUT COMPLICATIONS looking at the patient and his examination patient has rigidity in the ruq and also xray shows elevation of the rt diaphragm patient also has tenderness in the llq plan continue vanco and zosyn hydration pressors as needed lactic acid follow vanco levels cc time 40 min
--- NOTE | 2017-05-23 18:45 | PN ---
Progress Note, Physician History of Present Illness: comfortable - Current Medication List Current Medications: Active Medications Albuterol/Ipratropium (Duoneb -) 1 amp NEB Q4H PRN PRN Reason: SHORTNESS OF BREATH Last Admin: 05/23/17 05:49 Dose: 1 amp Carvedilol (Coreg -) 6.25 mg PO BID [facility] Last Admin: 05/23/17 09:21 Dose: Not Given Chlorhexidine Gluconate (Hibiclens For Decolonization -) 1 applic TP HS [facility] Heparin Sodium (Porcine) (Heparin -) 5,000 unit SQ BID [facility] Phenylephrine HCl 20,000 mcg/ (Dextrose) 250 mls @ 75 mls/hr IVPB TITR [facility]; 100 MCG/MIN PRN Reason: Protocol Last Titration: 05/23/17 12:00 Dose: 0 mcg/min Vancomycin HCl 1,250 mg/ (Dextrose) 250 mls @ 166.667 mls/hr IVPB DAILY [facility] PRN Reason: Protocol Last Admin: 05/23/17 09:21 Dose: 166.667 mls/hr Lactobacillus Acidophilus (Bacid -) 1 tab GT Q12H [facility] Last Admin: 05/23/17 09:27 Dose: 1 tab Lisinopril (Prinivil) 2.5 mg GT DAILY [facility] Last Admin: 05/23/17 09:22 Dose: Not Given Mupirocin (Bactroban Ointment (For Decolonization) -) 1 applic NS BID [facility] Stop: 05/28/17 21:59 Piperacillin Sod/Tazobactam Sod (Zosyn 3.375gm Ivpb (Pre-Docked)) 3.375 gm IVPB Q8H-IV [facility] Last Admin: 05/23/17 17:06 Dose: 3.375 gm Ranitidine HCl (Zantac -) 150 mg PO DAILY [facility] Last Admin: 05/23/17 09:27 Dose: 150 mg Fluticasone/Salmeterol (Advair 100mcg/50mcg -) 1 puff IH BID [facility] Last Admin: 05/23/17 09:21 Dose: Not Given Senna (Senna -) 2 tab PO HS [facility] Last Admin: 05/22/17 21:53 Dose: 2 tab Sertraline HCl (Zoloft -) 50 mg GT DAILY [facility] Last Admin: 05/23/17 09:27 Dose: 50 mg Ursodiol (Actigal -) 300 mg PO BID [facility] - Objective Vital Signs: Vital Signs Temperature 99.6 F 05/23/17 18:15 Pulse Rate 70 05/23/17 18:00 Respiratory Rate 20 05/23/17 18:00 Blood Pressure 95/55 05/23/17 18:00 O2 Sat by Pulse Oximetry (%) 100 05/23/17 10:15 Constitutional: Yes: No Distress HENT: Yes: Other (trach collar) Neck: Yes: Supple, Tenderness Respiratory: Yes: Rhonchi Gastrointestinal: Yes: Other (peg in place) Edema: LLE: Trace, RLE: Trace Peripheral Pulses WNL: Yes Neurological: Yes: Alert Labs: CBC, BMP 05/23/17 14:00 05/23/17 06:00 Problem List - Problems (1) Sepsis Assessment/Plan: iv abx pressors ivf cxs seen id consult Code(s): A41.9 - SEPSIS, UNSPECIFIED ORGANISM Qualifiers: Sepsis type: sepsis due to unspecified organism Qualified Code(s): A41.9 - Sepsis, unspecified organism; A41.9 - Sepsis, unspecified organism; A41.9 - Sepsis, unspecified organism (2) Septic shock Assessment/Plan: ivf iv abx clinically better Code(s): A41.9 - SEPSIS, UNSPECIFIED ORGANISM R65.21 - SEVERE SEPSIS WITH SEPTIC SHOCK (3) VAP (ventilator-associated pneumonia) Code(s): J95.851 - VENTILATOR ASSOCIATED PNEUMONIA (4) Atrial fibrillation Assessment/Plan: on meds stabel Code(s): I48.91 - UNSPECIFIED ATRIAL FIBRILLATION Qualifiers: Atrial fibrillation type: paroxysmal Qualified Code(s): I48.0 - Paroxysmal atrial fibrillation; I48.0 - Paroxysmal atrial fibrillation; I48.0 - Paroxysmal atrial fibrillation; I48.0 - Paroxysmal atrial fibrillation (5) Chronic respiratory failure Assessment/Plan: on trach /vent Code(s): J96.10 - CHRONIC RESPIRATORY FAILURE, UNSP W HYPOXIA OR HYPERCAPNIA Qualifiers: Respiratory failure complication: unspecified whether with hypoxia or hypercapnia Qualified Code(s): J96.10 - Chronic respiratory failure, unspecified whether with hypoxia or hypercapnia; J96.10 - Chronic respiratory failure, unspecified whether with hypoxia or hypercapnia; J96.10 - Chronic respiratory failure, unspecified whether with hypoxia or hypercapnia (6) Diabetes mellitus Assessment/Plan: monitor Code(s): E11.9 - TYPE 2 DIABETES MELLITUS WITHOUT COMPLICATIONS Qualifiers: Diabetes mellitus type: type 2 Diabetes mellitus complication status: with unspecified complications Diabetes mellitus watermelon inspector insulin use: without watermelon inspector use Qualified Code(s): E11.8 - Type 2 diabetes mellitus with unspecified complications; E11.8 - Type 2 diabetes mellitus with unspecified complications; E11.8 - Type 2 diabetes mellitus with unspecified complications; E11.8 - Type 2 diabetes mellitus with unspecified complications; Z79.4 - senior care (current) use of insulin; Z79.4 - senior care (current) use of insulin; Z79.4 - watermelon inspector (current) use of insulin; Z79.4 - watermelon inspector (current ) use of insulin (7) Sepsis - Septicemia Code(s): A41.9 - SEPSIS, UNSPECIFIED ORGANISM (8) Shock Code(s): R57.9 - SHOCK, UNSPECIFIED
[2017-05-23] MEDS: MUPIROCIN 2% TOPICAL OINTMENT FOR DECOLONIZATION NS SCH (21:32)
[2017-05-23] MEDS: HEPARIN NA (PORCINE) 5,000 UNITS/ML 1ML VIAL SQ SCH (21:36)
[2017-05-23] MEDS: SENNOSIDES 8.6MG TABLET (FP) PO SCH (21:46)
[2017-05-23] MEDS ORDERED: CHLORHEXIDINE GLUCONATE 4% CLEANSER FOR DECOLONIZATION TP SCH (22:00)
[2017-05-23] MEDS: URSODIOL 300 MG CAPSULE PO SCH (22:33)
[2017-05-24] MEDS: PIPERACILLIN/TAZOB 3.375 GM/50 ML PRE-DOCKED IVPB SCH ×3 (03:23→17:17)
[2017-05-24 06:21] LABS: MCH 30.6 pg (25.7-33.7); MCHC 33.1 g/dl (32.0-35.9); MEAN CELL VOLUME 92.4 fl (80-96); MEAN PLT VOLUME 8.4 fl (7.5-11.1); PLATELET COUNT 162 K/MM3 (134-434); RDW 15.6 % (11.9-15.9); WHITE BLOOD COUNT 5.3 K/mm3 (4.0-10.0)
[2017-05-24 06:57] LABS: ANION GAP 5 (8-16); CALCIUM 8.1 mg/dL (8.5-10.1); CO2 28 mmol/L (21-32); GLUCOSE,RANDOM 90 mg/dL (74-106); MAGNESIUM 2.4 mg/dL (1.8-2.4)
[2017-05-24 07:01] LABS: ALK PHOS 58 U/L (45-117); BILIRUBIN,TOTAL 0.4 mg/dL (0.2-1.0); CREATININE 0.9 mg/dL (0.7-1.3); PHOSPHOROUS 2.5 mg/dL (2.5-4.9); SGOT/AST 18 U/L (15-37); SGPT/ALT 19 U/L (12-78); TOT PROT 6.2 g/dl (6.4-8.2)
--- NOTE | 2017-05-24 07:27 | PN ---
Physical Exam: SUBJECTIVE: Patient seen and examined by me this AM - Pt denies fever, chills, CP, cough, LE edema, N/V. Endorses mild stomach pain and increased WOB in AM. - Increased WOB in AM, likely due to increased secretions from vent. RT to see in AM. - Sputum culture speciated Providencia stuarti, sensitive to Zosyn. Current coverage adequate - BP stable in 100s systolic off neosyn gtt. UOP 750 overnight. MAPs >65. - Plan to transfer to [address] [place] [address]. OBJECTIVE: Vital Signs Intake & Output 05/21/17 05/22/17 05/23/17 05/24/17 23:59 23:59 23:59 23:59 Intake Total 7775 3550.8 1276 Output Total 20 1400 750 600 Balance -20 6375 2800.8 676 Weight 76.748 kg 80.286 kg 83.416 kg 82.242 kg Period Temp Pulse Resp BP Sys/Mayorga Pulse Ox Last 24 Hr 96.9 F-99.6 F 61-88 17-25 93-119/47-67 95-100 GENERAL: The patient is nonverbal. Able to mouth responses. HEAD: Normal with no signs of trauma. Alopecia. EYES: PERRL, sclera anicteric, conjunctiva clear. No ptosis. ENT: Ears normal, nares patent, oropharynx clear without exudates, moist mucous membranes. NECK: Trachea midline, supple. Trach collar in place, with LUNGS: Vented, mechanical breath sounds. Decreased bibasilar lung sounds. No wheezes, crackles. HEART: Irregular rate, S1, S2 without murmur, rub or gallop. ABDOMEN: MIld tenderness to palpation in LLQ and RUQ. PEG noted, no inflammation , drainage or edema. Normal bowel sounds, no guarding, no rebound, no hepatosplenomegaly, no masses. EXTREMITIES: 2+ pulses, warm, well-perfused, no edema in UE. 1+ pulse, cool in LE. Bilateral severe stasis dermatitis on anterior shins and dorsum of feet BL. Chronic contracted plantarflexion BL of feet. Laboratory Results - last 24 hr CBC, BMP 05/24/17 05:10 05/24/17 05:10 05/23/17 05/24/17 05/24/17 14:00 05:10 05:10 WBC 7.1 5.3 RBC 2.39 L 2.53 L Hgb 7.2 L 7.7 L Hct 22.3 L 23.4 L MCV 93.2 92.4 MCH 30.3 30.6 MCHC 32.5 33.1 RDW 15.8 15.6 Plt Count 161 162 MPV 8.3 8.4 Sodium 138 Potassium 4.8 Chloride 105 Carbon Dioxide 28 Anion Gap 5 L BUN 26 H Creatinine 0.9 Creat Clearance w eGFR > 60 Random Glucose 90 D Calcium 8.1 L Phosphorus 2.5 D Magnesium 2.4 Total Bilirubin 0.4 D AST 18 ALT 19 Alkaline Phosphatase 58 Total Protein 6.2 L Albumin 2.0 L Active Medications Generic Name Dose Route Start Last Admin Trade Name Freq PRN Reason Stop Dose Admin Albuterol/Ipratropium 1 amp 05/21/17 21:10 05/23/17 05:49 Duoneb - NEB 1 amp Q4H PRN Administration SHORTNESS OF BREATH Carvedilol 6.25 mg 05/21/17 22:00 05/23/17 21:33 Coreg - PO Not Given BID CURTIS Chlorhexidine Gluconate 1 applic 05/23/17 22:00 05/23/17 21:32 Hibiclens For Decolonization - TP 1 applic HS CURTIS Administration Heparin Sodium (Porcine) 5,000 unit 05/23/17 22:00 05/23/17 21:36 Heparin - SQ 5,000 unit BID CURTIS Administration Phenylephrine HCl 20,000 mcg/ 250 mls @ 75 mls/hr 05/22/17 08:03 05/23/17 12:00 Dextrose IVPB 0 mcg/min TITR CURTIS Titration Protocol 100 MCG/MIN Vancomycin HCl 1,250 mg/ 250 mls @ 166.667 mls/hr 05/22/17 16:00 05/23/17 09:21 Dextrose IVPB 166.667 mls/hr DAILY CURTIS Administration Protocol Lactobacillus Acidophilus 1 tab 05/21/17 21:15 05/23/17 21:37 Bacid - GT 1 tab Q12H CURTIS Administration Lisinopril 2.5 mg 05/22/17 10:00 05/23/17 09:22 Prinivil GT Not Given DAILY CURTIS Mupirocin 1 applic 05/23/17 22:00 05/23/17 21:32 Bactroban Ointment (For Decolonization) - NS 05/28/17 21:59 1 applic BID CURTIS Administration Piperacillin Sod/Tazobactam Sod 3.375 gm 05/22/17 02:00 05/24/17 03:23 Zosyn 3.375gm Ivpb (Pre-Docked) IVPB 3.375 gm Q8H-IV CURTIS Administration Ranitidine HCl 150 mg 05/22/17 10:00 05/23/17 09:27 Zantac - PO 150 mg DAILY CURTIS Administration Fluticasone/Salmeterol 1 puff 05/22/17 12:00 05/23/17 21:31 Advair 100mcg/50mcg - IH Not Given BID CURTIS Senna 2 tab 05/21/17 22:00 05/23/17 21:46 Senna - PO 2 tab HS CURTIS Administration Sertraline HCl 50 mg 05/22/17 10:00 05/23/17 09:27 Zoloft - GT 50 mg DAILY CURTIS Administration Ursodiol 300 mg 05/23/17 22:00 05/23/17 22:33 Actigal - PO 300 mg BID CURTIS Administration Microbiology 05/21/17 15:05 Blood - Peripheral Venous Blood Culture - Preliminary NO GROWTH OBTAINED AFTER 48 HOURS, INCUBATION TO CONTINUE FOR 3 DAYS. 05/21/17 20:30 Sputum - Endotrachea Suction/Ventilator Gram Stain - Final 05/21/17 20:30 Sputum - Endotrachea Suction/Ventilator Sputum Culture - Preliminary Non Lactose Fermenting Gnb 05/21/17 15:50 Urine - Urine Clean Catch Urine Culture - Final NO GROWTH OBTAINED 05/21/17 15:05 Blood - Peripheral Venous Blood Culture - Preliminary Pending Organism Imaging: EKG 05/21: LAD. RBBB. Sinus tach. Micro 05/21: Blood, urine, sputum cultures pending CXR 05/22: Small left pleural effusion. Possible R lung infiltrates. Elevated R hemidiaphragm. CT Abdomen/pelvis (05/22) - Posterior bibasilar infiltrates, with air bronchograms. Diffuse diverticulosis, no evidence of acute inflammation. Thickened GB wall, w/ no evidence of mohit-dil or gallstones. No intra-abdominal abscess or fluid collection. L3 compression fracture noted. CXR 05/23: Bilateral pulm and pleural changes. Elevated R hemidiaphragm. No significant interval changes since prior imaging. CXR: 05/24: No significant changes from prior cxr. ASSESSMENT/PLAN: Pt is a 81 yo man w/ pmh of COPD, chronic respiratory failure s/p trach, PEG, paroxysmal afib, HTN, DM, CVA, who presented from [place] w/ acute hypoxic respiratory failure and fever, found to be hypotensive and tachycardic in ED likely 2/2 to sepsis from possible VAP requiring multiple fluid boluses and pressor support. Pt hemodynamically stable off neosyn gtt now, systolics in 100- 110s. Pt afebrile still w/ no WBC count, Blood cultures + for Providencia stuarti and sputum cultures + for GNR. Continue vanc/zosyn coverage w/ further modification by ID. Transfer to [address] [place] [address] today given clinical improvement. #Neuro - Monitor MS - Home sertraline for depression #Cardiac - Hold all HTN meds - Off phenylephrine gtt. MAPs >65 - Coreg 6.25 BID #Pulm Acute on chronic hypoxic respiratory failure - 05/21 ABG 7.27/63/163/28 - AC vent mode, volume assist - Monitor sputum/secretions. Must consider possibility of mucus plug/increased secretions precipitating obstruction - ICS - Duonebs #ID Septic shock secondary to possible VAP. 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 Sputum + for P. Stuarti - Continue Vanc/zosyn for VAP coverage. Adjust per ID recs - ID recs appreciated #Renal - Strict Is&Os - Daily BMPs, monitor lytes - IVFs #Heme - Hgb stable at 7.7. Drop likely dilutional from LVR - Trend H/H. Transfuse at <7 - Continue home AC #Endo -ACHS -ISS #GI - Senna, Colace for constipation - Ursodiol 300 BID - CT abdomen/pelvis with diverticulosis and GB thickening, but not acute infectious/inflammatory process. - If diarrhea, send for C diff antigen - Oral care #FEN -Fluids: IVFs, NS 75cc/hr -Electrolytes: Daily BMPs, Trend BUN/Cr -Nutrition: 24hr tube feeds w/ volume goal of 1500 at 60cc/hr #PPX -SubQ Heparin for DVT ppx - Ranitidine for GI ppx #Dispo - Dispo to ICU for further monitoring/management Timothy Velazquez, PGY1 Plan discussed with attending, Dr. Biggs Visit type - Emergency Visit Emergency Visit: No - New Patient This patient is new to me today: No - Critical Care Critical Care patient: Yes Total Critical Care Time (in minutes): 25
[2017-05-24] MEDS ORDERED: PT OWN MED DRAWER 7, Y5N ONE (09:08)
[2017-05-24] MEDS: LACTOBACILLUS ACIDOPHILUS 1 EACH TAB (FP) GT SCH ×2 (09:14→21:29)
[2017-05-24] MEDS: HEPARIN NA (PORCINE) 5,000 UNITS/ML 1ML VIAL SQ SCH ×2 (09:15→21:30)
[2017-05-24] MEDS: SERTRALINE HCL 50 MG TABLET (FP) GT SCH (09:15)
[2017-05-24] MEDS: URSODIOL 300 MG CAPSULE PO SCH (09:15)
[2017-05-24] MEDS: RANITIDINE HCL 150 MG TABLET (FP) PO SCH (09:16)
[2017-05-24] MEDS: VANCOMYCIN 1,250 MG in DEXTROSE 5%-WATER - 250 ML IVPB SCH (09:16)
[2017-05-24] MEDS: FLUTICASONE/SALMETEROL 100 MCG/50 MCG DISKUS IH SCH ×2 (09:18→21:29)
[2017-05-24] MEDS: LISINOPRIL 5 MG TABLET (FP) GT SCH (09:19)
[2017-05-24] MEDS: CARVEDILOL 6.25 MG TABLET (FP) PO SCH ×2 (09:19→21:30)
--- NOTE | 2017-05-24 12:12 | PN ---
Teaching Attending Note Name of Resident: Timothy Velazquez ATTENDING PHYSICIAN STATEMENT I saw and evaluated the patient. I reviewed the resident's note and discussed the case with the resident. I agree with the resident's findings and plan as documented. SUBJECTIVE: Patient seen and examined in the ICU. Awake, vented on volume assist control. Currently off phenylephrine drip. OBJECTIVE: Intake & Output 05/21/17 05/22/17 05/23/17 05/24/17 23:59 23:59 23:59 23:59 Intake Total 7775 3550.8 1276 Output Total 20 1400 750 600 Balance -20 6375 2800.8 676 Weight 169 lb 3.2 oz 177 lb 183 lb 14.4 oz 181 lb 5 oz Last Vital Signs Temp Pulse Resp BP Pulse Ox 99.6 F 68 20 99/58 99 05/24/17 10:44 05/24/17 10:14 05/24/17 12:01 05/24/17 10:14 05/24/17 10:00 Active Medications Albuterol/Ipratropium (Duoneb -) 1 amp NEB Q4H PRN PRN Reason: SHORTNESS OF BREATH Last Admin: 05/23/17 05:49 Dose: 1 amp Carvedilol (Coreg -) 6.25 mg PO BID COUNT INCLUDES THE [facility] Last Admin: 05/24/17 09:19 Dose: Not Given Chlorhexidine Gluconate (Hibiclens For Decolonization -) 1 applic TP HS COUNT INCLUDES THE [facility] Last Admin: 05/23/17 21:32 Dose: 1 applic Heparin Sodium (Porcine) (Heparin -) 5,000 unit SQ BID COUNT INCLUDES THE [facility] Last Admin: 05/24/17 09:15 Dose: 5,000 unit Vancomycin HCl 1,250 mg/ (Dextrose) 250 mls @ 166.667 mls/hr IVPB DAILY CURTIS PRN Reason: Protocol Last Admin: 05/24/17 09:16 Dose: 166.667 mls/hr Lactobacillus Acidophilus (Bacid -) 1 tab GT Q12H CURTIS Last Admin: 05/24/17 09:14 Dose: 1 tab Lisinopril (Prinivil) 2.5 mg GT DAILY COUNT INCLUDES THE [facility] Last Admin: 05/24/17 09:19 Dose: Not Given Mupirocin (Bactroban Ointment (For Decolonization) -) 1 applic NS BID COUNT INCLUDES THE [facility] Stop: 05/28/17 21:59 Last Admin: 05/23/17 21:32 Dose: 1 applic Piperacillin Sod/Tazobactam Sod (Zosyn 3.375gm Ivpb (Pre-Docked)) 3.375 gm IVPB Q8H-IV COUNT INCLUDES THE [facility] Last Admin: 05/24/17 09:16 Dose: 3.375 gm Ranitidine HCl (Zantac -) 150 mg PO DAILY COUNT INCLUDES THE [facility] Last Admin: 05/24/17 09:16 Dose: 150 mg Fluticasone/Salmeterol (Advair 100mcg/50mcg -) 1 puff IH BID COUNT INCLUDES THE [facility] Last Admin: 05/24/17 09:18 Dose: Not Given Senna (Senna -) 2 tab PO HS COUNT INCLUDES THE [facility] Last Admin: 05/23/17 21:46 Dose: 2 tab Sertraline HCl (Zoloft -) 50 mg GT DAILY COUNT INCLUDES THE [facility] Last Admin: 05/24/17 09:15 Dose: 50 mg Ursodiol (Actigal -) 300 mg PO BID COUNT INCLUDES THE [facility] Last Admin: 05/24/17 09:15 Dose: 300 mg Gen: vented, awake Heart: RRR Lung: scattered rhonchi Abd: soft, nontender Ext: trace edema Laboratory Results - last 24 hr 05/23/17 05/24/17 05/24/17 14:00 05:10 05:10 WBC 7.1 5.3 RBC 2.39 L 2.53 L Hgb 7.2 L 7.7 L Hct 22.3 L 23.4 L MCV 93.2 92.4 MCH 30.3 30.6 MCHC 32.5 33.1 RDW 15.8 15.6 Plt Count 161 162 MPV 8.3 8.4 Sodium 138 Potassium 4.8 Chloride 105 Carbon Dioxide 28 Anion Gap 5 L BUN 26 H Creatinine 0.9 Creat Clearance w eGFR > 60 Random Glucose 90 D Calcium 8.1 L Phosphorus 2.5 D Magnesium 2.4 Total Bilirubin 0.4 D AST 18 ALT 19 Alkaline Phosphatase 58 Total Protein 6.2 L Albumin 2.0 L ASSESSMENT AND PLAN: Acute on Chronic Hypoxic and Hypercapneic Respiratory Failure Pneumonia Septic Shock COPD Paroxysmal Atrial Fibrillation h/o CVA HTN DM - Antibiotics per ID - f/u cultures - Monitor off phenylephrine drip - Continue to hold BP meds - inhaled bronchodilators - O2 to keep SpO2 >90% - continue volume assist control - enteral feeds - DVT prophylaxis - Vent floor Dr Biggs Critical care time spent in reviewing chart, evaluating patient and formulating plan 35 min
[2017-05-24] MEDS: MUPIROCIN 2% TOPICAL OINTMENT FOR DECOLONIZATION NS SCH ×2 (12:34→21:29)
[2017-05-24] MEDS ORDERED: FLU VACCINE QUAD 60 MCG/0.5 ML (MDV 17-18) IM ONE (13:31)
[2017-05-24] MEDS ORDERED: ALBUTEROL SO4 2.5/IPRATROPIUM 0.5 INH SOL 3 ML VIAL.NEB. NEB PRN (13:46)
--- NOTE | 2017-05-24 15:22 | PN ---
Progress Note, Physician History of Present Illness: patient feeling much better abd pain is better - Current Medication List Current Medications: Active Medications Albuterol/Ipratropium (Duoneb -) 1 amp NEB Q4H PRN PRN Reason: SHORTNESS OF BREATH Carvedilol (Coreg -) 6.25 mg PO BID CURTIS Chlorhexidine Gluconate (Hibiclens For Decolonization -) 1 applic TP HS CURTIS Heparin Sodium (Porcine) (Heparin -) 5,000 unit SQ BID CURTIS Vancomycin HCl 1,250 mg/ (Dextrose) 250 mls @ 166.667 mls/hr IVPB DAILY CURTIS PRN Reason: Protocol Lactobacillus Acidophilus (Bacid -) 1 tab GT Q12H CURTIS Lisinopril (Prinivil) 2.5 mg GT DAILY CURTIS Mupirocin (Bactroban Ointment (For Decolonization) -) 1 applic NS BID CURTIS Stop: 05/28/17 21:59 Piperacillin Sod/Tazobactam Sod (Zosyn 3.375gm Ivpb (Pre-Docked)) 3.375 gm IVPB Q8H-IV CURTIS Ranitidine HCl (Zantac -) 150 mg PO DAILY CURTIS Fluticasone/Salmeterol (Advair 100mcg/50mcg -) 1 puff IH BID CURTIS Senna (Senna -) 2 tab PO HS CURTIS Sertraline HCl (Zoloft -) 50 mg GT DAILY CURTIS Ursodiol (Actigal -) 300 mg PO BID CURTIS - Objective Vital Signs: Vital Signs Temperature 99.3 F 05/24/17 14:00 Pulse Rate 68 05/24/17 14:00 Respiratory Rate 20 05/24/17 14:42 Blood Pressure 96/54 05/24/17 14:00 O2 Sat by Pulse Oximetry (%) 99 05/24/17 10:00 Constitutional: Yes: No Distress, Calm Cardiovascular: Yes: Regular Rate and Rhythm Respiratory: Yes: Mechanically Ventilated, Other (trach) Gastrointestinal: Yes: Normal Bowel Sounds, Soft Musculoskeletal: Yes: WNL Extremities: Yes: WNL Neurological: Yes: Alert, Oriented Psychiatric: Yes: Alert Labs: CBC, BMP 05/24/17 05:10 05/24/17 05:10 Assessment/Plan Problem List - Problems (1) Sepsis Code(s): A41.9 - SEPSIS, UNSPECIFIED ORGANISM (2) Septic shock Code(s): A41.9 - SEPSIS, UNSPECIFIED ORGANISM R65.21 - SEVERE SEPSIS WITH SEPTIC SHOCK (3) VAP (ventilator-associated pneumonia) Code(s): J95.851 - VENTILATOR ASSOCIATED PNEUMONIA (4) Chronic respiratory failure Code(s): J96.10 - CHRONIC RESPIRATORY FAILURE, UNSP W HYPOXIA OR HYPERCAPNIA (5) Diabetes mellitus Code(s): E11.9 - TYPE 2 DIABETES MELLITUS WITHOUT COMPLICATIONS 6 pneumonia plan will stop vanco contineu zosyn sputum cx noted hydration pressors as needed lactic acid follow vanco levels cc time 40 min
--- NOTE | 2017-05-24 16:20 | PN ---
Progress Note, Physician History of Present Illness: comfortable - Current Medication List Current Medications: Active Medications Albuterol/Ipratropium (Duoneb -) 1 amp NEB Q4H PRN PRN Reason: SHORTNESS OF BREATH Carvedilol (Coreg -) 6.25 mg PO BID CURTIS Chlorhexidine Gluconate (Hibiclens For Decolonization -) 1 applic TP HS CURTIS Heparin Sodium (Porcine) (Heparin -) 5,000 unit SQ BID CURTIS Lactobacillus Acidophilus (Bacid -) 1 tab GT Q12H CURTIS Lisinopril (Prinivil) 2.5 mg GT DAILY CURTIS Mupirocin (Bactroban Ointment (For Decolonization) -) 1 applic NS BID CURTIS Stop: 05/28/17 21:59 Piperacillin Sod/Tazobactam Sod (Zosyn 3.375gm Ivpb (Pre-Docked)) 3.375 gm IVPB Q8H-IV CURTIS Ranitidine HCl (Zantac -) 150 mg PO DAILY CURTIS Fluticasone/Salmeterol (Advair 100mcg/50mcg -) 1 puff IH BID CURTIS Senna (Senna -) 2 tab PO HS CURTIS Sertraline HCl (Zoloft -) 50 mg GT DAILY CURTIS Ursodiol (Actigal -) 300 mg PO BID CURTIS - Objective Vital Signs: Vital Signs Temperature 99.3 F 05/24/17 14:00 Pulse Rate 68 05/24/17 14:00 Respiratory Rate 20 05/24/17 14:42 Blood Pressure 96/54 05/24/17 14:00 O2 Sat by Pulse Oximetry (%) 99 05/24/17 10:00 Constitutional: Yes: No Distress HENT: Yes: Atraumatic Neck: Yes: Other (trach collar) Cardiovascular: Yes: Regular Rate and Rhythm Respiratory: Yes: Rhonchi Gastrointestinal: Yes: Normal Bowel Sounds, Tenderness (ruq mild) Extremities: Yes: WNL Neurological: Yes: Alert, Oriented Labs: CBC, BMP 05/24/17 05:10 05/24/17 05:10 Problem List - Problems (1) Sepsis Assessment/Plan: iv abx cxs noted id consult Code(s): A41.9 - SEPSIS, UNSPECIFIED ORGANISM (2) Septic shock Assessment/Plan: ivf iv abx clinically better off of pressors bp still low will monitor if stable then can be transfered out Code(s): A41.9 - SEPSIS, UNSPECIFIED ORGANISM R65.21 - SEVERE SEPSIS WITH SEPTIC SHOCK (3) VAP (ventilator-associated pneumonia) Code(s): J95.851 - VENTILATOR ASSOCIATED PNEUMONIA (4) Atrial fibrillation Assessment/Plan: on meds stabel Code(s): I48.91 - UNSPECIFIED ATRIAL FIBRILLATION (5) Chronic respiratory failure Assessment/Plan: on trach /vent Code(s): J96.10 - CHRONIC RESPIRATORY FAILURE, UNSP W HYPOXIA OR HYPERCAPNIA (6) Diabetes mellitus Assessment/Plan: monitor Code(s): E11.9 - TYPE 2 DIABETES MELLITUS WITHOUT COMPLICATIONS (7) Sepsis - Septicemia Assessment/Plan: iv abx Code(s): A41.9 - SEPSIS, UNSPECIFIED ORGANISM (8) Shock Code(s): R57.9 - SHOCK, UNSPECIFIED Assessment/Plan cc time 30 min will get surgery consult as past few days pt has ruq tenders/ct scan has a gb stone
[2017-05-24] MEDS ORDERED: SODIUM CHLORIDE 1,000 ML IV SCH (18:00)
--- NOTE | 2017-05-24 20:18 | CONSULT ---
Consult Consult Specialty:: General Surgery Referred by:: Dr. Ortega Reason for Consultation:: RUQ pain - History of Present Illness Chief Complaint: RUQ/LLQ pain History of Present Illness: 81yo M vent-dependent via tracheostomy for last 3 years with COPD, AMIE, obesity- hypoventilation syndrome, paroxysmal afib, extensive DVT s/p IVC filter (05/2014 ), diabetes type 2, HTN, HLD, CVA, s/p PEG, s/p appendectomy, h/o gout, h/o cholecystitis s/p perc drain x 2-3months from 08/02, resident of [facility], who was recently hospitalized (05/01-) with ventilator-associated pneumonia, readmitted through ER 3 days ago with fever and hypoxia from MD, septic shock thought secondary to recurrent or persistent VAP. He has been in the ICU, and blood cultures grew S. epi; sputum cultures grew Providencia stuartii. He is on antibiotics per ID. He was on phenylephrine drip, but is off today, and has improved with normalization of wbc, decrease in fevers to low-grade temps only, decreased vent support, and improvement in mental status. He is able to communicate and can mouth answers to questions. He has c/o abdominal pain in RUQ and LLQ and indicates that he has had his current pain for about a week, starting prior to coming to the hospital. No nausea or change in bowel habits with it that he knows of. It is not better or worse since he got here. The patient's son (at bedside) describes intermittent c/o abdominal pain on a chronic basis, every few weeks to months. The patient is tube fed via PEG and has been tolerating feeds this admission with + bowel function. He has a Castaneda catheter with good urine output. ID noted abdominal pain and tenderness, and the patient had CT without contrast 05/22. It shows cholelithiasis, with a possible large, irregularly rim-calcified stone in the gallbladder, no biliary dilation, possible very small pericholecystic fluid, no obstruction, no free air or fluid collection, and pulmonary findings consistent with his pneumonia. Surgery is consulted to evaluate his RUQ pain and gallbladder findings. 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: CVA Cardio/Vascular: Yes: AFIB, HTN Pulmonary: Yes: COPD, O2 Dependent, Pneumonia, Previously Intubated, Other ( Obesity hypoventilation, AMIE, chronic respiratory failure - trach/vent dependent x 3yrs) Gastrointestinal: Yes: Other (PEG for feeding) Hepatobiliary: Yes: Cholecystitis (h/o perc cholecystostomy 08/02 x 2-3 months) Renal/: Yes: Renal Failure (history of), Renal Inusuff (history of), UTI (h/o) , Other (indwelling Castaneda) Musculoskeletal: Yes: Osteoarthritis, Other (spinal compression fractures; bilateral foot drop) Rheumatology: Yes: Gout ENT: Yes: Sinusitis Endocrine: Yes: Diabetes Mellitus - Past Surgical History Past Surgical History: Yes: Appendectomy Additional Surgical History: tracheostomy, PEG; cholecystostomy tube in past - Alcohol/Substance Use Hx Alcohol Use: No (in past only) History of Substance Use: reports: None - Smoking History Smoking history: Never smoked Have you smoked in the past 12 months: No Aproximately how many cigarettes per day: 0 - Social History Usual Living Arrangement: [facility] ADL: Support Services History of Recent Travel: No Home Medications - Allergies Allergies/Adverse Reactions: Allergies Allergy/AdvReac Type Severity Reaction Status Date / Time No Known Allergies Allergy Verified 05/01/17 10:25 - Home Medications Home Medications: Ambulatory Orders Albuterol 0.083% Nebulizer Isis [Ventolin 0.083% Nebulizer Soln -] 1 neb NEB Q6H PRN 05/01/17 Amino Acids/Protein Hydrolys [Pro-Stat Awc Liquid] 30 ml GT DAILY 05/01/17 Ferrous Sulfate 7.5 ml GT DAILY 05/01/17 Hypromellose 0.5% Opth Soln [Artificial Tears] 1 drop OU TID 05/01/17 Ipratropium 0.02% Nebulizer [Atrovent 0.02% Nebulizer -] 1 amp NEB Q6H PRN 05/01 Lactobacillus Acidophilus [Bacid -] 1 each GT Q12H 05/01/17 Lactulose 10 gm GT HS 05/01/17 Potassium Chloride 10 meq GT DAILY 05/01/17 Ranitidine [Zantac -] 150 mg GT DAILY 05/01/17 Sennosides [Senna] 2 tab GT HS 05/01/17 Ursodiol 250 mg GT Q8H 05/01/17 Carvedilol [Coreg] 6.25 mg PO BID #60 tablet 05/09/17 Lisinopril [Zestril] 2.5 mg GT DAILY 05/21/17 Ranitidine HCl [Zantac] 150 mg GT DAILY 05/21/17 Sertraline HCl [Zoloft -] 50 mg GT DAILY 05/21/17 Family Disease History - Family Disease History Family History: Unable to Obtain (pt with trach/vent) Review of Systems - Review of Systems Constitutional: reports: Fever. denies: Chills Eyes: reports: Other (uses glasses sometimes). denies: Recent Change in Vision HENT: reports: Hearing Loss (mild on left). denies: Difficult Swallowing, Throat Pain Neck: reports: Other (trach x 3yrs). denies: Pain on Movement Cardiovascular: reports: Palpitations (fast heartbeat - felt prior to hospitalization). denies: Chest Pain Respiratory: reports: Other (vent dependent x 3yrs). denies: SOB Gastrointestinal: reports: Abdominal Pain (comes and goes, every few months, per son - pt indicates lower and upper pain, RUQ/LLQ - has had it this time for about a week, started before coming to hospital). denies: Constipation, Diarrhea, Nausea, Vomiting Genitourinary: reports: Other (has Castaneda). denies: Dysuria, Hematuria Musculoskeletal: reports: Muscle Weakness (bilateral foot drop). denies: Back Pain, Extremity Pain, Joint Pain Integumentary: denies: Change in Color, Rash Neurological: denies: Dizziness, Headache Endocrine: denies: Unexplained Weight Gain, Unexplained Weight Loss Physical Exam Vital Signs: Vital Signs Temperature 99.3 F 05/24/17 14:00 Pulse Rate 70 05/24/17 19:33 Respiratory Rate 20 05/24/17 19:33 Blood Pressure 109/60 05/24/17 19:33 O2 Sat by Pulse Oximetry (%) 95 05/24/17 19:33 Vital Signs Period Temp Pulse Resp BP Sys/Mayorga Pulse Ox Last 24 Hr 99 F-99.6 F 60-82 14-22 96-132/54-64 95-99 Intake & Output 05/24/17 05/24/17 05/24/17 07:59 15:59 23:59 Intake Total 1276 1806 Output Total 600 500 Balance 676 1306 Weight 181 lb 5 oz Intake: IVPB 100 450 Tube Feeding 756 756 Tube Irrigant 420 600 Output: Urine 600 500 Castaneda 600 500 Other: Voiding Method Indwelling Catheter Indwelling Catheter Bowel Movement Yes: small brown Yes: small brown # Bowel Movements 1 Weight Measurement Method Built in [facility] Constitutional: Yes: Well Nourished, No Distress, Calm Eyes: Yes: Conjunctiva Clear, EOM Intact. No: Sclera Icterus HENT: Yes: Atraumatic, Normocephalic Neck: Yes: Supple, Trachea Midline Cardiovascular: Yes: Regular Rate and Rhythm. No: Murmur Respiratory: Yes: Regular, Diminished (at bases, R>L), Mechanically Ventilated ( via tracheostomy), Rhonchi (R base mostly, less at L base). No: Wheezes Gastrointestinal: Yes: Normal Bowel Sounds (very active), Soft, Abdomen, Obese, Distention (mild with some tympany), Tenderness (RUQ and LLQ without rebound or guarding), Other (well-healed RLQ scar; PEG tube in place in epigastric area, site clean) ...Rectal Exam: Yes: Deferred Renal/: Yes: Castaneda Present. No: CVA Tenderness - Left, CVA Tenderness - Right , Hematuria, Oliguria Musculoskeletal: Yes: Other (bilateral foot drop). No: Joint Swelling Extremities: No: Cool, Cyanosis Edema: Yes Edema: LLE: 1+, RLE: 1+ Integumentary: No: Jaundice, Rash Neurological: Yes: Alert, Oriented, Other (able to mouth responses to questions) ...Motor Strength: LLE (can wiggle toes/feet), RLE (can wiggle toes/feet) Psychiatric: Yes: Alert, Oriented Labs: CBC, BMP 05/24/17 05:10 05/24/17 05:10 CMP Sodium 138 mmol/L (136-145) 05/24/17 05:10 Potassium 4.8 mmol/L (3.5-5.1) 05/24/17 05:10 Chloride 105 mmol/L (98-107) 05/24/17 05:10 Carbon Dioxide 28 mmol/L (21-32) 05/24/17 05:10 Anion Gap 5 (8-16) L 05/24/17 05:10 BUN 26 mg/dL (7-18) H 05/24/17 05:10 Creatinine 0.9 mg/dL (0.7-1.3) 05/24/17 05:10 Creat Clearance w eGFR > 60 (>60) 05/24/17 05:10 Random Glucose 90 mg/dL (74-106) D 05/24/17 05:10 Lactic Acid 1.0 mmol/L (0.4-2.0) 05/22/17 16:40 Calcium 8.1 mg/dL (8.5-10.1) L 05/24/17 05:10 Phosphorus 2.5 mg/dL (2.5-4.9) D 05/24/17 05:10 Magnesium 2.4 mg/dL (1.8-2.4) 05/24/17 05:10 Total Bilirubin 0.4 mg/dL (0.2-1.0) D 05/24/17 05:10 AST 18 U/L (15-37) 05/24/17 05:10 ALT 19 U/L (12-78) 05/24/17 05:10 Alkaline Phosphatase 58 U/L (45-117) 05/24/17 05:10 Creatine Kinase 29 IU/L (39-308) L 05/21/17 16:50 Troponin I 0.04 ng/ml (0.00-0.05) D 05/21/17 16:50 Total Protein 6.2 g/dl (6.4-8.2) L 05/24/17 05:10 Albumin 2.0 g/dl (3.4-5.0) L 05/24/17 05:10 no amylase/lipase LFTs normal wbc normal Imaging - Results Chest X-ray: Report Reviewed, Image Reviewed Cat Scan: Report Reviewed, Image Reviewed Problem List - Problems (1) Calculus of gallbladder with chronic cholecystitis without obstruction Assessment/Plan: CT does show cholelithiasis, may be large stone in gallbladder vs multiple Pt with h/o chronic and intermittent abdominal pain, has RUQ tenderness Suggests likely chronic cholecystitis, need to r/o acute component Recommend US +/- HIDA scan Pt will need to have TF held for tests May benefit from repeat percutaneous cholecystostomy if above are positive Poor surgical candidate secondary to comorbidities and goals of care (primarily maintaining comfort and current quality of life per son) Pt and son receptive to percutaneous drainage if indicated, possibility of long- term tube placement discussed and understood DNR may be temporarily held for procedure if needed Will check amylase and lipase for baseline Will follow Code(s): K80.10 - CALCULUS OF GALLBLADDER W CHRONIC CHOLECYST W/O OBSTRUCTION (2) H/O acute cholecystitis Assessment/Plan: with history of percutaneous cholecystostomy 08/02, removed 2-3 months later Code(s): Z87.19 - PERSONAL HISTORY OF OTHER DISEASES OF THE DIGESTIVE SYSTEM (3) VAP (ventilator-associated pneumonia) Assessment/Plan: culture growing Providencia stuartii on antibiotics per ID chronically vent/trach dependent improving off pressor, wbc normalized, low-grade temps only Code(s): J95.851 - VENTILATOR ASSOCIATED PNEUMONIA (4) Chronic respiratory failure Assessment/Plan: on vent via trach on CPAP at times defer to primary team Code(s): J96.10 - CHRONIC RESPIRATORY FAILURE, UNSP W HYPOXIA OR HYPERCAPNIA Qualifiers: Respiratory failure complication: unspecified whether with hypoxia or hypercapnia Qualified Code(s): J96.10 - Chronic respiratory failure, unspecified whether with hypoxia or hypercapnia; J96.10 - Chronic respiratory failure, unspecified whether with hypoxia or hypercapnia; J96.10 - Chronic respiratory failure, unspecified whether with hypoxia or hypercapnia (5) Sepsis Assessment/Plan: blood cultures grew Staph epi on abx per ID wbc normal, off pressor - improved VA pneumonia secondary to P. stuartii Code(s): A41.9 - SEPSIS, UNSPECIFIED ORGANISM Qualifiers: Sepsis type: sepsis due to unspecified organism Qualified Code(s): A41.9 - Sepsis, unspecified organism; A41.9 - Sepsis, unspecified organism; A41.9 - Sepsis, unspecified organism (6) Diabetes mellitus Assessment/Plan: FS with treatment prn defer to primary team Code(s): E11.9 - TYPE 2 DIABETES MELLITUS WITHOUT COMPLICATIONS Qualifiers: Diabetes mellitus type: type 2 Diabetes mellitus complication status: with unspecified complications Diabetes mellitus alley tender insulin use: without alley tender use Qualified Code(s): E11.8 - Type 2 diabetes mellitus with unspecified complications; E11.8 - Type 2 diabetes mellitus with unspecified complications; E11.8 - Type 2 diabetes mellitus with unspecified complications; E11.8 - Type 2 diabetes mellitus with unspecified complications (7) Atrial fibrillation Assessment/Plan: on low-dose carvedilol rate/rhythm controlled defer to primary team Code(s): I48.91 - UNSPECIFIED ATRIAL FIBRILLATION Qualifiers: Atrial fibrillation type: paroxysmal Qualified Code(s): I48.0 - Paroxysmal atrial fibrillation; I48.0 - Paroxysmal atrial fibrillation; I48.0 - Paroxysmal atrial fibrillation; I48.0 - Paroxysmal atrial fibrillation
[2017-05-24] MEDS: URSODIOL 300 MG CAPSULE NR SCH (21:29)
[2017-05-24] MEDS: CHLORHEXIDINE GLUCONATE 4% CLEANSER FOR DECOLONIZATION TP SCH (21:30)
[2017-05-24] MEDS: SENNOSIDES 8.6MG TABLET (FP) PO SCH (21:31)
[2017-05-25] MEDS ORDERED: DEXTROSE 5%-NORMAL SALINE 1,000 ML IV SCH
[2017-05-25] MEDS: PIPERACILLIN/TAZOB 3.375 GM/50 ML PRE-DOCKED IVPB SCH ×3 (02:00→18:00)
[2017-05-25 05:57] LABS: MCH 30.5 pg (25.7-33.7); MCHC 33.3 g/dl (32.0-35.9); MEAN CELL VOLUME 91.5 fl (80-96); MEAN PLT VOLUME 8.1 fl (7.5-11.1); PLATELET COUNT 170 K/MM3 (134-434); RDW 15.3 % (11.9-15.9)
[2017-05-25 06:36] LABS: ALBUMIN 1.9 g/dl (3.4-5.0); ANION GAP 7 (8-16); CALCIUM 8.2 mg/dL (8.5-10.1); CO2 26 mmol/L (21-32); GLUCOSE,RANDOM 89 mg/dL (74-106); MAGNESIUM 2.2 mg/dL (1.8-2.4); SGOT/AST 17 U/L (15-37)
[2017-05-25 06:39] LABS: ALK PHOS 56 U/L (45-117); BILIRUBIN,TOTAL 0.3 mg/dL (0.2-1.0); CREATININE 0.8 mg/dL (0.7-1.3); SGPT/ALT 18 U/L (12-78); TOT PROT 5.7 g/dl (6.4-8.2)
[2017-05-25 06:43] LABS: AMYLASE 31 U/L (25-115)
--- NOTE | 2017-05-25 07:24 | PN ---
Physical Exam: SUBJECTIVE: Patient seen and examined by me this AM - Pt denies any CP, cough, N/V, WILSON/vision changes, fever/chills, diarrhea. Endorses occasional dyspnea due to continued increased secretions from trach. Endorses intermittent mild abdominal pain/discomfort - Evaluated by surgery overnight for possible cholecystitis. CT abdomen/pelvis with GB thickening, cholelithiasis, and diffuse colonic diverticuli. No evidence of acute collection, abscess. Will go for HIDA today. - MAPs stable overnight off Neosyn gtt. Started on 75 NS overnight for maintainence support. - Remains afebrile, no WBC. Vanc d/c'ed due to sensitivities for P. Stuarti. OBJECTIVE: Vital Signs Intake & Output 05/22/17 05/23/17 05/24/17 05/25/17 23:59 23:59 23:59 23:59 Intake Total 7775 3550.8 3082 1175 Output Total 3636 122 5946 600 Balance 6375 2800.8 1282 575 Weight 80.286 kg 83.416 kg 82.242 kg 82.781 kg Period Temp Pulse Resp BP Sys/Mayorga Pulse Ox Last 24 Hr 98.6 F-99.6 F 60-82 14-22 96-132/51-64 95-99 GENERAL: The patient is nonverbal. Able to mouth responses. HEAD: Normal with no signs of trauma. Alopecia. EYES: PERRL, sclera anicteric, conjunctiva clear. No ptosis. ENT: Ears normal, nares patent, oropharynx clear without exudates, moist mucous membranes. NECK: Trachea midline, supple. Trach in place, vented. LUNGS: Vented, mechanical breath sounds. Decreased lung sounds at the bases. No wheezes, crackles. HEART: Irregular rate, S1, S2 without murmur, rub or gallop. ABDOMEN: MIld tenderness to deep palpation in RUQ. PEG noted, no inflammation, drainage or edema. Normal bowel sounds, no guarding, no rebound, no hepatosplenomegaly, no masses. EXTREMITIES: 2+ pulses, warm, well-perfused, no edema in UE. 1+ pulse, cool in LE. Bilateral severe stasis dermatitis on anterior shins and dorsum of feet BL. Chronic contracted plantarflexion BL of feet. Laboratory Results - last 24 hr CBC, BMP 05/25/17 05:00 05/25/17 05:00 05/25/17 05/25/17 05/25/17 05:00 05:00 05:00 WBC 6.0 RBC 2.45 L Hgb 7.5 L Hct 22.4 L MCV 91.5 MCH 30.5 MCHC 33.3 RDW 15.3 Plt Count 170 MPV 8.1 Sodium 137 Potassium 4.6 Chloride 104 Carbon Dioxide 26 Anion Gap 7 L BUN 22 H Creatinine 0.8 Creat Clearance w eGFR > 60 Random Glucose 89 Calcium 8.2 L Phosphorus 3.0 Magnesium 2.2 Total Bilirubin 0.3 D AST 17 ALT 18 Alkaline Phosphatase 56 Total Protein 5.7 L Albumin 1.9 L Total Amylase 31 D Lipase 146 Active Medications Generic Name Dose Route Start Last Admin Trade Name Freq PRN Reason Stop Dose Admin Albuterol/Ipratropium 1 amp 05/24/17 13:46 Duoneb - NEB Q4H PRN SHORTNESS OF BREATH Carvedilol 6.25 mg 05/24/17 22:00 05/24/17 21:30 Coreg - PO 6.25 mg BID CURTIS Administration Chlorhexidine Gluconate 1 applic 05/24/17 22:00 05/24/17 21:30 Hibiclens For Decolonization - TP 1 applic HS CURTIS Administration Heparin Sodium (Porcine) 5,000 unit 05/24/17 22:00 05/24/17 21:30 Heparin - SQ 5,000 unit BID CURTIS Administration Dextrose/Sodium Chloride 1,000 mls @ 75 mls/hr 05/25/17 00:00 05/25/17 00:00 D5-Ns - IV 75 mls/hr ASDIR CURTIS Administration Lactobacillus Acidophilus 1 tab 05/24/17 22:00 05/24/17 21:29 Bacid - GT 1 tab BID CURTIS Administration Lisinopril 2.5 mg 05/25/17 10:00 Prinivil GT DAILY CURTIS Mupirocin 1 applic 05/24/17 22:00 05/24/17 21:29 Bactroban Ointment (For Decolonization) - NS 05/28/17 21:59 1 applic BID CURTIS Administration Piperacillin Sod/Tazobactam Sod 3.375 gm 05/24/17 18:00 05/25/17 02:00 Zosyn 3.375gm Ivpb (Pre-Docked) IVPB 3.375 gm Q8H-IV CURTIS Administration Ranitidine HCl 150 mg 05/25/17 10:00 Zantac - NR DAILY CURTIS Fluticasone/Salmeterol 1 puff 05/24/17 22:00 05/24/17 21:29 Advair 100mcg/50mcg - IH Not Given BID CURTIS Senna 2 tab 05/24/17 22:00 05/24/17 21:31 Senna - PO 2 tab HS CURTIS Administration Sertraline HCl 50 mg 05/25/17 10:00 Zoloft - GT DAILY CURTIS Ursodiol 300 mg 05/24/17 22:00 05/24/17 21:29 Actigal - NR 300 mg BID CURTIS Administration Microbiology 05/21/17 15:05 Blood - Peripheral Venous Blood Culture - Preliminary NO GROWTH OBTAINED AFTER 72 HOURS, INCUBATION TO CONTINUE FOR 2 DAYS. 05/21/17 20:30 Sputum - Endotrachea Suction/Ventilator Gram Stain - Final 05/21/17 20:30 Sputum - Endotrachea Suction/Ventilator Sputum Culture - Final Providencia Stuartii 05/21/17 15:05 Blood - Peripheral Venous Blood Culture - Final Staphylococcus Epidermidis 05/21/17 15:50 Urine - Urine Clean Catch Urine Culture - Final NO GROWTH OBTAINED Imaging: EKG 05/21: LAD. RBBB. Sinus tach. Micro 05/21: Blood, urine, sputum cultures pending CXR 05/22: Small left pleural effusion. Possible R lung infiltrates. Elevated R hemidiaphragm. CT Abdomen/pelvis (05/22) - Posterior bibasilar infiltrates, with air bronchograms. Diffuse diverticulosis, no evidence of acute inflammation. Thickened GB wall, w/ no evidence of mohit-dil or gallstones. No intra-abdominal abscess or fluid collection. L3 compression fracture noted. CXR 05/23: Bilateral pulm and pleural changes. Elevated R hemidiaphragm. No significant interval changes since prior imaging. CXR: 05/24: No significant changes from prior cxr. CXR: 05/25 - BL pulm and pleural changes, R>L. Trach in place, good position. ASSESSMENT/PLAN: Pt is a 81 yo man w/ pmh of COPD, chronic respiratory failure s/p trach, PEG, paroxysmal afib, HTN, DM, CVA, who presented from NH w/ acute hypoxic respiratory failure and fever, found to be hypotensive and tachycardic in ED likely 2/2 to sepsis from possible VAP requiring multiple fluid boluses and pressor support. Pt hemodynamically stable off pressors, with stable MAPs. Pt seen by gen surg overnight for evaluation of intermittent RUQ abdominal pain, however w/ no changes in LFTs, normal lipase/amylase. Imaging suggestive of 1 or more gallstones in GB w/ thickening on CT abdomen. Pt afebrile still w/ no WBC count, Blood cultures + for Providencia stuarti and sputum cultures + for GNR. Abx adjusted to zosyn based on sensitivities. Transfer to [address] [place] [address] today. #Neuro - Monitor MS - Home sertraline for depression #Cardiac - Hold all HTN meds - MAPs >65 overnight - Coreg 6.25 BID #Pulm Acute on chronic hypoxic respiratory failure - AC vent mode, volume assist - Monitor sputum/secretions. Increased secretions w/ intermittent increased WOB. - RT evals q12h - Duonebs #ID Admitted for Septic shock secondary to possible VAP. 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 Sputum + for P. Stuarti - Zosyn for P Stuarti coverage based on sensitivities. Adjust per ID recs - ID recs appreciated #Renal - Strict Is&Os - Daily BMPs, monitor lytes - IVFs #Heme - Hgb stable at 7.5 (05/25). Initial drop likely dilutional from LVR - Trend H/H. Transfuse at <7 - Continue home AC #Endo -ACHS -ISS #GI - Senna, Colace for constipation - Ursodiol 300 BID - CT abdomen/pelvis with diverticulosis and GB thickening, but neg for colitis/ intraabdominal abscess or collection. - If diarrhea, send for C diff antigen - Oral care #FEN -Fluids: Free water -Electrolytes: Daily BMPs, Trend BUN/Cr -Nutrition: 24hr tube feeds w/ volume goal of 1500 at 60cc/hr #PPX -SubQ Heparin for DVT ppx - Ranitidine for GI ppx #Dispo - Dispo to [address] [place] [address]/med-surg given clinical improvement Timothy Velazquez, PGY1 Plan discussed with attending, Dr. Biggs Visit type - Emergency Visit Emergency Visit: No - New Patient This patient is new to me today: No - Critical Care Critical Care patient: Yes Total Critical Care Time (in minutes): 35 Critical Care Statement: The care of this patient involved high complexity decision making to prevent further life threatening deterioration of the patient 's condition and/or to evaluate & treat vital organ system(s) failure or risk of failure.
[2017-05-25] MEDS ORDERED: VANCOMYCIN 1,250 MG in DEXTROSE 5%-WATER - 250 ML IVPB SCH (10:00)
[2017-05-25] MEDS: HEPARIN NA (PORCINE) 5,000 UNITS/ML 1ML VIAL SQ SCH ×2 (10:05→21:28)
[2017-05-25] MEDS: FLUTICASONE/SALMETEROL 100 MCG/50 MCG DISKUS IH SCH ×2 (10:05→21:27)
[2017-05-25] MEDS: URSODIOL 300 MG CAPSULE NR SCH ×2 (10:08→21:26)
[2017-05-25] MEDS: MUPIROCIN 2% TOPICAL OINTMENT FOR DECOLONIZATION NS SCH ×2 (10:09→21:27)
[2017-05-25] MEDS: LACTOBACILLUS ACIDOPHILUS 1 EACH TAB (FP) GT SCH ×2 (10:09→21:27)
[2017-05-25] MEDS: SERTRALINE HCL 50 MG TABLET (FP) GT SCH (10:09)
[2017-05-25] MEDS: RANITIDINE HCL 150 MG TABLET (FP) NR SCH (10:09)
[2017-05-25] MEDS: CARVEDILOL 6.25 MG TABLET (FP) PO SCH ×2 (10:14→21:28)
--- NOTE | 2017-05-25 10:14 | PN ---
Progress Note, Physician Chief Complaint: RUQ pain History of Present Illness: No overnight events. Pt still with abdominal pain but no specific complaints. TF held from midnight for testing today. US just done at bedside this am. Pt had tenderness during exam RUQ. - Current Medication List Current Medications: Active Medications Albuterol/Ipratropium (Duoneb -) 1 amp NEB Q4H PRN PRN Reason: SHORTNESS OF BREATH Carvedilol (Coreg -) 6.25 mg PO BID [facility] Last Admin: 05/24/17 21:30 Dose: 6.25 mg Chlorhexidine Gluconate (Hibiclens For Decolonization -) 1 applic TP HS [facility] Last Admin: 05/24/17 21:30 Dose: 1 applic Heparin Sodium (Porcine) (Heparin -) 5,000 unit SQ BID [facility] Last Admin: 05/25/17 10:05 Dose: Not Given Dextrose/Sodium Chloride (D5-Ns -) 1,000 mls @ 75 mls/hr IV ASDIR [facility] Last Admin: 05/25/17 00:00 Dose: 75 mls/hr Lactobacillus Acidophilus (Bacid -) 1 tab GT BID [facility] Last Admin: 05/24/17 21:29 Dose: 1 tab Lisinopril (Prinivil) 2.5 mg GT DAILY [facility] Mupirocin (Bactroban Ointment (For Decolonization) -) 1 applic NS BID [facility] Stop: 05/28/17 21:59 Last Admin: 05/24/17 21:29 Dose: 1 applic Piperacillin Sod/Tazobactam Sod (Zosyn 3.375gm Ivpb (Pre-Docked)) 3.375 gm IVPB Q8H-IV [facility] Last Admin: 05/25/17 02:00 Dose: 3.375 gm Ranitidine HCl (Zantac -) 150 mg NR DAILY [facility] Fluticasone/Salmeterol (Advair 100mcg/50mcg -) 1 puff IH BID [facility] Last Admin: 05/25/17 10:05 Dose: Not Given Senna (Senna -) 2 tab PO HS [facility] Last Admin: 05/24/17 21:31 Dose: 2 tab Sertraline HCl (Zoloft -) 50 mg GT DAILY [facility] Ursodiol (Actigal -) 300 mg NR BID [facility] Last Admin: 05/24/17 21:29 Dose: 300 mg - Objective Vital Signs: Vital Signs Temperature 98.0 F 05/25/17 10:00 Pulse Rate 85 05/25/17 10:00 Respiratory Rate 18 05/25/17 10:00 Blood Pressure 117/78 05/25/17 10:00 O2 Sat by Pulse Oximetry (%) 100 05/25/17 08:00 Vital Signs Period Temp Pulse Resp BP Sys/Mayorga Pulse Ox Last 24 Hr 98.0 F-99.6 F 60-85 14-22 96-121/51-78 95-100 Intake & Output 05/24/17 05/25/17 05/25/17 23:59 07:59 15:59 Intake Total 1175 Output Total 700 600 Balance -700 575 Weight 182 lb 8 oz Intake: IV 525 D5-Ns - 1,000 ml @ 75 mls 525 /hr IV ASDIR [facility] Rx#: [id number] IVPB 50 Tube Feeding 325 Tube Irrigant 275 Output: Urine 700 600 Castaneda 700 600 Other: Voiding Method Indwelling Catheter Indwelling Catheter Indwelling Catheter Bowel Movement Yes Yes: small brown # Bowel Movements 1 Weight Measurement Method Built in [facility] Constitutional: Yes: Well Nourished, No Distress, Calm Eyes: Yes: Conjunctiva Clear, EOM Intact. No: Sclera Icterus Cardiovascular: Yes: Regular Rate and Rhythm. No: Murmur Respiratory: Yes: Regular, Mechanically Ventilated (via trach), Rhonchi ( bilaterally, coarse). No: SOB Gastrointestinal: Yes: Normal Bowel Sounds, Soft, Abdomen, Obese, Tenderness ( RUQ, less RLQ, no R/G (no LLQ tend today)), Other (PEG in place, site clean) Genitourinary: Yes: Castaneda Present. No: Hematuria Musculoskeletal: Yes: Other (bilateral foot drop). No: Joint Swelling Extremities: No: Cool, Cyanosis Integumentary: No: Jaundice, Rash Neurological: Yes: Alert, Oriented, Other (able to mouth responses) Labs: CBC, BMP 05/25/17 05:00 05/25/17 05:00 CMP Sodium 137 mmol/L (136-145) 05/25/17 05:00 Potassium 4.6 mmol/L (3.5-5.1) 05/25/17 05:00 Chloride 104 mmol/L (98-107) 05/25/17 05:00 Carbon Dioxide 26 mmol/L (21-32) 05/25/17 05:00 Anion Gap 7 (8-16) L 05/25/17 05:00 BUN 22 mg/dL (7-18) H 05/25/17 05:00 Creatinine 0.8 mg/dL (0.7-1.3) 05/25/17 05:00 Creat Clearance w eGFR > 60 (>60) 05/25/17 05:00 Random Glucose 89 mg/dL (74-106) 05/25/17 05:00 Lactic Acid 1.0 mmol/L (0.4-2.0) 05/22/17 16:40 Calcium 8.2 mg/dL (8.5-10.1) L 05/25/17 05:00 Phosphorus 3.0 mg/dL (2.5-4.9) 05/25/17 05:00 Magnesium 2.2 mg/dL (1.8-2.4) 05/25/17 05:00 Total Bilirubin 0.3 mg/dL (0.2-1.0) D 05/25/17 05:00 AST 17 U/L (15-37) 05/25/17 05:00 ALT 18 U/L (12-78) 05/25/17 05:00 Alkaline Phosphatase 56 U/L (45-117) 05/25/17 05:00 Creatine Kinase 29 IU/L (39-308) L 05/21/17 16:50 Troponin I 0.04 ng/ml (0.00-0.05) D 05/21/17 16:50 Total Protein 5.7 g/dl (6.4-8.2) L 05/25/17 05:00 Albumin 1.9 g/dl (3.4-5.0) L 05/25/17 05:00 Total Amylase 31 U/L (25-115) D 05/25/17 05:00 Lipase 146 U/L (73-393) 05/25/17 05:00 am/lip, LFTs, wbc normal - ....Imaging Chest X-ray: Report Reviewed Ultrasound: Image Reviewed (with Dr. Byrne - + stones, no pericholecystic fluid , minimal if any wall thickening, c/w chronic cholecystitis) Problem List - Problems (1) Calculus of gallbladder with chronic cholecystitis without obstruction Assessment/Plan: am/lip normal TF held for testing US suggestive of chronic cholecystitis, not necessarily acute Will obtain HIDA scan with plan for percutaneous cholecystostomy if positive Poor surgical candidate secondary to comorbidities and goals of care (primarily maintaining comfort and current quality of life per son) Pt and son receptive to percutaneous drainage if indicated, possibility of long- term tube placement discussed and understood DNR may be temporarily held for procedure if needed Will hold DVT prophylaxis and check coags for possible procedure Code(s): K80.10 - CALCULUS OF GALLBLADDER W CHRONIC CHOLECYST W/O OBSTRUCTION (2) H/O acute cholecystitis Assessment/Plan: with history of percutaneous cholecystostomy 08/02, removed 2-3 months later Code(s): Z87.19 - PERSONAL HISTORY OF OTHER DISEASES OF THE DIGESTIVE SYSTEM (3) VAP (ventilator-associated pneumonia) Assessment/Plan: culture growing Providencia stuartii on antibiotics per ID chronically vent/trach dependent improving off pressor, wbc normalized, low-grade temps only Code(s): J95.851 - VENTILATOR ASSOCIATED PNEUMONIA (4) Chronic respiratory failure Assessment/Plan: on vent via trach defer to primary team Code(s): J96.10 - CHRONIC RESPIRATORY FAILURE, UNSP W HYPOXIA OR HYPERCAPNIA Qualifiers: Respiratory failure complication: unspecified whether with hypoxia or hypercapnia Qualified Code(s): J96.10 - Chronic respiratory failure, unspecified whether with hypoxia or hypercapnia; J96.10 - Chronic respiratory failure, unspecified whether with hypoxia or hypercapnia; J96.10 - Chronic respiratory failure, unspecified whether with hypoxia or hypercapnia (5) Sepsis Assessment/Plan: blood cultures grew Staph epi on abx per ID wbc normal, off pressor - improved VA pneumonia secondary to P. stuartii Code(s): A41.9 - SEPSIS, UNSPECIFIED ORGANISM Qualifiers: Sepsis type: sepsis due to unspecified organism Qualified Code(s): A41.9 - Sepsis, unspecified organism; A41.9 - Sepsis, unspecified organism; A41.9 - Sepsis, unspecified organism (6) Diabetes mellitus Assessment/Plan: FS with treatment prn IVF with D5 while TF held defer to primary team Code(s): E11.9 - TYPE 2 DIABETES MELLITUS WITHOUT COMPLICATIONS Qualifiers: Diabetes mellitus type: type 2 Diabetes mellitus complication status: with unspecified complications Diabetes mellitus mcc insulin use: without laborer marine terminal use Qualified Code(s): E11.8 - Type 2 diabetes mellitus with unspecified complications; E11.8 - Type 2 diabetes mellitus with unspecified complications; E11.8 - Type 2 diabetes mellitus with unspecified complications; E11.8 - Type 2 diabetes mellitus with unspecified complications; Z79.4 - laborer marine terminal (current) use of insulin; Z79.4 - laborer marine terminal (current) use of insulin; Z79.4 - laborer marine terminal (current) use of insulin; Z79.4 - [facility] (current ) use of insulin (7) Atrial fibrillation Assessment/Plan: on low-dose carvedilol rate/rhythm controlled defer to primary team Code(s): I48.91 - UNSPECIFIED ATRIAL FIBRILLATION Qualifiers: Atrial fibrillation type: paroxysmal Qualified Code(s): I48.0 - Paroxysmal atrial fibrillation; I48.0 - Paroxysmal atrial fibrillation; I48.0 - Paroxysmal atrial fibrillation; I48.0 - Paroxysmal atrial fibrillation Assessment/Plan This patient is critically ill. Time spent in chart review, patient exam and documentation 35 minutes.
[2017-05-25] MEDS: LISINOPRIL 5 MG TABLET (FP) GT SCH (10:15)
[2017-05-25 11:21] LABS: INR 1.24 (0.82-1.09); PROTHROMBIN TIME (PATIENT) 13.7 SEC (9.98-11.88)
--- NOTE | 2017-05-25 11:58 | PN ---
Teaching Attending Note Name of Resident: Timothy Velazquez ATTENDING PHYSICIAN STATEMENT I saw and evaluated the patient. I reviewed the resident's note and discussed the case with the resident. I agree with the resident's findings and plan as documented. SUBJECTIVE: Patient seen and examined in the ICU. Awake, vented on volume assist control. Remains off phenylephrine drip. For HIDA scan to assess gallbladder pathology. OBJECTIVE: Intake & Output 05/22/17 05/23/17 05/24/17 05/25/17 23:59 23:59 23:59 23:59 Intake Total 7775 3550.8 3082 1175 Output Total 0152 363 4247 600 Balance 6375 2800.8 1282 575 Weight 177 lb 183 lb 14.4 oz 181 lb 5 oz 182 lb 8 oz Last Vital Signs Temp Pulse Resp BP Pulse Ox 98.0 F 94 H 29 H 117/78 98 05/25/17 10:00 05/25/17 10:00 05/25/17 11:52 05/25/17 10:00 05/25/17 10:45 Active Medications Albuterol/Ipratropium (Duoneb -) 1 amp NEB Q4H PRN PRN Reason: SHORTNESS OF BREATH Last Admin: 05/25/17 10:00 Dose: 1 amp Carvedilol (Coreg -) 6.25 mg PO BID [facility] Last Admin: 05/25/17 10:14 Dose: 6.25 mg Chlorhexidine Gluconate (Hibiclens For Decolonization -) 1 applic TP HS [facility] Last Admin: 05/24/17 21:30 Dose: 1 applic Heparin Sodium (Porcine) (Heparin -) 5,000 unit SQ BID [facility] Last Admin: 05/25/17 10:05 Dose: Not Given Lactobacillus Acidophilus (Bacid -) 1 tab GT BID [facility] Last Admin: 05/25/17 10:09 Dose: 1 tab Lisinopril (Prinivil) 2.5 mg GT DAILY [facility] Last Admin: 05/25/17 10:15 Dose: 2.5 mg Mupirocin (Bactroban Ointment (For Decolonization) -) 1 applic NS BID [facility] Stop: 05/28/17 21:59 Last Admin: 05/25/17 10:09 Dose: 1 applic Piperacillin Sod/Tazobactam Sod (Zosyn 3.375gm Ivpb (Pre-Docked)) 3.375 gm IVPB Q8H-IV [facility] Last Admin: 05/25/17 10:10 Dose: 3.375 gm Ranitidine HCl (Zantac -) 150 mg NR DAILY [facility] Last Admin: 05/25/17 10:09 Dose: 150 mg Fluticasone/Salmeterol (Advair 100mcg/50mcg -) 1 puff IH BID [facility] Last Admin: 05/25/17 10:05 Dose: Not Given Senna (Senna -) 2 tab PO HS [facility] Last Admin: 05/24/17 21:31 Dose: 2 tab Sertraline HCl (Zoloft -) 50 mg GT DAILY [facility] Last Admin: 05/25/17 10:09 Dose: 50 mg Ursodiol (Actigal -) 300 mg NR BID [facility] Last Admin: 05/25/17 10:08 Dose: 300 mg Gen: vented, awake Heart: RRR Lung: scattered rhonchi Abd: soft, nontender, (+) BS Ext: trace edema Laboratory Results - last 24 hr 05/25/17 05/25/17 05/25/17 05:00 05:00 05:00 WBC 6.0 RBC 2.45 L Hgb 7.5 L Hct 22.4 L MCV 91.5 MCH 30.5 MCHC 33.3 RDW 15.3 Plt Count 170 MPV 8.1 PT with INR INR Sodium 137 Potassium 4.6 Chloride 104 Carbon Dioxide 26 Anion Gap 7 L BUN 22 H Creatinine 0.8 Creat Clearance w eGFR > 60 Random Glucose 89 Calcium 8.2 L Phosphorus 3.0 Magnesium 2.2 Total Bilirubin 0.3 D AST 17 ALT 18 Alkaline Phosphatase 56 Total Protein 5.7 L Albumin 1.9 L Total Amylase 31 D Lipase 146 05/25/17 10:45 WBC RBC Hgb Hct MCV MCH MCHC RDW Plt Count MPV PT with INR 13.70 H INR 1.24 H Sodium Potassium Chloride Carbon Dioxide Anion Gap BUN Creatinine Creat Clearance w eGFR Random Glucose Calcium Phosphorus Magnesium Total Bilirubin AST ALT Alkaline Phosphatase Total Protein Albumin Total Amylase Lipase ASSESSMENT AND PLAN: Acute on Chronic Hypoxic and Hypercapneic Respiratory Failure Pneumonia Septic Shock COPD Paroxysmal Atrial Fibrillation h/o CVA HTN DM - Antibiotics per ID - HIDA scan - Continue to hold BP meds - Inhaled bronchodilators - O2 to keep SpO2 >90% - Continue volume assist control - enteral feeds - DVT prophylaxis - Vent floor Dr Biggs Critical care time spent in reviewing chart, evaluating patient and formulating plan 35 min
--- NOTE | 2017-05-25 13:04 | PN ---
Progress Note (short form) - Note Progress Note: Pt has had HIDA scan. Spoke with Dr. Byrne (IR). Gallbladder filled with tracer in less than an hour. No evidence of cystic duct obstruction. No indication for percutaneous cholecystostomy at this time. Would continue to manage biliary colic conservatively. Will see pt in am. Cee PERDOMO Problem List - Problems (1) Calculus of gallbladder with chronic cholecystitis without obstruction Code(s): K80.10 - CALCULUS OF GALLBLADDER W CHRONIC CHOLECYST W/O OBSTRUCTION (2) H/O acute cholecystitis Code(s): Z87.19 - PERSONAL HISTORY OF OTHER DISEASES OF THE DIGESTIVE SYSTEM (3) VAP (ventilator-associated pneumonia) Code(s): J95.851 - VENTILATOR ASSOCIATED PNEUMONIA (4) Chronic respiratory failure Code(s): J96.10 - CHRONIC RESPIRATORY FAILURE, UNSP W HYPOXIA OR HYPERCAPNIA Qualifiers: Respiratory failure complication: unspecified whether with hypoxia or hypercapnia Qualified Code(s): J96.10 - Chronic respiratory failure, unspecified whether with hypoxia or hypercapnia; J96.10 - Chronic respiratory failure, unspecified whether with hypoxia or hypercapnia; J96.10 - Chronic respiratory failure, unspecified whether with hypoxia or hypercapnia (5) Sepsis Code(s): A41.9 - SEPSIS, UNSPECIFIED ORGANISM Qualifiers: Sepsis type: sepsis due to unspecified organism Qualified Code(s): A41.9 - Sepsis, unspecified organism; A41.9 - Sepsis, unspecified organism; A41.9 - Sepsis, unspecified organism (6) Diabetes mellitus Code(s): E11.9 - TYPE 2 DIABETES MELLITUS WITHOUT COMPLICATIONS Qualifiers: Diabetes mellitus type: type 2 Diabetes mellitus complication status: with unspecified complications Diabetes mellitus intermodal truck driver insulin use: without intermodal truck driver use Qualified Code(s): E11.8 - Type 2 diabetes mellitus with unspecified complications; E11.8 - Type 2 diabetes mellitus with unspecified complications; E11.8 - Type 2 diabetes mellitus with unspecified complications; E11.8 - Type 2 diabetes mellitus with unspecified complications; Z79.4 - custodial (current) use of insulin; Z79.4 - custodial (current) use of insulin; Z79.4 - intermodal truck driver (current) use of insulin; Z79.4 - custodial (current ) use of insulin (7) Atrial fibrillation Code(s): I48.91 - UNSPECIFIED ATRIAL FIBRILLATION Qualifiers: Atrial fibrillation type: paroxysmal Qualified Code(s): I48.0 - Paroxysmal atrial fibrillation; I48.0 - Paroxysmal atrial fibrillation; I48.0 - Paroxysmal atrial fibrillation; I48.0 - Paroxysmal atrial fibrillation
--- NOTE | 2017-05-25 14:24 | PN ---
Progress Note, Physician History of Present Illness: patient doing well no issues all reports seen all imaging seen off of pressors - Current Medication List Current Medications: Active Medications Albuterol/Ipratropium (Duoneb -) 1 amp NEB Q4H PRN PRN Reason: SHORTNESS OF BREATH Last Admin: 05/25/17 10:00 Dose: 1 amp Carvedilol (Coreg -) 6.25 mg PO BID [facility] Last Admin: 05/25/17 10:14 Dose: 6.25 mg Chlorhexidine Gluconate (Hibiclens For Decolonization -) 1 applic TP HS [facility] Last Admin: 05/24/17 21:30 Dose: 1 applic Heparin Sodium (Porcine) (Heparin -) 5,000 unit SQ BID [facility] Last Admin: 05/25/17 10:05 Dose: Not Given Lactobacillus Acidophilus (Bacid -) 1 tab GT BID [facility] Last Admin: 05/25/17 10:09 Dose: 1 tab Lisinopril (Prinivil) 2.5 mg GT DAILY [facility] Last Admin: 05/25/17 10:15 Dose: 2.5 mg Mupirocin (Bactroban Ointment (For Decolonization) -) 1 applic NS BID [facility] Stop: 05/28/17 21:59 Last Admin: 05/25/17 10:09 Dose: 1 applic Piperacillin Sod/Tazobactam Sod (Zosyn 3.375gm Ivpb (Pre-Docked)) 3.375 gm IVPB Q8H-IV [facility] Last Admin: 05/25/17 10:10 Dose: 3.375 gm Ranitidine HCl (Zantac -) 150 mg NR DAILY [facility] Last Admin: 05/25/17 10:09 Dose: 150 mg Fluticasone/Salmeterol (Advair 100mcg/50mcg -) 1 puff IH BID [facility] Last Admin: 05/25/17 10:05 Dose: Not Given Senna (Senna -) 2 tab PO HS [facility] Last Admin: 05/24/17 21:31 Dose: 2 tab Sertraline HCl (Zoloft -) 50 mg GT DAILY [facility] Last Admin: 05/25/17 10:09 Dose: 50 mg Ursodiol (Actigal -) 300 mg NR BID [facility] Last Admin: 05/25/17 10:08 Dose: 300 mg - Objective Vital Signs: Vital Signs Temperature 98.0 F 05/25/17 10:00 Pulse Rate 94 H 05/25/17 10:00 Respiratory Rate 26 H 05/25/17 14:04 Blood Pressure 117/78 05/25/17 10:00 O2 Sat by Pulse Oximetry (%) 98 05/25/17 10:45 Constitutional: Yes: No Distress, Calm Cardiovascular: Yes: Regular Rate and Rhythm Respiratory: Yes: Regular, Poor Air Entry, Rhonchi Gastrointestinal: Yes: Normal Bowel Sounds, Soft Musculoskeletal: Yes: WNL Extremities: Yes: WNL Neurological: Yes: Alert, Oriented Psychiatric: Yes: Alert Labs: CBC, BMP 05/25/17 05:00 05/25/17 05:00 INR, PTT INR 1.24 (0.82-1.09) H 05/25/17 10:45 Assessment/Plan Problem List - Problems (1) Sepsis Code(s): A41.9 - SEPSIS, UNSPECIFIED ORGANISM (2) Septic shock Code(s): A41.9 - SEPSIS, UNSPECIFIED ORGANISM R65.21 - SEVERE SEPSIS WITH SEPTIC SHOCK (3) VAP (ventilator-associated pneumonia) Code(s): J95.851 - VENTILATOR ASSOCIATED PNEUMONIA (4) Chronic respiratory failure Code(s): J96.10 - CHRONIC RESPIRATORY FAILURE, UNSP W HYPOXIA OR HYPERCAPNIA (5) Diabetes mellitus Code(s): E11.9 - TYPE 2 DIABETES MELLITUS WITHOUT COMPLICATIONS 6 pneumonia plan contineu zosyn sputum cx noted hydration cc time 40 min
[2017-05-25] MEDS: DEXTROSE 5%-0.45% SALINE 1,000 ML IV SCH (15:45)
--- NOTE | 2017-05-25 17:54 | PN ---
Progress Note, Physician History of Present Illness: comfortable - Current Medication List Current Medications: Active Medications Albuterol/Ipratropium (Duoneb -) 1 amp NEB Q4H PRN PRN Reason: SHORTNESS OF BREATH Last Admin: 05/25/17 10:00 Dose: 1 amp Carvedilol (Coreg -) 6.25 mg PO BID [facility] Last Admin: 05/25/17 10:14 Dose: 6.25 mg Chlorhexidine Gluconate (Hibiclens For Decolonization -) 1 applic TP HS [facility] Last Admin: 05/24/17 21:30 Dose: 1 applic Heparin Sodium (Porcine) (Heparin -) 5,000 unit SQ BID [facility] Last Admin: 05/25/17 10:05 Dose: Not Given Dextrose/Sodium Chloride (D5-1/2ns -) 1,000 mls @ 75 mls/hr IV ASDIR [facility] Last Admin: 05/25/17 15:45 Dose: 75 mls/hr Lactobacillus Acidophilus (Bacid -) 1 tab GT BID [facility] Last Admin: 05/25/17 10:09 Dose: 1 tab Lisinopril (Prinivil) 2.5 mg GT DAILY [facility] Last Admin: 05/25/17 10:15 Dose: 2.5 mg Mupirocin (Bactroban Ointment (For Decolonization) -) 1 applic NS BID [facility] Stop: 05/28/17 21:59 Last Admin: 05/25/17 10:09 Dose: 1 applic Piperacillin Sod/Tazobactam Sod (Zosyn 3.375gm Ivpb (Pre-Docked)) 3.375 gm IVPB Q8H-IV [facility] Last Admin: 05/25/17 10:10 Dose: 3.375 gm Ranitidine HCl (Zantac -) 150 mg NR DAILY [facility] Last Admin: 05/25/17 10:09 Dose: 150 mg Fluticasone/Salmeterol (Advair 100mcg/50mcg -) 1 puff IH BID [facility] Last Admin: 05/25/17 10:05 Dose: Not Given Senna (Senna -) 2 tab PO HS [facility] Last Admin: 05/24/17 21:31 Dose: 2 tab Sertraline HCl (Zoloft -) 50 mg GT DAILY [facility] Last Admin: 05/25/17 10:09 Dose: 50 mg Ursodiol (Actigal -) 300 mg NR BID [facility] Last Admin: 05/25/17 10:08 Dose: 300 mg - Objective Vital Signs: Vital Signs Temperature 97.9 F 05/25/17 16:00 Pulse Rate 72 05/25/17 16:00 Respiratory Rate 20 05/25/17 17:13 Blood Pressure 91/50 05/25/17 16:00 O2 Sat by Pulse Oximetry (%) 98 05/25/17 10:45 Constitutional: Yes: No Distress HENT: Yes: Atraumatic Neck: Yes: Other (trach collar) Cardiovascular: Yes: Regular Rate and Rhythm Respiratory: Yes: Rhonchi Gastrointestinal: Yes: Normal Bowel Sounds Neurological: Yes: Alert, Oriented Labs: CBC, BMP 05/25/17 05:00 05/25/17 05:00 INR, PTT INR 1.24 (0.82-1.09) H 05/25/17 10:45 Problem List - Problems (1) Sepsis Assessment/Plan: iv abx cxs noted id consult Code(s): A41.9 - SEPSIS, UNSPECIFIED ORGANISM Qualifiers: Sepsis type: sepsis due to unspecified organism Qualified Code(s): A41.9 - Sepsis, unspecified organism; A41.9 - Sepsis, unspecified organism; A41.9 - Sepsis, unspecified organism (2) Septic shock Assessment/Plan: ivf iv abx clinically better off of pressors bp still low will monitor if stable then can be transfered out Code(s): A41.9 - SEPSIS, UNSPECIFIED ORGANISM R65.21 - SEVERE SEPSIS WITH SEPTIC SHOCK (3) VAP (ventilator-associated pneumonia) Code(s): J95.851 - VENTILATOR ASSOCIATED PNEUMONIA (4) Atrial fibrillation Assessment/Plan: on meds stabel Code(s): I48.91 - UNSPECIFIED ATRIAL FIBRILLATION Qualifiers: Atrial fibrillation type: paroxysmal Qualified Code(s): I48.0 - Paroxysmal atrial fibrillation; I48.0 - Paroxysmal atrial fibrillation; I48.0 - Paroxysmal atrial fibrillation; I48.0 - Paroxysmal atrial fibrillation (5) Chronic respiratory failure Code(s): J96.10 - CHRONIC RESPIRATORY FAILURE, UNSP W HYPOXIA OR HYPERCAPNIA Qualifiers: Respiratory failure complication: unspecified whether with hypoxia or hypercapnia Qualified Code(s): J96.10 - Chronic respiratory failure, unspecified whether with hypoxia or hypercapnia; J96.10 - Chronic respiratory failure, unspecified whether with hypoxia or hypercapnia; J96.10 - Chronic respiratory failure, unspecified whether with hypoxia or hypercapnia (6) Diabetes mellitus Code(s): E11.9 - TYPE 2 DIABETES MELLITUS WITHOUT COMPLICATIONS Qualifiers: Diabetes mellitus type: type 2 Diabetes mellitus complication status: with unspecified complications Diabetes mellitus regional intermodal truck driver insulin use: without care home use Qualified Code(s): E11.8 - Type 2 diabetes mellitus with unspecified complications; E11.8 - Type 2 diabetes mellitus with unspecified complications; E11.8 - Type 2 diabetes mellitus with unspecified complications; E11.8 - Type 2 diabetes mellitus with unspecified complications; Z79.4 - termite inspector (current) use of insulin; Z79.4 - termite inspector (current) use of insulin; Z79.4 - termite inspector (current) use of insulin; Z79.4 - termite inspector (current ) use of insulin (7) Sepsis - Septicemia Code(s): A41.9 - SEPSIS, UNSPECIFIED ORGANISM (8) Shock Code(s): R57.9 - SHOCK, UNSPECIFIED Assessment/Plan pt is hypotensive not ready to be transfered to floor need ivf/pressors/monitoring
[2017-05-25] MEDS: CHLORHEXIDINE GLUCONATE 4% CLEANSER FOR DECOLONIZATION TP SCH (21:28)
[2017-05-25] MEDS: SENNOSIDES 8.6MG TABLET (FP) PO SCH (21:28)
[2017-05-26] MEDS: PIPERACILLIN/TAZOB 3.375 GM/50 ML PRE-DOCKED IVPB SCH ×3 (01:25→17:02)
[2017-05-26 06:09] LABS: MCH 31.1 pg (25.7-33.7); MEAN CELL VOLUME 91.5 fl (80-96); MEAN PLT VOLUME 7.8 fl (7.5-11.1); PLATELET COUNT 191 K/MM3 (134-434); RDW 15.6 % (11.9-15.9); WHITE BLOOD COUNT 7.1 K/mm3 (4.0-10.0)
[2017-05-26 06:33] LABS: ALBUMIN 2.1 g/dl (3.4-5.0); ANION GAP 10 (8-16); BILIRUBIN,TOTAL 0.3 mg/dL (0.2-1.0); CALCIUM 7.8 mg/dL (8.5-10.1); CO2 24 mmol/L (21-32); CREATININE 0.8 mg/dL (0.7-1.3); GLUCOSE,RANDOM 141 mg/dL (74-106); MAGNESIUM 2.1 mg/dL (1.8-2.4); PHOSPHOROUS 3.4 mg/dL (2.5-4.9); SGOT/AST 15 U/L (15-37); SGPT/ALT 18 U/L (12-78); TOT PROT 5.9 g/dl (6.4-8.2)
[2017-05-26 06:34] LABS: ALK PHOS 65 U/L (45-117)
[2017-05-26] MEDS ORDERED: PT OWN MED DRAWER 7, Y5N ONE (08:28)
[2017-05-26] MEDS: LACTOBACILLUS ACIDOPHILUS 1 EACH TAB (FP) GT SCH ×2 (09:04→21:52)
[2017-05-26] MEDS: LISINOPRIL 5 MG TABLET (FP) GT SCH (09:04)
[2017-05-26] MEDS: CARVEDILOL 6.25 MG TABLET (FP) PO SCH ×2 (09:04→21:52)
[2017-05-26] MEDS: URSODIOL 300 MG CAPSULE NR SCH ×2 (09:04→21:52)
[2017-05-26] MEDS: RANITIDINE HCL 150 MG TABLET (FP) NR SCH (09:04)
[2017-05-26] MEDS: FLUTICASONE/SALMETEROL 100 MCG/50 MCG DISKUS IH SCH ×2 (09:05→21:52)
[2017-05-26] MEDS: MUPIROCIN 2% TOPICAL OINTMENT FOR DECOLONIZATION NS SCH ×2 (09:05→21:52)
[2017-05-26] MEDS: HEPARIN NA (PORCINE) 5,000 UNITS/ML 1ML VIAL SQ SCH ×2 (09:05→21:52)
[2017-05-26] MEDS: SERTRALINE HCL 50 MG TABLET (FP) GT SCH (09:06)
--- NOTE | 2017-05-26 12:57 | PN ---
Progress Note (short form) - Note Progress Note: PULM / CCM Pt Seen & Examined in the ICU. Pt relaxed & Comfortable on Assist Control. NAD. Off ALL Pressors. Ready For Transfer --> Vent Floor. Active Medications Albuterol/Ipratropium (Duoneb -) 1 amp NEB Q4H PRN PRN Reason: SHORTNESS OF BREATH Last Admin: 05/25/17 10:00 Dose: 1 amp Carvedilol (Coreg -) 6.25 mg PO BID [facility] Last Admin: 05/26/17 09:04 Dose: 6.25 mg Chlorhexidine Gluconate (Hibiclens For Decolonization -) 1 applic TP HS [facility] Last Admin: 05/25/17 21:28 Dose: 1 applic Heparin Sodium (Porcine) (Heparin -) 5,000 unit SQ BID [facility] Last Admin: 05/26/17 09:05 Dose: 5,000 unit Dextrose/Sodium Chloride (D5-1/2ns -) 1,000 mls @ 75 mls/hr IV ASDIR [facility] Last Admin: 05/25/17 15:45 Dose: 75 mls/hr Lactobacillus Acidophilus (Bacid -) 1 tab GT BID [facility] Last Admin: 05/26/17 09:04 Dose: 1 tab Lisinopril (Prinivil) 2.5 mg GT DAILY [facility] Last Admin: 05/26/17 09:04 Dose: 2.5 mg Mupirocin (Bactroban Ointment (For Decolonization) -) 1 applic NS BID [facility] Stop: 05/28/17 21:59 Last Admin: 05/26/17 09:05 Dose: 1 applic Piperacillin Sod/Tazobactam Sod (Zosyn 3.375gm Ivpb (Pre-Docked)) 3.375 gm IVPB Q8H-IV [facility] Last Admin: 05/26/17 09:04 Dose: 3.375 gm Ranitidine HCl (Zantac -) 150 mg NR DAILY [facility] Last Admin: 05/26/17 09:04 Dose: 150 mg Fluticasone/Salmeterol (Advair 100mcg/50mcg -) 1 puff IH BID [facility] Last Admin: 05/26/17 09:05 Dose: Not Given Senna (Senna -) 2 tab PO HS [facility] Last Admin: 05/25/17 21:28 Dose: 2 tab Sertraline HCl (Zoloft -) 50 mg GT DAILY [facility] Last Admin: 05/26/17 09:06 Dose: 50 mg Ursodiol (Actigal -) 300 mg NR BID [facility] Last Admin: 05/26/17 09:04 Dose: 300 mg PE: V/S Period Temp Pulse Resp BP Sys/Mayorga Pulse Ox Last 24 Hr 97.9 F-98.9 F 59-72 16-26 88-109/48-68 98-100 I's & O's 05/25/17 05/26/17 05/26/17 23:59 11:59 23:59 Intake Total 1017 2176 Output Total 500 1000 Balance 517 2176 -1000 Weight 83.053 kg Intake: IV 525 900 D5-Ns - 1,000 ml @ 75 mls 375 /hr IV ASDIR [facility] Rx#: [id number] D5-1/2Ns - 1,000 ml @ 75 150 900 mls/hr IV ASDIR [facility] Rx#: [id number] IVPB 100 100 Tube Feeding 252 756 Tube Irrigant 140 420 Output: Urine 500 1000 Castaneda 500 1000 Other: Voiding Method Indwelling Catheter Indwelling Catheter Bowel Movement Yes Yes # Bowel Movements 1 1 Weight Measurement Method Built in [facility] CBC, BMP 05/26/17 05:45 05/26/17 05:45 RECENT IMAGING TO NOTE: CXR 05/25: Trach, Elevated R hemidiaphragm, VAP R > L (My read) HIDA 05/25: NEGATIVE MICRO 05/21/17 15:05 Blood - Peripheral Venous Blood Culture - Preliminary NO GROWTH OBTAINED AFTER 96 HOURS, INCUBATION TO CONTINUE FOR 1 DAYS. 05/21/17 20:30 Sputum - Endotrachea Suction/Ventilator Gram Stain - Final 05/21/17 20:30 Sputum - Endotrachea Suction/Ventilator Sputum Culture - Final Providencia Stuartii 05/21/17 15:05 Blood - Peripheral Venous Blood Culture - Final Staphylococcus Epidermidis 05/21/17 15:50 Urine - Urine Clean Catch Urine Culture - Final NO GROWTH OBTAINED ASSESS: VDRF Recurrent Pna Resolving Septic Shock COPD A-Fib h/o CVA HTN DM PLAN: - Cont Vent Support - NEBs - Cont Zo a/p ID for sputum growing Providencia Stuartii - Cont TFs - DVT prophylaxis - Immediate D/c OUT of the ICU --> Vent floor [facility] ICU PULM / [facility] 1025 Critical Care Total Critical Care Time (in minutes): 38 Critical Care Statement: The care of this patient involved high complexity decision making to prevent further life threatening deterioration of the patient 's condition and/or to evaluate & treat vital organ system(s) failure or risk of failure.
--- NOTE | 2017-05-26 14:15 | PN ---
Progress Note, Physician History of Present Illness: patient doing well no issues patient feels much better - Current Medication List Current Medications: Active Medications Albuterol/Ipratropium (Duoneb -) 1 amp NEB Q4H PRN PRN Reason: SHORTNESS OF BREATH Last Admin: 05/25/17 10:00 Dose: 1 amp Carvedilol (Coreg -) 6.25 mg PO BID [facility] Last Admin: 05/26/17 09:04 Dose: 6.25 mg Chlorhexidine Gluconate (Hibiclens For Decolonization -) 1 applic TP HS [facility] Last Admin: 05/25/17 21:28 Dose: 1 applic Heparin Sodium (Porcine) (Heparin -) 5,000 unit SQ BID [facility] Last Admin: 05/26/17 09:05 Dose: 5,000 unit Dextrose/Sodium Chloride (D5-1/2ns -) 1,000 mls @ 75 mls/hr IV ASDIR [facility] Last Admin: 05/25/17 15:45 Dose: 75 mls/hr Lactobacillus Acidophilus (Bacid -) 1 tab GT BID [facility] Last Admin: 05/26/17 09:04 Dose: 1 tab Lisinopril (Prinivil) 2.5 mg GT DAILY [facility] Last Admin: 05/26/17 09:04 Dose: 2.5 mg Mupirocin (Bactroban Ointment (For Decolonization) -) 1 applic NS BID [facility] Stop: 05/28/17 21:59 Last Admin: 05/26/17 09:05 Dose: 1 applic Piperacillin Sod/Tazobactam Sod (Zosyn 3.375gm Ivpb (Pre-Docked)) 3.375 gm IVPB Q8H-IV [facility] Last Admin: 05/26/17 09:04 Dose: 3.375 gm Ranitidine HCl (Zantac -) 150 mg NR DAILY [facility] Last Admin: 05/26/17 09:04 Dose: 150 mg Fluticasone/Salmeterol (Advair 100mcg/50mcg -) 1 puff IH BID [facility] Last Admin: 05/26/17 09:05 Dose: Not Given Senna (Senna -) 2 tab PO HS [facility] Last Admin: 05/25/17 21:28 Dose: 2 tab Sertraline HCl (Zoloft -) 50 mg GT DAILY [facility] Last Admin: 05/26/17 09:06 Dose: 50 mg Ursodiol (Actigal -) 300 mg NR BID [facility] Last Admin: 05/26/17 09:04 Dose: 300 mg - Objective Vital Signs: Vital Signs Temperature 98.2 F 05/26/17 12:00 Pulse Rate 66 05/26/17 12:00 Respiratory Rate 20 05/26/17 12:26 Blood Pressure 88/50 05/26/17 12:00 O2 Sat by Pulse Oximetry (%) 100 05/26/17 10:00 Constitutional: Yes: No Distress, Calm Cardiovascular: Yes: Regular Rate and Rhythm Respiratory: Yes: Mechanically Ventilated, Other (trach in place) Gastrointestinal: Yes: Normal Bowel Sounds, Soft Musculoskeletal: Yes: WNL Extremities: Yes: WNL Neurological: Yes: Alert, Oriented Labs: CBC, BMP 05/26/17 05:45 05/26/17 05:45 INR, PTT INR 1.24 (0.82-1.09) H 05/25/17 10:45 Assessment/Plan Problem List - Problems (1) Sepsis Code(s): A41.9 - SEPSIS, UNSPECIFIED ORGANISM (2) Septic shock Code(s): A41.9 - SEPSIS, UNSPECIFIED ORGANISM R65.21 - SEVERE SEPSIS WITH SEPTIC SHOCK (3) VAP (ventilator-associated pneumonia) Code(s): J95.851 - VENTILATOR ASSOCIATED PNEUMONIA (4) Chronic respiratory failure Code(s): J96.10 - CHRONIC RESPIRATORY FAILURE, UNSP W HYPOXIA OR HYPERCAPNIA (5) Diabetes mellitus Code(s): E11.9 - TYPE 2 DIABETES MELLITUS WITHOUT COMPLICATIONS 6 pneumonia plan contineu zosyn sputum cx noted hydration suctioning rest as per icu cc time 40 min
[2017-05-26] MEDS: DEXTROSE 5%-0.45% SALINE 1,000 ML IV SCH (15:45)
--- NOTE | 2017-05-26 17:12 | PN ---
Progress Note, Physician History of Present Illness: comfortable - Current Medication List Current Medications: Active Medications Albuterol/Ipratropium (Duoneb -) 1 amp NEB Q4H PRN PRN Reason: SHORTNESS OF BREATH Last Admin: 05/25/17 10:00 Dose: 1 amp Carvedilol (Coreg -) 6.25 mg PO BID [facility] Last Admin: 05/26/17 09:04 Dose: 6.25 mg Chlorhexidine Gluconate (Hibiclens For Decolonization -) 1 applic TP HS [facility] Last Admin: 05/25/17 21:28 Dose: 1 applic Heparin Sodium (Porcine) (Heparin -) 5,000 unit SQ BID [facility] Last Admin: 05/26/17 09:05 Dose: 5,000 unit Dextrose/Sodium Chloride (D5-1/2ns -) 1,000 mls @ 75 mls/hr IV ASDIR [facility] Last Admin: 05/26/17 15:45 Dose: 75 mls/hr Lactobacillus Acidophilus (Bacid -) 1 tab GT BID [facility] Last Admin: 05/26/17 09:04 Dose: 1 tab Lisinopril (Prinivil) 2.5 mg GT DAILY [facility] Last Admin: 05/26/17 09:04 Dose: 2.5 mg Mupirocin (Bactroban Ointment (For Decolonization) -) 1 applic NS BID [facility] Stop: 05/28/17 21:59 Last Admin: 05/26/17 09:05 Dose: 1 applic Piperacillin Sod/Tazobactam Sod (Zosyn 3.375gm Ivpb (Pre-Docked)) 3.375 gm IVPB Q8H-IV [facility] Last Admin: 05/26/17 17:02 Dose: 3.375 gm Ranitidine HCl (Zantac -) 150 mg NR DAILY [facility] Last Admin: 05/26/17 09:04 Dose: 150 mg Fluticasone/Salmeterol (Advair 100mcg/50mcg -) 1 puff IH BID [facility] Last Admin: 05/26/17 09:05 Dose: Not Given Senna (Senna -) 2 tab PO HS [facility] Last Admin: 05/25/17 21:28 Dose: 2 tab Sertraline HCl (Zoloft -) 50 mg GT DAILY [facility] Last Admin: 05/26/17 09:06 Dose: 50 mg Ursodiol (Actigal -) 300 mg NR BID [facility] Last Admin: 05/26/17 09:04 Dose: 300 mg - Objective Vital Signs: Vital Signs Temperature 97.8 F 05/26/17 16:00 Pulse Rate 63 05/26/17 16:00 Respiratory Rate 24 05/26/17 16:48 Blood Pressure 97/50 05/26/17 16:00 O2 Sat by Pulse Oximetry (%) 100 05/26/17 10:00 Constitutional: Yes: Calm HENT: Yes: Atraumatic Neck: Yes: Other (trach collar) Cardiovascular: Yes: Regular Rate and Rhythm Respiratory: Yes: Rhonchi Gastrointestinal: Yes: Normal Bowel Sounds Edema: LLE: Trace, RLE: Trace Neurological: Yes: Alert Labs: CBC, BMP 05/26/17 05:45 05/26/17 05:45 INR, PTT INR 1.24 (0.82-1.09) H 05/25/17 10:45 Problem List - Problems (1) Sepsis Assessment/Plan: iv abx ivf ...will hold and monitor bp Code(s): A41.9 - SEPSIS, UNSPECIFIED ORGANISM Qualifiers: Sepsis type: sepsis due to unspecified organism Qualified Code(s): A41.9 - Sepsis, unspecified organism; A41.9 - Sepsis, unspecified organism; A41.9 - Sepsis, unspecified organism (2) Septic shock Assessment/Plan: ivf iv abx clinically better need jonathan Code(s): A41.9 - SEPSIS, UNSPECIFIED ORGANISM R65.21 - SEVERE SEPSIS WITH SEPTIC SHOCK (3) VAP (ventilator-associated pneumonia) Code(s): J95.851 - VENTILATOR ASSOCIATED PNEUMONIA (4) Atrial fibrillation Assessment/Plan: on meds stabel Code(s): I48.91 - UNSPECIFIED ATRIAL FIBRILLATION Qualifiers: Atrial fibrillation type: paroxysmal Qualified Code(s): I48.0 - Paroxysmal atrial fibrillation; I48.0 - Paroxysmal atrial fibrillation; I48.0 - Paroxysmal atrial fibrillation; I48.0 - Paroxysmal atrial fibrillation (5) Chronic respiratory failure Assessment/Plan: on trach /vent Code(s): J96.10 - CHRONIC RESPIRATORY FAILURE, UNSP W HYPOXIA OR HYPERCAPNIA Qualifiers: Respiratory failure complication: unspecified whether with hypoxia or hypercapnia Qualified Code(s): J96.10 - Chronic respiratory failure, unspecified whether with hypoxia or hypercapnia; J96.10 - Chronic respiratory failure, unspecified whether with hypoxia or hypercapnia; J96.10 - Chronic respiratory failure, unspecified whether with hypoxia or hypercapnia (6) Diabetes mellitus Assessment/Plan: monitor Code(s): E11.9 - TYPE 2 DIABETES MELLITUS WITHOUT COMPLICATIONS Qualifiers: Diabetes mellitus type: type 2 Diabetes mellitus complication status: with unspecified complications Diabetes mellitus moth exterminator insulin use: without moth exterminator use Qualified Code(s): E11.8 - Type 2 diabetes mellitus with unspecified complications; E11.8 - Type 2 diabetes mellitus with unspecified complications; E11.8 - Type 2 diabetes mellitus with unspecified complications; E11.8 - Type 2 diabetes mellitus with unspecified complications; Z79.4 - care home (current) use of insulin; Z79.4 - moth exterminator (current) use of insulin; Z79.4 - moth exterminator (current) use of insulin; Z79.4 - moth exterminator (current ) use of insulin (7) Sepsis - Septicemia Assessment/Plan: iv abx Code(s): A41.9 - SEPSIS, UNSPECIFIED ORGANISM (8) Shock Code(s): R57.9 - SHOCK, UNSPECIFIED Assessment/Plan cc time 30 min
--- NOTE | 2017-05-26 18:08 | PN ---
Progress Note, Physician Chief Complaint: RUQ pain History of Present Illness: No overnight events. Pt denies abdominal pain today. Tolerating TF. BP has been low at times when IVF d/c'd. Awake and alert, in good spirits. - Current Medication List Current Medications: Active Medications Albuterol/Ipratropium (Duoneb -) 1 amp NEB Q4H PRN PRN Reason: SHORTNESS OF BREATH Last Admin: 05/25/17 10:00 Dose: 1 amp Carvedilol (Coreg -) 6.25 mg PO BID [facility] Last Admin: 05/26/17 09:04 Dose: 6.25 mg Chlorhexidine Gluconate (Hibiclens For Decolonization -) 1 applic TP HS [facility] Last Admin: 05/25/17 21:28 Dose: 1 applic Heparin Sodium (Porcine) (Heparin -) 5,000 unit SQ BID [facility] Last Admin: 05/26/17 09:05 Dose: 5,000 unit Dextrose/Sodium Chloride (D5-1/2ns -) 1,000 mls @ 75 mls/hr IV ASDIR [facility] Last Admin: 05/26/17 15:45 Dose: 75 mls/hr Lactobacillus Acidophilus (Bacid -) 1 tab GT BID [facility] Last Admin: 05/26/17 09:04 Dose: 1 tab Lisinopril (Prinivil) 2.5 mg GT DAILY [facility] Last Admin: 05/26/17 09:04 Dose: 2.5 mg Mupirocin (Bactroban Ointment (For Decolonization) -) 1 applic NS BID [facility] Stop: 05/28/17 21:59 Last Admin: 05/26/17 09:05 Dose: 1 applic Piperacillin Sod/Tazobactam Sod (Zosyn 3.375gm Ivpb (Pre-Docked)) 3.375 gm IVPB Q8H-IV [facility] Last Admin: 05/26/17 17:02 Dose: 3.375 gm Ranitidine HCl (Zantac -) 150 mg NR DAILY [facility] Last Admin: 05/26/17 09:04 Dose: 150 mg Fluticasone/Salmeterol (Advair 100mcg/50mcg -) 1 puff IH BID [facility] Last Admin: 05/26/17 09:05 Dose: Not Given Senna (Senna -) 2 tab PO HS [facility] Last Admin: 05/25/17 21:28 Dose: 2 tab Sertraline HCl (Zoloft -) 50 mg GT DAILY [facility] Last Admin: 05/26/17 09:06 Dose: 50 mg Ursodiol (Actigal -) 300 mg NR BID [facility] Last Admin: 05/26/17 09:04 Dose: 300 mg - Objective Vital Signs: Vital Signs Temperature 97.9 F 05/26/17 18:00 Pulse Rate 63 05/26/17 18:00 Respiratory Rate 24 05/26/17 18:00 Blood Pressure 100/54 05/26/17 18:00 O2 Sat by Pulse Oximetry (%) 100 05/26/17 10:00 Vital Signs Period Temp Pulse Resp BP Sys/Mayorga Pulse Ox Last 24 Hr 97.8 F-98.9 F 59-68 18-24 88-123/48-69 98-100 Intake & Output 05/26/17 05/26/17 05/26/17 07:59 15:59 23:59 Intake Total 2126 50 2126 Output Total 1400 Balance 2126 -1350 2126 Weight 183 lb 1.6 oz Intake: IV 900 900 D5-1/2Ns - 1,000 ml @ 75 900 900 mls/hr IV ASDIR [facility] Rx#: [id number] IVPB 50 50 50 Oral 0 Tube Feeding 756 756 Tube Irrigant 420 420 Output: Urine 1400 Castaneda 1400 Other: Voiding Method Indwelling Catheter Bowel Movement Yes # Bowel Movements 1 Weight Measurement Method Built in [facility] Constitutional: Yes: Well Nourished, No Distress, Calm Eyes: Yes: Conjunctiva Clear, EOM Intact. No: Sclera Icterus Cardiovascular: Yes: Regular Rate and Rhythm, Murmur (none appreciated, difficult to hear over respirations) Respiratory: Yes: Regular, Diminished (R base), Mechanically Ventilated (via trach), Rhonchi (R base mainly, L base clearer) Gastrointestinal: Yes: Normal Bowel Sounds, Soft, Abdomen, Obese, Tenderness ( RUQ without guarding or rebound, less RLQ and LUQ/epigastric, none in LLQ), Other (PEG in place) Genitourinary: Yes: Castaneda Present. No: Hematuria Musculoskeletal: Yes: Other (bilateral foot drop). No: Joint Swelling Integumentary: No: Jaundice, Rash Neurological: Yes: Alert, Oriented Psychiatric: Yes: Alert, Oriented Labs: CBC, BMP 05/26/17 05:45 05/26/17 05:45 INR, PTT INR 1.24 (0.82-1.09) H 05/25/17 10:45 CMP Sodium 135 mmol/L (136-145) L 05/26/17 05:45 Potassium 4.6 mmol/L (3.5-5.1) 05/26/17 05:45 Chloride 101 mmol/L (98-107) 05/26/17 05:45 Carbon Dioxide 24 mmol/L (21-32) 05/26/17 05:45 Anion Gap 10 (8-16) 05/26/17 05:45 BUN 20 mg/dL (7-18) H 05/26/17 05:45 Creatinine 0.8 mg/dL (0.7-1.3) 05/26/17 05:45 Creat Clearance w eGFR > 60 (>60) 05/26/17 05:45 Random Glucose 141 mg/dL (74-106) H D 05/26/17 05:45 Lactic Acid 1.0 mmol/L (0.4-2.0) 05/22/17 16:40 Calcium 7.8 mg/dL (8.5-10.1) L 05/26/17 05:45 Phosphorus 3.4 mg/dL (2.5-4.9) 05/26/17 05:45 Magnesium 2.1 mg/dL (1.8-2.4) 05/26/17 05:45 Total Bilirubin 0.3 mg/dL (0.2-1.0) 05/26/17 05:45 AST 15 U/L (15-37) 05/26/17 05:45 ALT 18 U/L (12-78) 05/26/17 05:45 Alkaline Phosphatase 65 U/L (45-117) 05/26/17 05:45 Creatine Kinase 29 IU/L (39-308) L 05/21/17 16:50 Troponin I 0.04 ng/ml (0.00-0.05) D 05/21/17 16:50 Total Protein 5.9 g/dl (6.4-8.2) L 05/26/17 05:45 Albumin 2.1 g/dl (3.4-5.0) L 05/26/17 05:45 Total Amylase 31 U/L (25-115) D 05/25/17 05:00 Lipase 146 U/L (73-393) 05/25/17 05:00 - ....Imaging Other: Report Reviewed (HIDA from yesterday) Problem List - Problems (1) Calculus of gallbladder with chronic cholecystitis without obstruction Assessment/Plan: US suggestive of cholelithiasis with chronic cholecystitis, not acute HIDA with prompt visualization of gallbladder and small intestine Percutaneous drainage not indicated Poor surgical candidate secondary to comorbidities and goals of care (primarily maintaining comfort and current quality of life per son, DNR) Pt feeling better today; no c/o abdominal pain, though still with some tenderness Continue conservative management No surgical intervention at this time Will sign off - please call for any questions Code(s): K80.10 - CALCULUS OF GALLBLADDER W CHRONIC CHOLECYST W/O OBSTRUCTION (2) H/O acute cholecystitis Assessment/Plan: with history of percutaneous cholecystostomy 08/02, removed 2-3 months later Code(s): Z87.19 - PERSONAL HISTORY OF OTHER DISEASES OF THE DIGESTIVE SYSTEM (3) VAP (ventilator-associated pneumonia) Assessment/Plan: culture growing Providencia stuartii on antibiotics per ID chronically vent/trach dependent improving off pressor, wbc normalized, low-grade temps only Code(s): J95.851 - VENTILATOR ASSOCIATED PNEUMONIA (4) Chronic respiratory failure Assessment/Plan: on vent via trach defer to primary team Code(s): J96.10 - CHRONIC RESPIRATORY FAILURE, UNSP W HYPOXIA OR HYPERCAPNIA Qualifiers: Respiratory failure complication: unspecified whether with hypoxia or hypercapnia Qualified Code(s): J96.10 - Chronic respiratory failure, unspecified whether with hypoxia or hypercapnia; J96.10 - Chronic respiratory failure, unspecified whether with hypoxia or hypercapnia; J96.10 - Chronic respiratory failure, unspecified whether with hypoxia or hypercapnia (5) Sepsis Assessment/Plan: blood cultures grew Staph epi on abx per ID wbc normal, off pressor - improved VA pneumonia secondary to P. stuartii Code(s): A41.9 - SEPSIS, UNSPECIFIED ORGANISM Qualifiers: Sepsis type: sepsis due to unspecified organism Qualified Code(s): A41.9 - Sepsis, unspecified organism; A41.9 - Sepsis, unspecified organism; A41.9 - Sepsis, unspecified organism (6) Diabetes mellitus Assessment/Plan: FS with treatment prn defer to primary team Code(s): E11.9 - TYPE 2 DIABETES MELLITUS WITHOUT COMPLICATIONS Qualifiers: Diabetes mellitus type: type 2 Diabetes mellitus complication status: with unspecified complications Diabetes mellitus terminal block assembler insulin use: without jail use Qualified Code(s): E11.8 - Type 2 diabetes mellitus with unspecified complications; E11.8 - Type 2 diabetes mellitus with unspecified complications; E11.8 - Type 2 diabetes mellitus with unspecified complications; E11.8 - Type 2 diabetes mellitus with unspecified complications; Z79.4 - long term care phlebotomist (current) use of insulin; Z79.4 - long term care phlebotomist (current) use of insulin; Z79.4 - long term care phlebotomist (current) use of insulin; Z79.4 - retirement (current ) use of insulin (7) Atrial fibrillation Assessment/Plan: on low-dose carvedilol rate/rhythm controlled defer to primary team Code(s): I48.91 - UNSPECIFIED ATRIAL FIBRILLATION Qualifiers: Atrial fibrillation type: paroxysmal Qualified Code(s): I48.0 - Paroxysmal atrial fibrillation; I48.0 - Paroxysmal atrial fibrillation; I48.0 - Paroxysmal atrial fibrillation; I48.0 - Paroxysmal atrial fibrillation Assessment/Plan This patient is critically ill. Time spent reviewing chart, examining patient, talking with providers and documentation is 35 minutes.
[2017-05-26] MEDS: CHLORHEXIDINE GLUCONATE 4% CLEANSER FOR DECOLONIZATION TP SCH (21:53)
[2017-05-26] MEDS: SENNOSIDES 8.6MG TABLET (FP) PO SCH (21:53)
[2017-05-27] MEDS: PIPERACILLIN/TAZOB 3.375 GM/50 ML PRE-DOCKED IVPB SCH ×3 (01:12→17:35)
[2017-05-27 06:11] LABS: MCH 30.1 pg (25.7-33.7); MCHC 33.1 g/dl (32.0-35.9); MEAN CELL VOLUME 90.8 fl (80-96); MEAN PLT VOLUME 7.8 fl (7.5-11.1); PLATELET COUNT 211 K/MM3 (134-434); RDW 15.9 % (11.9-15.9)
[2017-05-27 06:42] LABS: ALBUMIN 2.1 g/dl (3.4-5.0); ANION GAP 9 (8-16); BILIRUBIN,TOTAL 0.5 mg/dL (0.2-1.0); CO2 25 mmol/L (21-32); CREATININE 0.8 mg/dL (0.7-1.3); GLUCOSE,RANDOM 80 mg/dL (74-106); SGOT/AST 19 U/L (15-37); SGPT/ALT 19 U/L (12-78)
[2017-05-27 06:43] LABS: ALK PHOS 63 U/L (45-117)
--- NOTE | 2017-05-27 09:49 | PN ---
Progress Note (short form) - Note Progress Note: Seen and examined in the ICU Hypotensive this AM (MAP 50) responded to IVfluids awake, alert w/o distress, denies galarza/cp/sob/n/v Current Medications Albuterol/Ipratropium (Duoneb -) 1 amp NEB Q4H PRN PRN Reason: SHORTNESS OF BREATH Last Admin: 05/25/17 10:00 Dose: 1 amp Carvedilol (Coreg -) 6.25 mg PO BID [facility] Last Admin: 05/26/17 21:52 Dose: 6.25 mg Chlorhexidine Gluconate (Hibiclens For Decolonization -) 1 applic TP HS [facility] Last Admin: 05/26/17 21:53 Dose: 1 applic Heparin Sodium (Porcine) (Heparin -) 5,000 unit SQ BID [facility] Last Admin: 05/26/17 21:52 Dose: 5,000 unit Dextrose/Sodium Chloride (D5-1/2ns -) 1,000 mls @ 75 mls/hr IV ASDIR [facility] Last Admin: 05/26/17 15:45 Dose: 75 mls/hr Lactobacillus Acidophilus (Bacid -) 1 tab GT BID [facility] Last Admin: 05/26/17 21:52 Dose: 1 tab Lisinopril (Prinivil) 2.5 mg GT DAILY [facility] Last Admin: 05/26/17 09:04 Dose: 2.5 mg Mupirocin (Bactroban Ointment (For Decolonization) -) 1 applic NS BID [facility] Stop: 05/28/17 21:59 Last Admin: 05/26/17 21:52 Dose: 1 applic Piperacillin Sod/Tazobactam Sod (Zosyn 3.375gm Ivpb (Pre-Docked)) 3.375 gm IVPB Q8H-IV [facility] Last Admin: 05/27/17 01:12 Dose: 3.375 gm Ranitidine HCl (Zantac -) 150 mg NR DAILY [facility] Last Admin: 05/26/17 09:04 Dose: 150 mg Fluticasone/Salmeterol (Advair 100mcg/50mcg -) 1 puff IH BID [facility] Last Admin: 05/26/17 21:52 Dose: Not Given Senna (Senna -) 2 tab PO HS [facility] Last Admin: 05/26/17 21:53 Dose: 2 tab Sertraline HCl (Zoloft -) 50 mg GT DAILY [facility] Last Admin: 05/26/17 09:06 Dose: 50 mg Ursodiol (Actigal -) 300 mg NR BID [facility] Last Admin: 05/26/17 21:52 Dose: 300 mg Vital Signs Period Temp Pulse Resp BP Sys/Mayorga Pulse Ox Last 24 Hr 97.8 F-98.7 F 58-68 13-24 83-123/42-69 100 Intake & Output 05/24/17 05/25/17 05/26/17 05/27/17 23:59 23:59 23:59 23:59 Intake Total 3082 2192 4302 1226 Output Total 1800 1100 2100 700 Balance 1282 1092 2202 526 Weight 82.242 kg 82.781 kg 83.053 kg 82.582 kg Gen: trached, vented, awake, alert CV: RRR, no mrg Lung: scattered rhonchi/crackles, suctioned thick white Abd: soft, nontender, (+) BS Ext: WWP, +2 pulses trace LE edmea, foot drop bilateral CBCD WBC 7.0 K/mm3 (4.0-10.0) 05/27/17 06:00 RBC 2.62 M/mm3 (4.00-5.60) L 05/27/17 06:00 Hgb 7.9 GM/dL (11.7-16.9) L 05/27/17 06:00 Hct 23.7 % (35.4-49) L 05/27/17 06:00 MCV 90.8 fl (80-96) 05/27/17 06:00 MCHC 33.1 g/dl (32.0-35.9) 05/27/17 06:00 RDW 15.9 % (11.9-15.9) 05/27/17 06:00 Plt Count 211 K/MM3 (134-434) 05/27/17 06:00 MPV 7.8 fl (7.5-11.1) 05/27/17 06:00 CMP Sodium 137 mmol/L (136-145) 05/27/17 06:00 Potassium 4.3 mmol/L (3.5-5.1) 05/27/17 06:00 Chloride 103 mmol/L (98-107) 05/27/17 06:00 Carbon Dioxide 25 mmol/L (21-32) 05/27/17 06:00 Anion Gap 9 (8-16) 05/27/17 06:00 BUN 18 mg/dL (7-18) 05/27/17 06:00 Creatinine 0.8 mg/dL (0.7-1.3) 05/27/17 06:00 Creat Clearance w eGFR > 60 (>60) 05/27/17 06:00 Random Glucose 80 mg/dL (74-106) D 05/27/17 06:00 Calcium 8.0 mg/dL (8.5-10.1) L 05/27/17 06:00 Total Bilirubin 0.5 mg/dL (0.2-1.0) D 05/27/17 06:00 AST 19 U/L (15-37) D 05/27/17 06:00 ALT 19 U/L (12-78) 05/27/17 06:00 Alkaline Phosphatase 63 U/L (45-117) 05/27/17 06:00 Total Protein 6.0 g/dl (6.4-8.2) L 05/27/17 06:00 Albumin 2.1 g/dl (3.4-5.0) L 05/27/17 06:00 CARDIAC ENZYMES Creatine Kinase 29 IU/L (39-308) L 05/21/17 16:50 Troponin I 0.04 ng/ml (0.00-0.05) D 05/21/17 16:50 MICRO 05/21/17 15:05 Blood - Peripheral Venous Blood Culture - Preliminary NO GROWTH OBTAINED AFTER 96 HOURS, INCUBATION TO CONTINUE FOR 1 DAYS. 05/21/17 20:30 Sputum - Endotrachea Suction/Ventilator Gram Stain - Final 05/21/17 20:30 Sputum - Endotrachea Suction/Ventilator Sputum Culture - Final Providencia Stuartii 05/21/17 15:05 Blood - Peripheral Venous Blood Culture - Final Staphylococcus Epidermidis 05/21/17 15:50 Urine - Urine Clean Catch Urine Culture - Final NO GROWTH OBTAINED ASSESS: VDRF Recurrent Pna Resolving Septic Shock COPD A-Fib h/o CVA HTN DM PLAN: - Cont Vent Support - NEBs - IV fluids for BP support required NS x1 liter this AM - Cont ABX a/p ID for sputum growing Providencia Stuartii - Cont TFs - DVT/GI prophylaxis - DNR Boerem ACNP Pulm/CCM CCT: 35m Critical Care Total Critical Care Time (in minutes): 38 Critical Care Statement: The care of this patient involved high complexity decision making to prevent further life threatening deterioration of the patient 's condition and/or to evaluate & treat vital organ system(s) failure or risk of failure.
[2017-05-27] MEDS: CARVEDILOL 6.25 MG TABLET (FP) PO SCH ×2 (09:57→21:16)
[2017-05-27] MEDS: SERTRALINE HCL 50 MG TABLET (FP) GT SCH (09:57)
[2017-05-27] MEDS: LACTOBACILLUS ACIDOPHILUS 1 EACH TAB (FP) GT SCH ×2 (09:57→21:14)
[2017-05-27] MEDS: HEPARIN NA (PORCINE) 5,000 UNITS/ML 1ML VIAL SQ SCH ×2 (09:57→21:15)
[2017-05-27] MEDS: RANITIDINE HCL 150 MG TABLET (FP) NR SCH (09:57)
[2017-05-27] MEDS: URSODIOL 300 MG CAPSULE NR SCH ×2 (09:57→21:15)
[2017-05-27] MEDS: MUPIROCIN 2% TOPICAL OINTMENT FOR DECOLONIZATION NS SCH ×2 (09:58→21:15)
[2017-05-27] MEDS: LISINOPRIL 5 MG TABLET (FP) GT SCH (09:58)
[2017-05-27] MEDS: FLUTICASONE/SALMETEROL 100 MCG/50 MCG DISKUS IH SCH ×2 (09:59→21:16)
[2017-05-27] MEDS ORDERED: SODIUM CHLORIDE 1,000 ML IV STA ×2 (10:16→13:34)
--- NOTE | 2017-05-27 15:15 | PN ---
Progress Note, Physician History of Present Illness: events noted patient dropping blood pressure now on boluses - Current Medication List Current Medications: Active Medications Albuterol/Ipratropium (Duoneb -) 1 amp NEB Q4H PRN PRN Reason: SHORTNESS OF BREATH Last Admin: 05/25/17 10:00 Dose: 1 amp Carvedilol (Coreg -) 6.25 mg PO BID [facility] Last Admin: 05/27/17 09:57 Dose: Not Given Chlorhexidine Gluconate (Hibiclens For Decolonization -) 1 applic TP HS [facility] Last Admin: 05/26/17 21:53 Dose: 1 applic Heparin Sodium (Porcine) (Heparin -) 5,000 unit SQ BID [facility] Last Admin: 05/27/17 09:57 Dose: 5,000 unit Sodium Chloride (Normal Saline -) 1,000 mls @ 500 mls/hr IV [facility]IR [facility] Stop: 05/27/17 15:33 Last Admin: 05/27/17 13:35 Dose: 500 mls/hr Lactobacillus Acidophilus (Bacid -) 1 tab GT BID [facility] Last Admin: 05/27/17 09:57 Dose: 1 tab Lisinopril (Prinivil) 2.5 mg GT DAILY [facility] Last Admin: 05/27/17 09:58 Dose: Not Given Mupirocin (Bactroban Ointment (For Decolonization) -) 1 applic NS BID [facility] Stop: 05/28/17 21:59 Last Admin: 05/27/17 09:58 Dose: 1 applic Piperacillin Sod/Tazobactam Sod (Zosyn 3.375gm Ivpb (Pre-Docked)) 3.375 gm IVPB Q8H-IV [facility] Last Admin: 05/27/17 09:57 Dose: 3.375 gm Ranitidine HCl (Zantac -) 150 mg NR DAILY [facility] Last Admin: 05/27/17 09:57 Dose: 150 mg Fluticasone/Salmeterol (Advair 100mcg/50mcg -) 1 puff IH BID [facility] Last Admin: 05/27/17 09:59 Dose: Not Given Senna (Senna -) 2 tab PO HS [facility] Last Admin: 05/26/17 21:53 Dose: 2 tab Sertraline HCl (Zoloft -) 50 mg GT DAILY [facility] Last Admin: 05/27/17 09:57 Dose: 50 mg Ursodiol (Actigal -) 300 mg NR BID [facility] Last Admin: 05/27/17 09:57 Dose: 300 mg - Objective Vital Signs: Vital Signs Temperature 98.1 F 05/27/17 14:00 Pulse Rate 57 L 05/27/17 14:00 Respiratory Rate 20 05/27/17 14:46 Blood Pressure 102/57 05/27/17 14:00 O2 Sat by Pulse Oximetry (%) 100 05/27/17 10:05 Constitutional: Yes: Calm, Other (does not feel too well) Cardiovascular: Yes: Regular Rate and Rhythm, Other (low bp) Respiratory: Yes: Regular, Mechanically Ventilated, Other Gastrointestinal: Yes: Normal Bowel Sounds, Soft Musculoskeletal: Yes: WNL Extremities: Yes: WNL Neurological: Yes: Alert, Oriented Psychiatric: Yes: Alert, Oriented Labs: CBC, BMP 05/27/17 06:00 05/27/17 06:00 INR, PTT INR 1.24 (0.82-1.09) H 05/25/17 10:45 Assessment/Plan Problem List - Problems (1) Sepsis Code(s): A41.9 - SEPSIS, UNSPECIFIED ORGANISM (2) Septic shock Code(s): A41.9 - SEPSIS, UNSPECIFIED ORGANISM R65.21 - SEVERE SEPSIS WITH SEPTIC SHOCK (3) VAP (ventilator-associated pneumonia) Code(s): J95.851 - VENTILATOR ASSOCIATED PNEUMONIA (4) Chronic respiratory failure Code(s): J96.10 - CHRONIC RESPIRATORY FAILURE, UNSP W HYPOXIA OR HYPERCAPNIA (5) Diabetes mellitus Code(s): E11.9 - TYPE 2 DIABETES MELLITUS WITHOUT COMPLICATIONS 6 pneumonia plan contineu zosyn sputum cx noted hydration suctioning rest as per icu pressors as needed cc time 40 min
--- NOTE | 2017-05-27 19:52 | PN ---
Progress Note, Physician History of Present Illness: comfortable - Current Medication List Current Medications: Active Medications Albuterol/Ipratropium (Duoneb -) 1 amp NEB Q4H PRN PRN Reason: SHORTNESS OF BREATH Last Admin: 05/25/17 10:00 Dose: 1 amp Carvedilol (Coreg -) 6.25 mg PO BID [facility] Last Admin: 05/27/17 09:57 Dose: Not Given Chlorhexidine Gluconate (Hibiclens For Decolonization -) 1 applic TP HS [facility] Last Admin: 05/26/17 21:53 Dose: 1 applic Heparin Sodium (Porcine) (Heparin -) 5,000 unit SQ BID [facility] Last Admin: 05/27/17 09:57 Dose: 5,000 unit Lactobacillus Acidophilus (Bacid -) 1 tab GT BID [facility] Last Admin: 05/27/17 09:57 Dose: 1 tab Lisinopril (Prinivil) 2.5 mg GT DAILY [facility] Last Admin: 05/27/17 09:58 Dose: Not Given Mupirocin (Bactroban Ointment (For Decolonization) -) 1 applic NS BID [facility] Stop: 05/28/17 21:59 Last Admin: 05/27/17 09:58 Dose: 1 applic Piperacillin Sod/Tazobactam Sod (Zosyn 3.375gm Ivpb (Pre-Docked)) 3.375 gm IVPB Q8H-IV [facility] Last Admin: 05/27/17 17:35 Dose: 3.375 gm Ranitidine HCl (Zantac -) 150 mg NR DAILY [facility] Last Admin: 05/27/17 09:57 Dose: 150 mg Fluticasone/Salmeterol (Advair 100mcg/50mcg -) 1 puff IH BID [facility] Last Admin: 05/27/17 09:59 Dose: Not Given Senna (Senna -) 2 tab PO HS [facility] Last Admin: 05/26/17 21:53 Dose: 2 tab Sertraline HCl (Zoloft -) 50 mg GT DAILY [facility] Last Admin: 05/27/17 09:57 Dose: 50 mg Ursodiol (Actigal -) 300 mg NR BID [facility] Last Admin: 05/27/17 09:57 Dose: 300 mg - Objective Vital Signs: Vital Signs Temperature 98.0 F 05/27/17 19:37 Pulse Rate 67 05/27/17 19:37 Respiratory Rate 20 05/27/17 19:37 Blood Pressure 99/55 05/27/17 19:37 O2 Sat by Pulse Oximetry (%) 100 05/27/17 10:05 Constitutional: Yes: No Distress Neck: Yes: Other (trach/vent) Cardiovascular: Yes: Pulse Irregular Respiratory: Yes: Rhonchi Gastrointestinal: Yes: Normal Bowel Sounds, Other (peg in place) Extremities: Yes: WNL Neurological: Yes: Alert Labs: CBC, BMP 05/27/17 06:00 05/27/17 06:00 INR, PTT INR 1.24 (0.82-1.09) H 05/25/17 10:45 Problem List - Problems (1) Sepsis Assessment/Plan: iv abx ivf ...will hold and monitor bp Code(s): A41.9 - SEPSIS, UNSPECIFIED ORGANISM Qualifiers: Sepsis type: sepsis due to unspecified organism Qualified Code(s): A41.9 - Sepsis, unspecified organism; A41.9 - Sepsis, unspecified organism; A41.9 - Sepsis, unspecified organism (2) Septic shock Assessment/Plan: iv abx clinically better Code(s): A41.9 - SEPSIS, UNSPECIFIED ORGANISM R65.21 - SEVERE SEPSIS WITH SEPTIC SHOCK (3) VAP (ventilator-associated pneumonia) Code(s): J95.851 - VENTILATOR ASSOCIATED PNEUMONIA (4) Atrial fibrillation Assessment/Plan: on meds stabel Code(s): I48.91 - UNSPECIFIED ATRIAL FIBRILLATION Qualifiers: Atrial fibrillation type: paroxysmal Qualified Code(s): I48.0 - Paroxysmal atrial fibrillation; I48.0 - Paroxysmal atrial fibrillation; I48.0 - Paroxysmal atrial fibrillation; I48.0 - Paroxysmal atrial fibrillation (5) Chronic respiratory failure Assessment/Plan: on trach /vent Code(s): J96.10 - CHRONIC RESPIRATORY FAILURE, UNSP W HYPOXIA OR HYPERCAPNIA Qualifiers: Respiratory failure complication: unspecified whether with hypoxia or hypercapnia Qualified Code(s): J96.10 - Chronic respiratory failure, unspecified whether with hypoxia or hypercapnia; J96.10 - Chronic respiratory failure, unspecified whether with hypoxia or hypercapnia; J96.10 - Chronic respiratory failure, unspecified whether with hypoxia or hypercapnia (6) Diabetes mellitus Assessment/Plan: monitor Code(s): E11.9 - TYPE 2 DIABETES MELLITUS WITHOUT COMPLICATIONS Qualifiers: Diabetes mellitus type: type 2 Diabetes mellitus complication status: with unspecified complications Diabetes mellitus senior living insulin use: without senior living use Qualified Code(s): E11.8 - Type 2 diabetes mellitus with unspecified complications; E11.8 - Type 2 diabetes mellitus with unspecified complications; E11.8 - Type 2 diabetes mellitus with unspecified complications; E11.8 - Type 2 diabetes mellitus with unspecified complications; Z79.4 - ferry terminal agent (current) use of insulin; Z79.4 - ferry terminal agent (current) use of insulin; Z79.4 - [facility] (current) use of insulin; Z79.4 - ferry terminal agent (current ) use of insulin (7) Sepsis - Septicemia Code(s): A41.9 - SEPSIS, UNSPECIFIED ORGANISM (8) Shock Code(s): R57.9 - SHOCK, UNSPECIFIED Assessment/Plan cc time 30 min
[2017-05-27] MEDS: SENNOSIDES 8.6MG TABLET (FP) PO SCH (21:15)
[2017-05-27] MEDS: CHLORHEXIDINE GLUCONATE 4% CLEANSER FOR DECOLONIZATION TP SCH (21:16)
[2017-05-28] MEDS: PIPERACILLIN/TAZOB 3.375 GM/50 ML PRE-DOCKED IVPB SCH ×3 (03:09→17:33)
[2017-05-28 05:57] LABS: MCH 30.5 pg (25.7-33.7); MCHC 32.8 g/dl (32.0-35.9); MEAN CELL VOLUME 92.8 fl (80-96); MEAN PLT VOLUME 7.9 fl (7.5-11.1); PLATELET COUNT 221 K/MM3 (134-434); RDW 16.1 % (11.9-15.9); WHITE BLOOD COUNT 6.5 K/mm3 (4.0-10.0)
[2017-05-28 06:40] LABS: ANION GAP 10 (8-16); BILIRUBIN,TOTAL 0.3 mg/dL (0.2-1.0); CALCIUM 7.8 mg/dL (8.5-10.1); CO2 23 mmol/L (21-32); GLUCOSE,RANDOM 84 mg/dL (74-106); MAGNESIUM 1.9 mg/dL (1.8-2.4); PHOSPHOROUS 3.3 mg/dL (2.5-4.9); SGOT/AST 17 U/L (15-37); SGPT/ALT 17 U/L (12-78)
[2017-05-28 06:41] LABS: ALK PHOS 60 U/L (45-117); BILIRUBIN,DIRECT < 0.1 mg/dL (0.0-0.2); CREATININE 0.8 mg/dL (0.7-1.3); TOT PROT 5.7 g/dl (6.4-8.2)
--- NOTE | 2017-05-28 08:27 | PN ---
Physical Exam: 24H Events: -hypotensive yesterday (MAP 50) responded to 2L IVF SUBJECTIVE: Patient seen and examined in ICU. On ventilator, AC mode, 40% FiO2. Pt denies any CP, cough, N/V, WILSON/vision changes, fever/chills, diarrhea OBJECTIVE: Vital Signs Period Temp Pulse Resp BP Sys/Mayorga Pulse Ox Last 24 Hr 97.8 F-99 F 57-93 18-22 84-116/45-63 95-100 Intake & Output 05/25/17 05/26/17 05/27/17 05/28/17 23:59 23:59 23:59 23:59 Intake Total 2192 4302 4502 1226 Output Total 1100 2100 1950 550 Balance 1092 2202 2552 676 Weight 82.781 kg 83.053 kg 82.582 kg 84.482 kg GENERAL: The patient is nonverbal. Able to mouth responses. EYES: sclera anicteric, conjunctiva clear ENT: oropharynx clear without exudates, moist mucous membranes NECK: Trachea midline, supple. Trach in place, vented LUNGS: Vented, mechanical breath sounds. Decreased lung sounds at the bases. No wheezes or crackles HEART: Irregular rate, normal S1/S2, no murmur, rub or gallop ABDOMEN: soft, mild tenderness to deep palpation in RUQ. PEG noted, no inflammation, drainage or edema. Normal bowel sounds, no guarding, no rebound : Rocha EXTREMITIES: UE - 2+ pulses, wwp, no edema; LE: B/l 1+ pulse, cool, severe stasis dermatitis on anterior shins and dorsum of feet; chronic contracted plantarflexion BL of feet. CBC, BMP 05/28/17 05:00 05/28/17 05:00 Ca - 7.8 (corrected 9.4( Phos - 3.3 Mg - 1.9 Hepatic Panel Total Bilirubin 0.3 mg/dL (0.2-1.0) D 05/28/17 05:00 Direct Bilirubin < 0.1 mg/dL (0.0-0.2) 05/28/17 05:00 AST 17 U/L (15-37) 05/28/17 05:00 ALT 17 U/L (12-78) 05/28/17 05:00 Alkaline Phosphatase 60 U/L (45-117) 05/28/17 05:00 Albumin 2.0 g/dl (3.4-5.0) L 05/28/17 05:00 MICRO 05/21/17 15:05 Blood - Peripheral Venous Blood Culture - Preliminary NO GROWTH OBTAINED AFTER 96 HOURS, INCUBATION TO CONTINUE FOR 1 DAYS. 05/21/17 20:30 Sputum - Endotrachea Suction/Ventilator Gram Stain - Final 05/21/17 20:30 Sputum - Endotrachea Suction/Ventilator Sputum Culture - Final Providencia Stuartii 05/21/17 15:05 Blood - Peripheral Venous Blood Culture - Final Staphylococcus Epidermidis 05/21/17 15:50 Urine - Urine Clean Catch Urine Culture - Final NO GROWTH OBTAINED Imaging: EKG 05/21: LAD. RBBB. Sinus tach. Micro 05/21: Blood, urine, sputum cultures pending CXR 05/22: Small left pleural effusion. Possible R lung infiltrates. Elevated R hemidiaphragm. CT Abdomen/pelvis (05/22) - Posterior bibasilar infiltrates, with air bronchograms. Diffuse diverticulosis, no evidence of acute inflammation. Thickened GB wall, w/ no evidence of mohit-dil or gallstones. No intra-abdominal abscess or fluid collection. L3 compression fracture noted. CXR 05/23: Bilateral pulm and pleural changes. Elevated R hemidiaphragm. No significant interval changes since prior imaging. CXR: 05/24: No significant changes from prior cxr. CXR: 05/25 - BL pulm and pleural changes, R>L. Trach in place, good position. CXR: 05/27 - No significant interval change from prior CXR 05/28: RUL worse aeration compared to 05/27. Tach in place. Active Medications Albuterol/Ipratropium (Duoneb -) 1 amp NEB Q4H PRN PRN Reason: SHORTNESS OF BREATH Last Admin: 05/25/17 10:00 Dose: 1 amp Carvedilol (Coreg -) 6.25 mg PO BID [facility] Last Admin: 05/27/17 21:16 Dose: Not Given Chlorhexidine Gluconate (Hibiclens For Decolonization -) 1 applic TP HS [facility] Last Admin: 05/27/17 21:16 Dose: 1 applic Heparin Sodium (Porcine) (Heparin -) 5,000 unit SQ BID [facility] Last Admin: 05/27/17 21:15 Dose: 5,000 unit Lactobacillus Acidophilus (Bacid -) 1 tab GT BID [facility] Last Admin: 05/27/17 21:14 Dose: 1 tab Lisinopril (Prinivil) 2.5 mg GT DAILY [facility] Last Admin: 05/27/17 09:58 Dose: Not Given Mupirocin (Bactroban Ointment (For Decolonization) -) 1 applic NS BID [facility] Stop: 05/28/17 21:59 Last Admin: 05/27/17 21:15 Dose: 1 applic Piperacillin Sod/Tazobactam Sod (Zosyn 3.375gm Ivpb (Pre-Docked)) 3.375 gm IVPB Q8H-IV [facility] Last Admin: 05/28/17 03:09 Dose: 3.375 gm Ranitidine HCl (Zantac -) 150 mg NR DAILY [facility] Last Admin: 05/27/17 09:57 Dose: 150 mg Fluticasone/Salmeterol (Advair 100mcg/50mcg -) 1 puff IH BID [facility] Last Admin: 05/27/17 21:16 Dose: Not Given Senna (Senna -) 2 tab PO HS [facility] Last Admin: 05/27/17 21:15 Dose: 2 tab Sertraline HCl (Zoloft -) 50 mg GT DAILY [facility] Last Admin: 05/27/17 09:57 Dose: 50 mg Ursodiol (Actigal -) 300 mg NR BID [facility] Last Admin: 05/27/17 21:15 Dose: 300 mg ASSESSMENT/PLAN: Pt is a 81 yo man w/ pmh of COPD, chronic respiratory failure s/p trach, PEG, paroxysmal afib, HTN, DM, CVA, who presented from [place] w/ acute hypoxic respiratory failure and fever, found to be hypotensive and tachycardic in ED likely 2/2 to sepsis from possible VAP requiring multiple fluid boluses and pressor support. Pt hemodynamically stable off pressors, and responding to fluid resuscitation. Sputum cultures + Providencia stuarti and 1/2 blood cultures +Staph epi. Per ID , patient on Zosyn (day 5) based on sensitivities. #Neuro - Monitor MS - Home sertraline for depression #Cardiac - Hold all HTN meds - MAPs >65 overnight - Coreg 6.25 BID - held #Pulm Acute on chronic hypoxic respiratory failure - AC vent mode, volume assist - Monitor sputum/secretions - RT evals q12h - Duonebs q4h prn #ID Admitted for Septic shock secondary to possible [facility] - ID consulted -Abx per ID: Zosyn for P Stuarti+ sputum (day 6) #Renal - Strict Is&Os - Daily BMPs, monitor lytes - d/c rocha #Heme -Monitor H&H. -Transfuse at <7 #Endo -BGM ACHS -ISS ACHS #GI - Senna and Colace for constipation - Ursodiol 300 BID - CT abdomen/pelvis with diverticulosis and GB thickening, but neg for colitis/ intraabdominal abscess or collection. - If diarrhea, send for C diff antigen - Oral care #FEN -Fluids: Free water -Electrolytes: Daily BMPs, Trend BUN/Cr -Nutrition: 24hr tube feeds w/ volume goal of 1500 at 60cc/hr #PPX -SubQ Heparin for DVT ppx -Ranitidine for GI ppx #Dispo - transfer to [address] [place] [address]/med-surg DNR d/w Dr. Eric Cardozo MD PGY-1 Visit type - Emergency Visit Emergency Visit: No - New Patient This patient is new to me today: No - Critical Care Critical Care patient: Yes Total Critical Care Time (in minutes): 35 Critical Care Statement: The care of this patient involved high complexity decision making to prevent further life threatening deterioration of the patient 's condition and/or to evaluate & treat vital organ system(s) failure or risk of failure.
[2017-05-28] MEDS ORDERED: PT OWN MED DRAWER 7, Y5N ONE (09:41)
[2017-05-28] MEDS: FLUTICASONE/SALMETEROL 100 MCG/50 MCG DISKUS IH SCH ×2 (09:42→21:36)
[2017-05-28] MEDS: URSODIOL 300 MG CAPSULE NR SCH ×2 (09:42→21:39)
[2017-05-28] MEDS: HEPARIN NA (PORCINE) 5,000 UNITS/ML 1ML VIAL SQ SCH ×2 (09:42→21:37)
[2017-05-28] MEDS: CARVEDILOL 6.25 MG TABLET (FP) PO SCH (09:42)
[2017-05-28] MEDS: LACTOBACILLUS ACIDOPHILUS 1 EACH TAB (FP) GT SCH ×2 (09:42→21:37)
[2017-05-28] MEDS: LISINOPRIL 5 MG TABLET (FP) GT SCH (09:43)
[2017-05-28] MEDS: RANITIDINE HCL 150 MG TABLET (FP) NR SCH (09:43)
[2017-05-28] MEDS: SERTRALINE HCL 50 MG TABLET (FP) GT SCH (09:43)
[2017-05-28] MEDS: MUPIROCIN 2% TOPICAL OINTMENT FOR DECOLONIZATION NS SCH ×2 (09:58→21:37)
--- NOTE | 2017-05-28 12:21 | PN ---
Teaching Attending Note Name of Resident: Angie Cardozo ATTENDING PHYSICIAN STATEMENT I saw and evaluated the patient. I reviewed the resident's note and discussed the case with the resident. I agree with the resident's findings and plan as documented. SUBJECTIVE: Pt seen and examined in the ICU. Vented, awake on volume assist control with 40 % FiO2. Hypotensive overnight but responded to IVF resuscitation. No fevers recorded. OBJECTIVE: Last Vital Signs Temp Pulse Resp BP Pulse Ox 97.6 F 68 25 H 90/47 96 05/28/17 10:21 05/28/17 09:51 05/28/17 11:01 05/28/17 09:51 05/28/17 09:30 Intake & Output 05/25/17 05/26/17 05/27/17 05/28/17 23:59 23:59 23:59 23:59 Intake Total 2192 4302 4502 1226 Output Total 1100 2100 1950 550 Balance 1092 2202 2552 676 Weight 182 lb 8 oz 183 lb 1.6 oz 182 lb 1 oz 186 lb 4 oz Gen: vented, awake Heart: RRR Lung: scattered rhonchi Abd: soft, nontender Ext: + edema CBC, BMP 05/28/17 05:00 05/28/17 05:00 Active Medications Albuterol/Ipratropium (Duoneb -) 1 amp NEB Q4H PRN PRN Reason: SHORTNESS OF BREATH Last Admin: 05/25/17 10:00 Dose: 1 amp Carvedilol (Coreg -) 6.25 mg PO BID [facility] Last Admin: 05/28/17 09:42 Dose: Not Given Chlorhexidine Gluconate (Hibiclens For Decolonization -) 1 applic TP HS [facility] Last Admin: 05/27/17 21:16 Dose: 1 applic Heparin Sodium (Porcine) (Heparin -) 5,000 unit SQ BID [facility] Last Admin: 05/28/17 09:42 Dose: 5,000 unit Lactobacillus Acidophilus (Bacid -) 1 tab GT BID [facility] Last Admin: 05/28/17 09:42 Dose: 1 tab Lisinopril (Prinivil) 2.5 mg GT DAILY [facility] Last Admin: 05/28/17 09:43 Dose: Not Given Mupirocin (Bactroban Ointment (For Decolonization) -) 1 applic NS BID [facility] Stop: 05/28/17 21:59 Last Admin: 05/28/17 09:58 Dose: 1 applic Piperacillin Sod/Tazobactam Sod (Zosyn 3.375gm Ivpb (Pre-Docked)) 3.375 gm IVPB Q8H-IV [facility] Last Admin: 05/28/17 09:43 Dose: 3.375 gm Ranitidine HCl (Zantac -) 150 mg NR DAILY [facility] Last Admin: 05/28/17 09:43 Dose: 150 mg Fluticasone/Salmeterol (Advair 100mcg/50mcg -) 1 puff IH BID [facility] Last Admin: 05/28/17 09:42 Dose: Not Given Senna (Senna -) 2 tab PO HS [facility] Last Admin: 05/27/17 21:15 Dose: 2 tab Sertraline HCl (Zoloft -) 50 mg GT DAILY [facility] Last Admin: 05/28/17 09:43 Dose: 50 mg Ursodiol (Actigal -) 300 mg NR BID [facility] Last Admin: 05/28/17 09:42 Dose: 300 mg ASSESSMENT AND PLAN: Acute on Chronic Hypoxic and Hypercapneic Respiratory Failure Pneumonia Septic Shock resolving Anemia COPD Paroxysmal Atrial Fibrillation h/o CVA HTN DM - continue antibiotics per ID - hold BP meds - inhaled bronchodilators - O2 to keep SpO2 >90% - offered PRBC transfusion as pt borderline hypotensive but pt declining at this time - continue volume assist control - spontaneous breathing trials as tolerated - enteral feeds - DVT prophylaxis - can monitor on vent floor if remains off pressors critical care time spent in reviewing chart, evaluating patient and formulating plan 35 min
[2017-05-28] MEDS ORDERED: FLU VACCINE QUAD 60 MCG/0.5 ML (MDV 17-18) IM ONE (13:00)
--- NOTE | 2017-05-28 15:57 | PN ---
Progress Note, Physician History of Present Illness: comfortable - Current Medication List Current Medications: Active Medications Albuterol/Ipratropium (Duoneb -) 1 amp NEB Q4H PRN PRN Reason: SHORTNESS OF BREATH Last Admin: 05/25/17 10:00 Dose: 1 amp Carvedilol (Coreg -) 6.25 mg PO BID [facility] Last Admin: 05/28/17 09:42 Dose: Not Given Chlorhexidine Gluconate (Hibiclens For Decolonization -) 1 applic TP HS [facility] Last Admin: 05/27/17 21:16 Dose: 1 applic Heparin Sodium (Porcine) (Heparin -) 5,000 unit SQ BID [facility] Last Admin: 05/28/17 09:42 Dose: 5,000 unit Lactobacillus Acidophilus (Bacid -) 1 tab GT BID [facility] Last Admin: 05/28/17 09:42 Dose: 1 tab Lisinopril (Prinivil) 2.5 mg GT DAILY [facility] Last Admin: 05/28/17 09:43 Dose: Not Given Mupirocin (Bactroban Ointment (For Decolonization) -) 1 applic NS BID [facility] Stop: 05/28/17 21:59 Last Admin: 05/28/17 09:58 Dose: 1 applic Piperacillin Sod/Tazobactam Sod (Zosyn 3.375gm Ivpb (Pre-Docked)) 3.375 gm IVPB Q8H-IV [facility] Last Admin: 05/28/17 09:43 Dose: 3.375 gm Ranitidine HCl (Zantac -) 150 mg NR DAILY [facility] Last Admin: 05/28/17 09:43 Dose: 150 mg Fluticasone/Salmeterol (Advair 100mcg/50mcg -) 1 puff IH BID [facility] Last Admin: 05/28/17 09:42 Dose: Not Given Senna (Senna -) 2 tab PO HS [facility] Last Admin: 05/27/17 21:15 Dose: 2 tab Sertraline HCl (Zoloft -) 50 mg GT DAILY [facility] Last Admin: 05/28/17 09:43 Dose: 50 mg Ursodiol (Actigal -) 300 mg NR BID [facility] Last Admin: 05/28/17 09:42 Dose: 300 mg - Objective Vital Signs: Vital Signs Temperature 97.6 F 05/28/17 10:21 Pulse Rate 64 05/28/17 14:00 Respiratory Rate 18 05/28/17 14:00 Blood Pressure 117/59 05/28/17 14:00 O2 Sat by Pulse Oximetry (%) 96 05/28/17 09:30 Constitutional: Yes: No Distress HENT: Yes: Atraumatic Neck: Yes: Other (trach collar) Cardiovascular: Yes: Regular Rate and Rhythm Respiratory: Yes: Rhonchi Gastrointestinal: Yes: Normal Bowel Sounds Extremities: Yes: WNL Neurological: Yes: Alert, Oriented Labs: CBC, BMP 05/28/17 05:00 05/28/17 05:00 INR, PTT INR 1.24 (0.82-1.09) H 05/25/17 10:45 Problem List - Problems (1) Sepsis Assessment/Plan: iv abx ivf ...will hold and monitor bp Code(s): A41.9 - SEPSIS, UNSPECIFIED ORGANISM Qualifiers: Sepsis type: sepsis due to unspecified organism Qualified Code(s): A41.9 - Sepsis, unspecified organism; A41.9 - Sepsis, unspecified organism; A41.9 - Sepsis, unspecified organism (2) Septic shock Assessment/Plan: iv abx clinically better Code(s): A41.9 - SEPSIS, UNSPECIFIED ORGANISM R65.21 - SEVERE SEPSIS WITH SEPTIC SHOCK (3) VAP (ventilator-associated pneumonia) Code(s): J95.851 - VENTILATOR ASSOCIATED PNEUMONIA (4) Atrial fibrillation Assessment/Plan: on meds stabel Code(s): I48.91 - UNSPECIFIED ATRIAL FIBRILLATION Qualifiers: Atrial fibrillation type: paroxysmal Qualified Code(s): I48.0 - Paroxysmal atrial fibrillation; I48.0 - Paroxysmal atrial fibrillation; I48.0 - Paroxysmal atrial fibrillation; I48.0 - Paroxysmal atrial fibrillation (5) Chronic respiratory failure Assessment/Plan: on trach /vent Code(s): J96.10 - CHRONIC RESPIRATORY FAILURE, UNSP W HYPOXIA OR HYPERCAPNIA Qualifiers: Respiratory failure complication: unspecified whether with hypoxia or hypercapnia Qualified Code(s): J96.10 - Chronic respiratory failure, unspecified whether with hypoxia or hypercapnia; J96.10 - Chronic respiratory failure, unspecified whether with hypoxia or hypercapnia; J96.10 - Chronic respiratory failure, unspecified whether with hypoxia or hypercapnia (6) Diabetes mellitus Assessment/Plan: monitor Code(s): E11.9 - TYPE 2 DIABETES MELLITUS WITHOUT COMPLICATIONS Qualifiers: Diabetes mellitus type: type 2 Diabetes mellitus complication status: with unspecified complications Diabetes mellitus rodent exterminator insulin use: without long-term use Qualified Code(s): E11.8 - Type 2 diabetes mellitus with unspecified complications; E11.8 - Type 2 diabetes mellitus with unspecified complications; E11.8 - Type 2 diabetes mellitus with unspecified complications; E11.8 - Type 2 diabetes mellitus with unspecified complications; Z79.4 - jail (current) use of insulin; Z79.4 - intermediate teacher (current) use of insulin; Z79.4 - jail (current) use of insulin; Z79.4 - jail (current ) use of insulin (7) Sepsis - Septicemia Assessment/Plan: iv abx Code(s): A41.9 - SEPSIS, UNSPECIFIED ORGANISM (8) Shock Code(s): R57.9 - SHOCK, UNSPECIFIED (9) PEG (percutaneous endoscopic gastrostomy) status Assessment/Plan: peg in place on TF since admission Code(s): Z93.1 - GASTROSTOMY STATUS Assessment/Plan cc time 30 min
[2017-05-28] MEDS ORDERED: SODIUM CHLORIDE 1,000 ML IV SCH (18:15)
--- NOTE | 2017-05-28 18:24 | PN ---
Progress Note, Physician History of Present Illness: events noted patient stable no new issues feels much better than yesterday - Current Medication List Current Medications: Active Medications Albuterol/Ipratropium (Duoneb -) 1 amp NEB Q4H PRN PRN Reason: SHORTNESS OF BREATH Last Admin: 05/25/17 10:00 Dose: 1 amp Carvedilol (Coreg -) 6.25 mg PO BID [facility] Last Admin: 05/28/17 09:42 Dose: Not Given Chlorhexidine Gluconate (Hibiclens For Decolonization -) 1 applic TP HS [facility] Last Admin: 05/27/17 21:16 Dose: 1 applic Heparin Sodium (Porcine) (Heparin -) 5,000 unit SQ BID [facility] Last Admin: 05/28/17 09:42 Dose: 5,000 unit Sodium Chloride (Normal Saline -) 1,000 mls @ 75 mls/hr IV [facility] Lactobacillus Acidophilus (Bacid -) 1 tab GT BID [facility] Last Admin: 05/28/17 09:42 Dose: 1 tab Lisinopril (Prinivil) 2.5 mg GT DAILY [facility] Last Admin: 05/28/17 09:43 Dose: Not Given Mupirocin (Bactroban Ointment (For Decolonization) -) 1 applic NS BID [facility] Stop: 05/28/17 21:59 Last Admin: 05/28/17 09:58 Dose: 1 applic Piperacillin Sod/Tazobactam Sod (Zosyn 3.375gm Ivpb (Pre-Docked)) 3.375 gm IVPB Q8H-IV [facility] Last Admin: 05/28/17 17:33 Dose: 3.375 gm Ranitidine HCl (Zantac -) 150 mg NR DAILY [facility] Last Admin: 05/28/17 09:43 Dose: 150 mg Fluticasone/Salmeterol (Advair 100mcg/50mcg -) 1 puff IH BID [facility] Last Admin: 05/28/17 09:42 Dose: Not Given Senna (Senna -) 2 tab PO HS [facility] Last Admin: 05/27/17 21:15 Dose: 2 tab Sertraline HCl (Zoloft -) 50 mg GT DAILY [facility] Last Admin: 05/28/17 09:43 Dose: 50 mg Ursodiol (Actigal -) 300 mg NR BID [facility] Last Admin: 05/28/17 09:42 Dose: 300 mg - Objective Vital Signs: Vital Signs Temperature 98 F 05/28/17 17:00 Pulse Rate 54 L 05/28/17 17:00 Respiratory Rate 20 05/28/17 17:00 Blood Pressure 110/57 05/28/17 17:00 O2 Sat by Pulse Oximetry (%) 96 05/28/17 09:30 Constitutional: Yes: No Distress, Calm Cardiovascular: Yes: Regular Rate and Rhythm Respiratory: Yes: Regular, Mechanically Ventilated, Other Gastrointestinal: Yes: Normal Bowel Sounds, Soft Musculoskeletal: Yes: WNL Extremities: Yes: WNL Neurological: Yes: Alert, Oriented Psychiatric: Yes: Alert, Oriented Labs: CBC, BMP 05/28/17 05:00 05/28/17 05:00 INR, PTT INR 1.24 (0.82-1.09) H 05/25/17 10:45 Assessment/Plan Problem List - Problems (1) Sepsis Code(s): A41.9 - SEPSIS, UNSPECIFIED ORGANISM (2) Septic shock Code(s): A41.9 - SEPSIS, UNSPECIFIED ORGANISM R65.21 - SEVERE SEPSIS WITH SEPTIC SHOCK (3) VAP (ventilator-associated pneumonia) Code(s): J95.851 - VENTILATOR ASSOCIATED PNEUMONIA (4) Chronic respiratory failure Code(s): J96.10 - CHRONIC RESPIRATORY FAILURE, UNSP W HYPOXIA OR HYPERCAPNIA (5) Diabetes mellitus Code(s): E11.9 - TYPE 2 DIABETES MELLITUS WITHOUT COMPLICATIONS 6 pneumonia plan contineu zosyn continue suctioning monitor bp hydration rest as per icu cc time 40 min
[2017-05-28] MEDS ORDERED: SODIUM CHLORIDE 500 ML IV STA (18:31)
[2017-05-28] MEDS ORDERED: ALBUTEROL SO4 2.5/IPRATROPIUM 0.5 INH SOL 3 ML VIAL.NEB. NEB PRN (19:49)
[2017-05-28] MEDS: SENNOSIDES 8.6MG TABLET (FP) PO SCH (21:36)
[2017-05-28] MEDS: CHLORHEXIDINE GLUCONATE 4% CLEANSER FOR DECOLONIZATION TP SCH (21:38)
[2017-05-29] MEDS: PIPERACILLIN/TAZOB 3.375 GM/50 ML PRE-DOCKED IVPB SCH ×4 (02:58→19:09)
[2017-05-29 06:08] LABS: MCH 30.2 pg (25.7-33.7); MCHC 32.6 g/dl (32.0-35.9); MEAN CELL VOLUME 92.9 fl (80-96); MEAN PLT VOLUME 7.9 fl (7.5-11.1); PLATELET COUNT 219 K/MM3 (134-434); RDW 16.1 % (11.9-15.9); WHITE BLOOD COUNT 4.9 K/mm3 (4.0-10.0)
[2017-05-29 06:39] LABS: ALBUMIN 2.1 g/dl (3.4-5.0); ANION GAP 5 (8-16); BILIRUBIN,TOTAL 0.3 mg/dL (0.2-1.0); CALCIUM 8.4 mg/dL (8.5-10.1); CO2 27 mmol/L (21-32); GLUCOSE,RANDOM 128 mg/dL (74-106); PHOSPHOROUS 3.6 mg/dL (2.5-4.9); SGOT/AST 17 U/L (15-37); SGPT/ALT 18 U/L (12-78); TOT PROT 5.8 g/dl (6.4-8.2)
[2017-05-29 06:41] LABS: ALK PHOS 62 U/L (45-117); CREATININE 0.9 mg/dL (0.7-1.3)
--- NOTE | 2017-05-29 07:55 | PN ---
Physical Exam: 24H Events: -maintained MAPs > 60 w/o pressors or fluid boluses -awaiting transfer to -Coreg and lisinopril held this AM for low SBP SUBJECTIVE: Patient seen and examined in ICU. On ventilator, AC mode, 40% FiO2. Pt denies any CP, cough, N/V, WILSON/vision changes, fever/chills, diarrhea. 1xBM this AM. OBJECTIVE: Vital Signs Period Temp Pulse Resp BP Sys/Mayorga Pulse Ox Last 24 Hr 97.6 F-99.2 F 53-70 14-26 90-132/47-71 95-100 Intake & Output 05/26/17 05/27/17 05/28/17 05/29/17 23:59 23:59 23:59 23:59 Intake Total 4302 4502 2882 1826 Output Total 2100 1950 2050 1300 Balance 2202 2552 832 526 Weight 83.053 kg 82.582 kg 84.482 kg GENERAL: The patient is nonverbal. Able to mouth responses. EYES: sclera anicteric, conjunctiva clear ENT: oropharynx clear without exudates, moist mucous membranes NECK: Trachea midline, supple. Trach in place, vented LUNGS: Vented, mechanical breath sounds. Decreased lung sounds at the bases. No wheezes or crackles HEART: Irregular rate, normal S1/S2, no murmur, rub or gallop ABDOMEN: soft, mild tenderness to deep palpation in RUQ. PEG noted, no inflammation, drainage or edema. Normal bowel sounds, no guarding, no rebound : Condom cap rocha EXTREMITIES: UE - 2+ pulses, wwp, no edema; LE: B/l 1+ pulse, cool, severe stasis dermatitis on anterior shins and dorsum of feet; chronic contracted plantarflexion BL of feet. CBC, BMP 05/29/17 05:00 05/29/17 05:00 Hepatic Panel Ca - 8.4 Phos - 3.6 Mg - 2 Total Bilirubin 0.3 mg/dL (0.2-1.0) 05/29/17 05:00 Direct Bilirubin < 0.1 mg/dL (0.0-0.2) 05/28/17 05:00 AST 17 U/L (15-37) 05/29/17 05:00 ALT 18 U/L (12-78) 05/29/17 05:00 Alkaline Phosphatase 62 U/L (45-117) 05/29/17 05:00 Albumin 2.1 g/dl (3.4-5.0) L 05/29/17 05:00 MICRO 05/21/17 15:05 Blood - Peripheral Venous Blood Culture - Preliminary NO GROWTH OBTAINED AFTER 96 HOURS, INCUBATION TO CONTINUE FOR 1 DAYS. 05/21/17 20:30 Sputum - Endotrachea Suction/Ventilator Gram Stain - Final 05/21/17 20:30 Sputum - Endotrachea Suction/Ventilator Sputum Culture - Final Providencia Stuartii 05/21/17 15:05 Blood - Peripheral Venous Blood Culture - Final Staphylococcus Epidermidis 05/21/17 15:50 Urine - Urine Clean Catch Urine Culture - Final NO GROWTH OBTAINED Imaging: EKG 05/21: LAD. RBBB. Sinus tach. Micro 05/21: Blood, urine, sputum cultures pending CXR 05/22: Small left pleural effusion. Possible R lung infiltrates. Elevated R hemidiaphragm. CT Abdomen/pelvis (05/22) - Posterior bibasilar infiltrates, with air bronchograms. Diffuse diverticulosis, no evidence of acute inflammation. Thickened GB wall, w/ no evidence of mohit-dil or gallstones. No intra-abdominal abscess or fluid collection. L3 compression fracture noted. CXR 05/23: Bilateral pulm and pleural changes. Elevated R hemidiaphragm. No significant interval changes since prior imaging. CXR: 05/24: No significant changes from prior cxr. CXR: 05/25 - BL pulm and pleural changes, R>L. Trach in place, good position. CXR: 05/27 - No significant interval change from prior CXR 05/28: RUL worse aeration compared to 05/27. Tach in place. CXR 05/29: RUL diffuse infiltrates, improved aeration compared to yesterday. Trace L pleural effusion. Trach in place. Active Medications Albuterol/Ipratropium (Duoneb -) 1 amp NEB Q4H PRN PRN Reason: SHORTNESS OF BREATH Last Admin: 05/29/17 06:36 Dose: 1 amp Chlorhexidine Gluconate (Hibiclens For Decolonization -) 1 applic TP HS [facility] Last Admin: 05/28/17 21:38 Dose: 1 applic Heparin Sodium (Porcine) (Heparin -) 5,000 unit SQ BID [facility] Last Admin: 05/28/17 21:37 Dose: 5,000 unit Lactobacillus Acidophilus (Bacid -) 1 tab GT BID [facility] Last Admin: 05/28/17 21:37 Dose: 1 tab Lisinopril (Prinivil) 2.5 mg GT DAILY [facility] Mupirocin (Bactroban Ointment (For Decolonization) -) 1 applic NS BID [facility] Stop: 06/02/17 21:59 Last Admin: 05/28/17 21:37 Dose: 1 applic Piperacillin Sod/Tazobactam Sod (Zosyn 3.375gm Ivpb (Pre-Docked)) 3.375 gm IVPB Q8H-IV [facility] Last Admin: 05/29/17 02:58 Dose: 3.375 gm Ranitidine HCl (Zantac -) 150 mg NR DAILY [facility] Fluticasone/Salmeterol (Advair 100mcg/50mcg -) 1 puff IH BID [facility] Last Admin: 05/28/17 21:36 Dose: Not Given Senna (Senna -) 2 tab PO HS [facility] Last Admin: 05/28/17 21:36 Dose: 2 tab Sertraline HCl (Zoloft -) 50 mg GT DAILY [facility] Ursodiol (Actigal -) 300 mg NR BID [facility] Last Admin: 05/28/17 21:39 Dose: 300 mg ASSESSMENT/PLAN: Pt is a 81 yo man w/ pmh of COPD, chronic respiratory failure s/p trach, PEG, paroxysmal afib, HTN, DM, CVA, who presented from [place] w/ acute hypoxic respiratory failure and fever, found to be hypotensive and tachycardic in ED likely 2/2 to sepsis from possible VAP requiring multiple fluid boluses and pressor support. Pt now hemodynamically stable off pressors and no recent fluid boluses. Awaiting transfer to . Sputum cultures + Providencia stuarti and 1 of 2 blood cultures +Staph epi. Per ID, patient on Zosyn (day 6) based on sensitivities. #Neuro - Monitor MS - Home sertraline for depression #Cardiac - Hold all HTN meds - Lisinopril 2.5mg GT daily - hold if SBP<95 - Coreg 6.25 BID - holf if SBP<95 #Pulm Acute on chronic hypoxic respiratory failure - AC vent mode, volume assist - Spontaneous breathing trials as tolerated - Monitor sputum/secretions - RT evals q12h - Duonebs q4h prn #ID Admitted for Septic shock secondary to possible [facility] - ID consulted -Abx per ID: Zosyn for P Stuarti+ sputum (day 6, continue for 14 days) #Renal - Monitor I&Os - Daily BMPs, monitor lytes #Heme -Monitor H&H. -Transfuse at <7 #Endo -BGM ACHS -ISS ACHS #GI - Senna and Colace for constipation - Ursodiol 300 BID - Oral care #FEN -Fluids: 35cc/hr free water tubes flushes -lytes wnl -Jevity 1.5 tube feeds increased to goal of 65cc/hr, with 35cc/hr -> 1560ml volume #PPX -SubQ Heparin for DVT ppx -Ranitidine for GI ppx #Dispo - transfer to [address] [place] [address]/med-surg DNR d/w Dr. Eric Cardozo MD PGY-1 Visit type - Emergency Visit Emergency Visit: No - New Patient This patient is new to me today: No - Critical Care Critical Care patient: Yes Total Critical Care Time (in minutes): 35 Critical Care Statement: The care of this patient involved high complexity decision making to prevent further life threatening deterioration of the patient 's condition and/or to evaluate & treat vital organ system(s) failure or risk of failure.
[2017-05-29] MEDS: URSODIOL 300 MG CAPSULE NR SCH ×2 (09:36→22:38)
[2017-05-29] MEDS: HEPARIN NA (PORCINE) 5,000 UNITS/ML 1ML VIAL SQ SCH ×2 (09:36→22:41)
[2017-05-29] MEDS: LACTOBACILLUS ACIDOPHILUS 1 EACH TAB (FP) GT SCH ×2 (09:37→22:40)
[2017-05-29] MEDS: FLUTICASONE/SALMETEROL 100 MCG/50 MCG DISKUS IH SCH ×2 (09:50→22:38)
[2017-05-29] MEDS: SERTRALINE HCL 50 MG TABLET (FP) GT SCH (09:58)
[2017-05-29] MEDS: RANITIDINE HCL 150 MG TABLET (FP) NR SCH (09:58)
[2017-05-29] MEDS ORDERED: LISINOPRIL 5 MG TABLET (FP) GT SCH (10:00)
[2017-05-29] MEDS: MUPIROCIN 2% TOPICAL OINTMENT FOR DECOLONIZATION NS SCH ×2 (10:00→22:41)
--- NOTE | 2017-05-29 12:01 | PN ---
Teaching Attending Note Name of Resident: Angie Cardozo ATTENDING PHYSICIAN STATEMENT I saw and evaluated the patient. I reviewed the resident's note and discussed the case with the resident. I agree with the resident's findings and plan as documented. SUBJECTIVE: Pt seen and examined in the ICU. Remains off pressors. Vented on volume assist control with 40% FiO2, denies shortness of breath. No fevers recorded. OBJECTIVE: Last Vital Signs Temp Pulse Resp BP Pulse Ox 99.0 F 75 15 99/56 100 05/29/17 10:00 05/29/17 10:16 05/29/17 11:49 05/29/17 10:00 05/29/17 10:16 Intake & Output 05/26/17 05/27/17 05/28/17 05/29/17 23:59 23:59 23:59 23:59 Intake Total 4302 4502 2882 1826 Output Total 2100 1950 2050 1300 Balance 2202 2552 832 526 Weight 183 lb 1.6 oz 182 lb 1 oz 186 lb 4 oz Gen: vented, awake Heart: RRR Lung: scattered rhonchi Abd: soft, nontender Ext: + edema CBC, BMP 05/29/17 05:00 05/29/17 05:00 Active Medications Albuterol/Ipratropium (Duoneb -) 1 amp NEB Q4H PRN PRN Reason: SHORTNESS OF BREATH Last Admin: 05/29/17 06:36 Dose: 1 amp Chlorhexidine Gluconate (Hibiclens For Decolonization -) 1 applic TP HS [facility] Last Admin: 05/28/17 21:38 Dose: 1 applic Heparin Sodium (Porcine) (Heparin -) 5,000 unit SQ BID [facility] Last Admin: 05/29/17 09:36 Dose: 5,000 unit Lactobacillus Acidophilus (Bacid -) 1 tab GT BID [facility] Last Admin: 05/29/17 09:37 Dose: 1 tab Lisinopril (Prinivil) 2.5 mg GT DAILY [facility] Last Admin: 05/29/17 10:02 Dose: Not Given Mupirocin (Bactroban Ointment (For Decolonization) -) 1 applic NS BID [facility] Stop: 06/02/17 21:59 Last Admin: 05/28/17 21:37 Dose: 1 applic Piperacillin Sod/Tazobactam Sod (Zosyn 3.375gm Ivpb (Pre-Docked)) 3.375 gm IVPB Q8H-IV [facility] Last Admin: 05/29/17 09:36 Dose: 3.375 gm Ranitidine HCl (Zantac -) 150 mg NR DAILY [facility] Last Admin: 05/29/17 09:58 Dose: 150 mg Fluticasone/Salmeterol (Advair 100mcg/50mcg -) 1 puff IH BID [facility] Last Admin: 05/29/17 09:50 Dose: Not Given Senna (Senna -) 2 tab PO HS [facility] Last Admin: 05/28/17 21:36 Dose: 2 tab Sertraline HCl (Zoloft -) 50 mg GT DAILY [facility] Last Admin: 05/29/17 09:58 Dose: 50 mg Ursodiol (Actigal -) 300 mg NR BID [facility] Last Admin: 05/29/17 09:36 Dose: 300 mg ASSESSMENT AND PLAN: Acute on Chronic Hypoxic and Hypercapneic Respiratory Failure Pneumonia Septic Shock resolving Anemia COPD Paroxysmal Atrial Fibrillation h/o CVA HTN DM - continue antibiotics per ID - hold BP meds - inhaled bronchodilators - O2 to keep SpO2 >90% - continue volume assist control - spontaneous breathing trials as tolerated - enteral feeds - DVT prophylaxis - can monitor on vent floor
--- NOTE | 2017-05-29 14:20 | PN ---
Progress Note, Physician History of Present Illness: events noted patient stable no new issues - Current Medication List Current Medications: Active Medications Albuterol/Ipratropium (Duoneb -) 1 amp NEB Q4H PRN PRN Reason: SHORTNESS OF BREATH Last Admin: 05/29/17 06:36 Dose: 1 amp Chlorhexidine Gluconate (Hibiclens For Decolonization -) 1 applic TP HS [facility] Last Admin: 05/28/17 21:38 Dose: 1 applic Heparin Sodium (Porcine) (Heparin -) 5,000 unit SQ BID [facility] Last Admin: 05/29/17 09:36 Dose: 5,000 unit Lactobacillus Acidophilus (Bacid -) 1 tab GT BID [facility] Last Admin: 05/29/17 09:37 Dose: 1 tab Lisinopril (Prinivil) 2.5 mg GT DAILY [facility] Last Admin: 05/29/17 10:02 Dose: Not Given Mupirocin (Bactroban Ointment (For Decolonization) -) 1 applic NS BID [facility] Stop: 06/02/17 21:59 Last Admin: 05/29/17 10:00 Dose: 1 applic Piperacillin Sod/Tazobactam Sod (Zosyn 3.375gm Ivpb (Pre-Docked)) 3.375 gm IVPB Q8H-IV [facility] Last Admin: 05/29/17 09:36 Dose: 3.375 gm Ranitidine HCl (Zantac -) 150 mg NR DAILY [facility] Last Admin: 05/29/17 09:58 Dose: 150 mg Fluticasone/Salmeterol (Advair 100mcg/50mcg -) 1 puff IH BID [facility] Last Admin: 05/29/17 09:50 Dose: Not Given Senna (Senna -) 2 tab PO HS [facility] Last Admin: 05/28/17 21:36 Dose: 2 tab Sertraline HCl (Zoloft -) 50 mg GT DAILY [facility] Last Admin: 05/29/17 09:58 Dose: 50 mg Ursodiol (Actigal -) 300 mg NR BID [facility] Last Admin: 05/29/17 09:36 Dose: 300 mg - Objective Vital Signs: Vital Signs Temperature 99.0 F 05/29/17 10:00 Pulse Rate 69 05/29/17 12:00 Respiratory Rate 19 05/29/17 14:07 Blood Pressure 107/51 05/29/17 12:00 O2 Sat by Pulse Oximetry (%) 100 05/29/17 10:16 Constitutional: Yes: No Distress, Calm Cardiovascular: Yes: Regular Rate and Rhythm Respiratory: Yes: Regular, Mechanically Ventilated Gastrointestinal: Yes: Normal Bowel Sounds, Soft Musculoskeletal: Yes: WNL Extremities: Yes: WNL Neurological: Yes: Alert, Oriented Psychiatric: Yes: Alert, Oriented Labs: CBC, BMP 05/29/17 05:00 05/29/17 05:00 INR, PTT INR 1.24 (0.82-1.09) H 05/25/17 10:45 - ....Imaging Chest X-ray: Report Reviewed, Image Reviewed Assessment/Plan Problem List - Problems (1) Sepsis Code(s): A41.9 - SEPSIS, UNSPECIFIED ORGANISM (2) Septic shock Code(s): A41.9 - SEPSIS, UNSPECIFIED ORGANISM R65.21 - SEVERE SEPSIS WITH SEPTIC SHOCK (3) VAP (ventilator-associated pneumonia) Code(s): J95.851 - VENTILATOR ASSOCIATED PNEUMONIA (4) Chronic respiratory failure Code(s): J96.10 - CHRONIC RESPIRATORY FAILURE, UNSP W HYPOXIA OR HYPERCAPNIA (5) Diabetes mellitus Code(s): E11.9 - TYPE 2 DIABETES MELLITUS WITHOUT COMPLICATIONS 6 pneumonia plan contineu zosyn continue suctioning monitor bp hydration rest as per icu total 14 days of abx will be needed cc time 40 min
--- NOTE | 2017-05-29 17:37 | PN ---
Progress Note, Physician History of Present Illness: comfortable - Current Medication List Current Medications: Active Medications Albuterol/Ipratropium (Duoneb -) 1 amp NEB Q4H PRN PRN Reason: SHORTNESS OF BREATH Last Admin: 05/29/17 06:36 Dose: 1 amp Chlorhexidine Gluconate (Hibiclens For Decolonization -) 1 applic TP HS [facility] Last Admin: 05/28/17 21:38 Dose: 1 applic Heparin Sodium (Porcine) (Heparin -) 5,000 unit SQ BID [facility] Last Admin: 05/29/17 09:36 Dose: 5,000 unit Lactobacillus Acidophilus (Bacid -) 1 tab GT BID [facility] Last Admin: 05/29/17 09:37 Dose: 1 tab Lisinopril (Prinivil) 2.5 mg GT DAILY [facility] Mupirocin (Bactroban Ointment (For Decolonization) -) 1 applic NS BID [facility] Stop: 06/02/17 21:59 Last Admin: 05/29/17 10:00 Dose: 1 applic Piperacillin Sod/Tazobactam Sod (Zosyn 3.375gm Ivpb (Pre-Docked)) 3.375 gm IVPB Q8H-IV [facility] Last Admin: 05/29/17 09:36 Dose: 3.375 gm Ranitidine HCl (Zantac -) 150 mg NR DAILY [facility] Last Admin: 05/29/17 09:58 Dose: 150 mg Fluticasone/Salmeterol (Advair 100mcg/50mcg -) 1 puff IH BID [facility] Last Admin: 05/29/17 09:50 Dose: Not Given Senna (Senna -) 2 tab PO HS [facility] Last Admin: 05/28/17 21:36 Dose: 2 tab Sertraline HCl (Zoloft -) 50 mg GT DAILY [facility] Last Admin: 05/29/17 09:58 Dose: 50 mg Ursodiol (Actigal -) 300 mg NR BID [facility] Last Admin: 05/29/17 09:36 Dose: 300 mg - Objective Vital Signs: Vital Signs Temperature 99.7 F H 05/29/17 14:34 Pulse Rate 52 L 05/29/17 14:34 Respiratory Rate 17 05/29/17 15:52 Blood Pressure 105/53 05/29/17 14:34 O2 Sat by Pulse Oximetry (%) 100 05/29/17 10:16 Constitutional: Yes: No Distress HENT: Yes: Atraumatic, Other Neck: Yes: Other (trach collar) Cardiovascular: Yes: Regular Rate and Rhythm Respiratory: Yes: Rhonchi Gastrointestinal: Yes: Normal Bowel Sounds, Other (peg in place) Edema: No Neurological: Yes: Alert, Oriented Labs: CBC, BMP 05/29/17 05:00 05/29/17 05:00 INR, PTT INR 1.24 (0.82-1.09) H 05/25/17 10:45 Problem List - Problems (1) Sepsis Assessment/Plan: iv abx few more days as per id Code(s): A41.9 - SEPSIS, UNSPECIFIED ORGANISM Qualifiers: Sepsis type: sepsis due to unspecified organism Qualified Code(s): A41.9 - Sepsis, unspecified organism; A41.9 - Sepsis, unspecified organism; A41.9 - Sepsis, unspecified organism (2) Septic shock Assessment/Plan: bp better Code(s): A41.9 - SEPSIS, UNSPECIFIED ORGANISM R65.21 - SEVERE SEPSIS WITH SEPTIC SHOCK (3) VAP (ventilator-associated pneumonia) Code(s): J95.851 - VENTILATOR ASSOCIATED PNEUMONIA (4) Atrial fibrillation Assessment/Plan: on meds stabel Code(s): I48.91 - UNSPECIFIED ATRIAL FIBRILLATION Qualifiers: Atrial fibrillation type: paroxysmal Qualified Code(s): I48.0 - Paroxysmal atrial fibrillation; I48.0 - Paroxysmal atrial fibrillation; I48.0 - Paroxysmal atrial fibrillation; I48.0 - Paroxysmal atrial fibrillation (5) Chronic respiratory failure Assessment/Plan: on trach /vent Code(s): J96.10 - CHRONIC RESPIRATORY FAILURE, UNSP W HYPOXIA OR HYPERCAPNIA Qualifiers: Respiratory failure complication: unspecified whether with hypoxia or hypercapnia Qualified Code(s): J96.10 - Chronic respiratory failure, unspecified whether with hypoxia or hypercapnia; J96.10 - Chronic respiratory failure, unspecified whether with hypoxia or hypercapnia; J96.10 - Chronic respiratory failure, unspecified whether with hypoxia or hypercapnia (6) Diabetes mellitus Assessment/Plan: monitor Code(s): E11.9 - TYPE 2 DIABETES MELLITUS WITHOUT COMPLICATIONS Qualifiers: Diabetes mellitus type: type 2 Diabetes mellitus complication status: with unspecified complications Diabetes mellitus emt intermediate insulin use: without snf use Qualified Code(s): E11.8 - Type 2 diabetes mellitus with unspecified complications; E11.8 - Type 2 diabetes mellitus with unspecified complications; E11.8 - Type 2 diabetes mellitus with unspecified complications; E11.8 - Type 2 diabetes mellitus with unspecified complications; Z79.4 - intermediate (current) use of insulin; Z79.4 - emt intermediate (current) use of insulin; Z79.4 - emt intermediate (current) use of insulin; Z79.4 - emt intermediate (current ) use of insulin (7) PEG (percutaneous endoscopic gastrostomy) status Code(s): Z93.1 - GASTROSTOMY STATUS
[2017-05-29] MEDS: SENNOSIDES 8.6MG TABLET (FP) PO SCH (22:42)
[2017-05-29] MEDS: CHLORHEXIDINE GLUCONATE 4% CLEANSER FOR DECOLONIZATION TP SCH (22:42)
[2017-05-30] MEDS: PIPERACILLIN/TAZOB 3.375 GM/50 ML PRE-DOCKED IVPB SCH ×2 (01:21→11:09)
[2017-05-30 08:07] LABS: MCH 30.3 pg (25.7-33.7); MCHC 32.8 g/dl (32.0-35.9); MEAN CELL VOLUME 92.2 fl (80-96); MEAN PLT VOLUME 7.3 fl (7.5-11.1); PLATELET COUNT 221 K/MM3 (134-434); RDW 16.5 % (11.9-15.9); WHITE BLOOD COUNT 5.4 K/mm3 (4.0-10.0)
[2017-05-30 08:31] LABS: ALBUMIN 2.1 g/dl (3.4-5.0); ALK PHOS 63 U/L (45-117); ANION GAP 7 (8-16); BILIRUBIN,TOTAL 0.3 mg/dL (0.2-1.0); CALCIUM 8.3 mg/dL (8.5-10.1); CO2 28 mmol/L (21-32); CREATININE 0.9 mg/dL (0.7-1.3); GLUCOSE,RANDOM 117 mg/dL (74-106); MAGNESIUM 2.1 mg/dL (1.8-2.4); PHOSPHOROUS 3.4 mg/dL (2.5-4.9); SGOT/AST 16 U/L (15-37); SGPT/ALT 19 U/L (12-78); TOT PROT 5.8 g/dl (6.4-8.2)
[2017-05-30 09:46] LABS: BASOPHIL (MANUAL) 1 % (0-2.0); METAMYELOCYTE 6 % (0-2); MYELOCYTE 4 % (0-2); PLATELET ESTIMATE ADEQUATE (NORMAL); TOTAL CELLS COUNTED 100
--- NOTE | 2017-05-30 10:11 | CONSULT ---
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: CVA Cardiovascular: Yes: AFIB, HTN Pulmonary: Yes: COPD, O2 Dependent, Pneumonia, Previously Intubated, Other ( Obesity hypoventilation, AMIE, chronic respiratory failure - trach/vent dependent x 3yrs) Gastrointestinal: Yes: Other (PEG for feeding) Hepatobiliary: Yes: Cholecystitis (h/o perc cholecystostomy 08/02 x 2-3 months) Renal/: Yes: Renal Failure (history of), Renal Inusuff (history of), UTI (h/o) , Other (indwelling Castaneda) Musculoskeletal: Yes: Osteoarthritis, Other (spinal compression fractures; bilateral foot drop) Rheumatology: Yes: Gout ENT: Yes: Sinusitis Endocrine: Yes: Diabetes Mellitus - Past Surgical History Past Surgical History: Yes: Appendectomy - Advance Directives Advance Directives: Yes: Health Care Proxy, DNR - Smoking History Smoking history: Never smoked Have you smoked in the past 12 months: No Aproximately how many cigarettes per day: 0 - Alcohol/Substance Use Hx Alcohol Use: No (in past only) History of Substance Use: reports: None - Social History ADL: Support Services History of Recent Travel: No History - Admission Reason For Visit: RESP FAIL W/HYPOXIA;SEPTIC SHOCK;LEUKOCYTOSIS Speech Evaluation - Communication Primary Language: IRANIAN - Speech Production Apraxia: No - Speech Characteristics Articulation: Yes: Precise - Language/Auditory Comprehension Observation: Comprehends Conversational Speech: Yes - Swallow Evaluation/Bedside Assessment A-P Transit: WFL
[2017-05-30] MEDS ORDERED: PT OWN MED DRAWER 7, Y5N ONE (10:20)
[2017-05-30] MEDS: MUPIROCIN 2% TOPICAL OINTMENT FOR DECOLONIZATION NS SCH ×2 (10:22→22:28)
--- NOTE | 2017-05-30 10:25 | CONSULT ---
Admitting History and Physical - Primary Care Physician PCP: Matti Ortega - Admission History of Present Illness: Per EMR: 81yo M vent-dependent via tracheostomy for last 3 years with COPD, AMIE, obesity- hypoventilation syndrome, paroxysmal afib, extensive DVT s/p IVC filter (05/2014 ), diabetes type 2, HTN, HLD, CVA, s/p PEG, s/p appendectomy, h/o gout, h/o cholecystitis s/p perc drain x 2-3months from 08/02, resident of [facility], who was recently hospitalized (05/01-) with ventilator-associated pneumonia, readmitted through ER 3 days ago with fever and hypoxia from MI, septic shock thought secondary to recurrent or persistent VAP. Pt alert, attempting to mouth responses with poor ability to lip read pt's verbalizations. Pt frustrates easily, refusing to repeat his answers. History Source: Medical Record - Past Medical History REHAB DIRECTOR: Yes: CVA Cardiovascular: Yes: AFIB, HTN Pulmonary: Yes: COPD, O2 Dependent, Pneumonia, Previously Intubated, Other ( Obesity hypoventilation, AMIE, chronic respiratory failure - trach/vent dependent x 3yrs) Gastrointestinal: Yes: Other (PEG for feeding) Hepatobiliary: Yes: Cholecystitis (h/o perc cholecystostomy 08/02 x 2-3 months) Renal/: Yes: Renal Failure (history of), Renal Inusuff (history of), UTI (h/o) , Other (indwelling Castaneda) Musculoskeletal: Yes: Osteoarthritis, Other (spinal compression fractures; bilateral foot drop) Rheumatology: Yes: Gout ENT: Yes: Sinusitis Endocrine: Yes: Diabetes Mellitus - Past Surgical History Past Surgical History: Yes: Appendectomy - Advance Directives Advance Directives: Yes: Health Care Proxy, DNR - Smoking History Smoking history: Never smoked Have you smoked in the past 12 months: No Aproximately how many cigarettes per day: 0 - Alcohol/Substance Use Hx Alcohol Use: No (in past only) History of Substance Use: reports: None - Social History ADL: Support Services History of Recent Travel: No History - Admission Reason For Visit: RESP FAIL W/HYPOXIA;SEPTIC SHOCK;LEUKOCYTOSIS - Diagnostics X-ray: Report Reviewed Modified Barium Swallow: Report Reviewed (05/07/17 impaired oral/pharyngeal transit. Continue gt feedings.) Other: Report Reviewed (pmv assessment last 05/04/17 Aphonic. vc dysfunction was suspected.) - General Mental Status: Awake and Alert, Able to Follow Commands, Intermittently Confused (suspected?) Attention: Distractible, Mild Impairment Ability to Follow Directions: Fair - Hearing Hearing: Functional Speech Evaluation - Communication Primary Language: [place] Oral Expression Ability: Yes: Non-Verbal (on ventilator) - Speech Production Apraxia: No Able to Make Needs Known: Yes: Moderately Impaired Intelligibility: Yes: Moderately Impaired - Speech Characteristics Speech Clarity: < 75% Articulation: Yes: Precise - Language/Auditory Comprehension Follows: Yes: 1 Stage Simple Commands Observation: Comprehends Conversational Speech: Yes - Swallow Evaluation/Bedside Assessment Current Nutritional Intake: G Tube Oral Secretions: Yes: Copious Secretions (noted around trach site) Facial Symmetry at Rest: Symmetrical Facial Symmetry on Retraction: Symmetrical Against Resistance Opening: Normal Against Resistance Closing: Normal Pucker Lips: Normal Lingual Movement: Normal, Symmetric Lingual Speed of Movement: Normal Lingual Movement Strgth Against Opposition: Normal Lingual Movement Characteristics: Normal Laryngeal Movement: Able to Palpate Recommendations - Speech Evaluation, Impression/Plan Impression: secretions. h/o 3 pmv evaluations unsuccessful, last done . [facility] 05/07/17 impaired oral pharyngeal transit. May perform better at this time. - Dysphagia Impressions/Plan Dysphagia Impressions: Risk of Aspiration, Ongoing Evaluation *Silent aspiration: cannot be R/O at bedside Recommendations: Modified Barium Swallow (can be done as out pt, if pt is pending d/c.)
[2017-05-30] MEDS: URSODIOL 300 MG CAPSULE NR SCH ×2 (10:45→22:27)
[2017-05-30] MEDS: LACTOBACILLUS ACIDOPHILUS 1 EACH TAB (FP) GT SCH ×2 (10:45→22:28)
[2017-05-30] MEDS: LISINOPRIL 5 MG TABLET (FP) GT SCH (10:46)
[2017-05-30] MEDS: RANITIDINE HCL 150 MG TABLET (FP) NR SCH (10:46)
[2017-05-30] MEDS: HEPARIN NA (PORCINE) 5,000 UNITS/ML 1ML VIAL SQ SCH ×2 (10:46→22:28)
[2017-05-30] MEDS: SERTRALINE HCL 50 MG TABLET (FP) GT SCH (10:48)
[2017-05-30] MEDS ORDERED: PIPERACILLIN/TAZOBACTAM 3.375 GM VIAL IVPB ONE ×2 (11:05→18:00)
[2017-05-30] MEDS ORDERED: DEXTROSE 5%-WATER - 50 ML IVPB ONE ×2 (11:05→18:00)
[2017-05-30] MEDS: PIPERACILLIN/TAZOB 3.375 GM 3.375 GM in DEXTROSE 5%-WATER - 50 ML IVPB SCH ×2 (11:10→18:29)
[2017-05-30] MEDS: FLUTICASONE/SALMETEROL 100 MCG/50 MCG DISKUS IH SCH ×2 (11:11→22:28)
--- NOTE | 2017-05-30 12:02 | PN ---
Progress Note, Physician History of Present Illness: PULMONARY ALERT,ON VENT SUPPORT ON AC MODE -RESP DISTRESS - Current Medication List Current Medications: Active Medications Albuterol/Ipratropium (Duoneb -) 1 amp NEB Q4H PRN PRN Reason: SHORTNESS OF BREATH Last Admin: 05/29/17 06:36 Dose: 1 amp Chlorhexidine Gluconate (Hibiclens For Decolonization -) 1 applic TP HS [facility] Last Admin: 05/29/17 22:42 Dose: Not Given Heparin Sodium (Porcine) (Heparin -) 5,000 unit SQ BID [facility] Last Admin: 05/30/17 10:46 Dose: 5,000 unit Piperacillin Sod/Tazobactam (Sod 3.375 gm/ Dextrose) 50 mls @ 100 mls/hr IVPB Q8H-IV [facility] Stop: 06/05/17 01:59 Last Admin: 05/30/17 11:10 Dose: 100 mls/hr Lactobacillus Acidophilus (Bacid -) 1 tab GT BID [facility] Last Admin: 05/30/17 10:45 Dose: 1 tab Lisinopril (Prinivil) 2.5 mg GT DAILY [facility] Last Admin: 05/30/17 10:46 Dose: 2.5 mg Mupirocin (Bactroban Ointment (For Decolonization) -) 1 applic NS BID [facility] Stop: 06/02/17 21:59 Last Admin: 05/30/17 10:22 Dose: Not Given Ranitidine HCl (Zantac -) 150 mg NR DAILY [facility] Last Admin: 05/30/17 10:46 Dose: 150 mg Fluticasone/Salmeterol (Advair 100mcg/50mcg -) 1 puff IH BID [facility] Last Admin: 05/30/17 11:11 Dose: Not Given Senna (Senna -) 2 tab PO HS [facility] Last Admin: 05/29/17 22:42 Dose: Not Given Sertraline HCl (Zoloft -) 50 mg GT DAILY [facility] Last Admin: 05/30/17 10:48 Dose: 50 mg Ursodiol (Actigal -) 300 mg NR BID [facility] Last Admin: 05/30/17 10:45 Dose: 300 mg - Objective Vital Signs: Vital Signs Temperature 97.5 F L 05/30/17 06:00 Pulse Rate 58 L 05/30/17 10:00 Respiratory Rate 18 10/11/17 10:00 Blood Pressure 102/53 05/30/17 10:00 O2 Sat by Pulse Oximetry (%) 100 05/29/17 10:16 Constitutional: Yes: Well Nourished, Calm Eyes: Yes: WNL HENT: Yes: WNL Neck: Yes: Supple (TRACH) Cardiovascular: Yes: Regular Rate and Rhythm, S1, S2 Respiratory: Yes: Diminished Gastrointestinal: Yes: Normal Bowel Sounds, Soft Extremities: Yes: WNL Edema: No Labs: CBC, BMP 05/30/17 06:58 05/30/17 06:58 INR, PTT INR 1.24 (0.82-1.09) H 05/25/17 10:45 - ....Imaging Chest X-ray: Report Reviewed, Image Reviewed Problem List - Problems (1) Sepsis Code(s): A41.9 - SEPSIS, UNSPECIFIED ORGANISM Qualifiers: Sepsis type: sepsis due to unspecified organism Qualified Code(s): A41.9 - Sepsis, unspecified organism; A41.9 - Sepsis, unspecified organism; A41.9 - Sepsis, unspecified organism (2) Septic shock Code(s): A41.9 - SEPSIS, UNSPECIFIED ORGANISM R65.21 - SEVERE SEPSIS WITH SEPTIC SHOCK (3) VAP (ventilator-associated pneumonia) Code(s): J95.851 - VENTILATOR ASSOCIATED PNEUMONIA (4) Acute CHF (congestive heart failure) Code(s): I50.9 - HEART FAILURE, UNSPECIFIED (5) Atrial fibrillation Code(s): I48.91 - UNSPECIFIED ATRIAL FIBRILLATION Qualifiers: Atrial fibrillation type: paroxysmal Qualified Code(s): I48.0 - Paroxysmal atrial fibrillation; I48.0 - Paroxysmal atrial fibrillation; I48.0 - Paroxysmal atrial fibrillation; I48.0 - Paroxysmal atrial fibrillation (6) Acute on chronic respiratory failure with hypoxia and hypercapnia Code(s): J96.21 - ACUTE AND CHRONIC RESPIRATORY FAILURE WITH HYPOXIA J96.22 - ACUTE AND CHRONIC RESPIRATORY FAILURE WITH HYPERCAPNIA (7) PEG (percutaneous endoscopic gastrostomy) status Code(s): Z93.1 - GASTROSTOMY STATUS (8) COPD (chronic obstructive pulmonary disease) Code(s): J44.9 - CHRONIC OBSTRUCTIVE PULMONARY DISEASE, UNSPECIFIED (9) CVA (cerebral infarction) Code(s): I63.9 - CEREBRAL INFARCTION, UNSPECIFIED Assessment/Plan ASSESSMENT AND PLAN: Acute on Chronic Hypoxic and Hypercapneic Respiratory Failure Pneumonia Septic Shock resolving Anemia COPD Paroxysmal Atrial Fibrillation h/o CVA HTN DM - continue antibiotics per ID - inhaled bronchodilators - O2 to keep SpO2 >90% - continue volume assist control - spontaneous breathing trials as tolerated - enteral feeds - DVT prophylaxis DR DRAPER
--- NOTE | 2017-05-30 14:46 | PN ---
Progress Note, Physician History of Present Illness: says he does not feel too well today no specific complaints - Current Medication List Current Medications: Active Medications Albuterol/Ipratropium (Duoneb -) 1 amp NEB Q4H PRN PRN Reason: SHORTNESS OF BREATH Last Admin: 05/29/17 06:36 Dose: 1 amp Chlorhexidine Gluconate (Hibiclens For Decolonization -) 1 applic TP HS [facility] Last Admin: 05/29/17 22:42 Dose: Not Given Heparin Sodium (Porcine) (Heparin -) 5,000 unit SQ BID [facility] Last Admin: 05/30/17 10:46 Dose: 5,000 unit Piperacillin Sod/Tazobactam (Sod 3.375 gm/ Dextrose) 50 mls @ 100 mls/hr IVPB Q8H-IV [facility] Stop: 06/05/17 01:59 Last Admin: 05/30/17 11:10 Dose: 100 mls/hr Lactobacillus Acidophilus (Bacid -) 1 tab GT BID [facility] Last Admin: 05/30/17 10:45 Dose: 1 tab Lisinopril (Prinivil) 2.5 mg GT DAILY [facility] Last Admin: 05/30/17 10:46 Dose: 2.5 mg Mupirocin (Bactroban Ointment (For Decolonization) -) 1 applic NS BID [facility] Stop: 06/02/17 21:59 Last Admin: 05/30/17 10:22 Dose: Not Given Ranitidine HCl (Zantac -) 150 mg NR DAILY [facility] Last Admin: 05/30/17 10:46 Dose: 150 mg Fluticasone/Salmeterol (Advair 100mcg/50mcg -) 1 puff IH BID [facility] Last Admin: 05/30/17 11:11 Dose: Not Given Senna (Senna -) 2 tab PO HS [facility] Last Admin: 05/29/17 22:42 Dose: Not Given Sertraline HCl (Zoloft -) 50 mg GT DAILY [facility] Last Admin: 05/30/17 10:48 Dose: 50 mg Ursodiol (Actigal -) 300 mg NR BID [facility] Last Admin: 05/30/17 10:45 Dose: 300 mg - Objective Vital Signs: Vital Signs Temperature 97.5 F L 05/30/17 06:00 Pulse Rate 70 05/30/17 10:35 Respiratory Rate 16 05/30/17 14:36 Blood Pressure 102/53 05/30/17 10:00 O2 Sat by Pulse Oximetry (%) 100 05/30/17 10:35 Constitutional: Yes: No Distress, Calm Cardiovascular: Yes: Regular Rate and Rhythm Respiratory: Yes: Mechanically Ventilated, Rhonchi Gastrointestinal: Yes: Normal Bowel Sounds, Soft Musculoskeletal: Yes: WNL Extremities: Yes: WNL Neurological: Yes: Alert, Oriented Psychiatric: Yes: Alert, Oriented Labs: CBC, BMP 05/30/17 06:58 05/30/17 06:58 INR, PTT INR 1.24 (0.82-1.09) H 05/25/17 10:45 Assessment/Plan Problem List - Problems (1) Sepsis Code(s): A41.9 - SEPSIS, UNSPECIFIED ORGANISM (2) Septic shock Code(s): A41.9 - SEPSIS, UNSPECIFIED ORGANISM R65.21 - SEVERE SEPSIS WITH SEPTIC SHOCK (3) VAP (ventilator-associated pneumonia) Code(s): J95.851 - VENTILATOR ASSOCIATED PNEUMONIA (4) Chronic respiratory failure Code(s): J96.10 - CHRONIC RESPIRATORY FAILURE, UNSP W HYPOXIA OR HYPERCAPNIA (5) Diabetes mellitus Code(s): E11.9 - TYPE 2 DIABETES MELLITUS WITHOUT COMPLICATIONS 6 pneumonia plan contineu zosyn continue suctioning total duration of abx for 14 days
--- NOTE | 2017-05-30 17:04 | PN ---
Progress Note, Physician History of Present Illness: stable - Current Medication List Current Medications: Active Medications Albuterol/Ipratropium (Duoneb -) 1 amp NEB Q4H PRN PRN Reason: SHORTNESS OF BREATH Last Admin: 05/29/17 06:36 Dose: 1 amp Chlorhexidine Gluconate (Hibiclens For Decolonization -) 1 applic TP HS [facility] Last Admin: 05/29/17 22:42 Dose: Not Given Heparin Sodium (Porcine) (Heparin -) 5,000 unit SQ BID [facility] Last Admin: 05/30/17 10:46 Dose: 5,000 unit Piperacillin Sod/Tazobactam (Sod 3.375 gm/ Dextrose) 50 mls @ 100 mls/hr IVPB Q8H-IV [facility] Stop: 06/05/17 01:59 Last Admin: 05/30/17 11:10 Dose: 100 mls/hr Lactobacillus Acidophilus (Bacid -) 1 tab GT BID [facility] Last Admin: 05/30/17 10:45 Dose: 1 tab Lisinopril (Prinivil) 2.5 mg GT DAILY [facility] Last Admin: 05/30/17 10:46 Dose: 2.5 mg Mupirocin (Bactroban Ointment (For Decolonization) -) 1 applic NS BID [facility] Stop: 06/02/17 21:59 Last Admin: 05/30/17 10:22 Dose: Not Given Ranitidine HCl (Zantac -) 150 mg NR DAILY [facility] Last Admin: 05/30/17 10:46 Dose: 150 mg Fluticasone/Salmeterol (Advair 100mcg/50mcg -) 1 puff IH BID [facility] Last Admin: 05/30/17 11:11 Dose: Not Given Senna (Senna -) 2 tab PO HS [facility] Last Admin: 05/29/17 22:42 Dose: Not Given Sertraline HCl (Zoloft -) 50 mg GT DAILY [facility] Last Admin: 05/30/17 10:48 Dose: 50 mg Ursodiol (Actigal -) 300 mg NR BID [facility] Last Admin: 05/30/17 10:45 Dose: 300 mg - Objective Vital Signs: Vital Signs Temperature 98.7 F 05/30/17 14:47 Pulse Rate 52 L 05/30/17 14:47 Respiratory Rate 14 05/30/17 14:47 Blood Pressure 97/53 05/30/17 14:47 O2 Sat by Pulse Oximetry (%) 100 05/30/17 10:35 Constitutional: Yes: Calm HENT: Yes: Atraumatic Neck: Yes: Other (trach/vent) Cardiovascular: Yes: Regular Rate and Rhythm Respiratory: Yes: Rhonchi Gastrointestinal: Yes: Other (peg in place) Extremities: Yes: Other (pt has contractures lower extr not new...) Neurological: Yes: Alert, Oriented Labs: CBC, BMP 05/30/17 06:58 05/30/17 06:58 INR, PTT INR 1.24 (0.82-1.09) H 05/25/17 10:45 Problem List - Problems (1) Sepsis Assessment/Plan: iv abx...total of 14 days...he refused abx yesterday Code(s): A41.9 - SEPSIS, UNSPECIFIED ORGANISM Qualifiers: Sepsis type: sepsis due to unspecified organism Qualified Code(s): A41.9 - Sepsis, unspecified organism; A41.9 - Sepsis, unspecified organism; A41.9 - Sepsis, unspecified organism (2) Septic shock Assessment/Plan: bp better Code(s): A41.9 - SEPSIS, UNSPECIFIED ORGANISM R65.21 - SEVERE SEPSIS WITH SEPTIC SHOCK (3) VAP (ventilator-associated pneumonia) Code(s): J95.851 - VENTILATOR ASSOCIATED PNEUMONIA (4) Atrial fibrillation Assessment/Plan: on meds stabel Code(s): I48.91 - UNSPECIFIED ATRIAL FIBRILLATION Qualifiers: Atrial fibrillation type: paroxysmal Qualified Code(s): I48.0 - Paroxysmal atrial fibrillation; I48.0 - Paroxysmal atrial fibrillation; I48.0 - Paroxysmal atrial fibrillation; I48.0 - Paroxysmal atrial fibrillation (5) Chronic respiratory failure Assessment/Plan: on trach /vent Code(s): J96.10 - CHRONIC RESPIRATORY FAILURE, UNSP W HYPOXIA OR HYPERCAPNIA Qualifiers: Respiratory failure complication: unspecified whether with hypoxia or hypercapnia Qualified Code(s): J96.10 - Chronic respiratory failure, unspecified whether with hypoxia or hypercapnia; J96.10 - Chronic respiratory failure, unspecified whether with hypoxia or hypercapnia; J96.10 - Chronic respiratory failure, unspecified whether with hypoxia or hypercapnia (6) Diabetes mellitus Assessment/Plan: monitor Code(s): E11.9 - TYPE 2 DIABETES MELLITUS WITHOUT COMPLICATIONS Qualifiers: Diabetes mellitus type: type 2 Diabetes mellitus complication status: with unspecified complications 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 insulin use: without alf use Qualified Code(s): E11.8 - Type 2 diabetes mellitus with unspecified complications; E11.8 - Type 2 diabetes mellitus with unspecified complications; E11.8 - Type 2 diabetes mellitus with unspecified complications; E11.8 - Type 2 diabetes mellitus with unspecified complications; Z79.4 - [facility] (current) use of insulin; Z79.4 - [facility] (current) use of insulin; Z79.4 - watermelon inspector (current) use of insulin; Z79.4 - watermelon inspector (current ) use of insulin (7) PEG (percutaneous endoscopic gastrostomy) status Code(s): Z93.1 - GASTROSTOMY STATUS Assessment/Plan
[2017-05-30] MEDS: SENNOSIDES 8.6MG TABLET (FP) PO SCH (22:29)
[2017-05-30] MEDS: CHLORHEXIDINE GLUCONATE 4% CLEANSER FOR DECOLONIZATION TP SCH (22:29)
[2017-05-31] MEDS ORDERED: PIPERACILLIN/TAZOBACTAM 3.375 GM VIAL IVPB ONE ×2 (00:46→10:32)
[2017-05-31] MEDS ORDERED: DEXTROSE 5%-WATER - 50 ML IVPB ONE ×2 (00:46→10:33)
[2017-05-31] MEDS: PIPERACILLIN/TAZOB 3.375 GM 3.375 GM in DEXTROSE 5%-WATER - 50 ML IVPB SCH ×3 (01:24→18:11)
--- NOTE | 2017-05-31 09:47 | PN ---
Progress Note, [employer] V[employer]OR - Note Progress Note: Selected Entries 05/30/17 05/30/17 05/30/17 02:00 06:00 14:47 Supper Temperature 97.5 F L 97.5 F L 98.7 F 05/30/17 05/30/17 05/31/17 18:00 21:12 02:00 Supper NPO Temperature 99.9 F H 97.8 F 97.8 F 05/31/17 06:00 Supper Temperature 97.5 F L Laboratory Tests 05/30/17 06:58 WBC 5.4 Limited cooperation with me for reassessment. Cooperation with [facility] is questionable at this time.
[2017-05-31] MEDS ORDERED: PT OWN MED DRAWER 7, Y5N ONE ×4 (10:37→19:55)
[2017-05-31] MEDS: RANITIDINE HCL 150 MG TABLET (FP) NR SCH (10:38)
[2017-05-31] MEDS: SERTRALINE HCL 50 MG TABLET (FP) GT SCH (10:39)
[2017-05-31] MEDS: LISINOPRIL 5 MG TABLET (FP) GT SCH (10:39)
[2017-05-31] MEDS: URSODIOL 300 MG CAPSULE NR SCH ×2 (10:40→22:13)
[2017-05-31] MEDS: LACTOBACILLUS ACIDOPHILUS 1 EACH TAB (FP) GT SCH ×2 (10:40→22:13)
[2017-05-31] MEDS: HEPARIN NA (PORCINE) 5,000 UNITS/ML 1ML VIAL SQ SCH ×2 (10:41→22:14)
--- NOTE | 2017-05-31 10:44 | PN ---
Progress Note (short form) - Note Progress Note: Awake on AC mode of vent. 40% FiO2. No acute events overnight. Intake & Output 05/28/17 05/29/17 05/30/17 05/31/17 23:59 23:59 23:59 23:59 Intake Total 2882 2226 900 1130 Output Total 2050 2400 400 Balance 832 -446 443 1314 Weight 186 lb 4 oz Last Vital Signs Temp Pulse Resp BP Pulse Ox 97.5 F L 69 20 109/66 100 05/31/17 06:00 05/31/17 06:00 05/31/17 06:03 05/31/17 06:00 05/30/17 10:35 Active Medications Albuterol/Ipratropium (Duoneb -) 1 amp NEB Q4H PRN PRN Reason: SHORTNESS OF BREATH Last Admin: 05/29/17 06:36 Dose: 1 amp Chlorhexidine Gluconate (Hibiclens For Decolonization -) 1 applic TP HS [facility] Last Admin: 05/30/17 22:29 Dose: Not Given Heparin Sodium (Porcine) (Heparin -) 5,000 unit SQ BID [facility] Last Admin: 05/31/17 10:41 Dose: 5,000 unit Piperacillin Sod/Tazobactam (Sod 3.375 gm/ Dextrose) 50 mls @ 100 mls/hr IVPB Q8H-IV [facility] Stop: 06/05/17 01:59 Last Admin: 05/31/17 10:43 Dose: 100 mls/hr Lactobacillus Acidophilus (Bacid -) 1 tab GT BID [facility] Last Admin: 05/31/17 10:40 Dose: 1 tab Lisinopril (Prinivil) 2.5 mg GT DAILY [facility] Last Admin: 05/31/17 10:39 Dose: 2.5 mg Mupirocin (Bactroban Ointment (For Decolonization) -) 1 applic NS BID [facility] Stop: 06/02/17 21:59 Last Admin: 05/30/17 22:28 Dose: Not Given Ranitidine HCl (Zantac -) 150 mg NR DAILY [facility] Last Admin: 05/31/17 10:38 Dose: 150 mg Fluticasone/Salmeterol (Advair 100mcg/50mcg -) 1 puff IH BID [facility] Last Admin: 05/30/17 22:28 Dose: Not Given Senna (Senna -) 2 tab PO HS [facility] Last Admin: 05/30/17 22:29 Dose: 2 tab Sertraline HCl (Zoloft -) 50 mg GT DAILY [facility] Last Admin: 05/31/17 10:39 Dose: 50 mg Ursodiol (Actigal -) 300 mg NR BID [facility] Last Admin: 05/31/17 10:40 Dose: 300 mg Gen: vented, awake Heart: RRR Lung: scattered rhonchi Abd: soft, nontender Ext: + edema ASSESSMENT AND PLAN: Acute on Chronic Hypoxic and Hypercapneic Respiratory Failure Pneumonia Septic Shock resolving Anemia COPD Paroxysmal Atrial Fibrillation h/o CVA HTN DM - ABX per ID - inhaled bronchodilators - O2 to keep SpO2 >90% - spontaneous breathing trials as tolerated - enteral feeds - DVT prophylaxis Dr Biggs
[2017-05-31] MEDS: MUPIROCIN 2% TOPICAL OINTMENT FOR DECOLONIZATION NS SCH ×2 (10:57→22:14)
[2017-05-31] MEDS: FLUTICASONE/SALMETEROL 100 MCG/50 MCG DISKUS IH SCH ×2 (12:25→22:13)
--- NOTE | 2017-05-31 13:46 | PN ---
Progress Note, Physician History of Present Illness: patient feels very lousy secretions are increasing - Current Medication List Current Medications: Active Medications Albuterol/Ipratropium (Duoneb -) 1 amp NEB Q4H PRN PRN Reason: SHORTNESS OF BREATH Last Admin: 05/29/17 06:36 Dose: 1 amp Chlorhexidine Gluconate (Hibiclens For Decolonization -) 1 applic TP HS [facility] Last Admin: 05/30/17 22:29 Dose: Not Given Heparin Sodium (Porcine) (Heparin -) 5,000 unit SQ BID [facility] Last Admin: 05/31/17 10:41 Dose: 5,000 unit Piperacillin Sod/Tazobactam (Sod 3.375 gm/ Dextrose) 50 mls @ 100 mls/hr IVPB Q8H-IV [facility] Stop: 06/05/17 01:59 Last Admin: 05/31/17 10:43 Dose: 100 mls/hr Lactobacillus Acidophilus (Bacid -) 1 tab GT BID [facility] Last Admin: 05/31/17 10:40 Dose: 1 tab Lisinopril (Prinivil) 2.5 mg GT DAILY [facility] Last Admin: 05/31/17 10:39 Dose: 2.5 mg Mupirocin (Bactroban Ointment (For Decolonization) -) 1 applic NS BID [facility] Stop: 06/02/17 21:59 Last Admin: 05/31/17 10:57 Dose: Not Given Ranitidine HCl (Zantac -) 150 mg NR DAILY [facility] Last Admin: 05/31/17 10:38 Dose: 150 mg Fluticasone/Salmeterol (Advair 100mcg/50mcg -) 1 puff IH BID [facility] Last Admin: 05/31/17 12:25 Dose: Not Given Senna (Senna -) 2 tab PO HS [facility] Last Admin: 05/30/17 22:29 Dose: 2 tab Sertraline HCl (Zoloft -) 50 mg GT DAILY [facility] Last Admin: 05/31/17 10:39 Dose: 50 mg Ursodiol (Actigal -) 300 mg NR BID [facility] Last Admin: 05/31/17 10:40 Dose: 300 mg - Objective Vital Signs: Vital Signs Temperature 97.8 F 05/31/17 10:00 Pulse Rate 71 05/31/17 10:20 Respiratory Rate 19 05/31/17 10:20 Blood Pressure 108/50 05/31/17 10:00 O2 Sat by Pulse Oximetry (%) 100 05/31/17 10:20 Constitutional: Yes: Calm, Mild Distress Cardiovascular: Yes: Regular Rate and Rhythm Respiratory: Yes: Mechanically Ventilated, Rhonchi, Other (secretions increasing ) Gastrointestinal: Yes: Normal Bowel Sounds, Soft Musculoskeletal: Yes: WNL Extremities: Yes: WNL Neurological: Yes: Alert, Oriented Psychiatric: Yes: Alert, Oriented Labs: CBC, BMP 05/30/17 06:58 05/30/17 06:58 INR, PTT INR 1.24 (0.82-1.09) H 05/25/17 10:45 Assessment/Plan Problem List - Problems (1) Sepsis Code(s): A41.9 - SEPSIS, UNSPECIFIED ORGANISM (2) Septic shock Code(s): A41.9 - SEPSIS, UNSPECIFIED ORGANISM R65.21 - SEVERE SEPSIS WITH SEPTIC SHOCK (3) VAP (ventilator-associated pneumonia) Code(s): J95.851 - VENTILATOR ASSOCIATED PNEUMONIA (4) Chronic respiratory failure Code(s): J96.10 - CHRONIC RESPIRATORY FAILURE, UNSP W HYPOXIA OR HYPERCAPNIA (5) Diabetes mellitus Code(s): E11.9 - TYPE 2 DIABETES MELLITUS WITHOUT COMPLICATIONS 6 pneumonia plan contineu zosyn continue suctioning total duration of abx for 14 days if patients secretion keeps on increasing then will recx the sputum
--- NOTE | 2017-05-31 15:50 | PN ---
Progress Note, Physician History of Present Illness: stable - Current Medication List Current Medications: Active Medications Albuterol/Ipratropium (Duoneb -) 1 amp NEB Q4H PRN PRN Reason: SHORTNESS OF BREATH Last Admin: 05/29/17 06:36 Dose: 1 amp Chlorhexidine Gluconate (Hibiclens For Decolonization -) 1 applic TP HS [facility] Last Admin: 05/30/17 22:29 Dose: Not Given Heparin Sodium (Porcine) (Heparin -) 5,000 unit SQ BID [facility] Last Admin: 05/31/17 10:41 Dose: 5,000 unit Piperacillin Sod/Tazobactam (Sod 3.375 gm/ Dextrose) 50 mls @ 100 mls/hr IVPB Q8H-IV [facility] Stop: 06/05/17 01:59 Last Admin: 05/31/17 10:43 Dose: 100 mls/hr Lactobacillus Acidophilus (Bacid -) 1 tab GT BID [facility] Last Admin: 05/31/17 10:40 Dose: 1 tab Lisinopril (Prinivil) 2.5 mg GT DAILY [facility] Last Admin: 05/31/17 10:39 Dose: 2.5 mg Mupirocin (Bactroban Ointment (For Decolonization) -) 1 applic NS BID [facility] Stop: 06/02/17 21:59 Last Admin: 05/31/17 10:57 Dose: Not Given Ranitidine HCl (Zantac -) 150 mg NR DAILY [facility] Last Admin: 05/31/17 10:38 Dose: 150 mg Fluticasone/Salmeterol (Advair 100mcg/50mcg -) 1 puff IH BID [facility] Last Admin: 05/31/17 12:25 Dose: Not Given Senna (Senna -) 2 tab PO HS [facility] Last Admin: 05/30/17 22:29 Dose: 2 tab Sertraline HCl (Zoloft -) 50 mg GT DAILY [facility] Last Admin: 05/31/17 10:39 Dose: 50 mg Ursodiol (Actigal -) 300 mg NR BID [facility] Last Admin: 05/31/17 10:40 Dose: 300 mg - Objective Vital Signs: Vital Signs Temperature 98.4 F 05/31/17 14:20 Pulse Rate 56 L 05/31/17 14:20 Respiratory Rate 15 05/31/17 14:20 Blood Pressure 97/58 05/31/17 14:20 O2 Sat by Pulse Oximetry (%) 100 05/31/17 10:20 Constitutional: Yes: No Distress HENT: Yes: Atraumatic Neck: Yes: Supple Cardiovascular: Yes: Pulse Irregular Respiratory: Yes: Rhonchi Gastrointestinal: Yes: Normal Bowel Sounds, Other (peg in place) Extremities: Yes: WNL Neurological: Yes: Alert, Oriented Labs: CBC, BMP 05/30/17 06:58 05/30/17 06:58 INR, PTT INR 1.24 (0.82-1.09) H 05/25/17 10:45 Problem List - Problems (1) Sepsis Assessment/Plan: iv abx...total of 14 days... Code(s): A41.9 - SEPSIS, UNSPECIFIED ORGANISM Qualifiers: Sepsis type: sepsis due to unspecified organism Qualified Code(s): A41.9 - Sepsis, unspecified organism; A41.9 - Sepsis, unspecified organism; A41.9 - Sepsis, unspecified organism (2) Septic shock Assessment/Plan: bp better Code(s): A41.9 - SEPSIS, UNSPECIFIED ORGANISM R65.21 - SEVERE SEPSIS WITH SEPTIC SHOCK (3) VAP (ventilator-associated pneumonia) Code(s): J95.851 - VENTILATOR ASSOCIATED PNEUMONIA (4) Atrial fibrillation Assessment/Plan: on meds stabel Code(s): I48.91 - UNSPECIFIED ATRIAL FIBRILLATION Qualifiers: Atrial fibrillation type: paroxysmal Qualified Code(s): I48.0 - Paroxysmal atrial fibrillation; I48.0 - Paroxysmal atrial fibrillation; I48.0 - Paroxysmal atrial fibrillation; I48.0 - Paroxysmal atrial fibrillation (5) Chronic respiratory failure Assessment/Plan: on trach /vent Code(s): J96.10 - CHRONIC RESPIRATORY FAILURE, UNSP W HYPOXIA OR HYPERCAPNIA Qualifiers: Respiratory failure complication: unspecified whether with hypoxia or hypercapnia Qualified Code(s): J96.10 - Chronic respiratory failure, unspecified whether with hypoxia or hypercapnia; J96.10 - Chronic respiratory failure, unspecified whether with hypoxia or hypercapnia; J96.10 - Chronic respiratory failure, unspecified whether with hypoxia or hypercapnia (6) Diabetes mellitus Assessment/Plan: monitor Code(s): E11.9 - TYPE 2 DIABETES MELLITUS WITHOUT COMPLICATIONS Qualifiers: Diabetes mellitus type: type 2 Diabetes mellitus complication status: with unspecified complications Diabetes mellitus termination clerk insulin use: without termination clerk use Qualified Code(s): E11.8 - Type 2 diabetes mellitus with unspecified complications; E11.8 - Type 2 diabetes mellitus with unspecified complications; E11.8 - Type 2 diabetes mellitus with unspecified complications; E11.8 - Type 2 diabetes mellitus with unspecified complications; Z79.4 - long term care phlebotomist (current) use of insulin; Z79.4 - long term care phlebotomist (current) use of insulin; Z79.4 - group home (current) use of insulin; Z79.4 - group home (current ) use of insulin (7) PEG (percutaneous endoscopic gastrostomy) status Code(s): Z93.1 - GASTROSTOMY STATUS Assessment/Plan
[2017-05-31] MEDS: CHLORHEXIDINE GLUCONATE 4% CLEANSER FOR DECOLONIZATION TP SCH (22:15)
[2017-05-31] MEDS: SENNOSIDES 8.6MG TABLET (FP) PO SCH (22:15)
[2017-06-01] MEDS: PIPERACILLIN/TAZOB 3.375 GM 3.375 GM in DEXTROSE 5%-WATER - 50 ML IVPB SCH ×2 (02:47→11:19)
[2017-06-01] MEDS ORDERED: PT OWN MED DRAWER 7, Y5N ONE ×3 (11:06→20:05)
[2017-06-01] MEDS: RANITIDINE HCL 150 MG TABLET (FP) NR SCH (11:10)
[2017-06-01] MEDS: HEPARIN NA (PORCINE) 5,000 UNITS/ML 1ML VIAL SQ SCH ×2 (11:11→22:28)
[2017-06-01] MEDS: LACTOBACILLUS ACIDOPHILUS 1 EACH TAB (FP) GT SCH ×2 (11:11→22:27)
[2017-06-01] MEDS: URSODIOL 300 MG CAPSULE NR SCH ×2 (11:11→22:27)
[2017-06-01] MEDS: SERTRALINE HCL 50 MG TABLET (FP) GT SCH (11:11)
[2017-06-01] MEDS: LISINOPRIL 5 MG TABLET (FP) GT SCH (11:12)
[2017-06-01] MEDS: PIPERACILLIN/TAZOB 3.375 GM 50 ML IVPB SCH ×2 (11:19→18:52)
[2017-06-01] MEDS: MUPIROCIN 2% TOPICAL OINTMENT FOR DECOLONIZATION NS SCH ×2 (11:34→22:28)
--- NOTE | 2017-06-01 12:39 | PN ---
Progress Note (short form) - Note Progress Note: PULMONARY AWAKE/ALERT OFFERS NO COMPLAINTS APPEARS COMFORTABLE ON PRESENT VENT SETTINGS VSS/AFEBRILE ANICTERIC DISTANT B/L BREATH SOUNDS S1S2 BS+ 1+ EDEMA WITH HEEL B/L ULCERATIONS LABS/MEDS/NOTES/IMAGES/MICRO REVIEWED ASSESSMENT AND PLAN: Acute on Chronic Hypoxic and Hypercapneic Respiratory Failure Pneumonia Septic Shock resolving Anemia COPD Paroxysmal Atrial Fibrillation h/o CVA HTN DM - ABX per ID - inhaled bronchodilators - O2 to keep SpO2 >90% - spontaneous breathing trials as tolerated - enteral feeds - DVT prophylaxsis - Same vent settings for now Elizabeth LAU MD
--- NOTE | 2017-06-01 13:04 | PN ---
Progress Note, Physician History of Present Illness: stable lot of secretions - Current Medication List Current Medications: Active Medications Albuterol/Ipratropium (Duoneb -) 1 amp NEB Q4H PRN PRN Reason: SHORTNESS OF BREATH Last Admin: 05/29/17 06:36 Dose: 1 amp Chlorhexidine Gluconate (Hibiclens For Decolonization -) 1 applic TP HS [facility] Last Admin: 05/31/17 22:15 Dose: Not Given Heparin Sodium (Porcine) (Heparin -) 5,000 unit SQ BID [facility] Last Admin: 06/01/17 11:11 Dose: 5,000 unit Piperacillin/Tazobactam/Dextrose (Zosyn 3.375gm Ivpb (Premix)) 50 mls @ 100 mls /hr IVPB Q8H-IV [facility] Stop: 06/05/17 01:59 Last Admin: 06/01/17 11:19 Dose: 100 mls/hr Lactobacillus Acidophilus (Bacid -) 1 tab GT BID [facility] Last Admin: 06/01/17 11:11 Dose: 1 tab Lisinopril (Prinivil) 2.5 mg GT DAILY [facility] Last Admin: 06/01/17 11:12 Dose: 2.5 mg Mupirocin (Bactroban Ointment (For Decolonization) -) 1 applic NS BID [facility] Stop: 06/02/17 21:59 Last Admin: 06/01/17 11:34 Dose: Not Given Ranitidine HCl (Zantac -) 150 mg NR DAILY [facility] Last Admin: 06/01/17 11:10 Dose: 150 mg Fluticasone/Salmeterol (Advair 100mcg/50mcg -) 1 puff IH BID [facility] Last Admin: 05/31/17 22:13 Dose: Not Given Senna (Senna -) 2 tab PO HS [facility] Last Admin: 05/31/17 22:15 Dose: 2 tab Sertraline HCl (Zoloft -) 50 mg GT DAILY [facility] Last Admin: 06/01/17 11:11 Dose: 50 mg Ursodiol (Actigal -) 300 mg NR BID [facility] Last Admin: 06/01/17 11:11 Dose: 300 mg - Objective Vital Signs: Vital Signs Temperature 98.8 F 06/01/17 09:45 Pulse Rate 67 06/01/17 10:00 Respiratory Rate 24 06/01/17 10:00 Blood Pressure 103/63 06/01/17 09:45 O2 Sat by Pulse Oximetry (%) 99 06/01/17 10:00 Constitutional: Yes: No Distress, Calm Cardiovascular: Yes: Regular Rate and Rhythm Respiratory: Yes: Mechanically Ventilated, Rhonchi Gastrointestinal: Yes: Normal Bowel Sounds, Soft Musculoskeletal: Yes: WNL Extremities: Yes: WNL Neurological: Yes: Alert, Oriented Psychiatric: Yes: Alert, Oriented Labs: CBC, BMP 05/30/17 06:58 05/30/17 06:58 INR, PTT INR 1.24 (0.82-1.09) H 05/25/17 10:45 Assessment/Plan Problem List - Problems (1) Sepsis Code(s): A41.9 - SEPSIS, UNSPECIFIED ORGANISM (2) Septic shock Code(s): A41.9 - SEPSIS, UNSPECIFIED ORGANISM R65.21 - SEVERE SEPSIS WITH SEPTIC SHOCK (3) VAP (ventilator-associated pneumonia) Code(s): J95.851 - VENTILATOR ASSOCIATED PNEUMONIA (4) Chronic respiratory failure Code(s): J96.10 - CHRONIC RESPIRATORY FAILURE, UNSP W HYPOXIA OR HYPERCAPNIA (5) Diabetes mellitus Code(s): E11.9 - TYPE 2 DIABETES MELLITUS WITHOUT COMPLICATIONS 6 pneumonia plan contineu zosyn continue suctioning total duration of abx for 14 days i have ordered sputum cx as the secretions still plenty
[2017-06-01] MEDS: FLUTICASONE/SALMETEROL 100 MCG/50 MCG DISKUS IH SCH ×2 (13:25→22:27)
--- NOTE | 2017-06-01 18:14 | PN ---
Progress Note, Physician History of Present Illness: stable - Current Medication List Current Medications: Active Medications Albuterol/Ipratropium (Duoneb -) 1 amp NEB Q4H PRN PRN Reason: SHORTNESS OF BREATH Last Admin: 05/29/17 06:36 Dose: 1 amp Chlorhexidine Gluconate (Hibiclens For Decolonization -) 1 applic TP HS [facility] Last Admin: 05/31/17 22:15 Dose: Not Given Heparin Sodium (Porcine) (Heparin -) 5,000 unit SQ BID [facility] Last Admin: 06/01/17 11:11 Dose: 5,000 unit Piperacillin/Tazobactam/Dextrose (Zosyn 3.375gm Ivpb (Premix)) 50 mls @ 100 mls /hr IVPB Q8H-IV [facility] Stop: 06/05/17 01:59 Last Admin: 06/01/17 11:19 Dose: 100 mls/hr Lactobacillus Acidophilus (Bacid -) 1 tab GT BID [facility] Last Admin: 06/01/17 11:11 Dose: 1 tab Lisinopril (Prinivil) 2.5 mg GT DAILY [facility] Last Admin: 06/01/17 11:12 Dose: 2.5 mg Mupirocin (Bactroban Ointment (For Decolonization) -) 1 applic NS BID [facility] Stop: 06/02/17 21:59 Last Admin: 06/01/17 11:34 Dose: Not Given Ranitidine HCl (Zantac -) 150 mg NR DAILY [facility] Last Admin: 06/01/17 11:10 Dose: 150 mg Fluticasone/Salmeterol (Advair 100mcg/50mcg -) 1 puff IH BID [facility] Last Admin: 06/01/17 13:25 Dose: Not Given Senna (Senna -) 2 tab PO HS [facility] Last Admin: 05/31/17 22:15 Dose: 2 tab Sertraline HCl (Zoloft -) 50 mg GT DAILY [facility] Last Admin: 06/01/17 11:11 Dose: 50 mg Ursodiol (Actigal -) 300 mg NR BID [facility] Last Admin: 06/01/17 11:11 Dose: 300 mg - Objective Vital Signs: Vital Signs Temperature 98.2 F 06/01/17 14:36 Pulse Rate 61 06/01/17 14:36 Respiratory Rate 19 06/01/17 14:36 Blood Pressure 130/58 06/01/17 14:36 O2 Sat by Pulse Oximetry (%) 99 06/01/17 10:00 Constitutional: Yes: No Distress HENT: Yes: Atraumatic Neck: Yes: Other (tach/vent) Cardiovascular: Yes: Regular Rate and Rhythm Respiratory: Yes: Rhonchi Gastrointestinal: Yes: Normal Bowel Sounds Extremities: Yes: Other (contractures...not new) Edema: No Neurological: Yes: Alert, Oriented Labs: CBC, BMP 05/30/17 06:58 05/30/17 06:58 INR, PTT INR 1.24 (0.82-1.09) H 05/25/17 10:45 Problem List - Problems (1) Sepsis Assessment/Plan: iv abx...total of 14 days... Code(s): A41.9 - SEPSIS, UNSPECIFIED ORGANISM Qualifiers: Sepsis type: sepsis due to unspecified organism Qualified Code(s): A41.9 - Sepsis, unspecified organism; A41.9 - Sepsis, unspecified organism; A41.9 - Sepsis, unspecified organism (2) Septic shock Assessment/Plan: bp better Code(s): A41.9 - SEPSIS, UNSPECIFIED ORGANISM R65.21 - SEVERE SEPSIS WITH SEPTIC SHOCK (3) VAP (ventilator-associated pneumonia) Code(s): J95.851 - VENTILATOR ASSOCIATED PNEUMONIA (4) Acute on chronic respiratory failure with hypoxia and hypercapnia Assessment/Plan: trach /vent Code(s): J96.21 - ACUTE AND CHRONIC RESPIRATORY FAILURE WITH HYPOXIA J96.22 - ACUTE AND CHRONIC RESPIRATORY FAILURE WITH HYPERCAPNIA (5) COPD (chronic obstructive pulmonary disease) Assessment/Plan: duo nebs trach/vent Code(s): J44.9 - CHRONIC OBSTRUCTIVE PULMONARY DISEASE, UNSPECIFIED (6) PEG (percutaneous endoscopic gastrostomy) status Assessment/Plan: peg in place on TF Code(s): Z93.1 - GASTROSTOMY STATUS (7) Anemia Assessment/Plan: monitor Code(s): D64.9 - ANEMIA, UNSPECIFIED (8) Atrial fibrillation Assessment/Plan: on meds stabel Code(s): I48.91 - UNSPECIFIED ATRIAL FIBRILLATION Qualifiers: Atrial fibrillation type: paroxysmal Qualified Code(s): I48.0 - Paroxysmal atrial fibrillation; I48.0 - Paroxysmal atrial fibrillation; I48.0 - Paroxysmal atrial fibrillation; I48.0 - Paroxysmal atrial fibrillation (9) CVA (cerebral infarction) Assessment/Plan: stable cant walk bedridden Code(s): I63.9 - CEREBRAL INFARCTION, UNSPECIFIED (10) Diabetes mellitus Assessment/Plan: monitor Code(s): E11.9 - TYPE 2 DIABETES MELLITUS WITHOUT COMPLICATIONS Qualifiers: Diabetes mellitus type: type 2 Diabetes mellitus complication status: with unspecified complications Diabetes mellitus intermission coordinator insulin use: without mcc use Qualified Code(s): E11.8 - Type 2 diabetes mellitus with unspecified complications; E11.8 - Type 2 diabetes mellitus with unspecified complications; E11.8 - Type 2 diabetes mellitus with unspecified complications; E11.8 - Type 2 diabetes mellitus with unspecified complications; Z79.4 - snf (current) use of insulin; Z79.4 - snf (current) use of insulin; Z79.4 - snf (current) use of insulin; Z79.4 - termite helper (current ) use of insulin (11) Pneumonia Code(s): J18.9 - PNEUMONIA, UNSPECIFIED ORGANISM Assessment/Plan dc planning for sunday
[2017-06-01] MEDS: CHLORHEXIDINE GLUCONATE 4% CLEANSER FOR DECOLONIZATION TP SCH (22:28)
[2017-06-01] MEDS: SENNOSIDES 8.6MG TABLET (FP) PO SCH (22:29)
[2017-06-02] MEDS: PIPERACILLIN/TAZOB 3.375 GM 50 ML IVPB SCH ×3 (02:04→18:17)
[2017-06-02 08:05] LABS: BASOPHIL 0.8 % (0-2.0); EOSINOPHIL 3.8 % (0-4.5); MCH 30.5 pg (25.7-33.7); MCHC 32.8 g/dl (32.0-35.9); MEAN CELL VOLUME 92.9 fl (80-96); MEAN PLT VOLUME 7.3 fl (7.5-11.1); NEUTROPHILS 60.8 % (42.8-82.8); PLATELET COUNT 236 K/MM3 (134-434); RDW 16.8 % (11.9-15.9); WHITE BLOOD COUNT 6.9 K/mm3 (4.0-10.0)
[2017-06-02 08:47] LABS: ALBUMIN 2.2 g/dl (3.4-5.0); ANION GAP 7 (8-16); CALCIUM 8.7 mg/dL (8.5-10.1); CO2 29 mmol/L (21-32); GLUCOSE,RANDOM 108 mg/dL (74-106); SGOT/AST 15 U/L (15-37); SGPT/ALT 17 U/L (12-78)
[2017-06-02 08:49] LABS: ALK PHOS 63 U/L (45-117); BILIRUBIN,TOTAL 0.2 mg/dL (0.2-1.0); TOT PROT 6.1 g/dl (6.4-8.2)
[2017-06-02] MEDS ORDERED: PT OWN MED DRAWER 7, Y5N ONE (10:31)
[2017-06-02] MEDS: LISINOPRIL 5 MG TABLET (FP) GT SCH (10:41)
[2017-06-02] MEDS: HEPARIN NA (PORCINE) 5,000 UNITS/ML 1ML VIAL SQ SCH ×2 (10:41→22:19)
[2017-06-02] MEDS: MUPIROCIN 2% TOPICAL OINTMENT FOR DECOLONIZATION NS SCH (10:41)
[2017-06-02] MEDS: RANITIDINE HCL 150 MG TABLET (FP) NR SCH (10:41)
[2017-06-02] MEDS: URSODIOL 300 MG CAPSULE NR SCH ×2 (10:42→22:18)
[2017-06-02] MEDS: FLUTICASONE/SALMETEROL 100 MCG/50 MCG DISKUS IH SCH ×2 (10:42→22:21)
[2017-06-02] MEDS: SERTRALINE HCL 50 MG TABLET (FP) GT SCH (10:42)
[2017-06-02] MEDS: LACTOBACILLUS ACIDOPHILUS 1 EACH TAB (FP) GT SCH ×2 (10:42→22:18)
--- NOTE | 2017-06-02 11:36 | PN ---
Progress Note (short form) - Note Progress Note: Awake on AC mode of vent. 40% FiO2. No acute events overnight. Intake & Output 05/30/17 05/31/17 06/01/17 06/02/17 23:59 23:59 23:59 23:59 Intake Total 900 2430 2580 1250 Output Total 400 100 100 Balance 500 2330 2480 1250 Last Vital Signs Temp Pulse Resp BP Pulse Ox 97.5 F L 57 L 16 99/59 100 06/02/17 06:00 06/02/17 06:00 06/02/17 06:40 06/02/17 06:00 06/01/17 20:47 Active Medications Albuterol/Ipratropium (Duoneb -) 1 amp NEB Q4H PRN PRN Reason: SHORTNESS OF BREATH Last Admin: 05/29/17 06:36 Dose: 1 amp Chlorhexidine Gluconate (Hibiclens For Decolonization -) 1 applic TP HS [facility] Last Admin: 06/01/17 22:28 Dose: Not Given Heparin Sodium (Porcine) (Heparin -) 5,000 unit SQ BID [facility] Last Admin: 06/02/17 10:41 Dose: 5,000 unit Piperacillin/Tazobactam/Dextrose (Zosyn 3.375gm Ivpb (Premix)) 50 mls @ 100 mls /hr IVPB Q8H-IV [facility] Stop: 06/05/17 01:59 Last Admin: 06/02/17 02:04 Dose: 100 mls/hr Lactobacillus Acidophilus (Bacid -) 1 tab GT BID [facility] Last Admin: 06/02/17 10:42 Dose: 1 tab Lisinopril (Prinivil) 2.5 mg GT DAILY [facility] Last Admin: 06/02/17 10:41 Dose: 2.5 mg Mupirocin (Bactroban Ointment (For Decolonization) -) 1 applic NS BID [facility] Stop: 06/02/17 21:59 Last Admin: 06/02/17 10:41 Dose: Not Given Ranitidine HCl (Zantac -) 150 mg NR DAILY [facility] Last Admin: 06/02/17 10:41 Dose: 150 mg Fluticasone/Salmeterol (Advair 100mcg/50mcg -) 1 puff IH BID [facility] Last Admin: 06/02/17 10:42 Dose: Not Given Senna (Senna -) 2 tab PO HS [facility] Last Admin: 06/01/17 22:29 Dose: 2 tab Sertraline HCl (Zoloft -) 50 mg GT DAILY [facility] Last Admin: 06/02/17 10:42 Dose: 50 mg Ursodiol (Actigal -) 300 mg NR BID [facility] Last Admin: 06/02/17 10:42 Dose: 300 mg Gen: vented, awake Heart: RRR Lung: scattered rhonchi Abd: soft, nontender Ext: + edema Laboratory Results - last 24 hr 06/02/17 06/02/17 06:00 06:00 WBC 6.9 RBC 2.66 L Hgb 8.1 L Hct 24.7 L MCV 92.9 MCH 30.5 MCHC 32.8 RDW 16.8 H Plt Count 236 MPV 7.3 L Neutrophils % 60.8 D Lymphocytes % 26.7 D Monocytes % 7.9 Eosinophils % 3.8 D Basophils % 0.8 D Sodium 136 Potassium 4.4 Chloride 100 Carbon Dioxide 29 Anion Gap 7 L BUN 21 H D Creatinine 1.0 Creat Clearance w eGFR > 60 Random Glucose 108 H Calcium 8.7 Total Bilirubin 0.2 D AST 15 ALT 17 Alkaline Phosphatase 63 Total Protein 6.1 L Albumin 2.2 L ASSESSMENT AND PLAN: Acute on Chronic Hypoxic and Hypercapneic Respiratory Failure Pneumonia Septic Shock resolving Anemia COPD Paroxysmal Atrial Fibrillation h/o CVA HTN DM - ABX per ID - inhaled bronchodilators - O2 to keep SpO2 >90% - spontaneous breathing trials as tolerated - enteral feeds - DVT prophylaxis Dr Biggs
--- NOTE | 2017-06-02 11:42 | PN ---
Progress Note, Physician History of Present Illness: stable - Current Medication List Current Medications: Active Medications Albuterol/Ipratropium (Duoneb -) 1 amp NEB Q4H PRN PRN Reason: SHORTNESS OF BREATH Last Admin: 05/29/17 06:36 Dose: 1 amp Chlorhexidine Gluconate (Hibiclens For Decolonization -) 1 applic TP HS [facility] Last Admin: 06/01/17 22:28 Dose: Not Given Heparin Sodium (Porcine) (Heparin -) 5,000 unit SQ BID [facility] Last Admin: 06/02/17 10:41 Dose: 5,000 unit Piperacillin/Tazobactam/Dextrose (Zosyn 3.375gm Ivpb (Premix)) 50 mls @ 100 mls /hr IVPB Q8H-IV [facility] Stop: 06/05/17 01:59 Last Admin: 06/02/17 02:04 Dose: 100 mls/hr Lactobacillus Acidophilus (Bacid -) 1 tab GT BID [facility] Last Admin: 06/02/17 10:42 Dose: 1 tab Lisinopril (Prinivil) 2.5 mg GT DAILY [facility] Last Admin: 06/02/17 10:41 Dose: 2.5 mg Mupirocin (Bactroban Ointment (For Decolonization) -) 1 applic NS BID [facility] Stop: 06/02/17 21:59 Last Admin: 06/02/17 10:41 Dose: Not Given Ranitidine HCl (Zantac -) 150 mg NR DAILY [facility] Last Admin: 06/02/17 10:41 Dose: 150 mg Fluticasone/Salmeterol (Advair 100mcg/50mcg -) 1 puff IH BID [facility] Last Admin: 06/02/17 10:42 Dose: Not Given Senna (Senna -) 2 tab PO HS [facility] Last Admin: 06/01/17 22:29 Dose: 2 tab Sertraline HCl (Zoloft -) 50 mg GT DAILY [facility] Last Admin: 06/02/17 10:42 Dose: 50 mg Ursodiol (Actigal -) 300 mg NR BID [facility] Last Admin: 06/02/17 10:42 Dose: 300 mg - Objective Vital Signs: Vital Signs Temperature 97.5 F L 06/02/17 06:00 Pulse Rate 57 L 06/02/17 06:00 Respiratory Rate 16 06/02/17 06:40 Blood Pressure 99/59 06/02/17 06:00 O2 Sat by Pulse Oximetry (%) 100 06/01/17 20:47 Constitutional: Yes: Calm HENT: Yes: Atraumatic Neck: Yes: Other (trach/vent) Cardiovascular: Yes: Regular Rate and Rhythm Respiratory: Yes: Rhonchi Extremities: Yes: WNL Neurological: Yes: Alert Labs: CBC, BMP 06/02/17 06:00 06/02/17 06:00 INR, PTT INR 1.24 (0.82-1.09) H 05/25/17 10:45 Problem List - Problems (1) Sepsis Assessment/Plan: iv abx...total of 14 days... Code(s): A41.9 - SEPSIS, UNSPECIFIED ORGANISM Qualifiers: Sepsis type: sepsis due to unspecified organism Qualified Code(s): A41.9 - Sepsis, unspecified organism; A41.9 - Sepsis, unspecified organism; A41.9 - Sepsis, unspecified organism (2) Septic shock Assessment/Plan: bp better Code(s): A41.9 - SEPSIS, UNSPECIFIED ORGANISM R65.21 - SEVERE SEPSIS WITH SEPTIC SHOCK (3) VAP (ventilator-associated pneumonia) Code(s): J95.851 - VENTILATOR ASSOCIATED PNEUMONIA (4) Acute on chronic respiratory failure with hypoxia and hypercapnia Code(s): J96.21 - ACUTE AND CHRONIC RESPIRATORY FAILURE WITH HYPOXIA J96.22 - ACUTE AND CHRONIC RESPIRATORY FAILURE WITH HYPERCAPNIA (5) COPD (chronic obstructive pulmonary disease) Code(s): J44.9 - CHRONIC OBSTRUCTIVE PULMONARY DISEASE, UNSPECIFIED (6) PEG (percutaneous endoscopic gastrostomy) status Code(s): Z93.1 - GASTROSTOMY STATUS (7) Anemia Code(s): D64.9 - ANEMIA, UNSPECIFIED (8) Atrial fibrillation Assessment/Plan: on meds stabel Code(s): I48.91 - UNSPECIFIED ATRIAL FIBRILLATION Qualifiers: Atrial fibrillation type: paroxysmal Qualified Code(s): I48.0 - Paroxysmal atrial fibrillation; I48.0 - Paroxysmal atrial fibrillation; I48.0 - Paroxysmal atrial fibrillation; I48.0 - Paroxysmal atrial fibrillation (9) CVA (cerebral infarction) Assessment/Plan: stable cant walk bedridden Code(s): I63.9 - CEREBRAL INFARCTION, UNSPECIFIED (10) Diabetes mellitus Assessment/Plan: monitor Code(s): E11.9 - TYPE 2 DIABETES MELLITUS WITHOUT COMPLICATIONS Qualifiers: Diabetes mellitus type: type 2 Diabetes mellitus complication status: with unspecified complications Diabetes mellitus director long term care insulin use: without retirement use Qualified Code(s): E11.8 - Type 2 diabetes mellitus with unspecified complications; E11.8 - Type 2 diabetes mellitus with unspecified complications; E11.8 - Type 2 diabetes mellitus with unspecified complications; E11.8 - Type 2 diabetes mellitus with unspecified complications; Z79.4 - jail (current) use of insulin; Z79.4 - jail (current) use of insulin; Z79.4 - jail (current) use of insulin; Z79.4 - termite control servicer (current ) use of insulin (11) Pneumonia Code(s): J18.9 - PNEUMONIA, UNSPECIFIED ORGANISM Assessment/Plan dc planning for sunday
--- NOTE | 2017-06-02 13:28 | PN ---
Progress Note, Physician Chief Complaint: ID progress note History of Present Illness: Pt seen and examined. Chart notes/labs reviewed. Pt is alert and without acute distress. No new events reported. - Current Medication List Current Medications: Active Medications Albuterol/Ipratropium (Duoneb -) 1 amp NEB Q4H PRN PRN Reason: SHORTNESS OF BREATH Last Admin: 05/29/17 06:36 Dose: 1 amp Chlorhexidine Gluconate (Hibiclens For Decolonization -) 1 applic TP HS [facility] Last Admin: 06/01/17 22:28 Dose: Not Given Heparin Sodium (Porcine) (Heparin -) 5,000 unit SQ BID [facility] Last Admin: 06/02/17 10:41 Dose: 5,000 unit Piperacillin/Tazobactam/Dextrose (Zosyn 3.375gm Ivpb (Premix)) 50 mls @ 100 mls /hr IVPB Q8H-IV [facility] Stop: 06/05/17 01:59 Last Admin: 06/02/17 02:04 Dose: 100 mls/hr Lactobacillus Acidophilus (Bacid -) 1 tab GT BID [facility] Last Admin: 06/02/17 10:42 Dose: 1 tab Lisinopril (Prinivil) 2.5 mg GT DAILY [facility] Last Admin: 06/02/17 10:41 Dose: 2.5 mg Mupirocin (Bactroban Ointment (For Decolonization) -) 1 applic NS BID [facility] Stop: 06/02/17 21:59 Last Admin: 06/02/17 10:41 Dose: Not Given Ranitidine HCl (Zantac -) 150 mg NR DAILY [facility] Last Admin: 06/02/17 10:41 Dose: 150 mg Fluticasone/Salmeterol (Advair 100mcg/50mcg -) 1 puff IH BID [facility] Last Admin: 06/02/17 10:42 Dose: Not Given Senna (Senna -) 2 tab PO HS [facility] Last Admin: 06/01/17 22:29 Dose: 2 tab Sertraline HCl (Zoloft -) 50 mg GT DAILY [facility] Last Admin: 06/02/17 10:42 Dose: 50 mg Ursodiol (Actigal -) 300 mg NR BID [facility] Last Admin: 06/02/17 10:42 Dose: 300 mg - Objective Vital Signs: Vital Signs Temperature 97.5 F L 06/02/17 06:00 Pulse Rate 60 06/02/17 10:00 Respiratory Rate 25 H 06/02/17 10:40 Blood Pressure 102/53 06/02/17 10:00 O2 Sat by Pulse Oximetry (%) 100 06/01/17 20:47 Constitutional: Yes: No Distress, Calm. No: Well Nourished, Anxious, Ashen, Cachectic, Diaphoresis, Mild Distress, Moderate Distress, Severe Distress, Obese , Pallor, Poor Hygeine, Thin, Other HENT: Yes: WNL. No: Atraumatic, Normocephalic, Drooling, Epistaxis, Hoarseness , Nasal Congestion, Pharyngeal Erythema, Rhinnorhea, Thrush, Tonsillar Exudate, Other Cardiovascular: Yes: Regular Rate and Rhythm Respiratory: Yes: Mechanically Ventilated, Other (good air entry b/l, +moderate amount of secretions). No: WNL, Regular, CTA Bilaterally, Accessory Muscle Use , Bradypnea, [place]roldo-[place]ough[place], Cough, Diminished, Dullness, Hyperresonant, Intubated, Kussmaul, On BiPap, On Nasal O2, On Venti-Mask, Orthopnea, Poor Air Entry, Rales, Rhonchi, SOB, SOB on Exertion, Stridor, Tachypnea, Wheezes Gastrointestinal: Yes: Normal Bowel Sounds, Soft. No: WNL, Abdomen, Obese, Ascites, Distention, Hematemesis, Hemorrhoids, Hepatomegaly, Hernia, Hyperactive Bowel Sounds, Hypoactive Bowel Sounds, Melena, Palpable Mass, Pulsatile Mass, Rectal Bleeding, Splenomegaly, Tenderness, Tenderness, Epigastrium, Tenderness, Rebound, Vomiting, Other Genitourinary: Yes: WNL Extremities: Yes: Other (b/l LE SCDs) Integumentary: Yes: WNL. No: Body Piercing, Bruising, Erythema, Incision, Jaundice, Laceration, Petechiae, Pressure Ulcer, Rash, Skin Tear, Tattoos, Tenting, Onychomycosis, Venous Stasis Changes, Other Wound/Incision: No: Clean/Dry, Well Approximated, Sutures Intact, Isaiah Intact , Steri Strips, Open to air, Dressing Dry and Intact, Dressing Removed, Barto Removed, Sutures Removed, Draining, Reddened, Bleeding, Excoriated, Unapproximated, Other Neurological: Yes: Alert Psychiatric: Yes: Alert Labs: CBC, BMP 06/02/17 06:00 06/02/17 06:00 INR, PTT INR 1.24 (0.82-1.09) H 05/25/17 10:45 Active Medications Generic Name Dose Route Start Last Admin Trade Name Freq PRN Reason Stop Dose Admin Albuterol/Ipratropium 1 amp 05/28/17 19:49 05/29/17 06:36 Duoneb - NEB 1 amp Q4H PRN Administration SHORTNESS OF BREATH Chlorhexidine Gluconate 1 applic 05/28/17 22:00 06/01/17 22:28 Hibiclens For Decolonization - TP Not Given HS [facility] Heparin Sodium (Porcine) 5,000 unit 05/28/17 22:00 06/02/17 10:41 Heparin - SQ 5,000 unit BID [facility] Administration Piperacillin/Tazobactam/Dextrose 50 mls @ 100 mls/hr 06/01/17 10:17 06/02/17 02 :04 Zosyn 3.375gm Ivpb (Premix) IVPB 06/05/17 01:59 100 mls/hr Q8H-IV [facility] Administration Lactobacillus Acidophilus 1 tab 05/28/17 22:00 06/02/17 10:42 Bacid - GT 1 tab BID [facility] Administration Lisinopril 2.5 mg 05/30/17 10:00 06/02/17 10:41 Prinivil GT 2.5 mg DAILY [facility] Administration Mupirocin 1 applic 05/28/17 22:00 06/02/17 10:41 Bactroban Ointment (For Decolonization) - NS 06/02/17 21:59 Not Given BID [facility] Ranitidine HCl 150 mg 05/29/17 10:00 06/02/17 10:41 Zantac - NR 150 mg DAILY [facility] Administration Fluticasone/Salmeterol 1 puff 05/28/17 22:00 06/02/17 10:42 Advair 100mcg/50mcg - IH Not Given BID [facility] Senna 2 tab 05/28/17 22:00 06/01/17 22:29 Senna - PO 2 tab HS [facility] Administration Sertraline HCl 50 mg 05/29/17 10:00 06/02/17 10:42 Zoloft - GT 50 mg DAILY [facility] Administration Ursodiol 300 mg 05/28/17 22:00 06/02/17 10:42 Actigal - NR 300 mg BID [facility] Administration Microbiology 06/01/17 17:00 Gram Stain - Final Sputum - Endotrachea Suction/Ventilator Problem List - Problems (1) Acute on chronic respiratory failure with hypoxia and hypercapnia Code(s): J96.21 - ACUTE AND CHRONIC RESPIRATORY FAILURE WITH HYPOXIA J96.22 - ACUTE AND CHRONIC RESPIRATORY FAILURE WITH HYPERCAPNIA (2) COPD (chronic obstructive pulmonary disease) Code(s): J44.9 - CHRONIC OBSTRUCTIVE PULMONARY DISEASE, UNSPECIFIED (3) Sepsis Code(s): A41.9 - SEPSIS, UNSPECIFIED ORGANISM Qualifiers: Sepsis type: sepsis due to unspecified organism Qualified Code(s): A41.9 - Sepsis, unspecified organism; A41.9 - Sepsis, unspecified organism; A41.9 - Sepsis, unspecified organism (4) Acute CHF (congestive heart failure) Code(s): I50.9 - HEART FAILURE, UNSPECIFIED (5) CVA (cerebral infarction) Code(s): I63.9 - CEREBRAL INFARCTION, UNSPECIFIED (6) Diabetes mellitus Code(s): E11.9 - TYPE 2 DIABETES MELLITUS WITHOUT COMPLICATIONS Qualifiers: Diabetes mellitus type: type 2 Diabetes mellitus complication status: with unspecified complications Diabetes mellitus piece jobber insulin use: without shelter use Qualified Code(s): E11.8 - Type 2 diabetes mellitus with unspecified complications; E11.8 - Type 2 diabetes mellitus with unspecified complications; E11.8 - Type 2 diabetes mellitus with unspecified complications; E11.8 - Type 2 diabetes mellitus with unspecified complications; Z79.4 - kettle worker (current) use of insulin; Z79.4 - kettle worker (current) use of insulin; Z79.4 - kettle worker (current) use of insulin; Z79.4 - kettle worker (current ) use of insulin (7) Leukocytosis Code(s): D72.829 - ELEVATED WHITE BLOOD CELL COUNT, UNSPECIFIED (8) Pneumonia Code(s): J18.9 - PNEUMONIA, UNSPECIFIED ORGANISM Assessment/Plan Pt currently stable follow up respiratory cultures pending continue Zosyn for now suction trach regularly
[2017-06-02] MEDS: SENNOSIDES 8.6MG TABLET (FP) PO SCH (22:18)
[2017-06-02] MEDS: CHLORHEXIDINE GLUCONATE 4% CLEANSER FOR DECOLONIZATION TP SCH (22:19)
[2017-06-03] MEDS: PIPERACILLIN/TAZOB 3.375 GM 50 ML IVPB SCH ×3 (02:17→17:41)
[2017-06-03] MEDS ORDERED: PT OWN MED DRAWER 7, Y5N ONE (09:38)
[2017-06-03] MEDS: SERTRALINE HCL 50 MG TABLET (FP) GT SCH (10:00)
[2017-06-03] MEDS: HEPARIN NA (PORCINE) 5,000 UNITS/ML 1ML VIAL SQ SCH ×2 (10:00→22:13)
[2017-06-03] MEDS: RANITIDINE HCL 150 MG TABLET (FP) NR SCH (10:00)
[2017-06-03] MEDS: LACTOBACILLUS ACIDOPHILUS 1 EACH TAB (FP) GT SCH ×2 (10:00→22:13)
[2017-06-03] MEDS: LISINOPRIL 5 MG TABLET (FP) GT SCH (10:00)
[2017-06-03] MEDS: URSODIOL 300 MG CAPSULE NR SCH ×2 (10:01→22:12)
[2017-06-03] MEDS: FLUTICASONE/SALMETEROL 100 MCG/50 MCG DISKUS IH SCH ×2 (10:01→22:13)
--- NOTE | 2017-06-03 11:26 | PN ---
Progress Note (short form) - Note Progress Note: Awake on AC mode of vent. 40% FiO2. Denies CP, SOB, or abdominal pain. No acute events overnight. Intake & Output 05/31/17 06/01/17 06/02/17 06/03/17 23:59 23:59 23:59 23:59 Intake Total 2430 2580 1950 1145 Output Total 100 100 200 Balance 2330 2480 1950 945 Last Vital Signs Temp Pulse Resp BP Pulse Ox 97.8 F 73 16 100/52 100 06/03/17 06:00 06/03/17 10:00 06/03/17 10:22 06/03/17 10:00 06/03/17 10:22 Active Medications Chlorhexidine Gluconate (Hibiclens For Decolonization -) 1 applic TP HS [facility] Last Admin: 06/02/17 22:19 Dose: Not Given Heparin Sodium (Porcine) (Heparin -) 5,000 unit SQ BID [facility] Last Admin: 06/03/17 10:00 Dose: 5,000 unit Piperacillin/Tazobactam/Dextrose (Zosyn 3.375gm Ivpb (Premix)) 50 mls @ 100 mls /hr IVPB Q8H-IV [facility] Stop: 06/05/17 01:59 Last Admin: 06/03/17 10:01 Dose: 100 mls/hr Lactobacillus Acidophilus (Bacid -) 1 tab GT BID [facility] Last Admin: 06/03/17 10:00 Dose: 1 tab Lisinopril (Prinivil) 2.5 mg GT DAILY [facility] Last Admin: 06/03/17 10:00 Dose: 2.5 mg Ranitidine HCl (Zantac -) 150 mg NR DAILY [facility] Last Admin: 06/03/17 10:00 Dose: 150 mg Fluticasone/Salmeterol (Advair 100mcg/50mcg -) 1 puff IH BID [facility] Last Admin: 06/03/17 10:01 Dose: Not Given Senna (Senna -) 2 tab PO HS [facility] Last Admin: 06/02/17 22:18 Dose: 2 tab Sertraline HCl (Zoloft -) 50 mg GT DAILY [facility] Last Admin: 06/03/17 10:00 Dose: 50 mg Ursodiol (Actigal -) 300 mg NR BID [facility] Last Admin: 06/03/17 10:01 Dose: 300 mg Gen: vented, awake Heart: RRR Lung: scattered rhonchi Abd: soft, nontender Ext: + edema ASSESSMENT AND PLAN: Acute on Chronic Hypoxic and Hypercapneic Respiratory Failure Pneumonia Septic Shock resolving Anemia COPD Paroxysmal Atrial Fibrillation h/o CVA HTN DM - ABX per ID - inhaled bronchodilators - O2 to keep SpO2 >90% - spontaneous breathing trials as tolerated - enteral feeds - DVT prophylaxis Dr Biggs
--- NOTE | 2017-06-03 13:16 | PN ---
Progress Note, Physician Chief Complaint: I.D. progress note History of Present Illness: Pt seen and examined. No new events. Indicates he does not have fever/chills, chest pain. on MV +thick respiratory secretions noted. - Current Medication List Current Medications: Active Medications Chlorhexidine Gluconate (Hibiclens For Decolonization -) 1 applic TP HS [facility] Last Admin: 06/02/17 22:19 Dose: Not Given Heparin Sodium (Porcine) (Heparin -) 5,000 unit SQ BID [facility] Last Admin: 06/03/17 10:00 Dose: 5,000 unit Piperacillin/Tazobactam/Dextrose (Zosyn 3.375gm Ivpb (Premix)) 50 mls @ 100 mls /hr IVPB Q8H-IV [facility] Stop: 06/05/17 01:59 Last Admin: 06/03/17 10:01 Dose: 100 mls/hr Lactobacillus Acidophilus (Bacid -) 1 tab GT BID [facility] Last Admin: 06/03/17 10:00 Dose: 1 tab Lisinopril (Prinivil) 2.5 mg GT DAILY [facility] Last Admin: 06/03/17 10:00 Dose: 2.5 mg Ranitidine HCl (Zantac -) 150 mg NR DAILY [facility] Last Admin: 06/03/17 10:00 Dose: 150 mg Fluticasone/Salmeterol (Advair 100mcg/50mcg -) 1 puff IH BID [facility] Last Admin: 06/03/17 10:01 Dose: Not Given Senna (Senna -) 2 tab PO HS [facility] Last Admin: 06/02/17 22:18 Dose: 2 tab Sertraline HCl (Zoloft -) 50 mg GT DAILY [facility] Last Admin: 06/03/17 10:00 Dose: 50 mg Ursodiol (Actigal -) 300 mg NR BID [facility] Last Admin: 06/03/17 10:01 Dose: 300 mg - Objective Vital Signs: Vital Signs Temperature 97.8 F 06/03/17 06:00 Pulse Rate 73 06/03/17 10:00 Respiratory Rate 16 06/03/17 10:22 Blood Pressure 100/52 06/03/17 10:00 O2 Sat by Pulse Oximetry (%) 100 06/03/17 10:22 Constitutional: Yes: No Distress HENT: Yes: WNL Neck: Yes: Supple Cardiovascular: Yes: Regular Rate and Rhythm Respiratory: Yes: Mechanically Ventilated (+ thick respiratory secretions) Gastrointestinal: Yes: Normal Bowel Sounds, Soft Extremities: Yes: WNL Neurological: Yes: Alert, Oriented Psychiatric: Yes: Alert Labs: CBC, BMP 06/02/17 06:00 06/02/17 06:00 INR, PTT INR 1.24 (0.82-1.09) H 05/25/17 10:45 Microbiology 06/01/17 17:00 Gram Stain - Final Sputum - Endotrachea Suction/Ventilator Sputum Culture - Preliminary Non Lactose Fermenting Gnb Problem List - Problems (1) Acute on chronic respiratory failure with hypoxia and hypercapnia Code(s): J96.21 - ACUTE AND CHRONIC RESPIRATORY FAILURE WITH HYPOXIA J96.22 - ACUTE AND CHRONIC RESPIRATORY FAILURE WITH HYPERCAPNIA (2) COPD (chronic obstructive pulmonary disease) Code(s): J44.9 - CHRONIC OBSTRUCTIVE PULMONARY DISEASE, UNSPECIFIED (3) Sepsis Code(s): A41.9 - SEPSIS, UNSPECIFIED ORGANISM Qualifiers: Sepsis type: sepsis due to unspecified organism Qualified Code(s): A41.9 - Sepsis, unspecified organism; A41.9 - Sepsis, unspecified organism; A41.9 - Sepsis, unspecified organism (4) Acute CHF (congestive heart failure) Code(s): I50.9 - HEART FAILURE, UNSPECIFIED (5) CVA (cerebral infarction) Code(s): I63.9 - CEREBRAL INFARCTION, UNSPECIFIED (6) Diabetes mellitus Code(s): E11.9 - TYPE 2 DIABETES MELLITUS WITHOUT COMPLICATIONS Qualifiers: Diabetes mellitus type: type 2 Diabetes mellitus complication status: with unspecified complications Diabetes mellitus technician terminal and repeater insulin use: without mcc use Qualified Code(s): E11.8 - Type 2 diabetes mellitus with unspecified complications; E11.8 - Type 2 diabetes mellitus with unspecified complications; E11.8 - Type 2 diabetes mellitus with unspecified complications; E11.8 - Type 2 diabetes mellitus with unspecified complications; Z79.4 - [facility] (current) use of insulin; Z79.4 - technician terminal and repeater (current) use of insulin; Z79.4 - [facility] (current) use of insulin; Z79.4 - [facility] (current ) use of insulin (7) Leukocytosis Code(s): D72.829 - ELEVATED WHITE BLOOD CELL COUNT, UNSPECIFIED (8) Pneumonia Code(s): J18.9 - PNEUMONIA, UNSPECIFIED ORGANISM Assessment/Plan Pt relatively stable, afebrile cont antibiotics follow up respiratory culture isolate and sensitivities maintain glycemic control
--- NOTE | 2017-06-03 14:45 | PN ---
Progress Note, Physician History of Present Illness: stable - Current Medication List Current Medications: Active Medications Chlorhexidine Gluconate (Hibiclens For Decolonization -) 1 applic TP HS [facility] Last Admin: 06/02/17 22:19 Dose: Not Given Heparin Sodium (Porcine) (Heparin -) 5,000 unit SQ BID [facility] Last Admin: 06/03/17 10:00 Dose: 5,000 unit Piperacillin/Tazobactam/Dextrose (Zosyn 3.375gm Ivpb (Premix)) 50 mls @ 100 mls /hr IVPB Q8H-IV [facility] Stop: 06/05/17 01:59 Last Admin: 06/03/17 10:01 Dose: 100 mls/hr Lactobacillus Acidophilus (Bacid -) 1 tab GT BID [facility] Last Admin: 06/03/17 10:00 Dose: 1 tab Lisinopril (Prinivil) 2.5 mg GT DAILY [facility] Last Admin: 06/03/17 10:00 Dose: 2.5 mg Ranitidine HCl (Zantac -) 150 mg NR DAILY [facility] Last Admin: 06/03/17 10:00 Dose: 150 mg Fluticasone/Salmeterol (Advair 100mcg/50mcg -) 1 puff IH BID [facility] Last Admin: 06/03/17 10:01 Dose: Not Given Senna (Senna -) 2 tab PO HS [facility] Last Admin: 06/02/17 22:18 Dose: 2 tab Sertraline HCl (Zoloft -) 50 mg GT DAILY [facility] Last Admin: 06/03/17 10:00 Dose: 50 mg Ursodiol (Actigal -) 300 mg NR BID [facility] Last Admin: 06/03/17 10:01 Dose: 300 mg - Objective Vital Signs: Vital Signs Temperature 97.8 F 06/03/17 06:00 Pulse Rate 73 06/03/17 10:00 Respiratory Rate 14 06/03/17 14:20 Blood Pressure 100/52 06/03/17 10:00 O2 Sat by Pulse Oximetry (%) 100 06/03/17 10:22 Constitutional: Yes: No Distress HENT: Yes: Atraumatic Neck: Yes: Supple Cardiovascular: Yes: Pulse Irregular Respiratory: Yes: Rhonchi Gastrointestinal: Yes: Normal Bowel Sounds, Other (peg in place) Edema: RUE: Trace, LLE: Trace, RLE: Trace Neurological: Yes: Alert, Oriented Labs: CBC, BMP 06/02/17 06:00 06/02/17 06:00 INR, PTT INR 1.24 (0.82-1.09) H 05/25/17 10:45 Problem List - Problems (1) Sepsis Assessment/Plan: iv abx...total of 14 days... Code(s): A41.9 - SEPSIS, UNSPECIFIED ORGANISM Qualifiers: Sepsis type: sepsis due to unspecified organism Qualified Code(s): A41.9 - Sepsis, unspecified organism; A41.9 - Sepsis, unspecified organism; A41.9 - Sepsis, unspecified organism (2) Septic shock Assessment/Plan: bp better Code(s): A41.9 - SEPSIS, UNSPECIFIED ORGANISM R65.21 - SEVERE SEPSIS WITH SEPTIC SHOCK (3) VAP (ventilator-associated pneumonia) Code(s): J95.851 - VENTILATOR ASSOCIATED PNEUMONIA (4) Acute on chronic respiratory failure with hypoxia and hypercapnia Assessment/Plan: trach /vent Code(s): J96.21 - ACUTE AND CHRONIC RESPIRATORY FAILURE WITH HYPOXIA J96.22 - ACUTE AND CHRONIC RESPIRATORY FAILURE WITH HYPERCAPNIA (5) COPD (chronic obstructive pulmonary disease) Assessment/Plan: duo nebs trach/vent Code(s): J44.9 - CHRONIC OBSTRUCTIVE PULMONARY DISEASE, UNSPECIFIED (6) PEG (percutaneous endoscopic gastrostomy) status Assessment/Plan: peg in place on TF Code(s): Z93.1 - GASTROSTOMY STATUS (7) Anemia Assessment/Plan: monitor Code(s): D64.9 - ANEMIA, UNSPECIFIED (8) Atrial fibrillation Code(s): I48.91 - UNSPECIFIED ATRIAL FIBRILLATION Qualifiers: Atrial fibrillation type: paroxysmal Qualified Code(s): I48.0 - Paroxysmal atrial fibrillation; I48.0 - Paroxysmal atrial fibrillation; I48.0 - Paroxysmal atrial fibrillation; I48.0 - Paroxysmal atrial fibrillation (9) CVA (cerebral infarction) Assessment/Plan: stable cant walk bedridden Code(s): I63.9 - CEREBRAL INFARCTION, UNSPECIFIED (10) Diabetes mellitus Assessment/Plan: monitor Code(s): E11.9 - TYPE 2 DIABETES MELLITUS WITHOUT COMPLICATIONS Qualifiers: Diabetes mellitus type: type 2 Diabetes mellitus complication status: with unspecified complications Diabetes mellitus superintendent container terminal insulin use: without superintendent container terminal use Qualified Code(s): E11.8 - Type 2 diabetes mellitus with unspecified complications; E11.8 - Type 2 diabetes mellitus with unspecified complications; E11.8 - Type 2 diabetes mellitus with unspecified complications; E11.8 - Type 2 diabetes mellitus with unspecified complications; Z79.4 - intermediate school teacher (current) use of insulin; Z79.4 - nursing home (current) use of insulin; Z79.4 - nursing home (current) use of insulin; Z79.4 - intermediate school teacher (current ) use of insulin (11) Pneumonia Assessment/Plan: on iv abx id on board Code(s): J18.9 - PNEUMONIA, UNSPECIFIED ORGANISM Assessment/Plan dc planning for sunday
[2017-06-03] MEDS: CHLORHEXIDINE GLUCONATE 4% CLEANSER FOR DECOLONIZATION TP SCH (22:13)
[2017-06-03] MEDS: SENNOSIDES 8.6MG TABLET (FP) PO SCH (22:13)
[2017-06-04] MEDS: PIPERACILLIN/TAZOB 3.375 GM 50 ML IVPB SCH ×3 (02:20→17:01)
[2017-06-04] MEDS: RANITIDINE HCL 150 MG TABLET (FP) NR SCH (11:05)
[2017-06-04] MEDS: LACTOBACILLUS ACIDOPHILUS 1 EACH TAB (FP) GT SCH ×2 (11:05→22:43)
[2017-06-04] MEDS: URSODIOL 300 MG CAPSULE NR SCH ×2 (11:06→22:42)
[2017-06-04] MEDS: SERTRALINE HCL 50 MG TABLET (FP) GT SCH (11:06)
[2017-06-04] MEDS: HEPARIN NA (PORCINE) 5,000 UNITS/ML 1ML VIAL SQ SCH ×2 (11:17→22:46)
[2017-06-04] MEDS: FLUTICASONE/SALMETEROL 100 MCG/50 MCG DISKUS IH SCH ×2 (11:18→22:43)
[2017-06-04] MEDS: LISINOPRIL 5 MG TABLET (FP) GT SCH (11:19)
--- NOTE | 2017-06-04 11:57 | PN ---
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 Likely impaired cognition, insight. Not oriented. He does not know he is on a ventilator or if he ate breakfast. When asked what was bothering him, he pointed to me. Selected Entries 06/02/17 06/02/17 06/02/17 02:00 06:00 14:00 Temperature 96.5 F L 97.5 F L 100.0 F H 06/02/17 06/02/17 06/03/17 18:00 22:00 02:00 Temperature 98.2 F 99.4 F 99 F 06/03/17 06/03/17 06/03/17 06:00 14:24 22:00 Temperature 97.8 F 99.0 F 97.4 F L 06/04/17 06/04/17 06/04/17 02:00 06:00 10:00 Temperature 97.2 F L 98.6 F 98.5 F Laboratory Tests 05/30/17 06/02/17 06:58 06:00 WBC 5.4 6.9 Pt may be capable of po tolerance but due to recent sepsis and need for a/b tx, plus lack of cooperation, mbs to be deferred at this time. MBS can be performed as out pt, if indicated.
--- NOTE | 2017-06-04 13:14 | DS ---
Physical Examination Vital Signs: Vital Signs Temperature 98.5 F 06/04/17 10:00 Pulse Rate 78 06/04/17 10:00 Respiratory Rate 14 06/04/17 10:00 Blood Pressure 110/68 06/04/17 10:00 O2 Sat by Pulse Oximetry (%) 100 06/03/17 22:54 Constitutional: Yes: No Distress HENT: Yes: Atraumatic Neck: Yes: Supple Cardiovascular: Yes: Pulse Irregular Respiratory: Yes: Rhonchi Gastrointestinal: Yes: Normal Bowel Sounds Edema: No Neurological: Yes: Alert Labs: CBC, BMP 06/02/17 06:00 06/02/17 06:00 Discharge Summary Reason For Visit: RESP FAIL W/HYPOXIA;SEPTIC SHOCK;LEUKOCYTOSIS Current Active Problems Acute on chronic respiratory failure with hypoxia and hypercapnia (Acute) COPD (chronic obstructive pulmonary disease) (Acute) Calculus of gallbladder with chronic cholecystitis without obstruction (Acute) H/O acute cholecystitis (Acute) PEG (percutaneous endoscopic gastrostomy) status (Acute) Sepsis (Acute) Septic shock (Acute) VAP (ventilator-associated pneumonia) (Acute) Condition: Critical - Instructions Referrals: STAFF,NOT ON [Primary Care Provider] - - Home Medications Comprehensive Discharge Medication List: Ambulatory Orders Albuterol 0.083% Nebulizer Isis [Ventolin 0.083% Nebulizer Soln -] 1 neb NEB Q6H PRN 05/01/17 Amino Acids/Protein Hydrolys [Pro-Stat Awc Liquid] 30 ml GT DAILY 05/01/17 Ferrous Sulfate 7.5 ml GT DAILY 05/01/17 Hypromellose 0.5% Opth Soln [Artificial Tears] 1 drop OU TID 05/01/17 Ipratropium 0.02% Nebulizer [Atrovent 0.02% Nebulizer -] 1 amp NEB Q6H PRN 05/01 Lactobacillus Acidophilus [Bacid -] 1 each GT Q12H 05/01/17 Lactulose 10 gm GT HS 05/01/17 Potassium Chloride 10 meq GT DAILY 05/01/17 Ranitidine [Zantac -] 150 mg GT DAILY 05/01/17 Sennosides [Senna] 2 tab GT HS 05/01/17 Lisinopril [Zestril] 2.5 mg GT DAILY 05/21/17 Ranitidine HCl [Zantac] 150 mg GT DAILY 05/21/17 Sertraline HCl [Zoloft -] 50 mg GT DAILY 05/21/17 Albuterol 2.5/Ipratropium 0.5 [Duoneb -] 1 amp NEB Q4H PRN #0 amp 05/31/17 Mupirocin Ointment [Bactroban Ointment (For Decolonization) -] 1 applic NS BID applic 05/31/17 Salmeterol/Fluticasone [Advair 100Mcg/50Mcg -] 1 puff IH BID inhaler 05/31/17 Ursodiol [Actigal -] 300 mg NR BID tab 05/31/17 fl home
--- NOTE | 2017-06-04 13:18 | PN ---
Progress Note, Physician History of Present Illness: PULMONARY ALERT,ON VENT SUPPORT AC MODE ,-RESP DISTRESS - Current Medication List Current Medications: Active Medications Chlorhexidine Gluconate (Hibiclens For Decolonization -) 1 applic TP HS [facility] Last Admin: 06/03/17 22:13 Dose: Not Given Heparin Sodium (Porcine) (Heparin -) 5,000 unit SQ BID [facility] Last Admin: 06/04/17 11:17 Dose: 5,000 unit Piperacillin/Tazobactam/Dextrose (Zosyn 3.375gm Ivpb (Premix)) 50 mls @ 100 mls /hr IVPB Q8H-IV [facility] Stop: 06/05/17 01:59 Last Admin: 06/04/17 11:05 Dose: 100 mls/hr Lactobacillus Acidophilus (Bacid -) 1 tab GT BID [facility] Last Admin: 06/04/17 11:05 Dose: 1 tab Lisinopril (Prinivil) 2.5 mg GT DAILY [facility] Last Admin: 06/04/17 11:19 Dose: 2.5 mg Ranitidine HCl (Zantac -) 150 mg NR DAILY [facility] Last Admin: 06/04/17 11:05 Dose: 150 mg Fluticasone/Salmeterol (Advair 100mcg/50mcg -) 1 puff IH BID [facility] Last Admin: 06/04/17 11:18 Dose: Not Given Senna (Senna -) 2 tab PO HS [facility] Last Admin: 06/03/17 22:13 Dose: 2 tab Sertraline HCl (Zoloft -) 50 mg GT DAILY [facility] Last Admin: 06/04/17 11:06 Dose: 50 mg Ursodiol (Actigal -) 300 mg NR BID [facility] Last Admin: 06/04/17 11:06 Dose: 300 mg - Objective Vital Signs: Vital Signs Temperature 98.5 F 06/04/17 10:00 Pulse Rate 78 06/04/17 10:00 Respiratory Rate 14 06/04/17 10:00 Blood Pressure 110/68 06/04/17 10:00 O2 Sat by Pulse Oximetry (%) 100 06/03/17 22:54 Constitutional: Yes: Well Nourished, Calm Eyes: Yes: WNL HENT: Yes: WNL Neck: Yes: Supple (TRACH) Cardiovascular: Yes: Pulse Irregular, S1, S2 Respiratory: Yes: Diminished (FEW SCATTERED RHONCHI) Gastrointestinal: Yes: Normal Bowel Sounds, Soft Extremities: Yes: WNL Edema: No Labs: CBC, BMP Problem List - Problems (1) Sepsis Code(s): A41.9 - SEPSIS, UNSPECIFIED ORGANISM Qualifiers: Sepsis type: sepsis due to unspecified organism Qualified Code(s): A41.9 - Sepsis, unspecified organism; A41.9 - Sepsis, unspecified organism; A41.9 - Sepsis, unspecified organism (2) Septic shock Code(s): A41.9 - SEPSIS, UNSPECIFIED ORGANISM R65.21 - SEVERE SEPSIS WITH SEPTIC SHOCK (3) VAP (ventilator-associated pneumonia) Code(s): J95.851 - VENTILATOR ASSOCIATED PNEUMONIA (4) Acute CHF (congestive heart failure) Code(s): I50.9 - HEART FAILURE, UNSPECIFIED (5) Atrial fibrillation Code(s): I48.91 - UNSPECIFIED ATRIAL FIBRILLATION Qualifiers: Atrial fibrillation type: paroxysmal Qualified Code(s): I48.0 - Paroxysmal atrial fibrillation; I48.0 - Paroxysmal atrial fibrillation; I48.0 - Paroxysmal atrial fibrillation; I48.0 - Paroxysmal atrial fibrillation (6) Acute on chronic respiratory failure with hypoxia and hypercapnia Code(s): J96.21 - ACUTE AND CHRONIC RESPIRATORY FAILURE WITH HYPOXIA J96.22 - ACUTE AND CHRONIC RESPIRATORY FAILURE WITH HYPERCAPNIA (7) PEG (percutaneous endoscopic gastrostomy) status Code(s): Z93.1 - GASTROSTOMY STATUS (8) COPD (chronic obstructive pulmonary disease) Code(s): J44.9 - CHRONIC OBSTRUCTIVE PULMONARY DISEASE, UNSPECIFIED (9) CVA (cerebral infarction) Code(s): I63.9 - CEREBRAL INFARCTION, UNSPECIFIED Assessment/Plan ASSESSMENT AND PLAN: Acute on Chronic Hypoxic and Hypercapneic Respiratory Failure Pneumonia Septic Shock resolving Anemia COPD Paroxysmal Atrial Fibrillation h/o CVA HTN DM - antibiotics per ID - inhaled bronchodilators - O2 to keep SpO2 >90% - continue volume assist control - spontaneous breathing trials as tolerated - enteral feeds - DVT prophylaxis DR DRAPER
--- NOTE | 2017-06-04 13:42 | PN ---
Progress Note, Physician History of Present Illness: patient stable still with secretions - Current Medication List Current Medications: Active Medications Chlorhexidine Gluconate (Hibiclens For Decolonization -) 1 applic TP HS [facility] Last Admin: 06/03/17 22:13 Dose: Not Given Heparin Sodium (Porcine) (Heparin -) 5,000 unit SQ BID [facility] Last Admin: 06/04/17 11:17 Dose: 5,000 unit Piperacillin/Tazobactam/Dextrose (Zosyn 3.375gm Ivpb (Premix)) 50 mls @ 100 mls /hr IVPB Q8H-IV [facility] Stop: 06/05/17 01:59 Last Admin: 06/04/17 11:05 Dose: 100 mls/hr Lactobacillus Acidophilus (Bacid -) 1 tab GT BID [facility] Last Admin: 06/04/17 11:05 Dose: 1 tab Lisinopril (Prinivil) 2.5 mg GT DAILY [facility] Last Admin: 06/04/17 11:19 Dose: 2.5 mg Ranitidine HCl (Zantac -) 150 mg NR DAILY [facility] Last Admin: 06/04/17 11:05 Dose: 150 mg Fluticasone/Salmeterol (Advair 100mcg/50mcg -) 1 puff IH BID [facility] Last Admin: 06/04/17 11:18 Dose: Not Given Senna (Senna -) 2 tab PO HS [facility] Last Admin: 06/03/17 22:13 Dose: 2 tab Sertraline HCl (Zoloft -) 50 mg GT DAILY [facility] Last Admin: 06/04/17 11:06 Dose: 50 mg Ursodiol (Actigal -) 300 mg NR BID [facility] Last Admin: 06/04/17 11:06 Dose: 300 mg - Objective Vital Signs: Vital Signs Temperature 98.5 F 06/04/17 10:00 Pulse Rate 78 06/04/17 10:00 Respiratory Rate 14 06/04/17 10:00 Blood Pressure 110/68 06/04/17 10:00 O2 Sat by Pulse Oximetry (%) 100 06/03/17 22:54 Constitutional: Yes: No Distress, Calm Cardiovascular: Yes: Regular Rate and Rhythm Respiratory: Yes: Mechanically Ventilated, Other (trach in place) Gastrointestinal: Yes: Normal Bowel Sounds, Soft Musculoskeletal: Yes: WNL Extremities: Yes: WNL Neurological: Yes: Alert, Oriented Psychiatric: Yes: Alert, Oriented Labs: CBC, BMP 06/02/17 06:00 06/02/17 06:00 INR, PTT INR 1.24 (0.82-1.09) H 05/25/17 10:45 Assessment/Plan Problem List - Problems (1) Sepsis Code(s): A41.9 - SEPSIS, UNSPECIFIED ORGANISM (2) Septic shock Code(s): A41.9 - SEPSIS, UNSPECIFIED ORGANISM R65.21 - SEVERE SEPSIS WITH SEPTIC SHOCK (3) VAP (ventilator-associated pneumonia) Code(s): J95.851 - VENTILATOR ASSOCIATED PNEUMONIA (4) Chronic respiratory failure Code(s): J96.10 - CHRONIC RESPIRATORY FAILURE, UNSP W HYPOXIA OR HYPERCAPNIA (5) Diabetes mellitus Code(s): E11.9 - TYPE 2 DIABETES MELLITUS WITHOUT COMPLICATIONS 6 pneumonia inspite of zosyn patients sputum still positive plan continue abx await for identification of organism
[2017-06-04] MEDS: NYSTATIN 100,000 UNIT/GM TOPICAL CREAM 15 GM TUBE TP SCH (22:43)
[2017-06-04] MEDS: SENNOSIDES 8.6MG TABLET (FP) PO SCH (22:43)
[2017-06-04] MEDS: CHLORHEXIDINE GLUCONATE 4% CLEANSER FOR DECOLONIZATION TP SCH (22:44)
[2017-06-05] MEDS ORDERED: PT OWN MED DRAWER 7, Y5N ONE ×4 (07:06→22:28)
--- NOTE | 2017-06-05 09:55 | PN ---
Progress Note, Physician History of Present Illness: patient stable still with secretions no new events - Current Medication List Current Medications: Active Medications Chlorhexidine Gluconate (Hibiclens For Decolonization -) 1 applic TP HS [facility] Last Admin: 06/04/17 22:44 Dose: Not Given Lactobacillus Acidophilus (Bacid -) 1 tab GT BID [facility] Last Admin: 06/04/17 22:43 Dose: 1 tab Lisinopril (Prinivil) 2.5 mg GT DAILY [facility] Last Admin: 06/04/17 11:19 Dose: 2.5 mg Nystatin (Mycostatin Cream -) 1 applic TP BID [facility] Last Admin: 06/04/17 22:43 Dose: 1 applic Ranitidine HCl (Zantac -) 150 mg NR DAILY [facility] Last Admin: 06/04/17 11:05 Dose: 150 mg Fluticasone/Salmeterol (Advair 100mcg/50mcg -) 1 puff IH BID [facility] Last Admin: 06/04/17 22:43 Dose: Not Given Senna (Senna -) 2 tab PO HS [facility] Last Admin: 06/04/17 22:43 Dose: 2 tab Sertraline HCl (Zoloft -) 50 mg GT DAILY [facility] Last Admin: 06/04/17 11:06 Dose: 50 mg Ursodiol (Actigal -) 300 mg NR BID [facility] Last Admin: 06/04/17 22:42 Dose: 300 mg - Objective Vital Signs: Vital Signs Temperature 98.9 F 06/05/17 06:00 Pulse Rate 67 06/05/17 06:00 Respiratory Rate 15 06/05/17 06:48 Blood Pressure 106/61 06/05/17 06:00 O2 Sat by Pulse Oximetry (%) 100 06/04/17 21:00 Constitutional: Yes: No Distress, Calm Cardiovascular: Yes: Regular Rate and Rhythm Respiratory: Yes: Mechanically Ventilated, Other (secretions) Gastrointestinal: Yes: Normal Bowel Sounds, Soft Musculoskeletal: Yes: WNL Extremities: Yes: WNL Neurological: Yes: Alert, Oriented Psychiatric: Yes: Alert, Oriented Labs: CBC, BMP 06/02/17 06:00 06/02/17 06:00 INR, PTT INR 1.24 (0.82-1.09) H 05/25/17 10:45 Assessment/Plan Problem List - Problems (1) Sepsis Code(s): A41.9 - SEPSIS, UNSPECIFIED ORGANISM (2) Septic shock Code(s): A41.9 - SEPSIS, UNSPECIFIED ORGANISM R65.21 - SEVERE SEPSIS WITH SEPTIC SHOCK (3) VAP (ventilator-associated pneumonia) Code(s): J95.851 - VENTILATOR ASSOCIATED PNEUMONIA (4) Chronic respiratory failure Code(s): J96.10 - CHRONIC RESPIRATORY FAILURE, UNSP W HYPOXIA OR HYPERCAPNIA (5) Diabetes mellitus Code(s): E11.9 - TYPE 2 DIABETES MELLITUS WITHOUT COMPLICATIONS 6 pneumonia inspite of zosyn patients sputum still positive plan await for identification of bacteria continue suctioning
[2017-06-05] MEDS: SERTRALINE HCL 50 MG TABLET (FP) GT SCH (10:36)
[2017-06-05] MEDS: LISINOPRIL 5 MG TABLET (FP) GT SCH (10:36)
[2017-06-05] MEDS: RANITIDINE HCL 150 MG TABLET (FP) NR SCH (10:36)
[2017-06-05] MEDS: LACTOBACILLUS ACIDOPHILUS 1 EACH TAB (FP) GT SCH ×2 (10:36→23:19)
[2017-06-05] MEDS: URSODIOL 300 MG CAPSULE NR SCH ×2 (10:37→23:19)
[2017-06-05] MEDS: NYSTATIN 100,000 UNIT/GM TOPICAL CREAM 15 GM TUBE TP SCH ×2 (10:38→23:19)
--- NOTE | 2017-06-05 11:04 | PN ---
Progress Note (short form) - Note Progress Note: PULMONARY No fevers recorded but still with tracheal secretions. Vented on volume assist control. Last Vital Signs Temp Pulse Resp BP Pulse Ox 98.5 F 66 19 132/58 100 06/05/17 09:00 06/05/17 10:00 06/05/17 10:00 06/05/17 09:00 06/05/17 10:00 Gen: vented, awake Heart: RRR Lung: decreased breath sounds at the bases Abd: soft, nontender Ext: + edema CBC, BMP 06/02/17 06:00 06/02/17 06:00 Active Medications Chlorhexidine Gluconate (Hibiclens For Decolonization -) 1 applic TP HS [facility] Last Admin: 06/04/17 22:44 Dose: Not Given Lactobacillus Acidophilus (Bacid -) 1 tab GT BID [facility] Last Admin: 06/05/17 10:36 Dose: 1 tab Lisinopril (Prinivil) 2.5 mg GT DAILY [facility] Last Admin: 06/05/17 10:36 Dose: 2.5 mg Nystatin (Mycostatin Cream -) 1 applic TP BID [facility] Last Admin: 06/05/17 10:38 Dose: 1 applic Ranitidine HCl (Zantac -) 150 mg NR DAILY [facility] Last Admin: 06/05/17 10:36 Dose: 150 mg Fluticasone/Salmeterol (Advair 100mcg/50mcg -) 1 puff IH BID [facility] Last Admin: 06/04/17 22:43 Dose: Not Given Senna (Senna -) 2 tab PO HS [facility] Last Admin: 06/04/17 22:43 Dose: 2 tab Sertraline HCl (Zoloft -) 50 mg GT DAILY [facility] Last Admin: 06/05/17 10:36 Dose: 50 mg Ursodiol (Actigal -) 300 mg NR BID [facility] Last Admin: 06/05/17 10:37 Dose: 300 mg A/P Acute on Chronic Hypoxic and Hypercapneic Respiratory Failure improving Pneumonia treated Septic Shock resolved Anemia COPD Paroxysmal Atrial Fibrillation h/o CVA HTN DM - completed antibiotics - inhaled bronchodilators - O2 to keep SpO2 >90% - continue volume assist control - spontaneous breathing trials as tolerated - enteral feeds - DVT prophylaxis
--- NOTE | 2017-06-05 12:21 | PN ---
Progress Note, TRANSCRIBER - Note Progress Note: Selected Entries 06/04/17 06/04/17 06/04/17 02:00 06:00 10:00 Supper Temperature 97.2 F L 98.6 F 98.5 F 06/04/17 06/04/17 06/04/17 15:17 18:05 22:00 Supper NPO Temperature 98.9 F 98.6 F 98.6 F 06/05/17 06/05/17 06/05/17 02:00 06:00 09:00 Supper Temperature 99.5 F 98.9 F 98.5 F Laboratory Tests 06/02/17 06:00 WBC 6.9 Pt may be capable of po tolerance but due to recent sepsis and need for a/b tx, plus lack of cooperation, mbs to be deferred at this time. Continued follow up by speech pathology at [facility] upon d/c MBS can be performed as out pt, if indicated.
--- NOTE | 2017-06-05 15:44 | PN ---
Progress Note, Physician History of Present Illness: stable - Current Medication List Current Medications: Active Medications Chlorhexidine Gluconate (Hibiclens For Decolonization -) 1 applic TP HS [facility] Last Admin: 06/04/17 22:44 Dose: Not Given Lactobacillus Acidophilus (Bacid -) 1 tab GT BID [facility] Last Admin: 06/05/17 10:36 Dose: 1 tab Lisinopril (Prinivil) 2.5 mg GT DAILY [facility] Last Admin: 06/05/17 10:36 Dose: 2.5 mg Nystatin (Mycostatin Cream -) 1 applic TP BID [facility] Last Admin: 06/05/17 10:38 Dose: 1 applic Ranitidine HCl (Zantac -) 150 mg NR DAILY [facility] Last Admin: 06/05/17 10:36 Dose: 150 mg Fluticasone/Salmeterol (Advair 100mcg/50mcg -) 1 puff IH BID [facility] Last Admin: 06/04/17 22:43 Dose: Not Given Senna (Senna -) 2 tab PO HS [facility] Last Admin: 06/04/17 22:43 Dose: 2 tab Sertraline HCl (Zoloft -) 50 mg GT DAILY [facility] Last Admin: 06/05/17 10:36 Dose: 50 mg Ursodiol (Actigal -) 300 mg NR BID [facility] Last Admin: 06/05/17 10:37 Dose: 300 mg - Objective Vital Signs: Vital Signs Temperature 98.5 F 06/05/17 09:00 Pulse Rate 66 06/05/17 10:00 Respiratory Rate 22 06/05/17 14:24 Blood Pressure 132/58 06/05/17 09:00 O2 Sat by Pulse Oximetry (%) 100 06/05/17 10:00 Constitutional: Yes: No Distress HENT: Yes: Atraumatic Cardiovascular: Yes: Pulse Irregular Respiratory: Yes: Rhonchi Gastrointestinal: Yes: Other (peg in place) Edema: No Neurological: Yes: Alert, Oriented Labs: CBC, BMP 06/02/17 06:00 06/02/17 06:00 INR, PTT INR 1.24 (0.82-1.09) H 05/25/17 10:45 Problem List - Problems (1) Sepsis Assessment/Plan: iv abx...total of 14 days... Code(s): A41.9 - SEPSIS, UNSPECIFIED ORGANISM Qualifiers: Sepsis type: sepsis due to unspecified organism Qualified Code(s): A41.9 - Sepsis, unspecified organism; A41.9 - Sepsis, unspecified organism; A41.9 - Sepsis, unspecified organism (2) Septic shock Assessment/Plan: bp better Code(s): A41.9 - SEPSIS, UNSPECIFIED ORGANISM R65.21 - SEVERE SEPSIS WITH SEPTIC SHOCK (3) VAP (ventilator-associated pneumonia) Code(s): J95.851 - VENTILATOR ASSOCIATED PNEUMONIA (4) Acute on chronic respiratory failure with hypoxia and hypercapnia Assessment/Plan: trach /vent Code(s): J96.21 - ACUTE AND CHRONIC RESPIRATORY FAILURE WITH HYPOXIA J96.22 - ACUTE AND CHRONIC RESPIRATORY FAILURE WITH HYPERCAPNIA (5) COPD (chronic obstructive pulmonary disease) Assessment/Plan: duo nebs trach/vent Code(s): J44.9 - CHRONIC OBSTRUCTIVE PULMONARY DISEASE, UNSPECIFIED (6) PEG (percutaneous endoscopic gastrostomy) status Assessment/Plan: peg in place on TF Code(s): Z93.1 - GASTROSTOMY STATUS (7) Anemia Assessment/Plan: monitor Code(s): D64.9 - ANEMIA, UNSPECIFIED (8) Atrial fibrillation Code(s): I48.91 - UNSPECIFIED ATRIAL FIBRILLATION Qualifiers: Atrial fibrillation type: paroxysmal Qualified Code(s): I48.0 - Paroxysmal atrial fibrillation; I48.0 - Paroxysmal atrial fibrillation; I48.0 - Paroxysmal atrial fibrillation; I48.0 - Paroxysmal atrial fibrillation (9) CVA (cerebral infarction) Code(s): I63.9 - CEREBRAL INFARCTION, UNSPECIFIED (10) Diabetes mellitus Code(s): E11.9 - TYPE 2 DIABETES MELLITUS WITHOUT COMPLICATIONS Qualifiers: Diabetes mellitus type: type 2 Diabetes mellitus complication status: with unspecified complications Diabetes mellitus middle or intermediate school principal insulin use: without custodial use Qualified Code(s): E11.8 - Type 2 diabetes mellitus with unspecified complications; E11.8 - Type 2 diabetes mellitus with unspecified complications; E11.8 - Type 2 diabetes mellitus with unspecified complications; E11.8 - Type 2 diabetes mellitus with unspecified complications; Z79.4 - terminal superintendent (current) use of insulin; Z79.4 - alf (current) use of insulin; Z79.4 - alf (current) use of insulin; Z79.4 - alf (current ) use of insulin (11) Pneumonia Code(s): J18.9 - PNEUMONIA, UNSPECIFIED ORGANISM Assessment/Plan new cultures came back id wants to treat more, isolation and awaiting sensitivities
[2017-06-05] MEDS: FLUTICASONE/SALMETEROL 100 MCG/50 MCG DISKUS IH SCH ×2 (16:06→22:28)
[2017-06-05] MEDS: CHLORHEXIDINE GLUCONATE 4% CLEANSER FOR DECOLONIZATION TP SCH (22:28)
[2017-06-05] MEDS: SENNOSIDES 8.6MG TABLET (FP) PO SCH (23:19)
[2017-06-06] MEDS ORDERED: PT OWN MED DRAWER 7, Y5N ONE ×3 (10:22→21:19)
[2017-06-06] MEDS: SERTRALINE HCL 50 MG TABLET (FP) GT SCH (10:24)
[2017-06-06] MEDS: RANITIDINE HCL 150 MG TABLET (FP) NR SCH (10:24)
[2017-06-06] MEDS: LACTOBACILLUS ACIDOPHILUS 1 EACH TAB (FP) GT SCH ×2 (10:24→23:05)
[2017-06-06] MEDS: LISINOPRIL 5 MG TABLET (FP) GT SCH (10:24)
[2017-06-06] MEDS: URSODIOL 300 MG CAPSULE NR SCH ×2 (10:24→23:05)
[2017-06-06] MEDS: FLUTICASONE/SALMETEROL 100 MCG/50 MCG DISKUS IH SCH ×2 (10:24→23:05)
[2017-06-06] MEDS: NYSTATIN 100,000 UNIT/GM TOPICAL CREAM 15 GM TUBE TP SCH ×2 (10:25→23:06)
--- NOTE | 2017-06-06 14:28 | PN ---
Progress Note, Physician History of Present Illness: clinically patient is improving secretions still present no complaints - Current Medication List Current Medications: Active Medications Chlorhexidine Gluconate (Hibiclens For Decolonization -) 1 applic TP HS [facility] Last Admin: 06/05/17 22:28 Dose: Not Given Ceftazidime 1 gm/ Dextrose 100 mls @ 200 mls/hr IVPB Q8H-IV [facility] PRN Reason: Protocol Lactobacillus Acidophilus (Bacid -) 1 tab GT BID [facility] Last Admin: 06/06/17 10:24 Dose: 1 tab Lisinopril (Prinivil) 2.5 mg GT DAILY [facility] Last Admin: 06/06/17 10:24 Dose: 2.5 mg Nystatin (Mycostatin Cream -) 1 applic TP BID [facility] Last Admin: 06/06/17 10:25 Dose: 1 applic Ranitidine HCl (Zantac -) 150 mg NR DAILY [facility] Last Admin: 06/06/17 10:24 Dose: 150 mg Fluticasone/Salmeterol (Advair 100mcg/50mcg -) 1 puff IH BID [facility] Last Admin: 06/06/17 10:24 Dose: Not Given Senna (Senna -) 2 tab PO HS [facility] Last Admin: 06/05/17 23:19 Dose: 2 tab Sertraline HCl (Zoloft -) 50 mg GT DAILY [facility] Last Admin: 06/06/17 10:24 Dose: 50 mg Ursodiol (Actigal -) 300 mg NR BID [facility] Last Admin: 06/06/17 10:24 Dose: 300 mg - Objective Vital Signs: Vital Signs Temperature 98.8 F 06/06/17 10:00 Pulse Rate 66 06/06/17 10:00 Respiratory Rate 17 06/06/17 10:40 Blood Pressure 112/60 06/06/17 10:00 O2 Sat by Pulse Oximetry (%) 99 06/05/17 22:00 Constitutional: Yes: No Distress, Calm Cardiovascular: Yes: Regular Rate and Rhythm Respiratory: Yes: Mechanically Ventilated, Rhonchi Gastrointestinal: Yes: Normal Bowel Sounds, Soft Musculoskeletal: Yes: WNL Extremities: Yes: WNL Neurological: Yes: Alert, Oriented Psychiatric: Yes: Alert, Oriented Labs: CBC, BMP 06/02/17 06:00 06/02/17 06:00 INR, PTT INR 1.24 (0.82-1.09) H 05/25/17 10:45 Assessment/Plan Problem List - Problems (1) Sepsis Code(s): A41.9 - SEPSIS, UNSPECIFIED ORGANISM (2) Septic shock Code(s): A41.9 - SEPSIS, UNSPECIFIED ORGANISM R65.21 - SEVERE SEPSIS WITH SEPTIC SHOCK (3) VAP (ventilator-associated pneumonia) Code(s): J95.851 - VENTILATOR ASSOCIATED PNEUMONIA (4) Chronic respiratory failure Code(s): J96.10 - CHRONIC RESPIRATORY FAILURE, UNSP W HYPOXIA OR HYPERCAPNIA (5) Diabetes mellitus Code(s): E11.9 - TYPE 2 DIABETES MELLITUS WITHOUT COMPLICATIONS 6 pneumonia 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
[2017-06-06] MEDS ORDERED: CEFTAZIDIME PENTAHYDRATE 1 GM in DEXTROSE 5%-WATER - 50 ML IVPB SCH (15:00)
[2017-06-06] MEDS ORDERED: CEFTAZIDIME PENTAHYDRATE 1 GM in DEXTROSE 5%-WATER - 100 ML IVPB SCH (15:00)
--- NOTE | 2017-06-06 15:59 | PN ---
Progress Note (short form) - Note Progress Note: PULMONARY APPEARS COMFORTABLE ON PRESENT VENT SETTINGS VSS/AFEBRILE ANICTERIC DISTANT B/L BREATH SOUNDS S1S2 BS+ 1+ EDEMA WITH HEEL B/L ULCERATIONS LABS/MEDS/NOTES/IMAGES/MICRO REVIEWED ASSESSMENT AND PLAN: Acute on Chronic Hypoxic and Hypercapneic Respiratory Failure Pneumonia Septic Shock resolving Anemia COPD Paroxysmal Atrial Fibrillation h/o CVA HTN DM - ABX per ID - inhaled bronchodilators - O2 to keep SpO2 >90% - spontaneous breathing trials as tolerated - enteral feeds - DVT prophylaxsis - Same vent settings for now Elizabeth LAU MD
[2017-06-06] MEDS: CEFTAZIDIME PENTAHYDRATE 1 GM in DEXTROSE 5%-WATER - 50 ML IVPB SCH ×2 (16:40→22:00)
--- NOTE | 2017-06-06 18:20 | PN ---
Progress Note, Physician History of Present Illness: stable - Current Medication List Current Medications: Active Medications Chlorhexidine Gluconate (Hibiclens For Decolonization -) 1 applic TP HS [facility] Last Admin: 06/05/17 22:28 Dose: Not Given Ceftazidime 1 gm/ Dextrose 50 mls @ 100 mls/hr IVPB Q8H-IV [facility] PRN Reason: Protocol Last Admin: 06/06/17 16:40 Dose: 100 mls/hr Lactobacillus Acidophilus (Bacid -) 1 tab GT BID [facility] Last Admin: 06/06/17 10:24 Dose: 1 tab Lisinopril (Prinivil) 2.5 mg GT DAILY [facility] Last Admin: 06/06/17 10:24 Dose: 2.5 mg Nystatin (Mycostatin Cream -) 1 applic TP BID [facility] Last Admin: 06/06/17 10:25 Dose: 1 applic Ranitidine HCl (Zantac -) 150 mg NR DAILY [facility] Last Admin: 06/06/17 10:24 Dose: 150 mg Fluticasone/Salmeterol (Advair 100mcg/50mcg -) 1 puff IH BID [facility] Last Admin: 06/06/17 10:24 Dose: Not Given Senna (Senna -) 2 tab PO HS [facility] Last Admin: 06/05/17 23:19 Dose: 2 tab Sertraline HCl (Zoloft -) 50 mg GT DAILY [facility] Last Admin: 06/06/17 10:24 Dose: 50 mg Ursodiol (Actigal -) 300 mg NR BID [facility] Last Admin: 06/06/17 10:24 Dose: 300 mg - Objective Vital Signs: Vital Signs Temperature 98.8 F 06/06/17 10:00 Pulse Rate 62 06/06/17 14:00 Respiratory Rate 19 06/06/17 14:45 Blood Pressure 102/58 06/06/17 14:00 O2 Sat by Pulse Oximetry (%) 100 06/06/17 10:40 Constitutional: Yes: No Distress HENT: Yes: Atraumatic Cardiovascular: Yes: Pulse Irregular Respiratory: Yes: Rhonchi Gastrointestinal: Yes: Normal Bowel Sounds, Other (peg) Edema: LLE: Trace, RLE: Trace Neurological: Yes: Alert, Oriented Labs: CBC, BMP 06/02/17 06:00 06/02/17 06:00 INR, PTT INR 1.24 (0.82-1.09) H 05/25/17 10:45 Problem List - Problems (1) Sepsis Assessment/Plan: iv abx...total of 14 days... Code(s): A41.9 - SEPSIS, UNSPECIFIED ORGANISM Qualifiers: Sepsis type: sepsis due to unspecified organism Qualified Code(s): A41.9 - Sepsis, unspecified organism; A41.9 - Sepsis, unspecified organism; A41.9 - Sepsis, unspecified organism (2) Septic shock Assessment/Plan: stable Code(s): A41.9 - SEPSIS, UNSPECIFIED ORGANISM R65.21 - SEVERE SEPSIS WITH SEPTIC SHOCK (3) VAP (ventilator-associated pneumonia) Code(s): J95.851 - VENTILATOR ASSOCIATED PNEUMONIA (4) Acute on chronic respiratory failure with hypoxia and hypercapnia Assessment/Plan: trach /vent Code(s): J96.21 - ACUTE AND CHRONIC RESPIRATORY FAILURE WITH HYPOXIA J96.22 - ACUTE AND CHRONIC RESPIRATORY FAILURE WITH HYPERCAPNIA (5) COPD (chronic obstructive pulmonary disease) Assessment/Plan: duo nebs trach/vent Code(s): J44.9 - CHRONIC OBSTRUCTIVE PULMONARY DISEASE, UNSPECIFIED (6) PEG (percutaneous endoscopic gastrostomy) status Assessment/Plan: peg in place on TF Code(s): Z93.1 - GASTROSTOMY STATUS (7) Anemia Assessment/Plan: monitor Code(s): D64.9 - ANEMIA, UNSPECIFIED (8) Atrial fibrillation Assessment/Plan: on meds stabel Code(s): I48.91 - UNSPECIFIED ATRIAL FIBRILLATION Qualifiers: Atrial fibrillation type: paroxysmal Qualified Code(s): I48.0 - Paroxysmal atrial fibrillation; I48.0 - Paroxysmal atrial fibrillation; I48.0 - Paroxysmal atrial fibrillation; I48.0 - Paroxysmal atrial fibrillation (9) CVA (cerebral infarction) Assessment/Plan: stable cant walk bedridden Code(s): I63.9 - CEREBRAL INFARCTION, UNSPECIFIED (10) Diabetes mellitus Code(s): E11.9 - TYPE 2 DIABETES MELLITUS WITHOUT COMPLICATIONS Qualifiers: Diabetes mellitus type: type 2 Diabetes mellitus complication status: with unspecified complications Diabetes mellitus fci insulin use: without fci use Qualified Code(s): E11.8 - Type 2 diabetes mellitus with unspecified complications; E11.8 - Type 2 diabetes mellitus with unspecified complications; E11.8 - Type 2 diabetes mellitus with unspecified complications; E11.8 - Type 2 diabetes mellitus with unspecified complications; Z79.4 - intermediate project manager (current) use of insulin; Z79.4 - penitentiary (current) use of insulin; Z79.4 - penitentiary (current) use of insulin; Z79.4 - penitentiary (current ) use of insulin (11) Pneumonia Code(s): J18.9 - PNEUMONIA, UNSPECIFIED ORGANISM
[2017-06-06] MEDS: CHLORHEXIDINE GLUCONATE 4% CLEANSER FOR DECOLONIZATION TP SCH (23:05)
[2017-06-06] MEDS: SENNOSIDES 8.6MG TABLET (FP) PO SCH (23:07)
[2017-06-07] MEDS: CEFTAZIDIME PENTAHYDRATE 1 GM in DEXTROSE 5%-WATER - 50 ML IVPB SCH ×3 (02:38→18:30)
[2017-06-07] MEDS: FLUTICASONE/SALMETEROL 100 MCG/50 MCG DISKUS IH SCH ×2 (10:27→23:27)
[2017-06-07] MEDS ORDERED: PT OWN MED DRAWER 7, Y5N ONE ×3 (10:30→21:16)
[2017-06-07] MEDS: SERTRALINE HCL 50 MG TABLET (FP) GT SCH (10:33)
[2017-06-07] MEDS: LACTOBACILLUS ACIDOPHILUS 1 EACH TAB (FP) GT SCH ×2 (10:33→23:32)
[2017-06-07] MEDS: RANITIDINE HCL 150 MG TABLET (FP) NR SCH (10:33)
[2017-06-07] MEDS: LISINOPRIL 5 MG TABLET (FP) GT SCH (10:33)
[2017-06-07] MEDS: URSODIOL 300 MG CAPSULE NR SCH ×2 (10:34→23:32)
[2017-06-07] MEDS: NYSTATIN 100,000 UNIT/GM TOPICAL CREAM 15 GM TUBE TP SCH ×2 (10:44→23:32)
--- NOTE | 2017-06-07 11:28 | PN ---
Progress Note (short form) - Note Progress Note: PULMONARY No fevers recorded. Vented on volume assist control. Last Vital Signs Temp Pulse Resp BP Pulse Ox 98.3 F 72 15 105/61 100 06/07/17 09:00 06/07/17 09:00 06/07/17 10:13 06/07/17 09:00 06/07/17 01:18 Gen: vented, awake Heart: RRR Lung: decreased breath sounds at the bases Abd: soft, nontender Ext: + edema CBC, BMP 06/02/17 06:00 06/02/17 06:00 Active Medications Chlorhexidine Gluconate (Hibiclens For Decolonization -) 1 applic TP HS [facility] Last Admin: 06/06/17 23:05 Dose: Not Given Ceftazidime 1 gm/ Dextrose 50 mls @ 100 mls/hr IVPB Q8H-IV [facility] PRN Reason: Protocol Last Admin: 06/07/17 10:33 Dose: 100 mls/hr Lactobacillus Acidophilus (Bacid -) 1 tab GT BID [facility] Last Admin: 06/07/17 10:33 Dose: 1 tab Lisinopril (Prinivil) 2.5 mg GT DAILY [facility] Last Admin: 06/07/17 10:33 Dose: 2.5 mg Nystatin (Mycostatin Cream -) 1 applic TP BID [facility] Last Admin: 06/07/17 10:44 Dose: 1 applic Ranitidine HCl (Zantac -) 150 mg NR DAILY [facility] Last Admin: 06/07/17 10:33 Dose: 150 mg Fluticasone/Salmeterol (Advair 100mcg/50mcg -) 1 puff IH BID [facility] Last Admin: 06/07/17 10:27 Dose: Not Given Senna (Senna -) 2 tab PO HS [facility] Last Admin: 06/06/17 23:07 Dose: 2 tab Sertraline HCl (Zoloft -) 50 mg GT DAILY [facility] Last Admin: 06/07/17 10:33 Dose: 50 mg Ursodiol (Actigal -) 300 mg NR BID [facility] Last Admin: 06/07/17 10:34 Dose: 300 mg A/P Acute on Chronic Hypoxic and Hypercapneic Respiratory Failure improving Pneumonia treated Septic Shock resolved Anemia COPD Paroxysmal Atrial Fibrillation h/o CVA HTN DM - antibiotics per ID - inhaled bronchodilators - O2 to keep SpO2 >90% - continue volume assist control - spontaneous breathing trials as tolerated - enteral feeds - DVT prophylaxis
--- NOTE | 2017-06-07 16:30 | PN ---
Progress Note, Physician History of Present Illness: clinically patient is improving secretions still present no complaints - Current Medication List Current Medications: Active Medications Chlorhexidine Gluconate (Hibiclens For Decolonization -) 1 applic TP HS [facility] Last Admin: 06/06/17 23:05 Dose: Not Given Ceftazidime 1 gm/ Dextrose 50 mls @ 100 mls/hr IVPB Q8H-IV [facility] PRN Reason: Protocol Last Admin: 06/07/17 10:33 Dose: 100 mls/hr Lactobacillus Acidophilus (Bacid -) 1 tab GT BID [facility] Last Admin: 06/07/17 10:33 Dose: 1 tab Lisinopril (Prinivil) 2.5 mg GT DAILY [facility] Last Admin: 06/07/17 10:33 Dose: 2.5 mg Nystatin (Mycostatin Cream -) 1 applic TP BID [facility] Last Admin: 06/07/17 10:44 Dose: 1 applic Ranitidine HCl (Zantac -) 150 mg NR DAILY [facility] Last Admin: 06/07/17 10:33 Dose: 150 mg Fluticasone/Salmeterol (Advair 100mcg/50mcg -) 1 puff IH BID [facility] Last Admin: 06/07/17 10:27 Dose: Not Given Senna (Senna -) 2 tab PO HS [facility] Last Admin: 06/06/17 23:07 Dose: 2 tab Sertraline HCl (Zoloft -) 50 mg GT DAILY [facility] Last Admin: 06/07/17 10:33 Dose: 50 mg Ursodiol (Actigal -) 300 mg NR BID [facility] Last Admin: 06/07/17 10:34 Dose: 300 mg - Objective Vital Signs: Vital Signs Temperature 98.3 F 06/07/17 09:00 Pulse Rate 64 06/07/17 15:03 Respiratory Rate 14 06/07/17 14:11 Blood Pressure 105/61 06/07/17 09:00 O2 Sat by Pulse Oximetry (%) 100 06/07/17 15:03 Constitutional: Yes: No Distress, Calm Cardiovascular: Yes: Regular Rate and Rhythm Respiratory: Yes: Mechanically Ventilated, Poor Air Entry Gastrointestinal: Yes: Normal Bowel Sounds, Soft Musculoskeletal: Yes: WNL Extremities: Yes: WNL Neurological: Yes: Alert, Oriented Psychiatric: Yes: Alert, Oriented Labs: CBC, BMP 06/02/17 06:00 06/02/17 06:00 INR, PTT INR 1.24 (0.82-1.09) H 05/25/17 10:45 Assessment/Plan Problem List - Problems (1) Sepsis Code(s): A41.9 - SEPSIS, UNSPECIFIED ORGANISM (2) Septic shock Code(s): A41.9 - SEPSIS, UNSPECIFIED ORGANISM R65.21 - SEVERE SEPSIS WITH SEPTIC SHOCK (3) VAP (ventilator-associated pneumonia) Code(s): J95.851 - VENTILATOR ASSOCIATED PNEUMONIA (4) Chronic respiratory failure Code(s): J96.10 - CHRONIC RESPIRATORY FAILURE, UNSP W HYPOXIA OR HYPERCAPNIA (5) Diabetes mellitus Code(s): E11.9 - TYPE 2 DIABETES MELLITUS WITHOUT COMPLICATIONS 6 pneumonia plan isolation continue abx suctioning rest as per primary
--- NOTE | 2017-06-07 17:14 | PN ---
Progress Note, Physician History of Present Illness: stable - Current Medication List Current Medications: Active Medications Chlorhexidine Gluconate (Hibiclens For Decolonization -) 1 applic TP HS [facility] Last Admin: 06/06/17 23:05 Dose: Not Given Ceftazidime 1 gm/ Dextrose 50 mls @ 100 mls/hr IVPB Q8H-IV [facility] PRN Reason: Protocol Last Admin: 06/07/17 10:33 Dose: 100 mls/hr Lactobacillus Acidophilus (Bacid -) 1 tab GT BID [facility] Last Admin: 06/07/17 10:33 Dose: 1 tab Lisinopril (Prinivil) 2.5 mg GT DAILY [facility] Last Admin: 06/07/17 10:33 Dose: 2.5 mg Nystatin (Mycostatin Cream -) 1 applic TP BID [facility] Last Admin: 06/07/17 10:44 Dose: 1 applic Ranitidine HCl (Zantac -) 150 mg NR DAILY [facility] Last Admin: 06/07/17 10:33 Dose: 150 mg Fluticasone/Salmeterol (Advair 100mcg/50mcg -) 1 puff IH BID [facility] Last Admin: 06/07/17 10:27 Dose: Not Given Senna (Senna -) 2 tab PO HS [facility] Last Admin: 06/06/17 23:07 Dose: 2 tab Sertraline HCl (Zoloft -) 50 mg GT DAILY [facility] Last Admin: 06/07/17 10:33 Dose: 50 mg Ursodiol (Actigal -) 300 mg NR BID [facility] Last Admin: 06/07/17 10:34 Dose: 300 mg - Objective Vital Signs: Vital Signs Temperature 98.3 F 06/07/17 09:00 Pulse Rate 64 06/07/17 15:03 Respiratory Rate 14 06/07/17 14:11 Blood Pressure 105/61 06/07/17 09:00 O2 Sat by Pulse Oximetry (%) 100 06/07/17 15:03 Constitutional: Yes: Calm HENT: Yes: Atraumatic Neck: Yes: Other (trach /vent) Cardiovascular: Yes: Regular Rate and Rhythm Respiratory: Yes: Rhonchi Gastrointestinal: Yes: Normal Bowel Sounds Edema: LLE: Trace, RLE: Trace Peripheral Pulses WNL: Yes Neurological: Yes: Alert Labs: CBC, BMP 06/02/17 06:00 06/02/17 06:00 INR, PTT INR 1.24 (0.82-1.09) H 05/25/17 10:45 Problem List - Problems (1) Sepsis Assessment/Plan: abx per id new cxs Code(s): A41.9 - SEPSIS, UNSPECIFIED ORGANISM Qualifiers: Sepsis type: sepsis due to unspecified organism Qualified Code(s): A41.9 - Sepsis, unspecified organism; A41.9 - Sepsis, unspecified organism; A41.9 - Sepsis, unspecified organism (2) Septic shock Assessment/Plan: bp better Code(s): A41.9 - SEPSIS, UNSPECIFIED ORGANISM R65.21 - SEVERE SEPSIS WITH SEPTIC SHOCK (3) VAP (ventilator-associated pneumonia) Code(s): J95.851 - VENTILATOR ASSOCIATED PNEUMONIA (4) Acute on chronic respiratory failure with hypoxia and hypercapnia Assessment/Plan: trach /vent Code(s): J96.21 - ACUTE AND CHRONIC RESPIRATORY FAILURE WITH HYPOXIA J96.22 - ACUTE AND CHRONIC RESPIRATORY FAILURE WITH HYPERCAPNIA (5) COPD (chronic obstructive pulmonary disease) Assessment/Plan: duo nebs trach/vent Code(s): J44.9 - CHRONIC OBSTRUCTIVE PULMONARY DISEASE, UNSPECIFIED (6) PEG (percutaneous endoscopic gastrostomy) status Code(s): Z93.1 - GASTROSTOMY STATUS (7) Anemia Code(s): D64.9 - ANEMIA, UNSPECIFIED (8) Atrial fibrillation Code(s): I48.91 - UNSPECIFIED ATRIAL FIBRILLATION Qualifiers: Atrial fibrillation type: paroxysmal Qualified Code(s): I48.0 - Paroxysmal atrial fibrillation; I48.0 - Paroxysmal atrial fibrillation; I48.0 - Paroxysmal atrial fibrillation; I48.0 - Paroxysmal atrial fibrillation (9) CVA (cerebral infarction) Code(s): I63.9 - CEREBRAL INFARCTION, UNSPECIFIED (10) Diabetes mellitus Code(s): E11.9 - TYPE 2 DIABETES MELLITUS WITHOUT COMPLICATIONS Qualifiers: Diabetes mellitus type: type 2 Diabetes mellitus complication status: with unspecified complications Diabetes mellitus superintendent container terminal insulin use: without snf use Qualified Code(s): E11.8 - Type 2 diabetes mellitus with unspecified complications; E11.8 - Type 2 diabetes mellitus with unspecified complications; E11.8 - Type 2 diabetes mellitus with unspecified complications; E11.8 - Type 2 diabetes mellitus with unspecified complications; Z79.4 - intermediate (current) use of insulin; Z79.4 - intermodal customer service (current) use of insulin; Z79.4 - intermodal customer service (current) use of insulin; Z79.4 - intermodal customer service (current ) use of insulin (11) Pneumonia Code(s): J18.9 - PNEUMONIA, UNSPECIFIED ORGANISM
[2017-06-07] MEDS: CHLORHEXIDINE GLUCONATE 4% CLEANSER FOR DECOLONIZATION TP SCH (23:28)
[2017-06-07] MEDS: SENNOSIDES 8.6MG TABLET (FP) PO SCH (23:32)
[2017-06-08] MEDS ORDERED: PT OWN MED DRAWER 7, Y5N ONE ×4 (04:00→18:16)
[2017-06-08] MEDS: CEFTAZIDIME PENTAHYDRATE 1 GM in DEXTROSE 5%-WATER - 50 ML IVPB SCH ×3 (04:02→17:56)
[2017-06-08] MEDS: FLUTICASONE/SALMETEROL 100 MCG/50 MCG DISKUS IH SCH ×2 (10:38→22:45)
[2017-06-08] MEDS: LACTOBACILLUS ACIDOPHILUS 1 EACH TAB (FP) GT SCH ×2 (10:45→22:45)
[2017-06-08] MEDS: LISINOPRIL 5 MG TABLET (FP) GT SCH (10:46)
[2017-06-08] MEDS: RANITIDINE HCL 150 MG TABLET (FP) NR SCH (10:48)
[2017-06-08] MEDS: SERTRALINE HCL 50 MG TABLET (FP) GT SCH (10:49)
[2017-06-08] MEDS: NYSTATIN 100,000 UNIT/GM TOPICAL CREAM 15 GM TUBE TP SCH ×2 (10:49→22:46)
[2017-06-08] MEDS: URSODIOL 300 MG CAPSULE NR SCH ×2 (10:50→22:45)
--- NOTE | 2017-06-08 13:11 | PN ---
Progress Note (short form) - Note Progress Note: PULMONARY APPEARS COMFORTABLE ON PRESENT VENT SETTINGS WANTS TO EAT/TRYING TO SPEAK AROUND TRACH VSS/AFEBRILE ANICTERIC DISTANT B/L BREATH SOUNDS S1S2 BS+ 1+ EDEMA WITH HEEL B/L ULCERATIONS LABS/MEDS/NOTES/IMAGES/MICRO REVIEWED ASSESSMENT AND PLAN: Acute on Chronic Hypoxic and Hypercapneic Respiratory Failure Pneumonia Septic Shock resolving Anemia COPD Paroxysmal Atrial Fibrillation h/o CVA HTN DM - ABX per ID - inhaled bronchodilators - O2 to keep SpO2 >90% - spontaneous breathing trials as tolerated - enteral feeds - DVT prophylaxsis - Same vent settings for now Elizabeth LAU MD
--- NOTE | 2017-06-08 14:59 | PN ---
Progress Note, Physician History of Present Illness: clinically patient is improving secretions less - Current Medication List Current Medications: Active Medications Chlorhexidine Gluconate (Hibiclens For Decolonization -) 1 applic TP HS [facility] Last Admin: 06/07/17 23:28 Dose: Not Given Ceftazidime 1 gm/ Dextrose 50 mls @ 100 mls/hr IVPB Q8H-IV [facility] PRN Reason: Protocol Last Admin: 06/08/17 10:45 Dose: 100 mls/hr Lactobacillus Acidophilus (Bacid -) 1 tab GT BID [facility] Last Admin: 06/08/17 10:45 Dose: 1 tab Lisinopril (Prinivil) 2.5 mg GT DAILY [facility] Last Admin: 06/08/17 10:46 Dose: 2.5 mg Nystatin (Mycostatin Cream -) 1 applic TP BID [facility] Last Admin: 06/08/17 10:49 Dose: 1 applic Ranitidine HCl (Zantac -) 150 mg NR DAILY [facility] Last Admin: 06/08/17 10:48 Dose: 150 mg Fluticasone/Salmeterol (Advair 100mcg/50mcg -) 1 puff IH BID [facility] Last Admin: 06/08/17 10:38 Dose: Not Given Senna (Senna -) 2 tab PO HS [facility] Last Admin: 06/07/17 23:32 Dose: 2 tab Sertraline HCl (Zoloft -) 50 mg GT DAILY [facility] Last Admin: 06/08/17 10:49 Dose: 50 mg Ursodiol (Actigal -) 300 mg NR BID [facility] Last Admin: 06/08/17 10:50 Dose: 300 mg - Objective Vital Signs: Vital Signs Temperature 98.2 F 06/08/17 10:00 Pulse Rate 98 H 06/08/17 10:00 Respiratory Rate 16 06/08/17 14:12 Blood Pressure 122/70 06/08/17 10:00 O2 Sat by Pulse Oximetry (%) 100 06/07/17 22:00 Constitutional: Yes: No Distress, Calm Cardiovascular: Yes: Regular Rate and Rhythm Respiratory: Yes: Mechanically Ventilated, Other (trach) Gastrointestinal: Yes: Normal Bowel Sounds, Soft Musculoskeletal: Yes: WNL Extremities: Yes: Other (heel ulcerations) Neurological: Yes: Alert, Oriented Psychiatric: Yes: Alert, Oriented Labs: CBC, BMP 06/02/17 06:00 06/02/17 06:00 INR, PTT INR 1.24 (0.82-1.09) H 05/25/17 10:45 Assessment/Plan Problem List - Problems (1) Sepsis Code(s): A41.9 - SEPSIS, UNSPECIFIED ORGANISM (2) Septic shock Code(s): A41.9 - SEPSIS, UNSPECIFIED ORGANISM R65.21 - SEVERE SEPSIS WITH SEPTIC SHOCK (3) VAP (ventilator-associated pneumonia) Code(s): J95.851 - VENTILATOR ASSOCIATED PNEUMONIA (4) Chronic respiratory failure Code(s): J96.10 - CHRONIC RESPIRATORY FAILURE, UNSP W HYPOXIA OR HYPERCAPNIA (5) Diabetes mellitus Code(s): E11.9 - TYPE 2 DIABETES MELLITUS WITHOUT COMPLICATIONS 6 pneumonia plan isolation continue abx suctioning rest as per primary nutrition
--- NOTE | 2017-06-08 19:43 | PN ---
Progress Note, Physician History of Present Illness: stable - Current Medication List Current Medications: Active Medications Chlorhexidine Gluconate (Hibiclens For Decolonization -) 1 applic TP HS [facility] Last Admin: 06/07/17 23:28 Dose: Not Given Ceftazidime 1 gm/ Dextrose 50 mls @ 100 mls/hr IVPB Q8H-IV [facility] PRN Reason: Protocol Last Admin: 06/08/17 17:56 Dose: 100 mls/hr Lactobacillus Acidophilus (Bacid -) 1 tab GT BID [facility] Last Admin: 06/08/17 10:45 Dose: 1 tab Lisinopril (Prinivil) 2.5 mg GT DAILY [facility] Last Admin: 06/08/17 10:46 Dose: 2.5 mg Nystatin (Mycostatin Cream -) 1 applic TP BID [facility] Last Admin: 06/08/17 10:49 Dose: 1 applic Ranitidine HCl (Zantac -) 150 mg NR DAILY [facility] Last Admin: 06/08/17 10:48 Dose: 150 mg Fluticasone/Salmeterol (Advair 100mcg/50mcg -) 1 puff IH BID [facility] Last Admin: 06/08/17 10:38 Dose: Not Given Senna (Senna -) 2 tab PO HS [facility] Last Admin: 06/07/17 23:32 Dose: 2 tab Sertraline HCl (Zoloft -) 50 mg GT DAILY [facility] Last Admin: 06/08/17 10:49 Dose: 50 mg Ursodiol (Actigal -) 300 mg NR BID [facility] Last Admin: 06/08/17 10:50 Dose: 300 mg - Objective Vital Signs: Vital Signs Temperature 99.1 F 06/08/17 15:50 Pulse Rate 65 06/08/17 15:50 Respiratory Rate 23 06/08/17 17:51 Blood Pressure 100/61 06/08/17 15:50 O2 Sat by Pulse Oximetry (%) 100 06/08/17 09:00 Constitutional: Yes: No Distress HENT: Yes: Atraumatic Neck: Yes: Other (trach/vent) Cardiovascular: Yes: Pulse Irregular Respiratory: Yes: Rhonchi Gastrointestinal: Yes: Normal Bowel Sounds, Other (peg) Edema: No Peripheral Pulses WNL: Yes Neurological: Yes: Alert, Oriented Labs: CBC, BMP 06/02/17 06:00 06/02/17 06:00 INR, PTT INR 1.24 (0.82-1.09) H 05/25/17 10:45 Problem List - Problems (1) Sepsis Assessment/Plan: abx per id new cxs Code(s): A41.9 - SEPSIS, UNSPECIFIED ORGANISM Qualifiers: Sepsis type: sepsis due to unspecified organism Qualified Code(s): A41.9 - Sepsis, unspecified organism; A41.9 - Sepsis, unspecified organism; A41.9 - Sepsis, unspecified organism (2) Septic shock Assessment/Plan: bp better Code(s): A41.9 - SEPSIS, UNSPECIFIED ORGANISM R65.21 - SEVERE SEPSIS WITH SEPTIC SHOCK (3) VAP (ventilator-associated pneumonia) Code(s): J95.851 - VENTILATOR ASSOCIATED PNEUMONIA (4) Acute on chronic respiratory failure with hypoxia and hypercapnia Assessment/Plan: trach /vent Code(s): J96.21 - ACUTE AND CHRONIC RESPIRATORY FAILURE WITH HYPOXIA J96.22 - ACUTE AND CHRONIC RESPIRATORY FAILURE WITH HYPERCAPNIA (5) COPD (chronic obstructive pulmonary disease) Assessment/Plan: duo nebs trach/vent Code(s): J44.9 - CHRONIC OBSTRUCTIVE PULMONARY DISEASE, UNSPECIFIED (6) PEG (percutaneous endoscopic gastrostomy) status Assessment/Plan: peg in place on TF Code(s): Z93.1 - GASTROSTOMY STATUS (7) Anemia Assessment/Plan: monitor Code(s): D64.9 - ANEMIA, UNSPECIFIED (8) Atrial fibrillation Assessment/Plan: on meds stabel Code(s): I48.91 - UNSPECIFIED ATRIAL FIBRILLATION Qualifiers: Atrial fibrillation type: paroxysmal Qualified Code(s): I48.0 - Paroxysmal atrial fibrillation; I48.0 - Paroxysmal atrial fibrillation; I48.0 - Paroxysmal atrial fibrillation; I48.0 - Paroxysmal atrial fibrillation (9) CVA (cerebral infarction) Assessment/Plan: stable cant walk bedridden Code(s): I63.9 - CEREBRAL INFARCTION, UNSPECIFIED (10) Diabetes mellitus Assessment/Plan: monitor Code(s): E11.9 - TYPE 2 DIABETES MELLITUS WITHOUT COMPLICATIONS Qualifiers: Diabetes mellitus type: type 2 Diabetes mellitus complication status: with unspecified complications Diabetes mellitus director long term care insulin use: without nursing home use Qualified Code(s): E11.8 - Type 2 diabetes mellitus with unspecified complications; E11.8 - Type 2 diabetes mellitus with unspecified complications; E11.8 - Type 2 diabetes mellitus with unspecified complications; E11.8 - Type 2 diabetes mellitus with unspecified complications; Z79.4 - director long term care (current) use of insulin; Z79.4 - senior living (current) use of insulin; Z79.4 - senior living (current) use of insulin; Z79.4 - senior living (current ) use of insulin (11) Pneumonia Code(s): J18.9 - PNEUMONIA, UNSPECIFIED ORGANISM
[2017-06-08] MEDS: CHLORHEXIDINE GLUCONATE 4% CLEANSER FOR DECOLONIZATION TP SCH (22:45)
[2017-06-08] MEDS: SENNOSIDES 8.6MG TABLET (FP) PO SCH (22:45)
[2017-06-09] MEDS: CEFTAZIDIME PENTAHYDRATE 1 GM in DEXTROSE 5%-WATER - 50 ML IVPB SCH ×3 (01:45→17:43)
[2017-06-09] MEDS: RANITIDINE HCL 150 MG TABLET (FP) NR SCH (10:10)
[2017-06-09] MEDS: FLUTICASONE/SALMETEROL 100 MCG/50 MCG DISKUS IH SCH ×2 (10:11→21:33)
--- NOTE | 2017-06-09 12:20 | PN ---
Progress Note (short form) - Note Progress Note: PULMONARY APPEARS COMFORTABLE ON PRESENT VENT SETTINGS WANTS TO EAT/TRYING TO SPEAK AROUND TRACH REFUSING MEDS/PICC LINE VSS/AFEBRILE ANICTERIC DISTANT B/L BREATH SOUNDS S1S2 BS+ 1+ EDEMA WITH HEEL B/L ULCERATIONS LABS/MEDS/NOTES/IMAGES/MICRO REVIEWED ASSESSMENT AND PLAN: Acute on Chronic Hypoxic and Hypercapneic Respiratory Failure Pneumonia Septic Shock resolving Anemia COPD Paroxysmal Atrial Fibrillation h/o CVA HTN DM - ABX per ID - inhaled bronchodilators - O2 to keep SpO2 >90% - spontaneous breathing trials as tolerated - enteral feeds - DVT prophylaxsis - Same vent settings for now Elizabeth LAU MD
[2017-06-09] MEDS: URSODIOL 300 MG CAPSULE NR SCH ×2 (12:35→21:33)
[2017-06-09] MEDS: LACTOBACILLUS ACIDOPHILUS 1 EACH TAB (FP) GT SCH ×2 (12:35→21:34)
[2017-06-09] MEDS: LISINOPRIL 5 MG TABLET (FP) GT SCH (12:36)
[2017-06-09] MEDS: SERTRALINE HCL 50 MG TABLET (FP) GT SCH (12:37)
--- NOTE | 2017-06-09 14:28 | PN ---
Progress Note, Physician History of Present Illness: clinically patient is improving secretions less no new issues patient refusing a lot of thing - Current Medication List Current Medications: Active Medications Chlorhexidine Gluconate (Hibiclens For Decolonization -) 1 applic TP HS [facility] Last Admin: 06/08/17 22:45 Dose: Not Given Ceftazidime 1 gm/ Dextrose 50 mls @ 100 mls/hr IVPB Q8H-IV [facility] PRN Reason: Protocol Last Admin: 06/09/17 12:35 Dose: 100 mls/hr Lactobacillus Acidophilus (Bacid -) 1 tab GT BID [facility] Last Admin: 06/09/17 12:35 Dose: 1 tab Lisinopril (Prinivil) 2.5 mg GT DAILY [facility] Last Admin: 06/09/17 12:36 Dose: 2.5 mg Nystatin (Mycostatin Cream -) 1 applic TP BID [facility] Last Admin: 06/08/17 22:46 Dose: 1 applic Ranitidine HCl (Zantac -) 150 mg NR DAILY [facility] Last Admin: 06/09/17 10:10 Dose: 150 mg Fluticasone/Salmeterol (Advair 100mcg/50mcg -) 1 puff IH BID [facility] Last Admin: 06/09/17 10:11 Dose: Not Given Senna (Senna -) 2 tab PO HS [facility] Last Admin: 06/08/17 22:45 Dose: 2 tab Sertraline HCl (Zoloft -) 50 mg GT DAILY [facility] Last Admin: 06/09/17 12:37 Dose: 50 mg Ursodiol (Actigal -) 300 mg NR BID [facility] Last Admin: 06/09/17 12:35 Dose: 300 mg - Objective Vital Signs: Vital Signs Temperature 97.7 F 06/09/17 10:00 Pulse Rate 80 06/09/17 10:00 Respiratory Rate 19 06/09/17 10:00 Blood Pressure 122/77 06/09/17 10:00 O2 Sat by Pulse Oximetry (%) 100 06/08/17 21:00 Constitutional: Yes: No Distress, Calm Cardiovascular: Yes: Regular Rate and Rhythm Respiratory: Yes: Regular, CTA Bilaterally Gastrointestinal: Yes: Normal Bowel Sounds, Soft Musculoskeletal: Yes: WNL Extremities: Yes: WNL Neurological: Yes: Alert, Oriented Psychiatric: Yes: Alert, Oriented Labs: CBC, BMP 06/02/17 06:00 06/02/17 06:00 INR, PTT INR 1.24 (0.82-1.09) H 05/25/17 10:45 Assessment/Plan Problem List - Problems (1) Sepsis Code(s): A41.9 - SEPSIS, UNSPECIFIED ORGANISM (2) Septic shock Code(s): A41.9 - SEPSIS, UNSPECIFIED ORGANISM R65.21 - SEVERE SEPSIS WITH SEPTIC SHOCK (3) VAP (ventilator-associated pneumonia) Code(s): J95.851 - VENTILATOR ASSOCIATED PNEUMONIA (4) Chronic respiratory failure Code(s): J96.10 - CHRONIC RESPIRATORY FAILURE, UNSP W HYPOXIA OR HYPERCAPNIA (5) Diabetes mellitus Code(s): E11.9 - TYPE 2 DIABETES MELLITUS WITHOUT COMPLICATIONS 6 pneumonia plan isolation continue abx suctioning rest as per primary nutrition
[2017-06-09] MEDS: NYSTATIN 100,000 UNIT/GM TOPICAL CREAM 15 GM TUBE TP SCH ×2 (17:44→21:34)
--- NOTE | 2017-06-09 18:30 | PN ---
HC Provider Note (SOAP) Subjective: No new complaints Objective: VSS HEENT: (+) trach Lungs: scaterred rhonchi Cardio: Irregular ABD: (+) PEG Ext: (+) edema/heel ulcers Plan: - Problems (1) Sepsis Assessment/Plan: abx per id new cxs Code(s): A41.9 - SEPSIS, UNSPECIFIED ORGANISM Qualifiers: Sepsis type: sepsis due to unspecified organism Qualified Code(s): A41.9 - Sepsis, unspecified organism; A41.9 - Sepsis, unspecified organism; A41.9 - Sepsis, unspecified organism 2. VAP (ventilator-associated pneumonia) Code(s): J95.851 - VENTILATOR ASSOCIATED PNEUMONIA 3 Acute on chronic respiratory failure with hypoxia and hypercapnia Assessment/Plan: trach /vent Code(s): J96.21 - ACUTE AND CHRONIC RESPIRATORY FAILURE WITH HYPOXIA J96.22 - ACUTE AND CHRONIC RESPIRATORY FAILURE WITH HYPERCAPNIA 4 COPD (chronic obstructive pulmonary disease) Assessment/Plan: duo nebs trach/vent Code(s): J44.9 - CHRONIC OBSTRUCTIVE PULMONARY DISEASE, UNSPECIFIED 5 PEG (percutaneous endoscopic gastrostomy) status Assessment/Plan: peg in place on TF Code(s): Z93.1 - GASTROSTOMY STATUS 6 Anemia Assessment/Plan: monitor Code(s): D64.9 - ANEMIA, UNSPECIFIED 7 Atrial fibrillation Assessment/Plan: on meds stabel Code(s): I48.91 - UNSPECIFIED ATRIAL FIBRILLATION Qualifiers: Atrial fibrillation type: paroxysmal Qualified Code(s): I48.0 - Paroxysmal atrial fibrillation; I48.0 - Paroxysmal atrial fibrillation; I48.0 - Paroxysmal atrial fibrillation; I48.0 - Paroxysmal atrial fibrillation 8 CVA (cerebral infarction) Assessment/Plan: stable cant walk bedridden Code(s): I63.9 - CEREBRAL INFARCTION, UNSPECIFIED 9 Diabetes mellitus Assessment/Plan: monitor Code(s): E11.9 - TYPE 2 DIABETES MELLITUS WITHOUT COMPLICATIONS Qualifiers: Diabetes mellitus type: type 2 Diabetes mellitus complication status: with unspecified complications Diabetes mellitus [facility] insulin use: without rat exterminator use Qualified Code(s): E11.8 - Type 2 diabetes mellitus with unspecified complications; E11.8 - Type 2 diabetes mellitus with unspecified complications; E11.8 - Type 2 diabetes mellitus with unspecified complications; E11.8 - Type 2 diabetes mellitus with unspecified complications; Z79.4 - terminal supervisor (current) use of insulin; Z79.4 - terminal supervisor (current) use of insulin; Z79.4 - terminal supervisor (current) use of insulin; Z79.4 - terminal supervisor (current ) use of insulin
[2017-06-09] MEDS ORDERED: PT OWN MED DRAWER 7, Y5N ONE (20:10)
[2017-06-09] MEDS: CHLORHEXIDINE GLUCONATE 4% CLEANSER FOR DECOLONIZATION TP SCH (21:34)
[2017-06-09] MEDS: SENNOSIDES 8.6MG TABLET (FP) PO SCH (21:35)
[2017-06-10] MEDS ORDERED: PT OWN MED DRAWER 7, Y5N ONE ×3 (00:54→16:57)
[2017-06-10] MEDS: CEFTAZIDIME PENTAHYDRATE 1 GM in DEXTROSE 5%-WATER - 50 ML IVPB SCH ×3 (02:38→18:06)
[2017-06-10] MEDS: LACTOBACILLUS ACIDOPHILUS 1 EACH TAB (FP) GT SCH ×2 (09:52→21:20)
[2017-06-10] MEDS: URSODIOL 300 MG CAPSULE NR SCH ×2 (09:52→21:19)
[2017-06-10] MEDS: LISINOPRIL 5 MG TABLET (FP) GT SCH (09:53)
[2017-06-10] MEDS: SERTRALINE HCL 50 MG TABLET (FP) GT SCH (09:54)
[2017-06-10] MEDS: RANITIDINE HCL 150 MG TABLET (FP) NR SCH (09:54)
[2017-06-10] MEDS: FLUTICASONE/SALMETEROL 100 MCG/50 MCG DISKUS IH SCH ×2 (09:55→21:19)
[2017-06-10] MEDS: NYSTATIN 100,000 UNIT/GM TOPICAL CREAM 15 GM TUBE TP SCH ×2 (09:55→21:20)
--- NOTE | 2017-06-10 13:49 | PN ---
Progress Note, Physician History of Present Illness: patient stable no new issues - Current Medication List Current Medications: Active Medications Chlorhexidine Gluconate (Hibiclens For Decolonization -) 1 applic TP HS [facility] Last Admin: 06/09/17 21:34 Dose: Not Given Ceftazidime 1 gm/ Dextrose 50 mls @ 100 mls/hr IVPB Q8H-IV [facility] PRN Reason: Protocol Last Admin: 06/10/17 09:53 Dose: 100 mls/hr Lactobacillus Acidophilus (Bacid -) 1 tab GT BID [facility] Last Admin: 06/10/17 09:52 Dose: 1 tab Lisinopril (Prinivil) 2.5 mg GT DAILY [facility] Last Admin: 06/10/17 09:53 Dose: 2.5 mg Nystatin (Mycostatin Cream -) 1 applic TP BID [facility] Last Admin: 06/10/17 09:55 Dose: 1 applic Ranitidine HCl (Zantac -) 150 mg NR DAILY [facility] Last Admin: 06/10/17 09:54 Dose: 150 mg Fluticasone/Salmeterol (Advair 100mcg/50mcg -) 1 puff IH BID [facility] Last Admin: 06/10/17 09:55 Dose: Not Given Senna (Senna -) 2 tab PO HS [facility] Last Admin: 06/09/17 21:35 Dose: 2 tab Sertraline HCl (Zoloft -) 50 mg GT DAILY [facility] Last Admin: 06/10/17 09:54 Dose: 50 mg Ursodiol (Actigal -) 300 mg NR BID [facility] Last Admin: 06/10/17 09:52 Dose: 300 mg - Objective Vital Signs: Vital Signs Temperature 98.0 F 06/10/17 09:30 Pulse Rate 65 06/10/17 09:30 Respiratory Rate 18 06/10/17 09:30 Blood Pressure 100/58 06/10/17 09:30 O2 Sat by Pulse Oximetry (%) 100 06/10/17 09:00 Constitutional: Yes: No Distress, Calm Cardiovascular: Yes: Regular Rate and Rhythm Respiratory: Yes: Mechanically Ventilated, Other (trach) Gastrointestinal: Yes: Normal Bowel Sounds, Soft Musculoskeletal: Yes: WNL Extremities: Yes: WNL Labs: CBC, BMP 06/02/17 06:00 06/02/17 06:00 INR, PTT INR 1.24 (0.82-1.09) H 05/25/17 10:45 Assessment/Plan Problem List - Problems (1) Sepsis Code(s): A41.9 - SEPSIS, UNSPECIFIED ORGANISM (2) Septic shock Code(s): A41.9 - SEPSIS, UNSPECIFIED ORGANISM R65.21 - SEVERE SEPSIS WITH SEPTIC SHOCK (3) VAP (ventilator-associated pneumonia) Code(s): J95.851 - VENTILATOR ASSOCIATED PNEUMONIA (4) Chronic respiratory failure Code(s): J96.10 - CHRONIC RESPIRATORY FAILURE, UNSP W HYPOXIA OR HYPERCAPNIA (5) Diabetes mellitus Code(s): E11.9 - TYPE 2 DIABETES MELLITUS WITHOUT COMPLICATIONS 6 pneumonia plan isolation continue abx suctioning rest as per primary nutrition finish abx course
--- NOTE | 2017-06-10 19:29 | PN ---
Progress Note, Physician History of Present Illness: No new complaints - Current Medication List Current Medications: Active Medications Chlorhexidine Gluconate (Hibiclens For Decolonization -) 1 applic TP HS [facility] Last Admin: 06/09/17 21:34 Dose: Not Given Ceftazidime 1 gm/ Dextrose 50 mls @ 100 mls/hr IVPB Q8H-IV [facility] PRN Reason: Protocol Last Admin: 06/10/17 18:06 Dose: 100 mls/hr Lactobacillus Acidophilus (Bacid -) 1 tab GT BID [facility] Last Admin: 06/10/17 09:52 Dose: 1 tab Lisinopril (Prinivil) 2.5 mg GT DAILY [facility] Last Admin: 06/10/17 09:53 Dose: 2.5 mg Nystatin (Mycostatin Cream -) 1 applic TP BID [facility] Last Admin: 06/10/17 09:55 Dose: 1 applic Ranitidine HCl (Zantac -) 150 mg NR DAILY [facility] Last Admin: 06/10/17 09:54 Dose: 150 mg Fluticasone/Salmeterol (Advair 100mcg/50mcg -) 1 puff IH BID [facility] Last Admin: 06/10/17 09:55 Dose: Not Given Senna (Senna -) 2 tab PO HS [facility] Last Admin: 06/09/17 21:35 Dose: 2 tab Sertraline HCl (Zoloft -) 50 mg GT DAILY [facility] Last Admin: 06/10/17 09:54 Dose: 50 mg Ursodiol (Actigal -) 300 mg NR BID [facility] Last Admin: 06/10/17 09:52 Dose: 300 mg - Objective Vital Signs: Vital Signs Temperature 98.3 F 06/10/17 18:28 Pulse Rate 66 06/10/17 18:28 Respiratory Rate 18 06/10/17 18:28 Blood Pressure 100/51 06/10/17 18:28 O2 Sat by Pulse Oximetry (%) 100 06/10/17 09:00 Constitutional: Yes: Well Nourished HENT: Yes: Other ((+) trach) Neck: Yes: WNL, Supple Cardiovascular: Yes: Pulse Irregular Respiratory: Yes: Diminished Gastrointestinal: Yes: WNL, Normal Bowel Sounds, Soft, Other ((+) PEG) Labs: CBC, BMP 06/02/17 06:00 06/02/17 06:00 INR, PTT INR 1.24 (0.82-1.09) H 05/25/17 10:45 Problem List - Problems (1) Sepsis Assessment/Plan: Cont IV antibx Code(s): A41.9 - SEPSIS, UNSPECIFIED ORGANISM Qualifiers: Sepsis type: sepsis due to unspecified organism Qualified Code(s): A41.9 - Sepsis, unspecified organism; A41.9 - Sepsis, unspecified organism; A41.9 - Sepsis, unspecified organism (2) Pneumonia Assessment/Plan: Cont IV atnibx Code(s): J18.9 - PNEUMONIA, UNSPECIFIED ORGANISM (3) Atrial fibrillation Assessment/Plan: Heart rate stable Code(s): I48.91 - UNSPECIFIED ATRIAL FIBRILLATION Qualifiers: Atrial fibrillation type: paroxysmal Qualified Code(s): I48.0 - Paroxysmal atrial fibrillation; I48.0 - Paroxysmal atrial fibrillation; I48.0 - Paroxysmal atrial fibrillation; I48.0 - Paroxysmal atrial fibrillation (4) Chronic kidney disease (CKD) Code(s): N18.9 - CHRONIC KIDNEY DISEASE, UNSPECIFIED (5) Anemia Code(s): D64.9 - ANEMIA, UNSPECIFIED
[2017-06-10] MEDS: CHLORHEXIDINE GLUCONATE 4% CLEANSER FOR DECOLONIZATION TP SCH (21:20)
[2017-06-10] MEDS: SENNOSIDES 8.6MG TABLET (FP) PO SCH (21:21)
[2017-06-11] MEDS ORDERED: PT OWN MED DRAWER 7, Y5N ONE ×4 (00:58→21:46)
[2017-06-11] MEDS: CEFTAZIDIME PENTAHYDRATE 1 GM in DEXTROSE 5%-WATER - 50 ML IVPB SCH ×3 (01:10→17:11)
[2017-06-11] MEDS: LISINOPRIL 5 MG TABLET (FP) GT SCH (11:37)
[2017-06-11] MEDS: RANITIDINE HCL 150 MG TABLET (FP) NR SCH (11:37)
[2017-06-11] MEDS: LACTOBACILLUS ACIDOPHILUS 1 EACH TAB (FP) GT SCH ×2 (11:37→22:15)
[2017-06-11] MEDS: SERTRALINE HCL 50 MG TABLET (FP) GT SCH (11:39)
[2017-06-11] MEDS: URSODIOL 300 MG CAPSULE NR SCH ×2 (11:39→22:15)
[2017-06-11] MEDS: FLUTICASONE/SALMETEROL 100 MCG/50 MCG DISKUS IH SCH ×2 (11:40→22:17)
[2017-06-11] MEDS: NYSTATIN 100,000 UNIT/GM TOPICAL CREAM 15 GM TUBE TP SCH ×2 (11:40→22:14)
--- NOTE | 2017-06-11 13:27 | PN ---
Progress Note, Physician History of Present Illness: PULMONARY ALERT ON VENT SUPPORT AC MODE,-RESP DISTRESS - Current Medication List Current Medications: Active Medications Chlorhexidine Gluconate (Hibiclens For Decolonization -) 1 applic TP HS [facility] Last Admin: 06/10/17 21:20 Dose: Not Given Ceftazidime 1 gm/ Dextrose 50 mls @ 100 mls/hr IVPB Q8H-IV [facility] PRN Reason: Protocol Last Admin: 06/11/17 11:40 Dose: 100 mls/hr Lactobacillus Acidophilus (Bacid -) 1 tab GT BID [facility] Last Admin: 06/11/17 11:37 Dose: 1 tab Lisinopril (Prinivil) 2.5 mg GT DAILY [facility] Last Admin: 06/11/17 11:37 Dose: 2.5 mg Nystatin (Mycostatin Cream -) 1 applic TP BID [facility] Last Admin: 06/11/17 11:40 Dose: 1 applic Ranitidine HCl (Zantac -) 150 mg NR DAILY [facility] Last Admin: 06/11/17 11:37 Dose: 150 mg Fluticasone/Salmeterol (Advair 100mcg/50mcg -) 1 puff IH BID [facility] Last Admin: 06/11/17 11:40 Dose: Not Given Senna (Senna -) 2 tab PO HS [facility] Last Admin: 06/10/17 21:21 Dose: 2 tab Sertraline HCl (Zoloft -) 50 mg GT DAILY [facility] Last Admin: 06/11/17 11:39 Dose: 50 mg Ursodiol (Actigal -) 300 mg NR BID [facility] Last Admin: 06/11/17 11:39 Dose: 300 mg - Objective Vital Signs: Vital Signs Temperature 98 F 06/11/17 11:00 Pulse Rate 63 06/11/17 11:03 Respiratory Rate 16 06/11/17 11:00 Blood Pressure 110/68 06/11/17 11:00 O2 Sat by Pulse Oximetry (%) 98 06/11/17 11:03 Constitutional: Yes: Well Nourished, Calm Eyes: Yes: WNL HENT: Yes: WNL Neck: Yes: Supple (TRACH) Cardiovascular: Yes: Regular Rate and Rhythm, S1, S2 Respiratory: Yes: Diminished Gastrointestinal: Yes: Normal Bowel Sounds, Soft Extremities: Yes: WNL Edema: Yes Labs: CBC, BMP 06/02/17 06:00 06/02/17 06:00 INR, PTT INR 1.24 (0.82-1.09) H 05/25/17 10:45 Problem List - Problems (1) Sepsis Code(s): A41.9 - SEPSIS, UNSPECIFIED ORGANISM Qualifiers: Sepsis type: sepsis due to unspecified organism Qualified Code(s): A41.9 - Sepsis, unspecified organism; A41.9 - Sepsis, unspecified organism; A41.9 - Sepsis, unspecified organism (2) Septic shock Code(s): A41.9 - SEPSIS, UNSPECIFIED ORGANISM R65.21 - SEVERE SEPSIS WITH SEPTIC SHOCK (3) VAP (ventilator-associated pneumonia) Code(s): J95.851 - VENTILATOR ASSOCIATED PNEUMONIA (4) Acute CHF (congestive heart failure) Code(s): I50.9 - HEART FAILURE, UNSPECIFIED (5) Atrial fibrillation Code(s): I48.91 - UNSPECIFIED ATRIAL FIBRILLATION Qualifiers: Atrial fibrillation type: paroxysmal Qualified Code(s): I48.0 - Paroxysmal atrial fibrillation; I48.0 - Paroxysmal atrial fibrillation; I48.0 - Paroxysmal atrial fibrillation; I48.0 - Paroxysmal atrial fibrillation (6) Acute on chronic respiratory failure with hypoxia and hypercapnia Code(s): J96.21 - ACUTE AND CHRONIC RESPIRATORY FAILURE WITH HYPOXIA J96.22 - ACUTE AND CHRONIC RESPIRATORY FAILURE WITH HYPERCAPNIA (7) PEG (percutaneous endoscopic gastrostomy) status Code(s): Z93.1 - GASTROSTOMY STATUS (8) COPD (chronic obstructive pulmonary disease) Code(s): J44.9 - CHRONIC OBSTRUCTIVE PULMONARY DISEASE, UNSPECIFIED (9) CVA (cerebral infarction) Code(s): I63.9 - CEREBRAL INFARCTION, UNSPECIFIED Assessment/Plan ASSESSMENT AND PLAN: Acute on Chronic Hypoxic and Hypercapneic Respiratory Failure Pneumonia Septic Shock resolving Anemia COPD Paroxysmal Atrial Fibrillation h/o CVA HTN DM - antibiotics per ID - inhaled bronchodilators - O2 to keep SpO2 >90% - continue volume assist control - spontaneous breathing trials as tolerated - enteral feeds - DVT prophylaxis DR DRAPER
--- NOTE | 2017-06-11 16:37 | PN ---
Progress Note, Physician History of Present Illness: patient stable no new issues - Current Medication List Current Medications: Active Medications Chlorhexidine Gluconate (Hibiclens For Decolonization -) 1 applic TP HS [facility] Last Admin: 06/10/17 21:20 Dose: Not Given Ceftazidime 1 gm/ Dextrose 50 mls @ 100 mls/hr IVPB Q8H-IV [facility] PRN Reason: Protocol Last Admin: 06/11/17 11:40 Dose: 100 mls/hr Lactobacillus Acidophilus (Bacid -) 1 tab GT BID [facility] Last Admin: 06/11/17 11:37 Dose: 1 tab Lisinopril (Prinivil) 2.5 mg GT DAILY [facility] Last Admin: 06/11/17 11:37 Dose: 2.5 mg Nystatin (Mycostatin Cream -) 1 applic TP BID [facility] Last Admin: 06/11/17 11:40 Dose: 1 applic Ranitidine HCl (Zantac -) 150 mg NR DAILY [facility] Last Admin: 06/11/17 11:37 Dose: 150 mg Fluticasone/Salmeterol (Advair 100mcg/50mcg -) 1 puff IH BID [facility] Last Admin: 06/11/17 11:40 Dose: Not Given Senna (Senna -) 2 tab PO HS [facility] Last Admin: 06/10/17 21:21 Dose: 2 tab Sertraline HCl (Zoloft -) 50 mg GT DAILY [facility] Last Admin: 06/11/17 11:39 Dose: 50 mg Ursodiol (Actigal -) 300 mg NR BID [facility] Last Admin: 06/11/17 11:39 Dose: 300 mg - Objective Vital Signs: Vital Signs Temperature 97.7 F 06/11/17 14:11 Pulse Rate 72 06/11/17 14:11 Respiratory Rate 16 06/11/17 14:15 Blood Pressure 113/64 06/11/17 14:11 O2 Sat by Pulse Oximetry (%) 98 06/11/17 11:03 Constitutional: Yes: No Distress, Calm Cardiovascular: Yes: Regular Rate and Rhythm Respiratory: Yes: Intubated, Mechanically Ventilated Gastrointestinal: Yes: Normal Bowel Sounds, Soft Musculoskeletal: Yes: WNL Extremities: Yes: WNL Neurological: Yes: Alert, Oriented Psychiatric: Yes: Alert, Oriented Labs: CBC, BMP 06/02/17 06:00 06/02/17 06:00 INR, PTT INR 1.24 (0.82-1.09) H 05/25/17 10:45 Assessment/Plan Problem List - Problems (1) Sepsis Code(s): A41.9 - SEPSIS, UNSPECIFIED ORGANISM (2) Septic shock Code(s): A41.9 - SEPSIS, UNSPECIFIED ORGANISM R65.21 - SEVERE SEPSIS WITH SEPTIC SHOCK (3) VAP (ventilator-associated pneumonia) Code(s): J95.851 - VENTILATOR ASSOCIATED PNEUMONIA (4) Chronic respiratory failure Code(s): J96.10 - CHRONIC RESPIRATORY FAILURE, UNSP W HYPOXIA OR HYPERCAPNIA (5) Diabetes mellitus Code(s): E11.9 - TYPE 2 DIABETES MELLITUS WITHOUT COMPLICATIONS 6 pneumonia plan isolation continue abx suctioning rest as per primary nutrition finish abx course patient needs one more day of abx can stop it on wed
--- NOTE | 2017-06-11 17:37 | PN ---
Progress Note, Physician History of Present Illness: stable - Current Medication List Current Medications: Active Medications Chlorhexidine Gluconate (Hibiclens For Decolonization -) 1 applic TP HS [facility] Last Admin: 06/10/17 21:20 Dose: Not Given Ceftazidime 1 gm/ Dextrose 50 mls @ 100 mls/hr IVPB Q8H-IV [facility] PRN Reason: Protocol Last Admin: 06/11/17 17:11 Dose: 100 mls/hr Lactobacillus Acidophilus (Bacid -) 1 tab GT BID [facility] Last Admin: 06/11/17 11:37 Dose: 1 tab Lisinopril (Prinivil) 2.5 mg GT DAILY [facility] Last Admin: 06/11/17 11:37 Dose: 2.5 mg Nystatin (Mycostatin Cream -) 1 applic TP BID [facility] Last Admin: 06/11/17 11:40 Dose: 1 applic Ranitidine HCl (Zantac -) 150 mg NR DAILY [facility] Last Admin: 06/11/17 11:37 Dose: 150 mg Fluticasone/Salmeterol (Advair 100mcg/50mcg -) 1 puff IH BID [facility] Last Admin: 06/11/17 11:40 Dose: Not Given Senna (Senna -) 2 tab PO HS [facility] Last Admin: 06/10/17 21:21 Dose: 2 tab Sertraline HCl (Zoloft -) 50 mg GT DAILY [facility] Last Admin: 06/11/17 11:39 Dose: 50 mg Ursodiol (Actigal -) 300 mg NR BID [facility] Last Admin: 06/11/17 11:39 Dose: 300 mg - Objective Vital Signs: Vital Signs Temperature 97.7 F 06/11/17 14:11 Pulse Rate 72 06/11/17 14:11 Respiratory Rate 16 06/11/17 14:15 Blood Pressure 113/64 06/11/17 14:11 O2 Sat by Pulse Oximetry (%) 98 06/11/17 11:03 Constitutional: Yes: No Distress HENT: Yes: Atraumatic Neck: Yes: Other (trach collar) Cardiovascular: Yes: Regular Rate and Rhythm Respiratory: Yes: Rhonchi Gastrointestinal: Yes: Normal Bowel Sounds Edema: LLE: Trace, RLE: Trace Neurological: Yes: Alert, Oriented Labs: CBC, BMP 06/02/17 06:00 06/02/17 06:00 INR, PTT INR 1.24 (0.82-1.09) H 05/25/17 10:45 Problem List - Problems (1) Sepsis Assessment/Plan: abx per id 1 more day will dc him on sun Code(s): A41.9 - SEPSIS, UNSPECIFIED ORGANISM Qualifiers: Sepsis type: sepsis due to unspecified organism Qualified Code(s): A41.9 - Sepsis, unspecified organism; A41.9 - Sepsis, unspecified organism; A41.9 - Sepsis, unspecified organism (2) Septic shock Assessment/Plan: stable Code(s): A41.9 - SEPSIS, UNSPECIFIED ORGANISM R65.21 - SEVERE SEPSIS WITH SEPTIC SHOCK (3) VAP (ventilator-associated pneumonia) Code(s): J95.851 - VENTILATOR ASSOCIATED PNEUMONIA (4) Acute on chronic respiratory failure with hypoxia and hypercapnia Code(s): J96.21 - ACUTE AND CHRONIC RESPIRATORY FAILURE WITH HYPOXIA J96.22 - ACUTE AND CHRONIC RESPIRATORY FAILURE WITH HYPERCAPNIA (5) COPD (chronic obstructive pulmonary disease) Code(s): J44.9 - CHRONIC OBSTRUCTIVE PULMONARY DISEASE, UNSPECIFIED (6) PEG (percutaneous endoscopic gastrostomy) status Code(s): Z93.1 - GASTROSTOMY STATUS (7) Anemia Code(s): D64.9 - ANEMIA, UNSPECIFIED (8) Atrial fibrillation Code(s): I48.91 - UNSPECIFIED ATRIAL FIBRILLATION Qualifiers: Atrial fibrillation type: paroxysmal Qualified Code(s): I48.0 - Paroxysmal atrial fibrillation; I48.0 - Paroxysmal atrial fibrillation; I48.0 - Paroxysmal atrial fibrillation; I48.0 - Paroxysmal atrial fibrillation (9) CVA (cerebral infarction) Code(s): I63.9 - CEREBRAL INFARCTION, UNSPECIFIED (10) Diabetes mellitus Code(s): E11.9 - TYPE 2 DIABETES MELLITUS WITHOUT COMPLICATIONS Qualifiers: Diabetes mellitus type: type 2 Diabetes mellitus complication status: with unspecified complications Diabetes mellitus shelter insulin use: without shelter use Qualified Code(s): E11.8 - Type 2 diabetes mellitus with unspecified complications; E11.8 - Type 2 diabetes mellitus with unspecified complications; E11.8 - Type 2 diabetes mellitus with unspecified complications; E11.8 - Type 2 diabetes mellitus with unspecified complications; 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
[2017-06-11] MEDS: SENNOSIDES 8.6MG TABLET (FP) PO SCH (22:15)
[2017-06-11] MEDS: CHLORHEXIDINE GLUCONATE 4% CLEANSER FOR DECOLONIZATION TP SCH (22:19)
[2017-06-12] MEDS: CEFTAZIDIME PENTAHYDRATE 1 GM in DEXTROSE 5%-WATER - 50 ML IVPB SCH ×3 (02:08→17:55)
[2017-06-12] MEDS ORDERED: PT OWN MED DRAWER 7, Y5N ONE ×2 (10:57→17:27)
[2017-06-12] MEDS: LACTOBACILLUS ACIDOPHILUS 1 EACH TAB (FP) GT SCH (11:03)
[2017-06-12] MEDS: SERTRALINE HCL 50 MG TABLET (FP) GT SCH (11:03)
[2017-06-12] MEDS: URSODIOL 300 MG CAPSULE NR SCH (11:03)
[2017-06-12] MEDS: LISINOPRIL 5 MG TABLET (FP) GT SCH (11:03)
[2017-06-12] MEDS: RANITIDINE HCL 150 MG TABLET (FP) NR SCH (11:03)
[2017-06-12] MEDS: FLUTICASONE/SALMETEROL 100 MCG/50 MCG DISKUS IH SCH (11:04)
[2017-06-12] MEDS: NYSTATIN 100,000 UNIT/GM TOPICAL CREAM 15 GM TUBE TP SCH (11:05)
--- NOTE | 2017-06-12 14:33 | DS ---
Physical Examination Vital Signs: Vital Signs Temperature 98.5 F 06/12/17 06:00 Pulse Rate 61 06/12/17 10:15 Respiratory Rate 19 06/12/17 13:56 Blood Pressure 100/55 06/12/17 06:00 O2 Sat by Pulse Oximetry (%) 98 06/12/17 10:15 Constitutional: Yes: No Distress HENT: Yes: Atraumatic Neck: Yes: Other (trach/vent) Cardiovascular: Yes: Pulse Irregular Respiratory: Yes: Rhonchi Gastrointestinal: Yes: Normal Bowel Sounds, Other (peg in place) Extremities: Yes: Other (contractures...chronic, past cva) Edema: LLE: Trace, RLE: Trace Neurological: Yes: Alert, Oriented Labs: CBC, BMP 06/02/17 06:00 06/02/17 06:00 Discharge Summary Reason For Visit: RESP FAIL W/HYPOXIA;SEPTIC SHOCK;LEUKOCYTOSIS Current Active Problems Acute on chronic respiratory failure with hypoxia and hypercapnia (Acute) COPD (chronic obstructive pulmonary disease) (Acute) Calculus of gallbladder with chronic cholecystitis without obstruction (Acute) H/O acute cholecystitis (Acute) PEG (percutaneous endoscopic gastrostomy) status (Acute) Sepsis (Acute) Septic shock (Acute) VAP (ventilator-associated pneumonia) (Acute) Condition: Critical - Instructions Diet, Activity, Other Instructions: 1 more day of iv abx dc antibiotics on sunday Referrals: STAFF,NOT ON [Primary Care Provider] - - Home Medications Comprehensive Discharge Medication List: Ambulatory Orders Albuterol 0.083% Nebulizer Isis [Ventolin 0.083% Nebulizer Soln -] 1 neb NEB Q6H PRN 05/01/17 Amino Acids/Protein Hydrolys [Pro-Stat Awc Liquid] 30 ml GT DAILY 05/01/17 Ferrous Sulfate 7.5 ml GT DAILY 05/01/17 Hypromellose 0.5% Opth Soln [Artificial Tears] 1 drop OU TID 05/01/17 Ipratropium 0.02% Nebulizer [Atrovent 0.02% Nebulizer -] 1 amp NEB Q6H PRN 05/01 Lactobacillus Acidophilus [Bacid -] 1 each GT Q12H 05/01/17 Lactulose 10 gm GT HS 05/01/17 Potassium Chloride 10 meq GT DAILY 05/01/17 Ranitidine [Zantac -] 150 mg GT DAILY 05/01/17 Sennosides [Senna] 2 tab GT HS 05/01/17 Lisinopril [Zestril] 2.5 mg GT DAILY 05/21/17 Ranitidine HCl [Zantac] 150 mg GT DAILY 05/21/17 Sertraline HCl [Zoloft -] 50 mg GT DAILY 05/21/17 Albuterol 2.5/Ipratropium 0.5 [Duoneb -] 1 amp NEB Q4H PRN #0 amp 05/31/17 Mupirocin Ointment [Bactroban Ointment (For Decolonization) -] 1 applic NS BID applic 05/31/17 Salmeterol/Fluticasone [Advair 100Mcg/50Mcg -] 1 puff IH BID inhaler 05/31/17 Ursodiol [Actigal -] 300 mg NR BID tab 05/31/17 dc to snf
--- NOTE | 2017-06-12 17:04 | PN ---
Progress Note (short form) - Note Progress Note: PULMONARY APPEARS COMFORTABLE ON PRESENT VENT SETTING VSS/AFEBRILE ANICTERIC DISTANT B/L BREATH SOUNDS S1S2 BS+ 1+ EDEMA WITH HEEL B/L ULCERATIONS LABS/MEDS/NOTES/IMAGES/MICRO REVIEWED ASSESSMENT AND PLAN: Acute on Chronic Hypoxic and Hypercapneic Respiratory Failure Pneumonia Septic Shock resolving Anemia COPD Paroxysmal Atrial Fibrillation h/o CVA HTN DM - inhaled bronchodilators - O2 to keep SpO2 >90% - spontaneous breathing trials as tolerated - enteral feeds - DVT prophylaxsis - Same vent settings for now Elizabeth LAU MD
--- NOTE | 2017-06-12 17:31 | PN ---
Progress Note, Physician History of Present Illness: patient stable no new issues minimal secretions - Current Medication List Current Medications: Active Medications Chlorhexidine Gluconate (Hibiclens For Decolonization -) 1 applic TP HS [facility] Last Admin: 06/11/17 22:19 Dose: 1 applic Ceftazidime 1 gm/ Dextrose 50 mls @ 100 mls/hr IVPB Q8H-IV [facility] PRN Reason: Protocol Last Admin: 06/12/17 11:04 Dose: 100 mls/hr Lactobacillus Acidophilus (Bacid -) 1 tab GT BID [facility] Last Admin: 06/12/17 11:03 Dose: 1 tab Lisinopril (Prinivil) 2.5 mg GT DAILY [facility] Last Admin: 06/12/17 11:03 Dose: 2.5 mg Nystatin (Mycostatin Cream -) 1 applic TP BID [facility] Last Admin: 06/12/17 11:05 Dose: 1 applic Ranitidine HCl (Zantac -) 150 mg NR DAILY [facility] Last Admin: 06/12/17 11:03 Dose: 150 mg Fluticasone/Salmeterol (Advair 100mcg/50mcg -) 1 puff IH BID [facility] Last Admin: 06/12/17 11:04 Dose: Not Given Senna (Senna -) 2 tab PO HS [facility] Last Admin: 06/11/17 22:15 Dose: 2 tab Sertraline HCl (Zoloft -) 50 mg GT DAILY [facility] Last Admin: 06/12/17 11:03 Dose: 50 mg Ursodiol (Actigal -) 300 mg NR BID [facility] Last Admin: 06/12/17 11:03 Dose: 300 mg - Objective Vital Signs: Vital Signs Temperature 97.0 F L 06/12/17 14:39 Pulse Rate 72 06/12/17 14:39 Respiratory Rate 18 06/12/17 14:39 Blood Pressure 110/62 06/12/17 14:39 O2 Sat by Pulse Oximetry (%) 98 06/12/17 10:15 Constitutional: Yes: No Distress, Calm Cardiovascular: Yes: Regular Rate and Rhythm Respiratory: Yes: Mechanically Ventilated, Other (trach in place) Gastrointestinal: Yes: Normal Bowel Sounds, Soft Musculoskeletal: Yes: WNL Extremities: Yes: WNL Neurological: Yes: Alert, Oriented Psychiatric: Yes: Alert Labs: CBC, BMP 06/02/17 06:00 06/02/17 06:00 INR, PTT INR 1.24 (0.82-1.09) H 05/25/17 10:45 Assessment/Plan Problem List - Problems (1) Sepsis Code(s): A41.9 - SEPSIS, UNSPECIFIED ORGANISM (2) Septic shock Code(s): A41.9 - SEPSIS, UNSPECIFIED ORGANISM R65.21 - SEVERE SEPSIS WITH SEPTIC SHOCK (3) VAP (ventilator-associated pneumonia) Code(s): J95.851 - VENTILATOR ASSOCIATED PNEUMONIA (4) Chronic respiratory failure Code(s): J96.10 - CHRONIC RESPIRATORY FAILURE, UNSP W HYPOXIA OR HYPERCAPNIA (5) Diabetes mellitus Code(s): E11.9 - TYPE 2 DIABETES MELLITUS WITHOUT COMPLICATIONS 6 pneumonia plan isolation stop abx after today
[2017-06-12 18:19] VITALS: BP 107/71; PULSE 73; TEMP 98.6
== END 2017-06-12 19:59 | DRG 870 ==
LOC: JER 14:31 → JERBED 17:47 → JICU 18:58 → J5S 05-29 15:59
PROVIDERS: ADMIT Internal Medicine; ATTEND Internal Medicine
PROC: 3E0G76Z Introduction of Nutritional Substance into Upper GI, Via Natural or Artificial Opening (ICD-10-PCS; principal; 2017-05-21)
PROC: 5A1955Z Respiratory Ventilation, Greater than 96 Consecutive Hours (ICD-10-PCS; 2017-05-21)
PROC: 02HV33Z Insertion of Infusion Device into Superior Vena Cava, Percutaneous Approach (ICD-10-PCS; 2017-06-11)
DX: A41.89 Other specified sepsis (principal); R65.21 Severe sepsis with septic shock; J96.21 Acute and chronic respiratory failure with hypoxia; J95.851 Ventilator associated pneumonia; K80.10 Calculus of gallbladder with chronic cholecystitis without obstruction; J44.9 Chronic obstructive pulmonary disease, unspecified; I48.0 Paroxysmal atrial fibrillation; E66.8 Other obesity; Z68.26 Body mass index [BMI] 26.0-26.9, adult; R06.89 Other abnormalities of breathing; G47.33 Obstructive sleep apnea (adult) (pediatric); M10.9 Gout, unspecified; M32.8 Other forms of systemic lupus erythematosus; M06.80 Other specified rheumatoid arthritis, unspecified site; M19.90 Unspecified osteoarthritis, unspecified site; E87.6 Hypokalemia; M48.56XD Collapsed vertebra, not elsewhere classified, lumbar region, subsequent encounter for fracture with routine healing; E83.39 Other disorders of phosphorus metabolism; J32.8 Other chronic sinusitis; I45.19 Other right bundle-branch block; K57.90 Diverticulosis of intestine, part unspecified, without perforation or abscess without bleeding; K59.09 Other constipation; F32.89 Other specified depressive episodes; D64.9 Anemia, unspecified; M21.371 Foot drop, right foot; I12.9 Hypertensive chronic kidney disease with stage 1 through stage 4 chronic kidney disease, or unspecified chronic kidney disease; N18.9 Chronic kidney disease, unspecified; E11.22 Type 2 diabetes mellitus with diabetic chronic kidney disease; M21.372 Foot drop, left foot; Z66 Do not resuscitate; R00.0 Tachycardia, unspecified; L89.151 Pressure ulcer of sacral region, stage 1; L89.311 Pressure ulcer of right buttock, stage 1; L89.321 Pressure ulcer of left buttock, stage 1; L89.611 Pressure ulcer of right heel, stage 1; L89.621 Pressure ulcer of left heel, stage 1; Z93.1 Gastrostomy status; Z86.73 Personal history of transient ischemic attack (TIA), and cerebral infarction without residual deficits; Z86.718 Personal history of other venous thrombosis and embolism; Z99.81 Dependence on supplemental oxygen; Z93.0 Tracheostomy status; Z79.4 Long term (current) use of insulin
CPT/HCPCS: 36415; 36569; 36600; 71010-TC; 72192-TC; 74150-TC; 76705-TC; 77001-TC; 78226-TC; 80048; 80053; 80076; 81003; 81015; 82150; 82272; 82803; 83605; 83690; 83735; 84100; 84484; 85025; 85027; 85610; 86850; 86900; 86901; 87040; 87070; 87086; 87186; 87205; 90688; 93005; 93010; 94002; 94640; 99285-25; A9537; C1751; J1644; Q9967